=== PATIENT | female | born 1940 | race Caucasian/White ===

== ENCOUNTER 2017-09-20 13:47 | Emergency (ER) | payer MEDICARE, OTHER, SELFPAY ==
[2017-09-20 13:49] VITALS: BP 175/135; PULSE 7; RESP 19; TEMP 37.2; O2SAT 96; BMI 18.3
[2017-09-20 13:52] VITALS: BP 212/120; PULSE 95; RESP 22
--- NOTE | 2017-09-20 14:18 | CT_ITS ---
STUDY: CT BRAIN WITHOUT CONTRAST REASON FOR EXAM: Female, 76 years old. Headaches. History of multiple falls. RADIATION DOSAGE (If Supplied By Facility): CTDIvol = ( 60.81 ) mGy, DLP = ( 1021.47 ) mGycm TECHNIQUE: Transaxial CT imaging of the brain was performed without administration of intravenous contrast material. Individualized dose optimization techniques were used for this CT. COMPARISON: Comparison is made with prior study dated July 11, 2017. FINDINGS: Normal soft tissue structures. Normal calvarium. There is mild cerebral atrophy with widening of the extra-axial spaces and ventricular dilatation. There are areas of decreased attenuation within the white matter tracts of the supratentorial brain, consistent with microvascular disease changes. Normal basal ganglia and thalami. Normal brainstem. Normal cerebellum. There is no intracranial hemorrhage. There are no findings of an acute ischemic infarction. Atherosclerotic calcification of the cavernous portions of the internal carotid arteries. Opacification of the left sphenoid sinus. This is chronic. CT/Brain/Head without Contrast IMPRESSION: Chronic involutional changes of the brain. Opacification of the left sphenoid sinus. Electronically Signed: Trav Ko MD at 15:09 EST Tel [phone], Service support ,
--- NOTE | 2017-09-20 14:19 | CT_ITS ---
STUDY: CT CERVICAL SPINE WITHOUT CONTRAST REASON FOR EXAM: Female, 76 years old. Headaches. Multiple falls. RADIATION DOSAGE (If Supplied By Facility): CTDIvol = ( 17.091 ) mGy, DLP = ( 303.19 ) mGycm TECHNIQUE: High resolution transaxial imaging was performed without contrast material. Sagittal and coronal images were reconstructed. Individualized dose optimization techniques were used for this CT. COMPARISON: Comparison is made with prior study dated July 11, 2017. FINDINGS: Normal craniovertebral junction. There are degenerative changes of the anterior atlantoaxial articulation. Normal odontoid process. Calcification of the posterior longitudinal ligament. Normal cervical lordosis. Normal vertebral bodies and posterior osseous elements. C2-3: Normal endplates. Normal disc height and morphology. Normal central canal and intervertebral neuroforamina. C3-4: Normal endplates. Normal disc height and morphology. Normal central canal and intervertebral neuroforamina. C4-5: Moderate degree of disc space narrowing. Posterior and anterior spondylosis. Uncovertebral arthrosis. Facet joint hypertrophy. Stable mild degree of bilateral neural foraminal stenosis. This is worse on the left side. C5-6: Marked degree of disc space narrowing. Facet joint osteoarthritis and hypertrophy. Uncovertebral arthrosis. Bilateral neural foraminal stenosis. C6-7: Mild degree of disc space narrowing. Facet joint osteoarthritis and hypertrophy. Mild degree of bilateral neural foraminal stenosis. Normal visualized soft tissue structures. CT/Spine Cervical without Contras IMPRESSION: Multilevel degenerative changes, as described above. Electronically Signed: Trav Ko MD at 15:15 EST Tel [phone], Service support ,
[2017-09-20] MEDS: 0.9% Normal Saline 1,000 ML 150 ML IV (14:51)
[2017-09-20] MEDS: Ondansetron 4 MG/2 ML Vial IV (14:51)
[2017-09-20 14:58] VITALS: BP 182/89; PULSE 94; RESP 14; O2SAT 95
[2017-09-20 15:08] LABS: Absolute Lymphocyte Count 1.07 X10^3/ul (0.83-4.51); Absolute Neutrophil Count 8.8 X10^3/uL (2.0-7.7); Basophil# 0.03 X10^3/uL; Basophil% 0.3 % (0-1); Eosinophil# 0.07 X10^3/uL; Eosinophils% 0.6 % (0-5); Hematocrit 41.6 % (37-47); Hemoglobin 13.3 g/dl (12.0-15.0); Lymphocyte # 1.07 X10^3/ul (4.0); Lymphocyte % 9.7 % (19-41); Mean Corpuscular Volume 90.8 fL (81-99); Mean Platelet Vol. 10.3 fl (6.2-12.0); Monocyte# 0.92 X10^3/uL; Monocyte% 8.3 % (0-10); Neutrophil # 8.84 X10^3/uL (2.7-7.7); Neutrophil % 80.3 % (47-70); POSITIVE COUNT NO; POSITIVE DIFFERENTIAL NO; POSITIVE MORPHOLOGY NO; Platelet Count 141 K/mm3 (150-450); RBC Distribution Width CV 15.1 % (11.6-14.6); RBC Distribution Width SD 50.2 fl (35.1-43.9); Red Blood Count 4.58 M/mm3 (4.2-5.4)
[2017-09-20 15:22] LABS: Anion Gap 9 (5-15); BUN 18 mg/dL (7-18); BUN/Creat Ratio 28.5 RATIO (10-20); Calcium,Total 9.2 mg/dL (8.5-10.1); Chloride 107 mmol/L (98-107); Creatinine, Serum 0.63 mg/dL (0.55-1.02); EST Glomerular Filtration Rate 98 mL/min (>60); Est Glom Filt Rate - Afr Amer 118 mL/min (>60); Estimated Creatinine Clearance 34.81 ml/min; Glucose 90 mg/dL (70-110); Potassium 3.4 mmol/L (3.5-5.1); Sodium Level 142 mmol/L (136-145)
[2017-09-20 15:53] VITALS: BP 173/103; PULSE 101; RESP 24; O2SAT 96
[2017-09-20 16:10] VITALS: BP 163/109; PULSE 103; RESP 22; O2SAT 96
[2017-09-20 17:10] VITALS: BP 171/104; PULSE 104; RESP 25; O2SAT 93
--- NOTE | 2017-09-20 17:14 | ED.DCSUM_ITS ---
- ER Visit Summary Date of Service: 09/20/17 Chief Complaint: Headache History of Present Illness: The patient is a [address] Linn. She reports that she has a headache that began yesterday. It is gradually gotten worse. It is a throbbing pain is 10 out of 10 severity. Is worsened by light and relieved by nothing. She has had nausea without vomiting. She denies any fever. She does report that she has a little bit of sore throat. Patient fell 2 days ago and hit the bed. She fell yesterday and hit her head in the bathroom. She did not have a loss of consciousness. She is not on blood thinners. She does complain of neck pain is 3 out of 10 severity. She denies any shoulder, wrist, or hip pain. Physical Examination: Vitals: Stable. Afebrile. General: Well-nourished and well-developed. Head: Normocephalic atraumatic. Neck: Supple, no lymphadenopathy. No JVD. Mild diffuse tenderness to palpation. Cardiovascular: Regular rate and rhythm. No murmurs. Respiratory: No respiratory distress. Clear to auscultation bilaterally. Abdominal: Soft, nontender, nondistended, normal bowel sounds. No guarding, rebound, or peritoneal signs. Back: Nontender. Extremities: Nontender, no edema. Skin: Multiple contusions scattered over extremities bilaterally that are in different stages of healing, no rash. Neurologic: Alert and oriented ?3. Cranial nerves II through XII are intact. Normal strength and sensation. Psych: Normal affect. Test Results: CT head shows chronic involutional changes. CT C-spine shows degenerative changes. CBC is remarkable for platelets 141, segmented neutrophils of 80, lymphocytes of 10. Potassium is marked for potassium 3.4. Emergency Department Course and Treatment: She was treated with morphine and Zofran IV. She continues to complain of a severe headache. At 430 I discussed the patient the need for a lumbar puncture. She is alert and oriented ?3 and refuses this. I had case management see the patient. They were able to get her to agree to the LP. When I went back again and talk with her about doing the procedure she again refused. Treatment Plan: The patient wants to go home and has pulled out her IV. Again she is alert and oriented ?3. I discussed her with Dr. Sanders who states that he will see her Saturday morning at 9 AM. I discussed her behavior with her daughter who reports that this is not unusual behavior for her. She and her sister have obtained power of ip technology transactions attorney, but have not been able to make arrangements for her to stay at an assisted living due to financial issues. They report that they got a neighbor to stay with her and she kicked her out. She also reports the patient had back surgery in 2017 and at that time she had to be restrained while she was in the hospital. At this time I suspect the patient is at her baseline mental status vora. I cannot justify restraining her and admitting her to the hospital. Her daughter reports that she will follow up with her this weekend. I did discuss with daughter that it is just a matter of time until the patient falls and injured herself to the point where she is no longer capable of staying at home and she reports that she realizes this. The patient will be signed out AGAINST MEDICAL ADVICE. Disposition: Left AMA. Impression: 1. Cephalgia. 2. Repeated falls. 3. Generalized weakness. This note was generated with [employer] dictation software. It may contain incorrect words, spelling, and punctuation that were not noted in review of the chart prior to signing ED Disposition - Plan for ED Patient: Chief Complaint: Headache Instructions: ED Cephalgia Unspecified Referrals: Anton Linn Chi, MD [Primary Care Provider] - 09/23/17 9:00 am
[2017-09-20 17:16] LABS: Bacteria 0 SEEN /hpf (None Seen); Mucous, Urine 0 SEEN /hpf (<or=2+); Squamous Epithelial Cells - UA 0 SEEN /hpf (5-10); White Blood Cells 0 SEEN /hpf (0-5)
--- NOTE | 2017-09-20 17:18 | NURSING ---
FACILITY ENGINEER FOR PATIENT
[2017-09-20 17:20] LABS: Color, Urine Yellow (Yellow); Glucose, Dipstick Normal (Normal); Ketone-Dipstick 50 mg/dl (Negative); Leukocyte Esterase-Dipstick Negative /ul (Negative); Nitrite-Dipstick Negative (Negative); Occult Blood-Urine 10 /ul (Negative); Protein-Dipstick 15 mg/dl (Negative); Specific Gravity, Urine 1.025 (1.002-1.030); Urine Bilirubin Dipstick Negative (Negative); Urine Clarity Clear (Clear); Urine Urobilinogen Normal (Normal)
[2017-09-20 17:33] LABS: Red Blood Cells-Urine 0-5 SEEN /hpf (0-5)
--- NOTE | 2017-09-20 17:36 | CASEMGMT ---
Addendum entered by Rochelle Dudley 09/23/17 15:54: F/u call placed to Clarita Amador of [facility]; message left advising pt did sign out AMA on 09/20/17 but returned to the ED on 09/22/17 and was admitted. Contact information for ANGELICA Rosado, DRESSMAKER HELPER left in this message as this is the worker following pt's case now that she has been admitted. Discussed with ANGELICA Rosado, LIS, as well. Original Note: Addendum entered by Rochelle Dudley 09/20/17 17:54: Spoke with Dr. Lamb, who advised pt is again refusing the LP. Discussed contacting pt's PCP and her dgtr for additional information/direction. Message left for Clarita Amador, APS worker, re: concerns. Dr. Lamb notified of same. Original Note: Referral received from Dr. Lamb, who requested this worker please speak with pt re: compliance with ED evaluation and treatment. Pt presented with c/o headache and Dr. Lamb recommended an LP, which pt had refused. Met with pt, whose friend Dwayne was at the bedside. Pt has lived alone since the of her nine years ago. She has a dgtr who lives in [place] but they do not have regular contact. Dwayne stated that he visits pt every day but leaves at 9pm and she is alone all night. Per Dwayne pt has had four falls within the last week. Pt has an emergency response button but does not wear it consistently. She has a history of home health therapy following back surgery at the [facility] in November, but has had not in-home services since sometime before 2016. Pt has a neighbor who assists with homemaking and some meal preparation. She told this worker that she wished to go home with no further testing, stating, I just want to lie down on the couch and hope this headache does away. Discussed with pt that identifying the cause of her headache would assist significantly in staff's ability to alleviate her discomfort. Pt said she would be agreeable to having the LP completed in the ED, but would not agree to stay in the hospital regardless of the results. Asked pt who normally assists her in making her medical decisions and she responded that Dr. Linn does, but when asked if she would stay here should ED staff consult Dr. Linn and he agrees she should remain in the hospital she said she would still go home. Pt stated there is nothing anyone can say that will make her change her mind about going home tonight. Discussed with Dr. Lamb and explained pt had voiced willingness to have the LP completed. At present dispo is TBD.
--- NOTE | 2017-09-20 17:58 | NURSING ---
NO LW OR POA
--- NOTE | 2017-09-20 18:23 | ED.RN ---
ATTEMPTED TO CALL PT AT HOME BUSY SIGNAL, NOT ABLE TO LEAVE A MESSAGE THAT SHE LEFT HER PURSE HERE
== END 2017-09-20 18:20 | disposition home or self-care (01) ==
PROVIDERS: Emergency Provider Emergency Medicine; Family Provider Family Medicine Geriatric Medicine; PCP Family Medicine Geriatric Medicine
DX: R51 Headache (principal); R29.6 Repeated falls; R53.1 Weakness; R11.0 Nausea; I10 Essential (primary) hypertension; Z72.0 Tobacco use; Z79.899 Other long term (current) drug therapy
CPT/HCPCS: 70450; 72125; 80048; 81001; 85025; 96361; 96374; 96375; 99285; J7040; P9612; A4216; J2405

== ENCOUNTER 2017-09-22 11:34 | Inpatient (IN) | payer MEDICARE, SELFPAY, OTHER ==
[2017-09-22] VITALS (9 sets, daily range): BP systolic 101–169; BP diastolic 70–103; PULSE 80–111; RESP 16–28; TEMP 36.6–37.1; O2SAT 93–100; BMI 19.5; BMI 17.2
--- NOTE | 2017-09-22 12:19 | CT_ITS ---
STUDY: CT BRAIN WITHOUT CONTRAST REASON FOR EXAM: Female, 76 years old. Head injury RADIATION DOSAGE (If Supplied By Facility): CTDIvol = ( 44.99 ) mGy, DLP = ( 745.49 ) mGycm TECHNIQUE: Transaxial CT imaging of the brain was performed without administration of intravenous contrast material. Individualized dose optimization techniques were used for this CT. COMPARISON: September 20, 2017 FINDINGS: The soft tissues are unremarkable. The osseous structures are unremarkable. There is mild cerebral atrophy with widening of the extra-axial spaces and ventricular dilatation. There are scattered small areas of decreased attenuation within the white matter tracts of the supratentorial brain, likely microvascular changes. The basal ganglia and thalami are unremarkable. No abnormalities are seen in the brainstem. The cerebellum is unremarkable. There is no intracranial hemorrhage. There are no findings of acute ischemia. There is near complete opacification of the left sphenoid sinus. CT/Brain/Head without Contrast IMPRESSION: No acute intracranial abnormalities or changes. There are stable chronic white matter findings. There is persistent left sphenoid sinusitis. Electronically Signed: Haven Newby MD at 13:17 EST Tel Direct: [phone], Service support ,
--- NOTE | 2017-09-22 12:20 | EKG12_ITS ---
Test Reason : FALL Blood Pressure : / mmHG Vent. Rate : 092 BPM Atrial Rate : 092 BPM P-R Int : 146 ms QRS Dur : 084 ms QT Int : 324 ms P-R-T Axes : 065 -40 014 degrees QTc Int : 400 ms Normal sinus rhythm Left axis deviation Inferior infarct , age undetermined Abnormal ECG Confirmed by JOCELYNN VASQUEZ, IBETH ([id number]), magazine editor DANIEL BARRIENTOS ([id number]) on 09/24/2017 10:46:41 AM Referred By: KWAKU Confirmed By:IBETH CABEZAS MD
--- NOTE | 2017-09-22 12:21 | RAD_ITS ---
STUDY: X-RAY CHEST REASON FOR EXAM: Female, 76 years old. Injury and pain TECHNIQUE: Frontal and lateral views of the chest were obtained. COMPARISON: May 12, 2017 FINDINGS: The lungs are adequately aerated. There are no focal airspace opacities. There is no demonstrated pleural abnormality. The cardiac silhouette is normal in size. The mediastinum and hilar regions are unremarkable. Normal visualized pulmonary arteries. There is atherosclerotic calcification of the thoracic aorta. There are diffuse degenerative changes of the visualized spine. Compression fractures are again seen in the mid thoracic spine and upper lumbar spine. There are degenerative changes in both shoulders. There is no demonstrated abnormality of the visualized upper abdomen. RAD/Chest PA and Lateral IMPRESSION: No acute abnormalities are seen. Electronically Signed: Haven Newby MD at 13:20 EST Tel Direct: [phone], Service support ,
[2017-09-22 12:39] LABS: Absolute Lymphocyte Count 0.86 X10^3/ul (0.83-4.51); Absolute Neutrophil Count 8.3 X10^3/uL (2.0-7.7); Basophil# 0.05 X10^3/uL; Basophil% 0.5 % (0-1); Eosinophil# 0.04 X10^3/uL; Eosinophils% 0.4 % (0-5); Hematocrit 38.6 % (37-47); Lymphocyte # 0.86 X10^3/ul (4.0); Lymphocyte % 8.2 % (19-41); Mean Corp Hgb Conc 33.7 g/gl (32-36); Mean Corpuscular Volume 88.9 fL (81-99); Mean Platelet Vol. 10.2 fl (6.2-12.0); Monocyte# 1.15 X10^3/uL; Neutrophil # 8.31 X10^3/uL (2.7-7.7); Neutrophil % 79.1 % (47-70); POSITIVE COUNT NO; POSITIVE DIFFERENTIAL NO; POSITIVE MORPHOLOGY NO; Platelet Count 150 K/mm3 (150-450); RBC Distribution Width SD 47.9 fl (35.1-43.9); Red Blood Count 4.34 M/mm3 (4.2-5.4); White Blood Count 10.5 K/mm3 (4.4-11.0)
[2017-09-22 12:59] LABS: ALB/GLOB Ratio 1.1 RATIO (0.9-2.4); AST(SGOT) 72 U/L (15-37); Alanine Aminotransfer ALT/SGPT 138 U/L (12-78); Albumin, Serum 3.4 g/dL (3.4-5.0); Alkaline Phosphatase 137 U/L (45-117); Anion Gap 8 (5-15); BUN 10 mg/dL (7-18); BUN/Creat Ratio 16.5 RATIO (10-20); Calcium,Total 9.2 mg/dL (8.5-10.1); Chloride 104 mmol/L (98-107); EST Glomerular Filtration Rate 102 mL/min (>60); Est Glom Filt Rate - Afr Amer 124 mL/min (>60); Estimated Creatinine Clearance 34.81 ml/min; Globulin 3.2 g/dL (2.2-4.2); Glucose 93 mg/dL (70-110); Lipase 74 U/L (73-393); Potassium 3.1 mmol/L (3.5-5.1); Protein, Total 6.6 g/dL (6.4-8.2); Sodium Level 140 mmol/L (136-145)
[2017-09-22 13:14] LABS: Bacteria 0 SEEN /hpf (None Seen); Mucous, Urine 0 SEEN /hpf (<or=2+)
[2017-09-22 13:17] LABS: Color, Urine Yellow (Yellow); Glucose, Dipstick Normal (Normal); Ketone-Dipstick 15 mg/dl (Negative); Leukocyte Esterase-Dipstick 25 /ul (Negative); Nitrite-Dipstick Negative (Negative); Occult Blood-Urine 10 /ul (Negative); Protein-Dipstick 30 mg/dl (Negative); Specific Gravity, Urine 1.015 (1.002-1.030); Urine Bilirubin Dipstick Negative (Negative); Urine Clarity Clear (Clear); Urine Urobilinogen Normal (Normal)
[2017-09-22 13:21] LABS: Alcohol, Blood (Medical)-Serum < 3.0 mg/dL
[2017-09-22 13:23] LABS: Red Blood Cells-Urine 0-5 SEEN /hpf (0-5); Renal Epithelial Cells 0-5 SEEN /hpf (0-5); Squamous Epithelial Cells - UA 0-5 SEEN /hpf (5-10); White Blood Cells 0-5 SEEN /hpf (0-5)
[2017-09-22 13:37] LABS: Amphetamine Urine VISTA NEGATIVE (<1000 ng/mL); Barbiturate Urine VISTA NEGATIVE (< 200 ng/mL); Benzodiazepine Urine VISTA POSITIVE (< 200 ng/mL); Cocaine Urine VISTA NEGATIVE (< 300 ng/mL); Ecstacy Urine VISTA NEGATIVE (< 500 ng/mL); Methadone Urine VISTA NEGATIVE (< 300 ng/mL); PCP Urine VISTA NEGATIVE (< 25 ng/mL); THC Urine VISTA NEGATIVE (< 50 ng/mL); Vista UDS pH Range 6
--- NOTE | 2017-09-22 14:43 | PCM.HP.STD ---
Problem List (1) Failure to thrive Status: Acute (2) Hypertension Status: Chronic (3) Depression Status: Chronic History of Present Illness Date of Admission: 09/22/17 Chief Complaint: falls The patient is a 76 year old Fwho has been falling for years. The falls have been much more frequent over the past few days. The family was concerned and brought the patient into the ED to be placed. Pt does not elaborate on why she is falling and jokes the floor comes towards her face when I inquire. Family reports that the patient has hit her head several times with falls over the years. [] Past Medical History Past Medical History (Chronic Problems): Chronic Problems Hypertension (Chronic) Depression (Chronic) Allergies No Known Allergies Allergy (Verified 09/22/17 11:40) Home Medications: Ambulatory Orders Medication Instructions Recorded Levothyroxine [Synthroid] 88 mcg PO DAILY 02/11/14 Hydrochlorothiazide [Hctz] 25 mg PO DAILY 12/03/14 Potassium Chloride [K-Dur] 20 meq PO TID 08/10/15 Paroxetine HCl [Paxil] 40 mg PO DAILY 01/09/17 Garlic 07/11/17 Cephalexin [Cephalexin] 1 tab PO TID 09/22/17 Diazepam [Valium] 1 tab PO TID 09/22/17 Linaclotide [Linzess] 1 tab PO DAILY 09/22/17 Mirtazapine [Mirtazapine] 1 tab PO QHS 09/22/17 Surgical History: cholecystectomy, - - back surgery at [facility] in November 2016. Psychiatric History: Depression DIRECTOR OF MATERIALS MANAGEMENT History: No pertinent DIRECTOR OF MATERIALS MANAGEMENT history Lives: Alone Tobacco Use: Non-smoker Alcohol: None Drugs: None - *Family History Maternal History Items: - - no stroke. Review of Systems Constitutional: Denies: Chills, Fever, Weight Change Eyes: Denies: Blurred vision, Double vision HEENT: Denies: Head Aches, Sinus Congestion, Sinus Drainage Cardiovascular: Denies: Chest Pain, Palpitations Respiratory: Denies: Cough, Shortness of breath at rest, Sputum production Gastrointestinal: Denies: Abdominal Pain, Nausea, Vomiting Genitourinary: Denies: Dysuria Musculoskeletal: Denies: Joint Pain, Joint Tenderness Skin: Reports: - - brusing skin tear Neurological: Reports: Balance problems. Denies: Blurred vision, Double vision Psychiatric: Reports: Depression. Denies: Anxiety Hematologic/ Lymphatic: Denies: Easy Bruising, Easy Bleeding, Hx of blood clot VTE Information - Inpt Only VTE Present on Admission: No VTE Mechan Device Prophylaxis: SCD's VTE Pharm Prophylaxis ordered?: No Reason prophylaxis not ordered:: Medical Contraindication Patient Problems: Active and Suspected Problems Failure to thrive (Acute) - Physical Exam General: Alert, - - oriented x2. HEENT: Atraumatic, PERRLA, EOMI, Normocephalic Oral: Moist Mucosa, No Gingival or Mucosal Lesions/ Ulcerations Neck: No Nodes, Thyroid Normal Size and Texture Lungs: Clear to auscultation, Normal air movement, No rhonchi, No wheeze Cardiovascular: Regular rate, Regular Rhythm, Normal S1, Normal S2, No murmurs Abdomen: Bowel Sounds Present, Soft, Non Tender, Non-Distended, No Hepato-splenomegaly Extremities: No clubbing, No edema Skin: No rashes, - - bruinng on upper and lower extremities. Left upper wrapped in gauze, did not remove. Musculoskeletal: No Tenderness to Palpation of Joints or Extremities, Cachexia, Muscle Wasting Neurological: Cranial nerves II-XII grossly intact, Motor Exam 5/5 strength throughout Psych/Mental Status: Normal Affect, Appropriate Vital Signs Temp Pulse Resp BP Pulse Ox 37.1 C 96 28 H 169/91 H 93 09/22/17 11:35 09/22/17 13:59 09/22/17 13:59 09/22/17 13:59 09/22/17 11:35 Oxygen Delivery Method Room Air Weight: 45.359 kg Body Mass Index (BMI) 19.5 Laboratory Tests Past 24 Hrs 09/22/17 09/22/17 09/22/17 12:30 12:30 12:30 WBC 10.5 RBC 4.34 Hgb 13.0 Hct 38.6 MCV 88.9 MCH 30.0 MCHC 33.7 RDW 15.0 H RDW Differential 47.9 H Plt Count 150 MPV 10.2 Immature Gran % (Auto) 0.800 Neut % (Auto) 79.1 H Lymph % (Auto) 8.2 L Riley % (Auto) 11.0 H Eos % (Auto) 0.4 Baso % (Auto) 0.5 Absolute Neuts (auto) 8.3 H Absolute Lymphs (auto) 0.86 Total Counted Not Reportable Sodium 140 Potassium 3.1 L Chloride 104 Carbon Dioxide 28.0 Anion Gap 8 BUN 10 Creatinine 0.60 Estim Creat Clear Calc 34.81 Est GFR (MDRD) Af Amer 124 Est GFR (MDRD) Non-Af 102 BUN/Creatinine Ratio 16.5 Glucose 93 Calcium 9.2 Total Bilirubin 0.60 AST 72 H ALT 138 H Alkaline Phosphatase 137 H Troponin I < 0.02 Total Protein 6.6 Albumin 3.4 Globulin 3.2 Albumin/Globulin Ratio 1.1 Lipase 74 Urine Color Urine Clarity Urine pH Ur Specific [place] Urine Protein Urine Glucose (UA) Urine Ketones Urine Occult Blood Urine Nitrite Urine Bilirubin Urine Urobilinogen Ur Leukocyte Esterase Urine RBC Urine WBC Ur Squamous Epith Cells Ur Renal Epithelial Cell Urine Bacteria Urine Mucus Urine Opiates Screen Urine Methadone Screen Ur Barbiturates Screen Ur Phencyclidine Scrn Ur Amphetamines Screen U Methamphetamin-MDMA U Benzodiazepines Scrn Urine Cocaine Screen U Cannabinoids Screen Ur Drug Screen Comment Ethyl Alcohol < 3.0 09/22/17 09/22/17 13:05 13:05 WBC RBC Hgb Hct MCV MCH MCHC RDW RDW Differential Plt Count MPV Immature Gran % (Auto) Neut % (Auto) Lymph % (Auto) Riley % (Auto) Eos % (Auto) Baso % (Auto) Absolute Neuts (auto) Absolute Lymphs (auto) Total Counted Sodium Potassium Chloride Carbon Dioxide Anion Gap BUN Creatinine Estim Creat Clear Calc Est GFR (MDRD) Af Amer Est GFR (MDRD) Non-Af BUN/Creatinine Ratio Glucose Calcium Total Bilirubin AST ALT Alkaline Phosphatase Troponin I Total Protein Albumin Globulin Albumin/Globulin Ratio Lipase Urine Color Yellow Urine Clarity Clear Urine pH 6.0 Ur Specific [place] 1.015 Urine Protein 30 H Urine Glucose (UA) Normal Urine Ketones 15 H Urine Occult Blood 10 H Urine Nitrite Negative Urine Bilirubin Negative Urine Urobilinogen Normal Ur Leukocyte Esterase 25 H Urine RBC 0-5 SEEN Urine WBC 0-5 SEEN Ur Squamous Epith Cells 0-5 SEEN Ur Renal Epithelial Cell 0-5 SEEN Urine Bacteria 0 SEEN Urine Mucus 0 SEEN Urine Opiates Screen NEGATIVE Urine Methadone Screen NEGATIVE Ur Barbiturates Screen NEGATIVE Ur Phencyclidine Scrn NEGATIVE Ur Amphetamines Screen NEGATIVE U Methamphetamin-MDMA NEGATIVE U Benzodiazepines Scrn POSITIVE H Urine Cocaine Screen NEGATIVE U Cannabinoids Screen NEGATIVE Ur Drug Screen Comment Ethyl Alcohol Clinical Impression(s) from Imaging Studies Brain CT 09/22/17 12:19 IMPRESSION: No acute intracranial abnormalities or changes. There are stable chronic white matter findings. There is persistent left sphenoid sinusitis. Electronically Signed: Haven Newby MD at 13:17 EST Tel Direct: [phone], Service support , Chest X-Ray 09/22/17 12:21 IMPRESSION: No acute abnormalities are seen. Electronically Signed: Haven Newby MD at 13:20 EST Tel Direct: [phone], Service support , Assessment/Plan Active and Suspected Problems Failure to thrive (Acute) 1. Failure to thrive pt has been falling for years, now very frequent. unable to adequately care for herself pt agreeable to being admitted and seen by PT/OT and SNF placement I advised family, who brought her in, that the patient will brought in under obs status, which may an issue for reimbursement. Case mgmt to assist check B12, folate, 25OH-d 2. Depression/anxiety continue SSRI Wean benzo to off. Risk >>> benefits On diazepam 5mg TID. Will start wean at BID PRN for 1 week, then daily PRN for 1 week, then every other day x3 PRN, then off 3. Cachexia: nutrition 4. DVT proph given the patient's extensive bruising, will use SSRI Code Visit OBSV E&M: [id number] Initial observation care L3
--- NOTE | 2017-09-22 14:54 | HP.PCM_ITS ---
Problem List (1) Failure to thrive Status: Acute (2) Hypertension Status: Chronic (3) Depression Status: Chronic History of Present Illness Date of Admission: 09/22/17 Chief Complaint: falls The patient is a 76 year old Fwho has been falling for years. The falls have been much more frequent over the past few days. The family was concerned and brought the patient into the ED to be placed. Pt does not elaborate on why she is falling and jokes the floor comes towards her face when I inquire. Family reports that the patient has hit her head several times with falls over the years. [] Past Medical History Past Medical History (Chronic Problems): Chronic Problems Hypertension (Chronic) Depression (Chronic) Allergies No Known Allergies Allergy (Verified 09/22/17 11:40) Home Medications: Ambulatory Orders Medication Instructions Recorded Levothyroxine [Synthroid] 88 mcg PO DAILY 02/11/14 Hydrochlorothiazide [Hctz] 25 mg PO DAILY 12/03/14 Potassium Chloride [K-Dur] 20 meq PO TID 08/10/15 Paroxetine HCl [Paxil] 40 mg PO DAILY 01/09/17 Garlic 07/11/17 Cephalexin [Cephalexin] 1 tab PO TID 09/22/17 Diazepam [Valium] 1 tab PO TID 09/22/17 Linaclotide [Linzess] 1 tab PO DAILY 09/22/17 Mirtazapine [Mirtazapine] 1 tab PO QHS 09/22/17 Surgical History: cholecystectomy, - - back surgery at [facility] in November 2016. Psychiatric History: Depression NURSERYPERSON History: No pertinent NURSERYPERSON history Lives: Alone Tobacco Use: Non-smoker Alcohol: None Drugs: None - *Family History Maternal History Items: - - no stroke. Review of Systems Constitutional: Denies: Chills, Fever, Weight Change Eyes: Denies: Blurred vision, Double vision HEENT: Denies: Head Aches, Sinus Congestion, Sinus Drainage Cardiovascular: Denies: Chest Pain, Palpitations Respiratory: Denies: Cough, Shortness of breath at rest, Sputum production Gastrointestinal: Denies: Abdominal Pain, Nausea, Vomiting Genitourinary: Denies: Dysuria Musculoskeletal: Denies: Joint Pain, Joint Tenderness Skin: Reports: - - brusing skin tear Neurological: Reports: Balance problems. Denies: Blurred vision, Double vision Psychiatric: Reports: Depression. Denies: Anxiety Hematologic/ Lymphatic: Denies: Easy Bruising, Easy Bleeding, Hx of blood clot VTE Information - Inpt Only VTE Present on Admission: No VTE Mechan Device Prophylaxis: SCD's VTE Pharm Prophylaxis ordered?: No Reason prophylaxis not ordered:: Medical Contraindication Patient Problems: Active and Suspected Problems Failure to thrive (Acute) - Physical Exam General: Alert, - - oriented x2. HEENT: Atraumatic, PERRLA, EOMI, Normocephalic Oral: Moist Mucosa, No Gingival or Mucosal Lesions/ Ulcerations Neck: No Nodes, Thyroid Normal Size and Texture Lungs: Clear to auscultation, Normal air movement, No rhonchi, No wheeze Cardiovascular: Regular rate, Regular Rhythm, Normal S1, Normal S2, No murmurs Abdomen: Bowel Sounds Present, Soft, Non Tender, Non-Distended, No Hepato- splenomegaly Extremities: No clubbing, No edema Skin: No rashes, - - bruinng on upper and lower extremities. Left upper wrapped in gauze, did not remove. Musculoskeletal: No Tenderness to Palpation of Joints or Extremities, Cachexia, Muscle Wasting Neurological: Cranial nerves II-XII grossly intact, Motor Exam 5/5 strength throughout Psych/Mental Status: Normal Affect, Appropriate Vital Signs Temp Pulse Resp BP Pulse Ox 37.1 C 96 28 H 169/91 H 93 09/22/17 11:35 09/22/17 13:59 09/22/17 13:59 09/22/17 13:59 09/22/17 11:35 Oxygen Delivery Method Room Air Weight: 45.359 kg Body Mass Index (BMI) 19.5 Laboratory Tests Past 24 Hrs 09/22/17 09/22/17 09/22/17 12:30 12:30 12:30 WBC 10.5 RBC 4.34 Hgb 13.0 Hct 38.6 MCV 88.9 MCH 30.0 MCHC 33.7 RDW 15.0 H RDW Differential 47.9 H Plt Count 150 MPV 10.2 Immature Gran % (Auto) 0.800 Neut % (Auto) 79.1 H Lymph % (Auto) 8.2 L [place] % (Auto) 11.0 H Eos % (Auto) 0.4 Baso % (Auto) 0.5 Absolute Neuts (auto) 8.3 H Absolute Lymphs (auto) 0.86 Total Counted Not Reportable Sodium 140 Potassium 3.1 L Chloride 104 Carbon Dioxide 28.0 Anion Gap 8 BUN 10 Creatinine 0.60 Estim Creat Clear Calc 34.81 Est GFR (MDRD) Af Amer 124 Est GFR (MDRD) Non-Af 102 BUN/Creatinine Ratio 16.5 Glucose 93 Calcium 9.2 Total Bilirubin 0.60 AST 72 H ALT 138 H Alkaline Phosphatase 137 H Troponin I < 0.02 Total Protein 6.6 Albumin 3.4 Globulin 3.2 Albumin/Globulin Ratio 1.1 Lipase 74 Urine Color Urine Clarity Urine pH Ur Specific [place] Urine Protein Urine Glucose (UA) Urine Ketones Urine Occult Blood Urine Nitrite Urine Bilirubin Urine Urobilinogen Ur Leukocyte Esterase Urine RBC Urine WBC Ur Squamous Epith Cells Ur Renal Epithelial Cell Urine Bacteria Urine Mucus Urine Opiates Screen Urine Methadone Screen Ur Barbiturates Screen Ur Phencyclidine Scrn Ur Amphetamines Screen U Methamphetamin-MDMA U Benzodiazepines Scrn Urine Cocaine Screen U Cannabinoids Screen Ur Drug Screen Comment Ethyl Alcohol < 3.0 09/22/17 09/22/17 13:05 13:05 WBC RBC Hgb Hct MCV MCH MCHC RDW RDW Differential Plt Count MPV Immature Gran % (Auto) Neut % (Auto) Lymph % (Auto) [place] % (Auto) Eos % (Auto) Baso % (Auto) Absolute Neuts (auto) Absolute Lymphs (auto) Total Counted Sodium Potassium Chloride Carbon Dioxide Anion Gap BUN Creatinine Estim Creat Clear Calc Est GFR (MDRD) Af Amer Est GFR (MDRD) Non-Af BUN/Creatinine Ratio Glucose Calcium Total Bilirubin AST ALT Alkaline Phosphatase Troponin I Total Protein Albumin Globulin Albumin/Globulin Ratio Lipase Urine Color Yellow Urine Clarity Clear Urine pH 6.0 Ur Specific [place] 1.015 Urine Protein 30 H Urine Glucose (UA) Normal Urine Ketones 15 H Urine Occult Blood 10 H Urine Nitrite Negative Urine Bilirubin Negative Urine Urobilinogen Normal Ur Leukocyte Esterase 25 H Urine RBC 0-5 SEEN Urine WBC 0-5 SEEN Ur Squamous Epith Cells 0-5 SEEN Ur Renal Epithelial Cell 0-5 SEEN Urine Bacteria 0 SEEN Urine Mucus 0 SEEN Urine Opiates Screen NEGATIVE Urine Methadone Screen NEGATIVE Ur Barbiturates Screen NEGATIVE Ur Phencyclidine Scrn NEGATIVE Ur Amphetamines Screen NEGATIVE U Methamphetamin-MDMA NEGATIVE U Benzodiazepines Scrn POSITIVE H Urine Cocaine Screen NEGATIVE U Cannabinoids Screen NEGATIVE Ur Drug Screen Comment Ethyl Alcohol Clinical Impression(s) from Imaging Studies Brain CT 09/22/17 12:19 IMPRESSION: No acute intracranial abnormalities or changes. There are stable chronic white matter findings. There is persistent left sphenoid sinusitis. Electronically Signed: Haven eNwby MD at 13:17 EST Tel Direct: [phone], Service support , Chest X-Ray 09/22/17 12:21 IMPRESSION: No acute abnormalities are seen. Electronically Signed: Haven Newby MD at 13:20 EST Tel Direct: [phone], Service support , Assessment/Plan Active and Suspected Problems Failure to thrive (Acute) 1. Failure to thrive pt has been falling for years, now very frequent. unable to adequately care for herself pt agreeable to being admitted and seen by PT/OT and SNF placement I advised family, who brought her in, that the patient will brought in under obs status, which may an issue for reimbursement. Case mgmt to assist check B12, folate, 25OH-d 2. Depression/anxiety continue SSRI Wean benzo to off. Risk >>> benefits On diazepam 5mg TID. Will start wean at BID PRN for 1 week, then daily PRN for 1 week, then every other day x3 PRN, then off 3. Cachexia: nutrition 4. DVT proph given the patient's extensive bruising, will use SSRI Code Visit OBSV E&M: 15672 Initial observation care L3
[2017-09-22 16:23] LABS: Thyroid Stim Hormone (TSH) 0.89 uIU/mL (0.358-3.74)
--- NOTE | 2017-09-22 16:25 | ED.VISSUMM ---
- ER Visit Summary Date of Service: 09/22/17 Chief Complaint: Falls History of Present Illness: The patient is a 76 F presents with her family after sustaining numerous falls over the past several days. She was seen in the emergency department 2 days ago and signed out AMA. She was taken home and her ride pretty much dropped her off. She then resumed falling. Patient states that she caused the large skin tear on her arm by sitting on the rug. She states that she does not fall. She tells me that sometimes she scoots up the stairs backwards on her bottom. Family notes are no stairs at home. Patient has extensive bruising of her legs and the family is concerned that she is eventually going to harm herself. They have noticed that her handwriting has gotten illegible. They states that a neighbor is helping her with her bills now. They are concerned that she is developing advanced dementia. Physical Examination: Afebrile vital signs are stable Gen: Well-nourished well-developed Head: Normocephalic atraumatic Eyes: Perrl EOMI ENT: TMs clear no rhinorrhea moist mucous membranes Neck: Supple no lymphadenopathy no JVD nontender CVS: Regular rate rhythm no murmurs normal S1-S2 Respiratory: No distress clear to auscultation bilaterally chest nontender Abdomen: Soft nontender nondistended normal bowel sounds no masses Back: Nontender Extremity: There is a large skin tear of the left anterior arm. There are extensive bruising of the lower extremities in the arms. Skin: Normal color no rash Neuro: alert CN II-XII intact normal strength sensation patient is disorientated. She tells me this Saturday in 2007. She remembers 1 out of 3 in the 3 items screener. An example of her clock is on the chart. Psych: Inappropriate affect Test Results: Basic labs are obtained. Repeat head CT was obtained as the family states she hit her head on Saturday. This was negative. Emergency Department Course and Treatment: Patient clearly is not safe to go home. I believe she most likely has dementia. I am not sure she will ever go back to living on her own. We will admit for rehab placement. Impression: 1. Altered mental status 2. Frequent falls 3. Failure to thrive 4. Skin tear left arm This note was generated with [employer].itation software. It may contain incorrect words, spelling, and punctuation that were not noted in review of the chart prior to signing ED Disposition - Plan for ED Patient: Disposition: Acute Care Hospital [facility] Chief Complaint: Fall
[2017-09-22] MEDS: diazePAM 5 MG Tablet PO (18:46)
[2017-09-22] MEDS: Mirtazapine 15 MG Tablet 7.5 MG PO (20:41)
[2017-09-22] MEDS: Cephalexin 500 MG Capsule PO (20:41)
[2017-09-22] MEDS: Polyethylene Glycol 3350 17 GM PACKET PO (20:43)
--- NOTE | 2017-09-22 23:30 | NURSING ---
Pt has been confused most of the night, she has been squirming all over the bed, pulling at her scd tubing, her dressings, and saline lock. Nurse will remind patient to not touch her dressings, etc., pt will say, okay and two minutes later, patient will be back to pulling on her gown dressings, tubings, etc. Pt did say her legs hurt, so nurse removed scds, and will check into some pain meds. Pt repositioned in bed. Nurse noted that when patient had recd the valium, her words were slurred and she could not put proper sentences together.
[2017-09-22] MEDS: 0.9% NaCl Peripheral Flush Adult/Peds IV (23:40)
[2017-09-23] MEDS: Meloxicam 7.5 MG Tablet PO (00:24)
[2017-09-23] MEDS: Haloperidol Lactate 5 MG/ML Vial 2 MG IM (00:25)
--- NOTE | 2017-09-23 01:05 | NURSING ---
Pt received 2mg of haldol and 7.5 mg of mobic. Pt currently sleeping and snoring now.
[2017-09-23 05:00] VITALS: BP 137/103; PULSE 95; RESP 18; TEMP 37.1; O2SAT 96
[2017-09-23 07:41] VITALS: BP 144/85; PULSE 87; RESP 18; TEMP 36.7; O2SAT 95
--- NOTE | 2017-09-23 08:43 | CASEMGMT ---
Social Work Note Call from Manjula Doyle, stating that she had a vm from the pt's daughter, Diana, requesting a return phone call. Placed call to pt's daughter - Diana Matos - who states she is the HCPOA, but is finding that this does not really help me at all. States that her mother is fighting the idea of going somewhere, but has fallen 8x in the since Saturday of last week. She would like to meet with the social media senior associate this date, to discuss options with the pt. Reports that she lives about an hour away and is intending on arriving at the hospital around 10:00. Instruct Diana to notify the nursing station that she is here, and SW will meet her in the pt's room. Face to face with the pt to initiate assessment. Pt is alert and oriented to self, placed, and year. Unable to tell SW month and refuses to guess. Pt is very lethargic as evidenced by falling in and out of sleep in short time SW is inquiring about home situation. She did report to live in a one story home with no entry steps. Fell asleep and was unable to arouse after this. Will assess at a later time. Renetta Núñez, MAIL CLERK CASTINGS TRIMMER
[2017-09-23 08:50] LABS: Vitamin B12 > 2000 pg/mL (211-911); Vitamin D,25 Hydroxy 16.6 ng/mL
[2017-09-23] MEDS: Cephalexin 500 MG Capsule PO ×2 (08:58→21:37)
[2017-09-23] MEDS: hydroCHLOROthiazide 25 MG Tablet PO (08:58)
[2017-09-23] MEDS: Polyethylene Glycol 3350 17 GM PACKET PO ×2 (08:58→21:37)
--- NOTE | 2017-09-23 08:58 | PCM.PN.HOSP ---
Patient Problems: Active and Suspected Problems Failure to thrive (Acute) Subjective: Patient is a 76-year-old lady with past medical history cigar for hypertension, hypothyroidism admitted with recurrent falls admitted to regular nursing floor with consultation placed to case management/health social work professor to assist with discharge planning in addition to consultation to PT and OT to eval and treat Objective: GENERAL: Sleepy but easily arousable HEENT: Clear conjunctiva, NECK; supple, normal thyroid, CHEST: Clear to auscultation bilaterally, HEART: Regular S1 S2, no audible murmurs ABDOMEN: soft, non-tender, normoactive bowel sounds, RECTAL: deferred EXTREMITIES: No no clubbing, no cyanosis. GYM SUPERVISOR: No lateralizing signs. SKIN: No rash Vitals/I&O's: Vital Signs Temp Pulse Resp BP Pulse Ox 98.1 F 87 18 144/85 H 95 09/23/17 07:41 09/23/17 07:41 09/23/17 07:41 09/23/17 07:41 09/23/17 07:41 Oxygen Delivery Method Room Air Weight: 40 kg Body Mass Index (BMI) 17.2 Intake and Output for Last 24 Hours 09/21/17 09/22/17 09/23/17 23:59 23:59 23:59 Intake Total 240 / 240 160 / 160 Output Total 100 / 100 100 / 100 Balance 140 / 140 60 / 60 Laboratory Results 09/23/17 05:30: RBC Folate Hemolysate Pending, RBC Folate Pending, Hematocrit Pending Current Medications Cephalexin (Keflex) 500 mg PO BID [facility] Last Admin: 09/22/17 20:41 Dose: 500 mg Diazepam (Valium) 5 mg PO BID PRN PRN Reason: ANXIETY Last Admin: 09/22/17 18:46 Dose: 5 mg Hydrochlorothiazide (Hctz) 25 mg PO DAILY [facility] Levothyroxine Sodium (Synthroid) 88 mcg PO DAILY@0600 [facility] Last Admin: 09/23/17 07:40 Dose: Not Given Magnesium Hydroxide (Milk Of Magnesia) 30 ml PO DAILY PRN PRN PRN Reason: Constipation Mirtazapine (Remeron) 7.5 mg PO QHS [facility] Last Admin: 09/22/17 20:41 Dose: 7.5 mg Paroxetine HCl (Paxil) 40 mg PO DAILY [facility] Polyethylene Glycol (Miralax) 17 gm PO BID [facility] Last Admin: 09/22/17 20:43 Dose: 17 gm Potassium Chloride (K-Dur) 20 meq PO TID [facility] Last Admin: 09/23/17 07:40 Dose: Not Given Sodium Chloride () 5 - 30 ml IV UD PRN PRN Reason: SALINE FLUSH Last Admin: 09/22/17 23:40 Dose: 10 ml Assessment/Plan Active and Suspected Problems Failure to thrive (Acute) Patient is a 76-year-old lady with past medical history cigar for hypertension, hypothyroidism admitted with recurrent falls admitted to regular nursing floor with consultation placed to case management/health social work professor to assist with discharge planning in addition to consultation to PT and OT to eval and treat 1. Adult failure to thrive with recurrent falls: Admitted to regular nursing floor requested for PT OT eval and treat; case management/health social work professor consultation to assist with disposition 2. Chronic use of diazepam plan is to wean patient off 3. Hypothyroidism-patient is on levothyroxine home dose continued 4. Hypertension-blood pressure controlled, home medications continued with dose adjustment as needed 5. Depression with anxiety patient is on Paxil in addition to diazepam as stated above plan is to wean patient of diazepam 6. DVT prophylaxis SC Lovenox Code Visit OBSV E&M: 49165 Subsequent observation care L3
--- NOTE | 2017-09-23 09:02 | PN_ITS ---
Patient Problems: Active and Suspected Problems Failure to thrive (Acute) Subjective: Patient is a 76-year-old lady with past medical history cigar for hypertension, hypothyroidism admitted with recurrent falls admitted to regular nursing floor with consultation placed to case management/manager social media to assist with discharge planning in addition to consultation to PT and OT to eval and treat Objective: GENERAL: Sleepy but easily arousable HEENT: Clear conjunctiva, NECK; supple, normal thyroid, CHEST: Clear to auscultation bilaterally, HEART: Regular S1 S2, no audible murmurs ABDOMEN: soft, non-tender, normoactive bowel sounds, RECTAL: deferred EXTREMITIES: No no clubbing, no cyanosis. BOX STAMPER: No lateralizing signs. SKIN: No rash Vitals/I&O's: Vital Signs Temp Pulse Resp BP Pulse Ox 98.1 F 87 18 144/85 H 95 09/23/17 07:41 09/23/17 07:41 09/23/17 07:41 09/23/17 07:41 09/23/17 07:41 Oxygen Delivery Method Room Air Weight: 40 kg Body Mass Index (BMI) 17.2 Intake and Output for Last 24 Hours 09/21/17 09/22/17 09/23/17 23:59 23:59 23:59 Intake Total 240 / 240 160 / 160 Output Total 100 / 100 100 / 100 Balance 140 / 140 60 / 60 Laboratory Results 09/23/17 05:30: RBC Folate Hemolysate Pending, RBC Folate Pending, Hematocrit Pending Current Medications Cephalexin (Keflex) 500 mg PO BID [facility] Last Admin: 09/22/17 20:41 Dose: 500 mg Diazepam (Valium) 5 mg PO BID PRN PRN Reason: ANXIETY Last Admin: 09/22/17 18:46 Dose: 5 mg Hydrochlorothiazide (Hctz) 25 mg PO DAILY [facility] Levothyroxine Sodium (Synthroid) 88 mcg PO DAILY@0600 [facility] Last Admin: 09/23/17 07:40 Dose: Not Given Magnesium Hydroxide (Milk Of Magnesia) 30 ml PO DAILY PRN PRN PRN Reason: Constipation Mirtazapine (Remeron) 7.5 mg PO QHS [facility] Last Admin: 09/22/17 20:41 Dose: 7.5 mg Paroxetine HCl (Paxil) 40 mg PO DAILY [facility] Polyethylene Glycol (Miralax) 17 gm PO BID [facility] Last Admin: 09/22/17 20:43 Dose: 17 gm Potassium Chloride (K-Dur) 20 meq PO TID [facility] Last Admin: 09/23/17 07:40 Dose: Not Given Sodium Chloride () 5 - 30 ml IV UD PRN PRN Reason: SALINE FLUSH Last Admin: 09/22/17 23:40 Dose: 10 ml Assessment/Plan Active and Suspected Problems Failure to thrive (Acute) Patient is a 76-year-old lady with past medical history cigar for hypertension, hypothyroidism admitted with recurrent falls admitted to regular nursing floor with consultation placed to case management/manager social media to assist with discharge planning in addition to consultation to PT and OT to eval and treat 1. Adult failure to thrive with recurrent falls: Admitted to regular nursing floor requested for PT OT eval and treat; case management/manager social media consultation to assist with disposition 2. Chronic use of diazepam plan is to wean patient off 3. Hypothyroidism-patient is on levothyroxine home dose continued 4. Hypertension-blood pressure controlled, home medications continued with dose adjustment as needed 5. Depression with anxiety patient is on Paxil in addition to diazepam as stated above plan is to wean patient of diazepam 6. DVT prophylaxis SC Lovenox Code Visit OBSV E&M: 57747 Subsequent observation care L3
--- NOTE | 2017-09-23 09:32 | NURSING ---
message left on Dr. Linn's nurse line requesting med list
--- NOTE | 2017-09-23 10:50 | CASEMGMT ---
Social Work Assessment Referral Date: 09/23/2017 Date of Assessment: 09/23/2017 Reason for Consult: Multiple Falls, FTT Informant: Self-Referral Personal Status: Pt alert and oriented to self, place and year. Unable to provide month and day. Pt continues to be lethargic and falls in and out of sleep throughout assessment. Pt's daughter, Diana, present at this time and assists with completion of initial assessment. Reports that the pt lives alone in a one-story home with one step for entry. States that DME consist of a rollator and medical alert, neither of which the pt utilizes. claims that she fell 3x on Saturday, and once on . On the neighbor ladmelony had found her and called her to update her. Inquire about the pt's ability to complete ADL's and Diana states she honestly cannot answer that question. Pt has multiple bruises and skin tears. No odor or unkempt appearance accompanies her presence however. Diana states that she did have her come stay with her and her Saturday night and the pt woke in the night disoriented and unable to tell Diana who she was. Pt does not have a documented diagnosis of dementia at this time. Diana inquires about HCPOA and inform that until a physician deems the pt incompetent to make their own decisions she is still in charge of her health care decisions. Understanding expressed and Diana would like to contact the pt's PCP to have him evaluate her. States that he has also recommended she seek care at an Assisted Living facility. Diana states that it took both her and her to get her dressed, and get her up off the toilet, and she just cannot manage the care requires. Emotional support provided to Diana. Diana is the only child that lives within an hour of the pt. Her sister lives in [place] and her brother lives in [place]. Inform Diana that PT/OT is ordered and once their evaluations are in SW will return to speak with the pt and her about what is an appropriate disposition at discharge. Review Medicare guidelines and that at this time placement would be a private pay expense. Diana expresses understanding and also knows that once her mother's funds are depleted she would go onto public assistance to cover long-term placement. Also inform that if appropriate for assisted living this would be a cheaper/day expense. Review however that with the report she provided of her and having to assist she may need to go to SNF first for additional strengthening before she is able to transition to [facility]. Understanding expressed. Inquires how long pt will be here and inform that in her observation status we need to transfer her to the appropriate LOC as soon as possible and SW would anticipate tomorrow, or Saturday at the latest. Inform Daina that at this time SW cannot move along with plan for SNF or [facility] without pt as she has not yet been deemed incompetent. Diana expresses understanding. Diana states she will not want to go. Support provided and discuss with Diana that aging can be difficult especially when one feels that they are losing their autonomy. Explore that as her daughter her primary goal is likely to be safety, but the pt's is likely to maintain her independence. Substance Use Hx and Current Pattern of Use: Alcohol: No Methamphetamine: No Tobacco: Yes Cocaine: No Marijuana: No Prescriptions Drugs: Seizure Medication Heroin: No Other: Unknown Diana reports that the pt had a hx of tobacco use. Also states that she was having back pain and the physician prescribed a seizure medication. States that the pt ODd on this medication and took 19 pills in a two day time frame. Fears that the pt is not managing her medications well, especially if it is due to pain, because she just wants it relieved. Mental Health Hx and Current Status: Diagnoses: Depression Stressors: Diana unsure SI or HI: Unable to assess with pt at this time Medications: Paxil Prescribed by: Dr. Kaveh Cruz Unable to assess mental health with pt, but daughter reports a hx of depression. Does not know if the pt ever received counseling services. Will f/u with pt once less lethargic and able to participate. Resources: No known community resources utilized. Intervention: Assessment completed to identify needs. Concerns from family that pt is no longer able to manager flight her care at home. PT/OT ordered. Discussed with family options and will review once PT/OT have evaluated and recommendation placed. Understanding expressed from daughter, and SW to continue to follow and assist with discharge planning. Plan: SNF vs. [facility]
[2017-09-23] MEDS: Enoxaparin 40 MG/0.4 ML Syringe SC (11:07)
[2017-09-23 14:57] VITALS: BP 114/75; PULSE 90; RESP 18; TEMP 37; O2SAT 95
--- NOTE | 2017-09-23 15:45 | CASEMGMT ---
Social Work Note Face to face with pt's daughter, Diana. States she and pt spoke and are in agreement for short term placement at [facility]. Review PT/OT notes and explain why SNF would be most appropriate initially as pt is a max assist with some ADL's and fear that [facility] would not be able to manage initially. Diana and pt in agreement. [facility] and this may be an easy transition. Pt and daughter seem interested. Inform that SW will fax initial referral and will update once notified by [facility]. Also informed that they will likely want a payment up front for the first two week or 30 days. Understanding expressed and SW to confirm cost. Will continue to follow and assist with discharge planning. Initial referral faxed to [facility]. Placed call to Freida and provided with update on pt. Will await a return phone call confirming. Plan: SNF pending acceptance. ANGELICA Coreas SENIOR STOCK PLAN ADMINISTRATOR
[2017-09-23] MEDS: Acetaminophen 325 MG Tablet 650 MG PO (17:06)
--- NOTE | 2017-09-23 17:08 | CASEMGMT ---
[facility] reviewed the pt's clinicals and they feel she is appropriate for their unit. Freida, reimbursement coordinator, will contact the pt's daughter tomorrow to provide pricing options and SW to continue to follow and assist with discharge planning. May take one to two more days to setup transfer to SNF private pay. Plan: [facility] for rehabilitation prior to transfer to RETIREMENT. Renetta Núñez MSW FUNERAL HOME ATTENDANT
[2017-09-23] MEDS: Mirtazapine 15 MG Tablet 7.5 MG PO (21:36)
[2017-09-23 21:41] VITALS: BP 146/98; PULSE 93; RESP 16; TEMP 37.2; O2SAT 96
[2017-09-24 03:19] VITALS: BP 150/98; PULSE 90; RESP 16; TEMP 37; O2SAT 96
[2017-09-24] MEDS: Levothyroxine 88 MCG Tablet PO (05:48)
[2017-09-24] MEDS: Enoxaparin 40 MG/0.4 ML Syringe SC (05:49)
[2017-09-24 06:03] LABS: Hematocrit 37.2 % (37-47); Hemoglobin 12.4 g/dl (12.0-15.0); Mean Corp Hgb Conc 33.3 g/gl (32-36); Mean Corpuscular Volume 89.9 fL (81-99); Mean Platelet Vol. 10.6 fl (6.2-12.0); Platelet Count 189 K/mm3 (150-450); RBC Distribution Width SD 48.4 fl (35.1-43.9); Red Blood Count 4.14 M/mm3 (4.2-5.4); White Blood Count 5.8 K/mm3 (4.4-11.0)
[2017-09-24 06:11] LABS: Scan Indicated on CBC? Y/N NO
[2017-09-24 06:16] LABS: Anion Gap 7 (5-15); BUN 14 mg/dL (7-18); BUN/Creat Ratio 28.7 RATIO (10-20); Calcium,Total 8.9 mg/dL (8.5-10.1); Chloride 108 mmol/L (98-107); Creatinine, Serum 0.49 mg/dL (0.55-1.02); EST Glomerular Filtration Rate 132 mL/min (>60); Est Glom Filt Rate - Afr Amer 159 mL/min (>60); Estimated Creatinine Clearance 30.69 ml/min; Glucose 89 mg/dL (70-110); Magnesium 1.8 mg/dL (1.6-2.6); Potassium 3.6 mmol/L (3.5-5.1); Sodium Level 141 mmol/L (136-145)
[2017-09-24 09:30] VITALS: BP 129/92; PULSE 90; RESP 18; TEMP 36.8; O2SAT 96
[2017-09-24] MEDS: Cephalexin 500 MG Capsule PO ×2 (09:51→22:28)
[2017-09-24] MEDS: hydroCHLOROthiazide 25 MG Tablet PO (09:51)
[2017-09-24] MEDS: Polyethylene Glycol 3350 17 GM PACKET PO ×2 (09:51→22:28)
--- NOTE | 2017-09-24 09:54 | PCM.TXEXTCAR ---
- Wound(s) LT upper arm Wound Type: Skin Tear Lt knee Wound Type: Abrasion left distal knee Wound Type: Skin Tear below left knee Wound Type: Skin Tear left knee lateral Wound Type: Skin Tear rt knee Wound Type: Skin Tear left elbow Wound Type: Skin Tear - Therapies Physical Therapy: Eval and Treat Occupational Therapy: Eval and Treat Speech Therapy: Eval and Treat - Allergies/Procedures Done in Hospital Allergies/Adverse Reactions: Allergies No Known Allergies Allergy (Verified 09/22/17 11:40) - Type of Care/Length of Stay Estimated LOS: Convalescent Care Less Than 30 days Type of Care Needed: Skilled Rehab Potential: Good Prognosis: Good - Additional Orders/Day of Discharge Day of Discharge: 09/24/17 - Dietary and Speech Recommendations Dietitian Recommendations/Changes: Will add Ensure enlive on medpass. Please reweigh. - Follow Up Care Primary Care Physician: Anton Linn Chi, MD [Primary Care Provider] - Please follow up with your Primary Care Physician in: IN 1-2 WEEKS
--- NOTE | 2017-09-24 09:56 | PCM.DC.SUM ---
Discharge Date and Diagnosis - Problem List Patient Problems: Active and Suspected Problems Failure to thrive (Acute) Date of Admission: 09/22/17 Date of Discharge: 09/25/17 - Primary Discharge Diagnosis Active and Suspected Problems Failure to thrive (Acute) - Secondary Discharge Diagnosis Chronic Problems Hypertension (Chronic) Depression (Chronic) Hospital Course and Treatment Imaging Results: Clinical Impression(s) from Imaging Studies Brain CT 09/22/17 12:19 IMPRESSION: No acute intracranial abnormalities or changes. There are stable chronic white matter findings. There is persistent left sphenoid sinusitis. Electronically Signed: Haven Newby MD at 13:17 EST Tel Direct: [phone], Service support , Chest X-Ray 09/22/17 12:21 IMPRESSION: No acute abnormalities are seen. Electronically Signed: Haven Newby MD at 13:20 EST Tel Direct: [phone], Service support , Summary of Care Provided: Patient is a 76-year-old lady with past medical history cigar for hypertension, hypothyroidism admitted with recurrent falls admitted to regular nursing floor with consultation placed to case management/social media analyst to assist with discharge planning in addition to consultation to PT and OT to eval and treat 1. Adult failure to thrive with recurrent falls: Admitted to regular nursing floor requested for PT OT eval and treat; case management/social media analyst consultation to assist with disposition 2. Chronic use of diazepam plan is to wean patient off 3. Hypothyroidism-patient is on levothyroxine home dose continued 4. Hypertension-blood pressure controlled, home medications continued with dose adjustment as needed 5. Depression with anxiety patient is on Paxil in addition to diazepam as stated above plan is to wean patient of diazepam 6. Severe protein calorie malnutrition as evidenced by BMI of 17.2, cachexia and evidence of moderate suboptimal energy intake, severe weight loss ~ consult placed to dietitian 7. DVT prophylaxis SC Lovenox Discharge Diet: No Restrictions Discharge Activity: No Restrictions Home Medications: Medications to take at Discharge Levothyroxine [Synthroid] 88 mcg PO DAILY 02/11/14 Hydrochlorothiazide [Hctz] 25 mg PO DAILY 12/03/14 Potassium Chloride [K-Dur] 20 meq PO TID 08/10/15 Paroxetine HCl [Paxil] 40 mg PO DAILY 01/09/17 Linaclotide [Linzess] 1 tab PO DAILY 09/22/17 Mirtazapine 1 tab PO QHS 09/22/17 Diazepam [Valium] 1 tab PO UD #28 tab 09/24/17 Magnesium Hydroxide [Milk Of Magnesia] 30 ml PO DAILY PRN PRN udc 09/24/17 Polyethylene Glycol 3350 [Miralax] 17 gm PO BID packet 09/24/17 Ibuprofen 200 mg PO BID 09/25/17 TraMADol [Ultram] 50 mg PO Q6H PRN PRN 09/25/17 Primary Care Physician: Anton Linn Chi, MD [Primary Care Provider] - Please follow up with your Primary Care Physician in: IN 1-2 WEEKS Disposition: Care Home facility Minutes spent on discharge:: 35 Patient Condition:: Stable Meaningful Use Info Meaningful Use Diagnoses (Choose all that apply): None applicable Code Visit OBSV E&M: 19743 Observation care discharge
--- NOTE | 2017-09-24 10:00 | DS.PCM_ITS ---
Discharge Date and Diagnosis - Problem List Patient Problems: Active and Suspected Problems Failure to thrive (Acute) Date of Admission: 09/22/17 Date of Discharge: 09/25/17 - Primary Discharge Diagnosis Active and Suspected Problems Failure to thrive (Acute) - Secondary Discharge Diagnosis Chronic Problems Hypertension (Chronic) Depression (Chronic) Hospital Course and Treatment Imaging Results: Clinical Impression(s) from Imaging Studies Brain CT 09/22/17 12:19 IMPRESSION: No acute intracranial abnormalities or changes. There are stable chronic white matter findings. There is persistent left sphenoid sinusitis. Electronically Signed: Haven Newby MD at 13:17 EST Tel Direct: [phone], Service support , Chest X-Ray 09/22/17 12:21 IMPRESSION: No acute abnormalities are seen. Electronically Signed: Haven Newby MD at 13:20 EST Tel Direct: [phone], Service support , Summary of Care Provided: Patient is a 76-year-old lady with past medical history cigar for hypertension, hypothyroidism admitted with recurrent falls admitted to regular nursing floor with consultation placed to case management/social work manager to assist with discharge planning in addition to consultation to PT and OT to eval and treat 1. Adult failure to thrive with recurrent falls: Admitted to regular nursing floor requested for PT OT eval and treat; case management/social work manager consultation to assist with disposition 2. Chronic use of diazepam plan is to wean patient off 3. Hypothyroidism-patient is on levothyroxine home dose continued 4. Hypertension-blood pressure controlled, home medications continued with dose adjustment as needed 5. Depression with anxiety patient is on Paxil in addition to diazepam as stated above plan is to wean patient of diazepam 6. Severe protein calorie malnutrition as evidenced by BMI of 17.2, cachexia and evidence of moderate suboptimal energy intake, severe weight loss ~ consult placed to dietitian 7. DVT prophylaxis SC Lovenox Discharge Diet: No Restrictions Discharge Activity: No Restrictions Home Medications: Medications to take at Discharge Levothyroxine [Synthroid] 88 mcg PO DAILY 02/11/14 Hydrochlorothiazide [Hctz] 25 mg PO DAILY 12/03/14 Potassium Chloride [K-Dur] 20 meq PO TID 08/10/15 Paroxetine HCl [Paxil] 40 mg PO DAILY 01/09/17 Linaclotide [Linzess] 1 tab PO DAILY 09/22/17 Mirtazapine 1 tab PO QHS 09/22/17 Diazepam [Valium] 1 tab PO UD #28 tab 09/24/17 Magnesium Hydroxide [Milk Of Magnesia] 30 ml PO DAILY PRN PRN udc 09/24/17 Polyethylene Glycol 3350 [Miralax] 17 gm PO BID packet 09/24/17 Ibuprofen 200 mg PO BID 09/25/17 TraMADol [Ultram] 50 mg PO Q6H PRN PRN 09/25/17 Primary Care Physician: Anton Linn Chi, MD [Primary Care Provider] - Please follow up with your Primary Care Physician in: IN 1-2 WEEKS Disposition: [facility] facility Minutes spent on discharge:: 35 Patient Condition:: Stable Meaningful Use Info Meaningful Use Diagnoses (Choose all that apply): None applicable Code Visit OBSV E&M: 75377 Observation care discharge
--- NOTE | 2017-09-24 10:00 | PCM.PN.HOSP ---
Patient Problems: Active and Suspected Problems Failure to thrive (Acute) Subjective: She has seen much more awake and communicative than the day prior. Had a relatively uneventful night. Pain is under control. Plan is for [facility] to [facility] facility pending insurance precertification. Objective: GENERAL: Cooperative HEENT: Clear conjunctiva, NECK; supple, normal thyroid, CHEST: Clear to auscultation bilaterally, HEART: Regular S1 S2, no audible murmurs ABDOMEN: soft, non-tender, normoactive bowel sounds, RECTAL: deferred EXTREMITIES: No no clubbing, no cyanosis. MIGRATORY FARM HAND: No lateralizing signs. SKIN: No rash Vitals/I&O's: Vital Signs Temp Pulse Resp BP Pulse Ox 98.2 F 90 18 129/92 H 96 09/24/17 09:30 09/24/17 09:30 09/24/17 09:30 09/24/17 09:30 09/24/17 09:30 Oxygen Delivery Method Room Air Intake and Output for Last 24 Hours 09/22/17 09/23/17 09/24/17 23:59 23:59 23:59 Intake Total 440 / 440 Output Total 200 / 200 Balance 240 / 240 Laboratory Results 09/24/17 05:40: WBC 5.8, RBC 4.14 L, Hgb 12.4, Hct 37.2, MCV 89.9, MCH 30.0, MCHC 33.3, RDW 15.0 H, RDW Differential 48.4 H, Plt Count 189, MPV 10.6 09/24/17 05:40: Sodium 141, Potassium 3.6, Chloride 108 H, Carbon Dioxide 26.0, Anion Gap 7, BUN 14, Creatinine 0.49 L, Estim Creat Clear Calc 30.69, Est GFR (MDRD) Af Amer 159, Est GFR (MDRD) Non-Af 132, BUN/Creatinine Ratio 28.7 H, Glucose 89, Calcium 8.9, Magnesium 1.8 Current Medications Acetaminophen (Tylenol) 650 mg PO Q4H PRN PRN PRN Reason: HEADACHE/FEVER (T>100F) Last Admin: 09/23/17 17:06 Dose: 650 mg Cephalexin (Keflex) 500 mg PO BID MATEUS Last Admin: 09/24/17 09:51 Dose: 500 mg Diazepam (Valium) 5 mg PO BID PRN PRN Reason: ANXIETY Last Admin: 09/22/17 18:46 Dose: 5 mg Enoxaparin Sodium (Lovenox) 40 mg SC DAILY@0600 [facility] Last Admin: 09/24/17 05:49 Dose: 40 mg Hydrochlorothiazide (Hctz) 25 mg PO DAILY [facility] Last Admin: 09/24/17 09:51 Dose: 25 mg Levothyroxine Sodium (Synthroid) 88 mcg PO DAILY@0600 [facility] Last Admin: 09/24/17 05:48 Dose: 88 mcg Magnesium Hydroxide (Milk Of Magnesia) 30 ml PO DAILY PRN PRN PRN Reason: Constipation Mirtazapine (Remeron) 7.5 mg PO QHS [facility] Last Admin: 09/23/17 21:36 Dose: 7.5 mg Paroxetine HCl (Paxil) 40 mg PO DAILY [facility] Last Admin: 09/24/17 09:51 Dose: 40 mg Polyethylene Glycol (Miralax) 17 gm PO BID [facility] Last Admin: 09/24/17 09:51 Dose: 17 gm Potassium Chloride (K-Dur) 20 meq PO TID [facility] Last Admin: 09/24/17 05:48 Dose: 20 meq Sodium Chloride () 5 - 30 ml IV UD PRN PRN Reason: SALINE FLUSH Last Admin: 09/22/17 23:40 Dose: 10 ml Assessment/Plan Active and Suspected Problems Failure to thrive (Acute) Patient is a 76-year-old lady with past medical history cigar for hypertension, hypothyroidism admitted with recurrent falls admitted to regular nursing floor with consultation placed to case management/social services analyst to assist with discharge planning in addition to consultation to PT and OT to eval and treat 1. Adult failure to thrive with recurrent falls: Admitted to regular nursing floor requested for PT OT eval and treat; case management/social services analyst consultation to assist with disposition 2. Chronic use of diazepam plan is to wean patient off 3. Hypothyroidism-patient is on levothyroxine home dose continued 4. Hypertension-blood pressure controlled, home medications continued with dose adjustment as needed 5. Depression with anxiety patient is on Paxil in addition to diazepam as stated above plan is to wean patient of diazepam 6. DVT prophylaxis SC Lovenox Code Visit OBSV E&M: 91364 Subsequent observation care L2
--- NOTE | 2017-09-24 10:04 | PN_ITS ---
Patient Problems: Active and Suspected Problems Failure to thrive (Acute) Subjective: She has seen much more awake and communicative than the day prior. Had a relatively uneventful night. Pain is under control. Plan is for patient to be transferred to snf facility pending insurance precertification. Objective: GENERAL: Cooperative HEENT: Clear conjunctiva, NECK; supple, normal thyroid, CHEST: Clear to auscultation bilaterally, HEART: Regular S1 S2, no audible murmurs ABDOMEN: soft, non-tender, normoactive bowel sounds, RECTAL: deferred EXTREMITIES: No no clubbing, no cyanosis. 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 SKIN: No rash Vitals/I&O's: Vital Signs Temp Pulse Resp BP Pulse Ox 98.2 F 90 18 129/92 H 96 09/24/17 09:30 09/24/17 09:30 09/24/17 09:30 09/24/17 09:30 09/24/17 09:30 Oxygen Delivery Method Room Air Intake and Output for Last 24 Hours 09/22/17 09/23/17 09/24/17 23:59 23:59 23:59 Intake Total 440 / 440 Output Total 200 / 200 Balance 240 / 240 Laboratory Results 09/24/17 05:40: WBC 5.8, RBC 4.14 L, Hgb 12.4, Hct 37.2, MCV 89.9, MCH 30.0, MCHC 33.3, RDW 15.0 H, RDW Differential 48.4 H, Plt Count 189, MPV 10.6 09/24/17 05:40: Sodium 141, Potassium 3.6, Chloride 108 H, Carbon Dioxide 26.0, Anion Gap 7, BUN 14, Creatinine 0.49 L, Estim Creat Clear Calc 30.69, Est GFR ( MDRD) Af Amer 159, Est GFR (MDRD) Non-Af 132, BUN/Creatinine Ratio 28.7 H, Glucose 89, Calcium 8.9, Magnesium 1.8 Current Medications Acetaminophen (Tylenol) 650 mg PO Q4H PRN PRN PRN Reason: HEADACHE/FEVER (T>100F) Last Admin: 09/23/17 17:06 Dose: 650 mg Cephalexin (Keflex) 500 mg PO BID MATEUS Last Admin: 09/24/17 09:51 Dose: 500 mg Diazepam (Valium) 5 mg PO BID PRN PRN Reason: ANXIETY Last Admin: 09/22/17 18:46 Dose: 5 mg Enoxaparin Sodium (Lovenox) 40 mg SC DAILY@0600 [facility] Last Admin: 09/24/17 05:49 Dose: 40 mg Hydrochlorothiazide (Hctz) 25 mg PO DAILY [facility] Last Admin: 09/24/17 09:51 Dose: 25 mg Levothyroxine Sodium (Synthroid) 88 mcg PO DAILY@0600 [facility] Last Admin: 09/24/17 05:48 Dose: 88 mcg Magnesium Hydroxide (Milk Of Magnesia) 30 ml PO DAILY PRN PRN PRN Reason: Constipation Mirtazapine (Remeron) 7.5 mg PO QHS [facility] Last Admin: 09/23/17 21:36 Dose: 7.5 mg Paroxetine HCl (Paxil) 40 mg PO DAILY [facility] Last Admin: 09/24/17 09:51 Dose: 40 mg Polyethylene Glycol (Miralax) 17 gm PO BID [facility] Last Admin: 09/24/17 09:51 Dose: 17 gm Potassium Chloride (K-Dur) 20 meq PO TID [facility] Last Admin: 09/24/17 05:48 Dose: 20 meq Sodium Chloride () 5 - 30 ml IV UD PRN PRN Reason: SALINE FLUSH Last Admin: 09/22/17 23:40 Dose: 10 ml Assessment/Plan Active and Suspected Problems Failure to thrive (Acute) Patient is a 76-year-old lady with past medical history cigar for hypertension, hypothyroidism admitted with recurrent falls admitted to regular nursing floor with consultation placed to case management/social work associate to assist with discharge planning in addition to consultation to PT and OT to eval and treat 1. Adult failure to thrive with recurrent falls: Admitted to regular nursing floor requested for PT OT eval and treat; case management/social work associate consultation to assist with disposition 2. Chronic use of diazepam plan is to wean patient off 3. Hypothyroidism-patient is on levothyroxine home dose continued 4. Hypertension-blood pressure controlled, home medications continued with dose adjustment as needed 5. Depression with anxiety patient is on Paxil in addition to diazepam as stated above plan is to wean patient of diazepam 6. DVT prophylaxis SC Lovenox Code Visit OBSV E&M: 48800 Subsequent observation care L2
--- NOTE | 2017-09-24 13:58 | CASEMGMT ---
Social Work Note Call from pt's daughter Diana [facility] and what their pricing options were. States she can get the money to them tomorrow, but no earlier as she is an hour away and unable to leave the home until after the bank is closed this date. States she will privately transport the pt to [facility] tomorrow. Confirmed with Freida at [facility] that they will not accept the pt until they have payment in hand because it is private pay. Anticipate discharge to [facility], 09/25. Plan: [facility] for rehabilitation. ANGELICA CoreasW
[2017-09-24 16:10] LABS: Folate, Hemolysate Test 520.4 ng/mL (Not Estab.)
[2017-09-24 16:55] VITALS: BP 136/94; PULSE 84; RESP 16; TEMP 37.2; O2SAT 98
[2017-09-24] MEDS: Acetaminophen 325 MG Tablet 650 MG PO ×2 (17:02→22:34)
[2017-09-24] MEDS: 0.9% NaCl Peripheral Flush Adult/Peds IV (17:04)
[2017-09-24] MEDS: diazePAM 5 MG Tablet PO (19:02)
[2017-09-24 22:15] VITALS: BP 138/87; PULSE 80; RESP 18; TEMP 37.3; O2SAT 96
[2017-09-24] MEDS: Mirtazapine 15 MG Tablet 7.5 MG PO (22:28)
[2017-09-25 02:34] VITALS: BP 145/91; PULSE 71; RESP 16; TEMP 36.6; O2SAT 99
[2017-09-25 06:30] LABS: Hematocrit 36.1 % (37-47); Hemoglobin 11.9 g/dl (12.0-15.0); Mean Corpuscular Hgb 29.9 pg (27.0-32.0); Mean Corpuscular Volume 90.7 fL (81-99); Mean Platelet Vol. 10.5 fl (6.2-12.0); Platelet Count 209 K/mm3 (150-450); RBC Distribution Width SD 49.3 fl (35.1-43.9); Red Blood Count 3.98 M/mm3 (4.2-5.4); White Blood Count 5.1 K/mm3 (4.4-11.0)
[2017-09-25 06:32] LABS: Scan Indicated on CBC? Y/N NO
[2017-09-25 06:46] LABS: Anion Gap 5 (5-15); BUN 14 mg/dL (7-18); BUN/Creat Ratio 27.2 RATIO (10-20); Calcium,Total 9.1 mg/dL (8.5-10.1); Chloride 109 mmol/L (98-107); Creatinine, Serum 0.51 mg/dL (0.55-1.02); EST Glomerular Filtration Rate 124 mL/min (>60); Est Glom Filt Rate - Afr Amer 150 mL/min (>60); Estimated Creatinine Clearance 30.69 ml/min; Glucose 92 mg/dL (70-110); Sodium Level 143 mmol/L (136-145)
[2017-09-25] MEDS: Levothyroxine 88 MCG Tablet PO (06:48)
[2017-09-25] MEDS: Enoxaparin 40 MG/0.4 ML Syringe SC (06:49)
[2017-09-25 07:42] LABS: Folates, RBC Test 1406 ng/mL (>498)
[2017-09-25 08:30] VITALS: BP 152/96; PULSE 73; RESP 16; TEMP 36.7; O2SAT 96
[2017-09-25] MEDS: hydroCHLOROthiazide 25 MG Tablet PO (09:34)
[2017-09-25] MEDS: Cephalexin 500 MG Capsule PO (09:34)
[2017-09-25] MEDS: Polyethylene Glycol 3350 17 GM PACKET PO (09:34)
[2017-09-25] MEDS: Acetaminophen 325 MG Tablet 650 MG PO (09:36)
--- NOTE | 2017-09-25 11:24 | CASEMGMT ---
Social Work Note PAS/RR completed and submitted in the HENS. Copies on chart and in SNF packet. Transfer summary, discharge summary, medlist and scripts faxed to SNF. Copies on chart and originals in SNF packet. Daughter here to transport. Placed call to Freida at [facility] to update that daughter, Daina, would be transporting this date. No additional needs at this time. SW to continue to follow and assist with discharge planning. Plan: [facility] for rehab. PAS/RR submitted in the HENS. Daughter to privately transport. Renetta Núñez MSW MULTIPLE SPINDLE ROUTER OPERATOR
[2017-09-25 11:30] VITALS: BP 147/90; PULSE 87; RESP 16; TEMP 36.8; O2SAT 96
== END 2017-09-25 11:40 | disposition skilled nursing facility (03) | DRG 640 ==
LOC: ED 15:00 → MS3 15:09
PROVIDERS: Emergency Provider Emergency Medicine; Family Provider Family Medicine Geriatric Medicine; PCP Family Medicine Geriatric Medicine; Visit Provider Internal Medicine
DX: R62.7 Adult failure to thrive (principal); E43 Unspecified severe protein-calorie malnutrition; R64 Cachexia; Z68.1 Body mass index [BMI] 19.9 or less, adult; E03.9 Hypothyroidism, unspecified; I10 Essential (primary) hypertension; R29.6 Repeated falls; F41.8 Other specified anxiety disorders; S41.112A Laceration without foreign body of left upper arm, initial encounter
CPT/HCPCS: 36415; 70450; 71046; 72125; 80048; 80053; 80307; 80320; 81001; 82306; 82607; 82747; 83690; 83735; 84443; 84484; 85014; 85025; 85027; 93005; 96361; 96374; 96375; 97162; 97165; 97802; 99283; 99285; 99406; P9612; A4216; G0480; J2405

== ENCOUNTER → 2017-11-19 17:25 | Outpatient (CLI) | payer MEDICARE, OTHER, SELFPAY | PROVIDERS: Family Provider Family Medicine Geriatric Medicine; PCP Family Medicine Geriatric Medicine; Visit Provider Family Medicine Geriatric Medicine | DX: R09.89 Other specified symptoms and signs involving the circulatory and respiratory systems (principal) | CPT/HCPCS: 87633 ==

== ENCOUNTER 2018-01-26 17:21 | Emergency (ER) | payer MEDICARE, OTHER, SELFPAY ==
[2018-01-26 17:22] VITALS: BP 162/83; PULSE 79; RESP 16; TEMP 36.3; O2SAT 96; BMI 20.5
--- NOTE | 2018-01-26 17:54 | CT_ITS ---
STUDY: CT BRAIN WITHOUT CONTRAST REASON FOR EXAM: Female, 77 years old. Trauma RADIATION DOSAGE (If Supplied By Facility): CTDIvol = ( 44.99 ) mGy, DLP = ( 745.49 ) mGycm TECHNIQUE: Transaxial CT imaging of the brain was performed without administration of intravenous contrast material. Individualized dose optimization techniques were used for this CT. COMPARISON: 09/22/2017 FINDINGS: There is no acute bleed or infarct. There are stable chronic ischemic and atrophic changes. The ventricles are normal in configuration. There is no hydrocephalus. Again noted is mucosal hypertrophy in the left sphenoid sinus. The visualized paranasal sinuses are otherwise clear. The mastoid air cells are well aerated. There is no skull fracture. There is mild scalp soft tissue swelling in the right posterior parietal region. CT/Brain/Head without Contrast IMPRESSION: Stable chronic ischemic and atrophic changes. No acute intracranial abnormality. Mild scalp soft tissue swelling in the right posterior parietal region. Electronically Signed: Preston Zacarias, at 18:45 EDT Tel , Service support ,
--- NOTE | 2018-01-26 17:55 | ED.VISSUMM ---
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 Today was leaving the movie theater and fell backwards hitting her head on the cement. She denies any LOC. She denies any nausea. She denies any severe headache. She is not on any blood thinners. Complaining of right posterior scalp pain. She denies other injuries. This occurred less than 1 hour ago. She denies any numbness or weakness to her upper or lower extremities. Physical Examination: Well appearing older female. Vital signs are stable afebrile. Pulse is 96% on room air no signs of hypoxia. She is in no distress. H EENT exam pupils round reactive light. Extra motions are intact. No facial trauma. Posterior scalp she is a hematoma. There is no bleeding. No laceration. C-spine is nontender. Trachea midline. Normal range of motion to her neck. Lungs clear to auscultation bilaterally. Heart regular rate and rhythm no murmur. Chest wall nontender. Abdomen soft and nontender. Girdle intact. She is moving all 4 extremities. There are no deformities. Normal range of motion. Back is nontender. Spine is nontender. Neurologically she is awake and alert without focal motor or sensory deficits. She is acting normally and answering questions. Test Results: CT of the brain without contrast shows no acute fracture or intracranial bleed. There is a small right posterior scalp hematoma. Emergency Department Course and Treatment: Repeat exam patient is doing well. Will be treated at home with a closed head injury. Treatment Plan: Warned of the potential for a delayed intracranial bleed. Treated as a closed head injury. Disposition: Discharge Impression: Acute fall Closed head injury with posterior scalp hematoma This note was generated with [employer] dictation software. It may contain incorrect words, spelling, and punctuation that were not noted in review of the chart prior to signing ED Disposition - Plan for ED Patient: Chief Complaint: Fall Referrals: Anton Linn Chi, MD [Primary Care Provider] -
--- NOTE | 2018-01-26 18:40 | ED.DEP ---
ED Disposition - Plan for ED Patient: Disposition: Home or Assisted Living Chief Complaint: Fall Instructions: ED Head Injury Closed Referrals: Anton Linn Chi, MD [Primary Care Provider] - 1 Week if not improving Additional Instructions: Return if severe headache, intractable vomiting or not acting herself. Ice to scalp. Tylenol for pain.
[2018-01-26 19:08] VITALS: BP 152/98; RESP 16
== END 2018-01-26 19:08 | disposition home or self-care (01) ==
PROVIDERS: Emergency Provider Emergency Medicine; Family Provider Family Medicine Geriatric Medicine; PCP Family Medicine Geriatric Medicine
DX: S00.03XA Contusion of scalp, initial encounter (principal); W18.39XA Other fall on same level, initial encounter; Y93.01 Activity, walking, marching and hiking; Y92.26 Movie house or cinema as the place of occurrence of the external cause; Y99.8 Other external cause status; E03.9 Hypothyroidism, unspecified; Z79.899 Other long term (current) drug therapy; Z72.0 Tobacco use
CPT/HCPCS: 70450; 99282

== ENCOUNTER → 2018-02-04 15:55 | Outpatient (CLI) | payer MEDICARE, OTHER, SELFPAY ==
--- NOTE | 2018-02-04 15:58 | RAD_ITS ---
STUDY: X-RAY - ABDOMEN/PELVIS REASON FOR EXAM: Female, 77 years old. Abdominal pain TECHNIQUE: Single AP view of the abdomen / pelvis. COMPARISON: 09/06/2016 FINDINGS: Normal visualized lung bases. There is an unremarkable bowel gas pattern. There is no demonstrated free abdominal air. The visualized liver, spleen and kidneys are grossly normal in size and morphology. There are calcified phleboliths in the pelvis. Degenerative changes are seen within the spine. Spinal fusion hardware is seen at L4-L5. RAD/Abdomen Single View IMPRESSION: No acute process in the abdomen. Electronically Signed: Chandan Avelar DO at 15:39 EDT Tel , Service support ,
== END ==
PROVIDERS: Family Provider Family Medicine Geriatric Medicine; PCP Family Medicine Geriatric Medicine; Visit Provider Family Medicine Geriatric Medicine
DX: R10.9 Unspecified abdominal pain (principal)
CPT/HCPCS: 74018

== ENCOUNTER → 2018-02-17 14:19 | Outpatient (CLI) | payer MEDICARE, OTHER, SELFPAY ==
[2018-02-17 14:42] LABS: Absolute Lymphocyte Count 1.07 X10^3/ul (0.83-4.51); Absolute Neutrophil Count 4.9 X10^3/uL (2.0-7.7); Basophil# 0.03 X10^3/uL; Basophil% 0.4 % (0-1); Eosinophil# 0.17 X10^3/uL; Eosinophils% 2.5 % (0-5); Hematocrit 41.4 % (37-47); Hemoglobin 13.6 g/dl (12.0-15.0); Lymphocyte # 1.07 X10^3/ul (4.0); Lymphocyte % 15.9 % (19-41); Mean Corp Hgb Conc 32.9 g/gl (32-36); Mean Corpuscular Volume 91.4 fL (81-99); Mean Platelet Vol. 10.7 fl (6.2-12.0); Monocyte# 0.61 X10^3/uL; Neutrophil # 4.85 X10^3/uL (2.7-7.7); Neutrophil % 71.9 % (47-70); POSITIVE COUNT NO; POSITIVE DIFFERENTIAL NO; POSITIVE MORPHOLOGY NO; Platelet Count 181 K/mm3 (150-450); RBC Distribution Width CV 14.2 % (11.6-14.6); RBC Distribution Width SD 47.3 fl (35.1-43.9); Red Blood Count 4.53 M/mm3 (4.2-5.4); White Blood Count 6.8 K/mm3 (4.4-11.0)
[2018-02-17 15:19] LABS: ALB/GLOB Ratio 1.3 RATIO (0.9-2.4); AST(SGOT) 21 U/L (15-37); Alanine Aminotransfer ALT/SGPT 21 U/L (13-56); Albumin, Serum 3.7 g/dL (3.2-5.0); Alkaline Phosphatase 95 U/L (45-117); Anion Gap 8 (5-15); BUN 18 mg/dL (7-18); BUN/Creat Ratio 20.9 RATIO (10-20); Calcium,Total 9.4 mg/dL (8.5-10.1); Chloride 109 mmol/L (98-107); Creatinine, Serum 0.86 mg/dL (0.55-1.02); EST Glomerular Filtration Rate 68 mL/min (>60); Est Glom Filt Rate - Afr Amer 82 mL/min (>60); Globulin 2.8 g/dL (2.2-4.2); Glucose 95 mg/dL (74-106); Potassium 3.6 mmol/L (3.5-5.1); Protein, Total 6.5 g/dL (6.4-8.2); Sodium Level 145 mmol/L (136-145); Thyroid Stim Hormone (TSH) 4.33 uIU/mL (0.358-3.74)
[2018-02-17 15:26] LABS: Vitamin D,25 Hydroxy 29.1 ng/mL (29.95-100.01)
== END ==
PROVIDERS: Family Provider Family Medicine Geriatric Medicine; PCP Family Medicine Geriatric Medicine; Visit Provider Family Medicine Geriatric Medicine
DX: E55.9 Vitamin D deficiency, unspecified (principal); I10 Essential (primary) hypertension
CPT/HCPCS: 36415; 80053; 82306; 84443; 85025

== ENCOUNTER → 2018-04-30 14:33 | Outpatient (CLI) | payer MEDICARE, OTHER, SELFPAY ==
[2018-04-30 17:52] LABS: BUN 27 mg/dL (7-18); Creatinine, Serum 0.82 mg/dL (0.55-1.02); Glucose 96 mg/dL (74-106)
[2018-04-30 17:53] LABS: Anion Gap 11 (5-15); BUN/Creat Ratio 33.1 RATIO (10-20); CRP < 2.90 mg/L (0.0-3.0); Calcium,Total 9.1 mg/dL (8.5-10.1); Chloride 110 mmol/L (98-107); EST Glomerular Filtration Rate 72 mL/min (>60); Est Glom Filt Rate - Afr Amer 88 mL/min (>60); Potassium 3.9 mmol/L (3.5-5.1); Sodium Level 143 mmol/L (136-145); Uric Acid 4.3 mg/dL (2.6-6.0)
[2018-04-30 18:56] LABS: White Blood Count 6.3 K/mm3 (4.4-11.0)
[2018-04-30 18:57] LABS: Absolute Lymphocyte Count 0.97 X10^3/ul (0.83-4.51); Absolute Neutrophil Count 4.6 X10^3/uL (2.0-7.7); Basophil# 0.03 X10^3/uL; Basophil% 0.5 % (0-1); Eosinophil# 0.15 X10^3/uL; Eosinophils% 2.4 % (0-5); Hematocrit 37.2 % (37-47); Hemoglobin 11.9 g/dl (12.0-15.0); Lymphocyte # 0.97 X10^3/ul (4.0); Lymphocyte % 15.3 % (19-41); Mean Corpuscular Hgb 30.1 pg (27.0-32.0); Mean Corpuscular Volume 94.2 fL (81-99); Mean Platelet Vol. 11.2 fl (6.2-12.0); Monocyte% 9.5 % (0-10); Neutrophil # 4.58 X10^3/uL (2.7-7.7); Neutrophil % 72.1 % (47-70); POSITIVE COUNT NO; POSITIVE DIFFERENTIAL NO; POSITIVE MORPHOLOGY NO; Platelet Count 166 K/mm3 (150-450); RBC Distribution Width CV 13.2 % (11.6-14.6); RBC Distribution Width SD 45.4 fl (35.1-43.9); Red Blood Count 3.95 M/mm3 (4.2-5.4)
[2018-04-30 21:10] LABS: Erythrocyte Sedimentation Rate 5 mm/hr (0-30)
== END ==
PROVIDERS: Family Provider Family Medicine Geriatric Medicine; PCP Family Medicine Geriatric Medicine; Visit Provider Family Medicine Geriatric Medicine
DX: M10.9 Gout, unspecified (principal)
CPT/HCPCS: 36415; 80048; 84550; 85025; 85652; 86140

== ENCOUNTER → 2018-05-07 16:13 | Outpatient (CLI) | payer MEDICARE, OTHER, SELFPAY ==
--- NOTE | 2018-05-07 16:16 | CT_ITS ---
Exam: Noncontrast CT of the right wrist. HISTORY: Fall. COMPARISON: None. No radiographs. FINDINGS: There is a markedly impacted fragmented and displaced fracture of the distal radius. It is very difficult to determine the position of the fracture fragments which can often be better evaluated with plain films. However clearly there is marked shortening and a major portion of the radial metaphyseal fracture is displaced laterally. Fracture is intra-articular. There is some anterior angulation of the articular surface of the radius. There is also nondisplaced but mildly impacted and angulated fracture through the distal ulnar metaphysis. Marked diffuse demineralization. Marked degenerative changes throughout the carpal bones. Diffuse soft tissue swelling. CT/Extremity Upper without Contra IMPRESSION: Markedly fragmented, markedly impacted and displaced intra-articular fracture of the distal radial metaphysis and fracture through the distal ulnar metaphysis. Note that indicate such as this, radiographs are very likely more useful than the CT scan. Electronically Signed: Ayaz El MD at 17:26 EDT , Service support ,
== END ==
PROVIDERS: Family Provider Family Medicine Geriatric Medicine; PCP Family Medicine Geriatric Medicine; Visit Provider Family Medicine Geriatric Medicine
DX: S52.571A Other intraarticular fracture of lower end of right radius, initial encounter for closed fracture (principal); S52.691A Other fracture of lower end of right ulna, initial encounter for closed fracture; W19.XXXA Unspecified fall, initial encounter; Y93.9 Activity, unspecified; Y92.9 Unspecified place or not applicable
CPT/HCPCS: 73200

== ENCOUNTER → 2018-05-09 09:06 | Outpatient (CLI) | payer MEDICARE, OTHER, SELFPAY ==
--- NOTE | 2018-05-09 09:09 | RAD_ITS ---
STUDY: X-RAY - RIGHT WRIST REASON FOR EXAM: Fracture. TECHNIQUE: 3 view(s) of the wrist were obtained. COMPARISON: CT images 05/07/2018. FINDINGS: There is osteopenia. There is a comminuted impacted fracture of the distal radius. There is a nondisplaced fracture of the distal ulnar metaphysis. Normal radiocarpal articulation. Normal distal radioulnar articulation. Normal carpal bones. There is joint space narrowing of the triscaphe articulation. Normal carpometacarpal articulation of the thumb. Normal second through fifth carpometacarpal articulations. Normal visualized metacarpal bones. There is chondrocalcinosis in the triangular fibrocartilage, lunotriquetral ligament and at the radial joint capsule. There is soft tissue swelling. RAD/Wrist min 3 Views IMPRESSION: Comminuted impacted fracture of the distal radius. Nondisplaced distal ulnar fracture. Triscaphe arthrosis. Osteopenia. Chondrocalcinosis. Electronically Signed: Sanya Reynaga MD at 12:55 EDT Tel , Service support ,
== END ==
PROVIDERS: Family Provider Family Medicine Geriatric Medicine; PCP Family Medicine Geriatric Medicine; Visit Provider Orthopaedic Surgery
DX: S52.501A Unspecified fracture of the lower end of right radius, initial encounter for closed fracture (principal); S52.691A Other fracture of lower end of right ulna, initial encounter for closed fracture; X58.XXXA Exposure to other specified factors, initial encounter
CPT/HCPCS: 73110

== ENCOUNTER → 2018-05-26 10:24 | Outpatient (CLI) | payer MEDICARE, OTHER, SELFPAY ==
--- NOTE | 2018-05-26 10:30 | RAD_ITS ---
STUDY: X-RAY - RIGHT WRIST REASON FOR EXAM: Fracture follow-up. TECHNIQUE: 3 view(s) of the wrist were obtained. The films are mismarked left wrist. COMPARISON: Radiographs 05/09/2018. FINDINGS: There is osteopenia. There is an impacted fracture of the distal radius without interval change. There is a nondisplaced fracture of the distal ulnar metaphysis without interval change. Normal radiocarpal articulation. Normal distal radioulnar articulation. Normal carpal bones. There is joint space narrowing of the triscaphe articulation. Normal carpometacarpal articulation of the thumb. Normal second through fifth carpometacarpal articulations. Normal visualized metacarpal bones. There is chondrocalcinosis in the triangular fibrocartilage, lunotriquetral ligament and radial joint capsule. RAD/Wrist min 3 Views IMPRESSION: No interval change of distal radial and distal ulnar fractures. Triscaphe arthrosis. Osteopenia. Chondrocalcinosis. Electronically Signed: Sanya Reynaga MD at 11:36 EDT Tel , Service support ,
== END ==
PROVIDERS: Family Provider Family Medicine Geriatric Medicine; PCP Family Medicine Geriatric Medicine; Referring Provider Orthopaedic Surgery; Visit Provider Orthopaedic Surgery
DX: S52.501A Unspecified fracture of the lower end of right radius, initial encounter for closed fracture (principal); S52.691A Other fracture of lower end of right ulna, initial encounter for closed fracture; X58.XXXA Exposure to other specified factors, initial encounter; M19.031 Primary osteoarthritis, right wrist; M85.831 Other specified disorders of bone density and structure, right forearm; M11.231 Other chondrocalcinosis, right wrist
CPT/HCPCS: 73110

== ENCOUNTER → 2018-06-30 13:21 | Outpatient (CLI) | payer MEDICARE, OTHER, SELFPAY ==
--- NOTE | 2018-06-30 13:25 | RAD_ITS ---
STUDY: X-RAY - RIGHT WRIST REASON FOR EXAM: Female, 77 years old. Fracture TECHNIQUE: 3 view(s) of the wrist were obtained. COMPARISON: May 26, 2018 FINDINGS: Again noted is an impacted type fracture of the distal radius with evidence of mild interval healing with benign periosteal reaction and callus formation. Healing distal radius fracture is noted. Increased disuse osteopenia. Decreased soft tissue swelling. Remainder is unchanged RAD/Wrist min 3 Views IMPRESSION: Healing distal radius and ulnar fractures Electronically Signed: Elmer Daniels DO at 10:55 EST Tel , Service support ,
== END ==
PROVIDERS: Family Provider Family Medicine Geriatric Medicine; PCP Family Medicine Geriatric Medicine; Referring Provider Physician Assistant; Visit Provider Physician Assistant
DX: S52.91XA Unspecified fracture of right forearm, initial encounter for closed fracture (principal)
CPT/HCPCS: 73110

== ENCOUNTER → 2018-08-21 14:51 | Outpatient (CLI) | payer MEDICARE, OTHER, SELFPAY ==
[2018-08-21 17:08] LABS: Absolute Lymphocyte Count 1.45 X10^3/ul (0.83-4.51); Absolute Neutrophil Count 4.3 X10^3/uL (2.0-7.7); Basophil# 0.05 X10^3/uL; Basophil% 0.8 % (0-1); Hematocrit 43.7 % (37-47); Hemoglobin 14.5 g/dl (12.0-15.0); Lymphocyte # 1.45 X10^3/ul (4.0); Lymphocyte % 21.8 % (19-41); Mean Corp Hgb Conc 33.2 g/gl (32-36); Mean Corpuscular Hgb 29.2 pg (27.0-32.0); Mean Corpuscular Volume 88.1 fL (81-99); Monocyte# 0.63 X10^3/uL; Monocyte% 9.5 % (0-10); Neutrophil # 4.28 X10^3/uL (2.7-7.7); Neutrophil % 64.4 % (47-70); Platelet Count 192 K/mm3 (150-450); RBC Distribution Width CV 15.6 % (11.6-14.6); RBC Distribution Width SD 50.1 fl (35.1-43.9); Red Blood Count 4.96 M/mm3 (4.2-5.4); White Blood Count 6.6 K/mm3 (4.4-11.0)
[2018-08-21 17:20] LABS: Vitamin D,25 Hydroxy 33.6 ng/mL (29.95-100.01)
[2018-08-21 17:21] LABS: POSITIVE COUNT NO; POSITIVE DIFFERENTIAL NO; POSITIVE MORPHOLOGY NO
[2018-08-21 17:29] LABS: ALB/GLOB Ratio 1.3 RATIO (0.9-2.4); AST(SGOT) 18 U/L (15-37); Alanine Aminotransfer ALT/SGPT 21 U/L (13-56); Albumin, Serum 4.1 g/dL (3.2-5.0); Alkaline Phosphatase 93 U/L (45-117); Anion Gap 10 (5-15); BUN 20 mg/dL (7-18); BUN/Creat Ratio 22.2 RATIO (10-20); Calcium,Total 9.7 mg/dL (8.5-10.1); Chloride 107 mmol/L (98-107); EST Glomerular Filtration Rate 64 mL/min (>60); Est Glom Filt Rate - Afr Amer 78 mL/min (>60); Globulin 3.1 g/dL (2.2-4.2); Glucose 99 mg/dL (74-106); Potassium 3.2 mmol/L (3.5-5.1); Protein, Total 7.2 g/dL (6.4-8.2); Sodium Level 141 mmol/L (136-145); Thyroid Stim Hormone (TSH) 1.77 uIU/mL (0.358-3.74)
== END ==
PROVIDERS: Family Provider Family Medicine Geriatric Medicine; PCP Family Medicine Geriatric Medicine; Visit Provider Family Medicine Geriatric Medicine
DX: I10 Essential (primary) hypertension (principal); E55.9 Vitamin D deficiency, unspecified
CPT/HCPCS: 36415; 80053; 82306; 84443; 85025

== ENCOUNTER → 2018-09-23 16:24 | Outpatient (CLI) | payer MEDICARE, OTHER, SELFPAY ==
--- NOTE | 2018-09-23 16:10 | LES_PTH ---
PATIENT: SELINA TINSLEY LOC: [facility] U#:[id number] AGE/SX: 84/F ROOM: RE09/23/[address]: Dr. Anton Linn MD : 1940 BED: DIS: SPEC #: [id number] RECD: 09/23/18 16:50 STATUS: HAZEL ROBB #: [id number] ALEX: 09/23/18 16:[address]: Anton Linn Chi DEPT: SURGICAL PATHOLOGY RECD BY: Pradeep Hurd Tissues: Skin of face, NOS Procedures: Surgery Specimen Level IV HEADER OPERATION: Not noted PRE-OP DIAGNOSIS: L98.9 TISSUE SUBMITTED: Face, right cheek MICROSCOPIC DIAGNOSIS Face, right cheek, shave biopsy: Actinic keratosis. CE:vega 09/25/18 MICROSCOPIC DESCRIPTION Slides are reviewed. GROSS DESCRIPTION Received is one container labeled with the patient's name and not further designated. The specimen consists of a shave biopsy of light friedman skin measuring 0.7 x 0.6 x <0.1 cm. The specimen is inked and totally submitted in one cassette for postfixation sectioning. / AM:vega 09/24/18 TC:1 CPT: 07190
== END ==
PROVIDERS: Family Provider Family Medicine Geriatric Medicine; PCP Family Medicine Geriatric Medicine; Visit Provider Family Medicine Geriatric Medicine
DX: L98.9 Disorder of the skin and subcutaneous tissue, unspecified (principal)
CPT/HCPCS: 88305

== ENCOUNTER → 2018-10-01 15:41 | Outpatient (CLI) | payer MEDICARE, OTHER, SELFPAY | PROVIDERS: Family Provider Family Medicine Geriatric Medicine; PCP Family Medicine Geriatric Medicine; Referring Provider Family Medicine Geriatric Medicine; Visit Provider Family Medicine Geriatric Medicine | DX: R53.83 Other fatigue (principal) | CPT/HCPCS: 87633 ==

== ENCOUNTER → 2018-11-27 16:58 | Outpatient (CLI) | payer MEDICARE, OTHER, SELFPAY | PROVIDERS: Family Provider Family Medicine Geriatric Medicine; PCP Family Medicine Geriatric Medicine; Referring Provider Family Medicine Geriatric Medicine; Visit Provider Family Medicine Geriatric Medicine | DX: R68.83 Chills (without fever) (principal) | CPT/HCPCS: 87633 ==

== ENCOUNTER → 2019-02-03 08:06 | Outpatient (CLI) | payer MEDICARE, OTHER, SELFPAY ==
--- NOTE | 2019-02-03 08:11 | RAD_ITS ---
STUDY: X-RAY - ESOPHAGUS (BARIUM SWALLOW) WITH FLUOROSCOPY REASON FOR EXAM: Female, 78 years old. Dysphagia. Solid worse than liquids. TECHNIQUE: 18 view(s) of the esophagus were obtained following swallowing of barium. FLUOROSCOPY TIME (if supplied): (0:23) minutes/seconds COMPARISON: None. FINDINGS: There is no demonstrated esophageal foreign body. The dilated esophagus with very decreased peristaltic activity. Moderate-sized hiatal hernia. The patient was unable to swallow a 12 mm tablet of barium. There is atherosclerotic tortuosity of the aortic arch and descending thoracic aorta. Normal visualized pulmonary parenchyma. There are diffuse degenerative changes of the visualized thoracic spine. RAD/Esophagus Only IMPRESSION: Dilated and tortuous esophagus with decreased peristaltic activity. Moderate sized hiatal hernia. Electronically Signed: Trav Ko, at 14:43 EDT , Service support ,
== END ==
PROVIDERS: Family Provider Family Medicine Geriatric Medicine; PCP Family Medicine Geriatric Medicine; Referring Provider Family Medicine Geriatric Medicine; Visit Provider Family Medicine Geriatric Medicine
DX: R47.02 Dysphasia (principal)
CPT/HCPCS: 74220

== ENCOUNTER → 2019-02-19 13:39 | Outpatient (CLI) | payer MEDICARE, OTHER, SELFPAY ==
[2019-02-19 17:23] LABS: Absolute Lymphocyte Count 1.29 X10^3/ul (0.83-4.51); Absolute Neutrophil Count 7.2 X10^3/uL (2.0-7.7); Basophil# 0.04 X10^3/uL; Basophil% 0.4 % (0-1); Eosinophil# 0.51 X10^3/uL; Eosinophils% 5.1 % (0-5); Hematocrit 44.9 % (37-47); Hemoglobin 14.9 g/dl (12.0-15.0); Lymphocyte # 1.29 X10^3/ul (4.0); Lymphocyte % 12.8 % (19-41); Mean Corp Hgb Conc 33.2 g/gl (32-36); Mean Corpuscular Hgb 31.3 pg (27.0-32.0); Mean Corpuscular Volume 94.3 fL (81-99); Neutrophil # 7.23 X10^3/uL (2.7-7.7); Platelet Count 170 K/mm3 (150-450); RBC Distribution Width CV 13.2 % (11.6-14.6); RBC Distribution Width SD 45.3 fl (35.1-43.9); Red Blood Count 4.76 M/mm3 (4.2-5.4)
[2019-02-19 17:25] LABS: POSITIVE COUNT NO; POSITIVE DIFFERENTIAL NO; POSITIVE MORPHOLOGY NO
[2019-02-19 17:48] LABS: ALB/GLOB Ratio 1.1 RATIO (0.9-2.4); AST(SGOT) 22 U/L (15-37); Alanine Aminotransfer ALT/SGPT 25 U/L (13-56); Albumin, Serum 3.9 g/dL (3.2-5.0); Alkaline Phosphatase 121 U/L (45-117); Anion Gap 9 (5-15); BUN 15 mg/dL (7-18); BUN/Creat Ratio 16.3 RATIO (10-20); Calcium,Total 10.4 mg/dL (8.5-10.1); Chloride 104 mmol/L (98-107); Creatinine, Serum 0.92 mg/dL (0.55-1.02); EST Glomerular Filtration Rate 63 mL/min (>60); Est Glom Filt Rate - Afr Amer 76 mL/min (>60); Globulin 3.5 g/dL (2.2-4.2); Glucose 102 mg/dL (74-106); Potassium 3.7 mmol/L (3.5-5.1); Protein, Total 7.4 g/dL (6.4-8.2); Sodium Level 141 mmol/L (136-145); Thyroid Stim Hormone (TSH) 1.72 uIU/mL (0.358-3.74); Uric Acid 3.7 mg/dL (2.6-6.0)
[2019-02-19 17:56] LABS: Vitamin D,25 Hydroxy 29.7 ng/mL (29.95-100.01)
== END ==
PROVIDERS: Family Provider Family Medicine Geriatric Medicine; PCP Family Medicine Geriatric Medicine; Visit Provider Family Medicine Geriatric Medicine
DX: E55.9 Vitamin D deficiency, unspecified (principal); I10 Essential (primary) hypertension; M10.9 Gout, unspecified
CPT/HCPCS: 36415; 80053; 82306; 84443; 84550; 85025

== ENCOUNTER → 2019-05-20 14:59 | Outpatient (CLI) | payer MEDICARE, OTHER, SELFPAY ==
[2019-05-20 15:41] LABS: Absolute Lymphocyte Count 1.25 X10^3/uL (0.83-4.51); Absolute Neutrophil Count 6.3 X10^3/uL (2.0-7.7); Basophil# 0.05 X10^3/uL; Basophil% 0.6 % (0-1); Eosinophil# 0.04 X10^3/uL; Eosinophils% 0.5 % (0-5); Hematocrit 43.6 % (37-47); Hemoglobin 14.3 g/dL (12.0-15.0); Lymphocyte # 1.25 X10^3/ul (4.0); Lymphocyte % 14.8 % (19-41); Mean Corp Hgb Conc 32.8 g/dL (32-36); Mean Corpuscular Hgb 30.8 pg (27.0-32.0); Mean Corpuscular Volume 93.8 fL (81-99); Mean Platelet Vol. 10.5 fl (6.2-12.0); Monocyte# 0.79 X10^3/uL; Monocyte% 9.3 % (0-10); NRBC Flagged by Analyzer 0 % (0-5); Neutrophil # 6.27 X10^3/uL (2.7-7.7); Neutrophil % 74.1 % (47-70); Platelet Count 180 K/mm3 (150-450); RBC Distribution Width CV 13.6 % (11.6-14.6); RBC Distribution Width SD 46.5 fl (35.1-43.9); Red Blood Count 4.65 M/mm3 (4.2-5.4); White Blood Count 8.5 K/mm3 (4.4-11.0)
[2019-05-20 15:59] LABS: Vitamin D,25 Hydroxy 34.1 ng/mL (29.95-100.01)
[2019-05-20 16:07] LABS: ALB/GLOB Ratio 1.2 RATIO (0.9-2.4); AST(SGOT) 20 U/L (15-37); Alanine Aminotransfer ALT/SGPT 32 U/L (13-56); Albumin, Serum 3.9 g/dL (3.2-5.0); Alkaline Phosphatase 117 U/L (45-117); Anion Gap 8 (5-15); BUN 24 mg/dL (7-18); BUN/Creat Ratio 22.6 RATIO (10-20); Calcium,Total 9.6 mg/dL (8.5-10.1); Chloride 110 mmol/L (98-107); Creatinine, Serum 1.06 mg/dL (0.55-1.02); EST Glomerular Filtration Rate 53 mL/min (>60); Est Glom Filt Rate - Afr Amer 65 mL/min (>60); Globulin 3.2 g/dL (2.2-4.2); Glucose 100 mg/dL (74-106); Potassium 3.9 mmol/L (3.5-5.1); Protein, Total 7.1 g/dL (6.4-8.2); Sodium Level 141 mmol/L (136-145); Thyroid Stim Hormone (TSH) 1.15 uIU/mL (0.358-3.74)
== END ==
PROVIDERS: Family Provider Family Medicine Geriatric Medicine; PCP Family Medicine Geriatric Medicine; Visit Provider Family Medicine Geriatric Medicine
DX: E55.9 Vitamin D deficiency, unspecified (principal); I10 Essential (primary) hypertension
CPT/HCPCS: 36415; 80053; 82306; 84443; 85025

== ENCOUNTER → 2019-06-02 15:30 | Outpatient (CLI) | payer MEDICARE, OTHER, SELFPAY ==
[2019-06-02 17:40] LABS: Anion Gap 7 (5-15); BUN 19 mg/dL (7-18); BUN/Creat Ratio 20.9 RATIO (10-20); Chloride 108 mmol/L (98-107); Creatinine, Serum 0.91 mg/dL (0.55-1.02); EST Glomerular Filtration Rate 64 mL/min (>60); Est Glom Filt Rate - Afr Amer 77 mL/min (>60); Glucose 109 mg/dL (74-106); Potassium 3.7 mmol/L (3.5-5.1); Sodium Level 143 mmol/L (136-145)
== END ==
PROVIDERS: Family Provider Family Medicine Geriatric Medicine; PCP Family Medicine Geriatric Medicine; Visit Provider Family Medicine Geriatric Medicine
DX: E87.6 Hypokalemia (principal)
CPT/HCPCS: 36415; 80048

== ENCOUNTER → 2019-06-15 12:26 | Outpatient (CLI) | payer MEDICARE, OTHER, SELFPAY | PROVIDERS: Family Provider Family Medicine Geriatric Medicine; PCP Family Medicine Geriatric Medicine; Referring Provider Family Medicine Geriatric Medicine; Visit Provider Family Medicine Geriatric Medicine | DX: R68.83 Chills (without fever) (principal) | CPT/HCPCS: 87633 ==

== ENCOUNTER 2019-09-13 14:15 | Inpatient (IN) | payer MEDICARE, OTHER, SELFPAY ==
[2019-09-13 14:17] VITALS: BP 139/92; PULSE 67; RESP 16; TEMP 36.9; O2SAT 97; BMI 22.6
--- NOTE | 2019-09-13 14:50 | ED.VISSUMM ---
- ER Visit Summary Date of Service: 09/13/19 Chief Complaint: Fall History of Present Illness: The patient is a 78 F presenting after fall with inability to ambulate. Patient fell on Saturday. 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 She did not hit her head or lose consciousness. She had pain in her left hip. She states this has been progressively worsening. She is having difficulty ambulating. She had x-rays performed at her assisted living facility today which reportedly showed an impacted pubic rami fracture. They sent her into the ED because she is unable to stay in assisted living if she is unable to ambulate. She denies other complaints. Physical Examination: Vitals are stable. Patient is afebrile. Alert no acute distress. HEENT exam is unremarkable. Neck is supple. Lungs are clear and equal bilaterally. Heart is regular rate and rhythm. Abdomen is soft nontender nondistended. Extremities left hip tenderness with painful range of motion Skin is warm and dry. No focal neurologic deficit. Remainder of exam is unremarkable. Emergency Department Course and Treatment: CBC normal except platelet 118. Chemistries unremarkable. Left hip x-ray shows No acute fracture or malalignment. Osteopenia. Old injury/fracture of the left parasymphyseal pubis. CT head was ordered per hospitalist request. Patient's assisted-living facility is unable to take her back due to her inability to ambulate. Discussed with the hospitalist for admission. Disposition: Admission Impression: Left hip pain, inability to ambulate This note was generated with [employer] dictation software. It may contain incorrect words, spelling, and punctuation that were not noted in review of the chart prior to signing ED Disposition - Plan for ED Patient: Referrals: Anton Linn Chi, MD [Primary Care Provider] -
--- NOTE | 2019-09-13 15:05 | RAD_ITS ---
STUDY: X-RAY - PELVIS AND LEFT HIP REASON FOR EXAM: Female, 78 years old. fall, left hip pain, Hx pelvic fx in past TECHNIQUE: 3 views of the pelvis and hip. COMPARISON: None. FINDINGS: There is a non-specific bowel gas pattern. There are multiple calcified phleboliths. Fusion hardware of the lower lumbar spine noted. Normal bilateral iliac wings, sacroiliac joints and visualized sacrum. There is diffuse osteopenia. Deformity of the left parasymphyseal pubis similar since prior CT of 04/05/2017 compatible with healed fracture. Normal pubic symphysis. Normal bilateral ischial tuberosities. Normal visualized femoral head. Normal acetabulum. Normal hip joint. RAD/HIP, UNI W/ Pelvis 2-3 Views IMPRESSION: 1. No acute fracture or malalignment. 2. Osteopenia. 3. Old injury/fracture of the left parasymphyseal pubis. Electronically Signed: Clarence Kulkarni MD (Brooks) at 15:23 EST , Service support ,
[2019-09-13 15:10] LABS: Absolute Neutrophil Count 4.1 X10^3/uL (2.0-7.7); Basophil# 0.03 X10^3/uL; Basophil% 0.5 % (0-1); Eosinophils% 3.3 % (0-5); Hemoglobin 13.1 g/dL (12.0-15.0); Mean Corp Hgb Conc 32.8 g/dL (32-36); Mean Corpuscular Hgb 30.9 pg (27.0-32.0); Mean Corpuscular Volume 94.3 fL (81-99); Mean Platelet Vol. 10.5 fl (6.2-12.0); Monocyte# 0.74 X10^3/uL; Monocyte% 12.3 % (0-10); NRBC Flagged by Analyzer 0 % (0-5); Neutrophil # 4.13 X10^3/uL (2.7-7.7); Neutrophil % 68.6 % (47-70); Platelet Count 118 K/mm3 (150-450); RBC Distribution Width CV 12.7 % (11.6-14.6); RBC Distribution Width SD 43.8 fl (35.1-43.9); Red Blood Count 4.24 M/mm3 (4.2-5.4)
[2019-09-13 15:21] LABS: Anion Gap 5 (5-15); BUN 9 mg/dL (7-18); BUN/Creat Ratio 15.1 RATIO (10-20); Calcium,Total 9.1 mg/dL (8.5-10.1); Chloride 109 mmol/L (98-107); EST Glomerular Filtration Rate 104 mL/min (>60); Est Glom Filt Rate - Afr Amer 125 mL/min (>60); Estimated Creatinine Clearance 35.22 ml/min; Glucose 85 mg/dL (74-106); Potassium 4.2 mmol/L (3.5-5.1); Sodium Level 142 mmol/L (136-145)
--- NOTE | 2019-09-13 16:01 | CT_ITS ---
CT left hip INDICATION: Fall today, left hip pain TECHNIQUE: Axial CT imaging was performed through the left hip without IV contrast. Sagittal and coronal reformatted images submitted for interpretation. COMPARISON: Abdomen/pelvis CT 04/05/2017 FINDINGS: There are surrounding soft tissues are unremarkable. No focal fluid collection or hematoma. The left femoral head is in anatomic alignment with the acetabulum. Mild marginal spurring of the left femoral head with circumferential joint space narrowing. Old fracture of the left parasymphyseal pubis is stable since 2017. There is cortical buckling of the inferior left obturator region (image 43 of series 2) which is new since the prior study. The superior ramus is intact. There are injection granulomata in the left buttock subcutaneous fat. CT/Extremity Lower without Contra IMPRESSION: 1. Nondisplaced left inferior obturator ring fracture, new since 2017. 2. Old left parasymphyseal pubis fracture. Electronically Signed: Clarence Kulkarni MD (Brooks) at 18:19 EST , Service support ,
--- NOTE | 2019-09-13 16:24 | ED.RN ---
PT ANGRY AND YELLING AT PHYSICIAN AND NURSE. PT TOLD SHE CAN NOT RETURN TO HER APARTMENT [facility]. [facility]. THIS RN,GABRIEL AND PHYSICIAN TALKING WITH PT. PT REMAINS ANGRY AND YELLING AT STAFF. EXPLANATION TO PT FROM G[facility]EL AT [facility]. PT REMAINS ANGRY
--- NOTE | 2019-09-13 16:48 | NURSING ---
MED SURG HIP FX KORAM
--- NOTE | 2019-09-13 16:52 | HP.PCM_ITS ---
History of Present Illness Date of Admission: 09/13/19 Chief Complaint: mechanical fall The patient is a 78 year old F with a past medical history as listed in resident in an assisted living facility. She was admitted through the ED on 09/13/2019 with a complaint of mechanical fall and inability to ambulate. 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 She did not have any syncope or hit her head. She did have pain in her left hip but was initially able to ambulate. However pain got worse that she cannot ambulate today so she had x-rays done at this the living facility which showed an impacted pubic rami fracture. She was sent to the ED on account of any inability to ambulate. She denied any fever or chills, lightheadedness or dizziness, palpitations, nausea vomiting abdominal pain or diarrhea. Review of symptoms otherwise negative. In the ED, vitals were significant for blood pressure 139/92 with temperature of 98.5 and pulse rate of 67 as well as respiratory rate of 16. Pulse ox was 97% on room air. Chemistry essentially unremarkable and CBC was also unremarkable. Pelvic x-ray done showed no acute fracture or malalignment of osteopenia and showed old injury of fracture of the left parasymphyseal pubis. Left lower extremity CT was ordered and still pending. She has been admitted to be managed for debility due to mechanical fall and probable left inferior pubic rami fracture. [] Past Medical History Past Medical History (Chronic Problems): Chronic Problems Depression (Chronic) Hypertension (Chronic) Allergies No Known Allergies Allergy (Verified 05/26/18 10:39) Home Medications: Ambulatory Orders Medication Instructions Recorded Levothyroxine [Synthroid] 88 mcg PO DAILY 02/11/14 Potassium Chloride [K-Dur] 40 meq PO TID 08/10/15 Paroxetine [Paxil] 40 mg PO DAILY 01/09/17 Ibuprofen 200 mg PO BID 09/25/17 Diazepam [Valium] 1 tab PO UD 09/13/19 Gabapentin [Neurontin] 100 mg PO BIDCM 09/13/19 Metoprolol(XL)Succ [Toprol Xl 25 mg PO DAILY 09/13/19 (Beta Noreen)] Multivitamins,Therapeutic 1 tab PO DAILY 09/13/19 [Multivitamin] Omeprazole [Prilosec] 20 mg PO DAILY 09/13/19 Pantoprazole Sodium [Protonix] 40 mg PO DAILY 09/13/19 Polyethylene Glycol 3350 [Miralax] 17 gm PO BID 09/13/19 Surgical History: cholecystectomy, - Psychiatric History: Depression [employer] History: No pertinent [employer] history Lives: - - assisted living facility Smoking Status: Unknown if ever smoked Alcohol: None Drugs: None - *Family History Maternal History Items: - - no stroke. Review of Systems Constitutional: Denies: Chills, Fever, Malaise, Weakness, Weight Change Eyes: Denies: Blurred vision HEENT: Denies: Head Aches, Sinus Congestion, Sinus Drainage Cardiovascular: Denies: Chest Pain, Palpitations Respiratory: Denies: Cough, Shortness of breath at rest, Sputum production Gastrointestinal: Denies: Abdominal Pain, Nausea, Vomiting Genitourinary: Denies: Dysuria Musculoskeletal: Denies: Joint Pain, Joint Tenderness Skin: Denies: Rash, Wounds Neurological: Denies: Numbness, Tingling, Focal weakness Psychiatric: Denies: Anxiety, Depression, Homicidal Ideations, Suicidal Ideations Hematologic/ Lymphatic: Denies: Easy Bruising, Easy Bleeding VTE Information - Inpt Only VTE Present on Admission: No VTE Pharm Prophylaxis ordered?: Yes - Physical Exam Vitals/I&O's: Vital Signs Temp Pulse Resp BP Pulse Ox 98.5 F 67 16 139/92 H 97 09/13/19 14:17 09/13/19 14:17 09/13/19 14:17 09/13/19 14:17 09/13/19 14:17 Oxygen Delivery Method Room Air Weight: 104 lb 6.4 oz Body Mass Index (BMI) 22.6 General: Alert, Oriented x3, Cooperative, No apparent distress HEENT: Atraumatic, PERRLA, EOMI, Normocephalic Oral: Moist Mucosa Neck: Supple, No JVD, Negative Carotid Bruits Lungs: Clear to auscultation, Normal air movement Cardiovascular: Regular rate, Regular Rhythm, Normal S1, Normal S2, No murmurs Abdomen: Bowel Sounds Present, Soft, Non Tender, Non-Distended, No Hepato-splen omegaly Extremities: No clubbing, No cyanosis, No edema, Capillary Refill Less than 3 Seconds Skin: No rashes, No breakdown Musculoskeletal: No Tenderness to Palpation of Joints or Extremities, No Muscle Wasting, - - no pain with abduction or adduction of hip; unable to weight bear on LEs Lymphatic: No Cervical, Supraclavicular, or Inguinal Adenopathy Neurological: Cranial nerves II-XII grossly intact Psych/Mental Status: Normal Affect, Appropriate, Alert and oriented to time, place, person, mood and affect Laboratory Results 09/13/19 15:00: WBC 6.0, RBC 4.24, Hgb 13.1, Hct 40.0, MCV 94.3, MCH 30.9, MCHC 32.8, RDW Std Deviation 43.8, RDW Coeff of Olivia 12.7, Plt Count 118 L, MPV 10.5, Immature Gran % (Auto) 0.300, Neut % (Auto) 68.6, Lymph % (Auto) 15.0 L, [place] % (Auto) 12.3 H, Eos % (Auto) 3.3, Baso % (Auto) 0.5, Absolute Neuts (auto) 4.1, Absolute Lymphs (auto) 0.90, Nucleated RBC % 0 09/13/19 15:00: Sodium 142, Potassium 4.2, Chloride 109 H, Carbon Dioxide 28.0, Anion Gap 5, BUN 9, Creatinine 0.60, Estim Creat Clear Calc 35.22, Est GFR (MDRD) Af Amer 125, Est GFR (MDRD) Non-Af 104, BUN/Creatinine Ratio 15.1, Glucose 85, Calcium 9.1 Diagnostic Data Hip/Pelvis X-Ray 09/13/19 15:05 IMPRESSION: 1. No acute fracture or malalignment. 2. Osteopenia. 3. Old injury/fracture of the left parasymphyseal pubis. Electronically Signed: Clarence Kulkarni MD (Brooks) at 15:23 EST , Service support , Assessment/Plan All Active Problems Failure to thrive (Acute) 78-year-old admitted with complaint of inability to ambulate after she had a me chanical fall 5 days ago. 1. Debility due to mechanical fall * admit to [facility] Surg * PT/OT consult * xray of the hip showed old pubic rami fracture * patient is adamant she doesnt want surgery if it is needed, and does not want orthopedic surgery consulted. * CT of the Left hip; nondisplaced left inferior obturator ring fracture, and old left parasymphyseal pubis fracture. * IV morphine , PO tylenol and PO oxycodone prn * fall precautions * to consider consulting orthopedic surgery tomorrow if patient reconsiders; patient will benefit from intensive physical therapy. * 2.Probable pubic rami fracture due to mechanical fall * as under 1. * 3. Hypertension: On hydrochlorthiazide. 4. Hypothyroidism: on synthroid DVT prophylaxis: Lovenox Code Visit Inpatient E&M: 88809 Init Hosp L2
[2019-09-13 17:40] VITALS: BMI 19.3
[2019-09-13 17:46] VITALS: BP 177/94; PULSE 60; RESP 18; TEMP 36.8; O2SAT 97
[2019-09-13] MEDS: diazePAM 5 MG Tablet PO (23:12)
[2019-09-13] MEDS: Acetaminophen 325 MG Tablet 650 MG PO (23:14)
[2019-09-14] VITALS (7 sets, daily range): BP systolic 100–140; BP diastolic 65–88; PULSE 58–94; RESP 16–18; TEMP 36.3–36.9; O2SAT 94–99
[2019-09-14] MEDS: Morphine 2 MG/ML Syringe IV (05:12)
[2019-09-14] MEDS: Levothyroxine 88 MCG Tablet PO (05:13)
[2019-09-14] MEDS: 0.9% Saline Lock 10 ML Syringe IV ×3 (05:13→23:06)
[2019-09-14 06:20] LABS: Absolute Lymphocyte Count 1.11 X10^3/uL (0.83-4.51); Absolute Neutrophil Count 3.3 X10^3/uL (2.0-7.7); Basophil# 0.04 X10^3/uL; Basophil% 0.8 % (0-1); Eosinophil# 0.23 X10^3/uL; Eosinophils% 4.3 % (0-5); Hematocrit 37.9 % (37-47); Hemoglobin 12.4 g/dL (12.0-15.0); Lymphocyte # 1.11 X10^3/ul (4.0); Lymphocyte % 20.9 % (19-41); Mean Corp Hgb Conc 32.7 g/dL (32-36); Mean Corpuscular Hgb 30.5 pg (27.0-32.0); Mean Corpuscular Volume 93.3 fL (81-99); Mean Platelet Vol. 10.8 fl (6.2-12.0); Monocyte# 0.62 X10^3/uL; Monocyte% 11.7 % (0-10); NRBC Flagged by Analyzer 0 % (0-5); Neutrophil # 3.27 X10^3/uL (2.7-7.7); Neutrophil % 61.5 % (47-70); Platelet Count 126 K/mm3 (150-450); RBC Distribution Width CV 12.8 % (11.6-14.6); RBC Distribution Width SD 43.9 fl (35.1-43.9); Red Blood Count 4.06 M/mm3 (4.2-5.4); White Blood Count 5.3 K/mm3 (4.4-11.0)
[2019-09-14 06:42] LABS: Anion Gap 3 (5-15); BUN 9 mg/dL (7-18); BUN/Creat Ratio 14.7 RATIO (10-20); Calcium,Total 8.9 mg/dL (8.5-10.1); Chloride 109 mmol/L (98-107); Creatinine, Serum 0.61 mg/dL (0.55-1.02); EST Glomerular Filtration Rate 101 mL/min (>60); Est Glom Filt Rate - Afr Amer 122 mL/min (>60); Estimated Creatinine Clearance 30.05 ml/min; Glucose 85 mg/dL (74-106); Potassium 3.9 mmol/L (3.5-5.1); Sodium Level 139 mmol/L (136-145)
[2019-09-14] MEDS: Ondansetron 4 MG/2 ML Vial IV (07:27)
--- NOTE | 2019-09-14 09:58 | PCM.PN.HOSP ---
Reason for Visit: Follow-up on Left hip fracture Subjective: Patient seen and examined. Denies pain whilst lying down. No other new complains. She states she does not want surgery. I discussed that her mobility will be affected if she does not get evaluated by orthopedic surgery. She agreed to discuss further with orthopedics. Vitals/I&O's: Vital Signs Temp Pulse Resp BP Pulse Ox 98.5 F 58 L 18 140/79 H 97 09/14/19 05:05 09/14/19 05:05 09/14/19 05:05 09/14/19 05:05 09/14/19 05:05 Oxygen Delivery Method Room Air Weight: 40.4 kg Body Mass Index (BMI) 19.3 Intake and Output for Last 24 Hours 09/12/19 09/13/19 09/14/19 23:59 23:59 23:59 Intake Total 200 / 200 Output Total 250 / 250 Balance -50 / -50 General: Alert, Oriented x3, Cooperative HEENT: Atraumatic, PERRLA, EOMI, Normocephalic Oral: Moist Mucosa Neck: Supple Lungs: Clear to auscultation, Normal air movement Cardiovascular: Regular rate, Regular Rhythm, Normal S1, Normal S2, No murmurs Abdomen: Bowel Sounds Present, Soft, Non Tender, Non-Distended, No Hepato-splenomegaly Extremities: No edema Skin: No rashes Musculoskeletal: Tenderness - over the left hip joint especially with movement. Lymphatic: No Cervical, Supraclavicular, or Inguinal Adenopathy Neurological: Cranial nerves II-XII grossly intact, Neuro grossly intact Psych/Mental Status: Normal Affect, Appropriate Laboratory Results 09/13/19 15:00: WBC 6.0, RBC 4.24, Hgb 13.1, Hct 40.0, MCV 94.3, MCH 30.9, MCHC 32.8, RDW Std Deviation 43.8, RDW Coeff of Olivia 12.7, Plt Count 118 L, MPV 10.5, Immature Gran % (Auto) 0.300, Neut % (Auto) 68.6, Lymph % (Auto) 15.0 L, [place] % (Auto) 12.3 H, Eos % (Auto) 3.3, Baso % (Auto) 0.5, Absolute Neuts (auto) 4.1, Absolute Lymphs (auto) 0.90, Nucleated RBC % 0 09/13/19 15:00: Sodium 142, Potassium 4.2, Chloride 109 H, Carbon Dioxide 28.0, Anion Gap 5, BUN 9, Creatinine 0.60, Estim Creat Clear Calc 35.22, Est GFR (MDRD) Af Amer 125, Est GFR (MDRD) Non-Af 104, BUN/Creatinine Ratio 15.1, Glucose 85, Calcium 9.1 09/14/19 05:32: WBC 5.3, RBC 4.06 L, Hgb 12.4, Hct 37.9, MCV 93.3, MCH 30.5, MCHC 32.7, RDW Std Deviation 43.9, RDW Coeff of Olivia 12.8, Plt Count 126 L, MPV 10.8, Immature Gran % (Auto) 0.800, Neut % (Auto) 61.5, Lymph % (Auto) 20.9, [place] % (Auto) 11.7 H, Eos % (Auto) 4.3, Baso % (Auto) 0.8, Absolute Neuts (auto) 3.3, Absolute Lymphs (auto) 1.11, Nucleated RBC % 0 09/14/19 05:32: Sodium 139, Potassium 3.9, Chloride 109 H, Carbon Dioxide 27.0, Anion Gap 3 L, BUN 9, Creatinine 0.61, Estim Creat Clear Calc 30.05, Est GFR (MDRD) Af Amer 122, Est GFR (MDRD) Non-Af 101, BUN/Creatinine Ratio 14.7, Glucose 85, Calcium 8.9 Current Medications Acetaminophen (Tylenol) 650 mg PO Q6H PRN PRN PRN Reason: Pain Score 1-3/Temp > 100.7 F Last Admin: 09/13/19 23:14 Dose: 650 mg Documented by: Diazepam (Valium) 5 mg PO QHS COUNTS INCLUDE 234 BEDS AT THE [facility] Last Admin: 09/13/19 23:12 Dose: 5 mg Documented by: Enoxaparin Sodium (Lovenox) 40 mg SC DAILY COUNTS INCLUDE 234 BEDS AT THE [facility] Glucagon () 1 mg IM .X1 PRN PRN Reason: Hypoglycemia Dextrose (Dextrose 10%-Water) 250 mls @ 999 mls/hr IV .Q16M PRN; Protocol PRN Reason: HYPOGLYCEMIA Levothyroxine Sodium (Synthroid) 88 mcg PO DAILY@0600 COUNTS INCLUDE 234 BEDS AT THE [facility] Last Admin: 09/14/19 05:13 Dose: 88 mcg Documented by: Metoprolol Succinate (Toprol Xl (Beta Noreen)) 25 mg PO DAILY COUNTS INCLUDE 234 BEDS AT THE [facility] Morphine Sulfate () 2 mg IV Q3H PRN PRN PRN Reason: Pain Score 6-10/10 Last Admin: 09/14/19 05:12 Dose: 2 mg Documented by: Multivitamins (Multivitamin) 1 tablet PO DAILY@1200 COUNTS INCLUDE 234 BEDS AT THE [facility] Ondansetron HCl (Zofran) 4 mg IV Q8H PRN PRN PRN Reason: NAUSEA/VOMITING Last Admin: 09/14/19 07:27 Dose: 4 mg Documented by: Oxycodone HCl (Oxyir) 5 mg PO Q4H PRN PRN PRN Reason: Pain Score 4-5/10 Pantoprazole Sodium (Protonix) 40 mg PO DAILY COUNTS INCLUDE 234 BEDS AT THE [facility] Paroxetine HCl (Paxil) 40 mg PO DAILY COUNTS INCLUDE 234 BEDS AT THE [facility] Polyethylene Glycol (Miralax) 17 gm PO BID COUNTS INCLUDE 234 BEDS AT THE [facility] Last Admin: 09/13/19 23:12 Dose: Not Given Documented by: Potassium Chloride (K-Dur) 40 meq PO BIDCM COUNTS INCLUDE 234 BEDS AT THE [facility] Sodium Chloride () 10 - 40 ml IV UD PRN PRN Reason: SALINE FLUSH Last Admin: 09/14/19 07:27 Dose: 10 ml Documented by: Medical Necessity - Tobacco Use Smoking Status: Current every day smoker Assessment/Plan All Active Problems Failure to thrive (Acute) 1. Acute left inferior obturator ring fracture, non-displaced, traumatic secondary to mechanical fall Pain is fairly controlled Will await recommendation from orthopedic surgery PT/OT to evaluate for discharge planning 2. Hypertension, controlled, on metoprolol, will continue to monitor 3. Hypothyroidism, on synthroid 4. DVT PPx- Lovenox SC Code Visit Inpatient E&M: 61440 Subs Hosp L2
[2019-09-14] MEDS: Polyethylene Glycol 3350 17 GM PACKET PO (10:48)
[2019-09-14] MEDS: Metoprolol(XL)Succ 25 MG Tablet PO (10:52)
[2019-09-14] MEDS: Pantoprazole Sodium 40 MG Tablet PO (10:52)
[2019-09-14] MEDS: Paroxetine 20 MG Tablet 40 MG PO (10:53)
[2019-09-14] MEDS: Gabapentin 100 MG Capsule PO ×2 (10:54→16:03)
[2019-09-14] MEDS: Multivitamins,Therapeutic Tablet 1 TABLET PO (11:03)
--- NOTE | 2019-09-14 14:06 | CASEMGMT ---
Social Work Note Pt is listed as being from [facility]. Per physician ortho has been consulted to determine if they will do surgery or not. ABRAHAM met with pt and introduced self and role at [facility]. Pt is alert and orientated x3. Pt confirms that she is from [facility] and would like to return. SW updated pt that she has to be ambulatory to be able to return to [facility] and at this time she is not. SW informed pt that she may have to return skilled to [facility]. Pt states understanding, is agreeable to return to [facility] skilled if needed. SW faxed updated clinicals to [facility]. Plan: Return to [facility] vs Return to [facility] skilled Virgen Johnson INDUSTRIAL MACHINE OPERATOR, SEASONAL CLERK
--- NOTE | 2019-09-14 17:00 | CON.PCM_ITS ---
Reason for Consult Date of Consultation: 09/14/19 Reason for Consultation: Left hip pain History of Present Illness: The patient is a 78 year old F [who normally ambulates in assisted living with a wheeled walker. She fell in her room . She was brought in to [facility] and admitted to the hospital yesterday for intractable pain. At the time of my consult she is sitting comfortably in the hospital bed and denies pain, numbness or tingling. She states that her hip only hurts when she gets up to walk. Her daughter is at the bedside and is present through the entire consult. The patient is [facility] which makes history taking difficult.] Past Medical History Past Medical History (Chronic Problems): Chronic Problems Depression (Chronic) Hypertension (Chronic) Allergies No Known Allergies Allergy (Verified 05/26/18 10:39) Home Medications: Ambulatory Orders Medication Instructions Recorded Levothyroxine [Synthroid] 88 mcg PO DAILY 02/11/14 Potassium Chloride [K-Dur] 40 meq PO BID 08/10/15 Paroxetine [Paxil] 40 mg PO DAILY 01/09/17 Ibuprofen 200 mg PO BID 09/25/17 Diazepam [Valium] 10 mg PO QHS 09/13/19 Gabapentin [Neurontin] 100 mg PO BIDCM 09/13/19 Metoprolol(XL)Succ [Toprol Xl 25 mg PO DAILY 09/13/19 (Beta Noreen)] Multivitamins,Therapeutic 1 tab PO DAILY 09/13/19 [Multivitamin] Pantoprazole Sodium [Protonix] 40 mg PO DAILY 09/13/19 Polyethylene Glycol 3350 [Miralax] 17 gm PO BID 09/13/19 Surgical History: cholecystectomy, - Psychiatric History: Depression STEEL HANGER History: No pertinent STEEL HANGER history Lives: - - assisted living facility Smoking Status: Current every day smoker Alcohol: None Drugs: None - *Family History Maternal History Items: - - no stroke. Review of Systems HEENT: Reports: Hard of Hearing Musculoskeletal: Reports: Joint Pain - left hip with ambulation - Physical Exam Vitals/I&O's: Vital Signs Temp Pulse Resp BP Pulse Ox 97.4 F L 66 16 100/65 99 09/14/19 11:05 09/14/19 11:05 09/14/19 11:05 09/14/19 11:05 09/14/19 11:05 Oxygen Delivery Method Nasal Cannula Weight: 89 lb 1.068 oz Body Mass Index (BMI) 19.3 Intake and Output for Last 24 Hours 09/12/19 09/13/19 09/14/19 23:59 23:59 23:59 Intake Total 200 / 200 Output Total 350 / 350 Balance -150 / -150 General: Alert, Oriented x3, Cooperative HEENT: Atraumatic, PERRLA Extremities: No clubbing, No cyanosis, No edema, Capillary Refill Less than 3 Seconds, - - leg lengths are equal Musculoskeletal: Tenderness - about the left ischium with palpation Neurological: Neuro grossly intact Comment: CT is reviewed and reveals a non-displaced left ischial fracture Laboratory Results 09/14/19 05:32: WBC 5.3, RBC 4.06 L, Hgb 12.4, Hct 37.9, MCV 93.3, MCH 30.5, MCHC 32.7, RDW Std Deviation 43.9, RDW Coeff of Olivia 12.8, Plt Count 126 L, MPV 10.8, Immature Gran % (Auto) 0.800, Neut % (Auto) 61.5, Lymph % (Auto) 20.9, [place] % (Auto) 11.7 H, Eos % (Auto) 4.3, Baso % (Auto) 0.8, Absolute Neuts (auto) 3.3, Absolute Lymphs (auto) 1.11, Nucleated RBC % 0 09/14/19 05:32: Sodium 139, Potassium 3.9, Chloride 109 H, Carbon Dioxide 27.0, Anion Gap 3 L, BUN 9, Creatinine 0.61, Estim Creat Clear Calc 30.05, Est GFR (MDRD) Af Amer 122, Est GFR (MDRD) Non-Af 101, BUN/Creatinine Ratio 14.7, Glucose 85, Calcium 8.9 Current Medications Acetaminophen (Tylenol) 650 mg PO Q6H PRN PRN PRN Reason: Pain Score 1-3/Temp > 100.7 F Last Admin: 09/13/19 23:14 Dose: 650 mg Documented by: Diazepam (Valium) 5 mg PO QHS [facility] Last Admin: 09/13/19 23:12 Dose: 5 mg Documented by: Enoxaparin Sodium (Lovenox) 40 mg SC DAILY [facility] Last Admin: 09/14/19 10:47 Dose: Not Given Documented by: Gabapentin (Neurontin) 100 mg PO BIDCM [facility] Last Admin: 09/14/19 16:03 Dose: 100 mg Documented by: Glucagon () 1 mg IM .X1 PRN PRN Reason: Hypoglycemia Dextrose (Dextrose 10%-Water) 250 mls @ 999 mls/hr IV .Q16M PRN; Protocol PRN Reason: HYPOGLYCEMIA Levothyroxine Sodium (Synthroid) 88 mcg PO DAILY@0600 [facility] Last Admin: 09/14/19 05:13 Dose: 88 mcg Documented by: Metoprolol Succinate (Toprol Xl (Beta Noreen)) 25 mg PO DAILY [facility] Last Admin: 09/14/19 10:52 Dose: 25 mg Documented by: Morphine Sulfate () 2 mg IV Q3H PRN PRN PRN Reason: Pain Score 6-10/10 Last Admin: 09/14/19 05:12 Dose: 2 mg Documented by: Multivitamins (Multivitamin) 1 tablet PO DAILY@1200 [facility] Last Admin: 09/14/19 11:03 Dose: 1 tablet Documented by: Ondansetron HCl (Zofran) 4 mg IV Q8H PRN PRN PRN Reason: NAUSEA/VOMITING Last Admin: 09/14/19 07:27 Dose: 4 mg Documented by: Oxycodone HCl (Oxyir) 5 mg PO Q4H PRN PRN PRN Reason: Pain Score 4-5/10 Pantoprazole Sodium (Protonix) 40 mg PO DAILY [facility] Last Admin: 09/14/19 10:52 Dose: 40 mg Documented by: Paroxetine HCl (Paxil) 40 mg PO DAILY [facility] Last Admin: 09/14/19 10:53 Dose: 40 mg Documented by: Polyethylene Glycol (Miralax) 17 gm PO BID [facility] Last Admin: 09/14/19 10:48 Dose: 17 gm Documented by: [facility] Last Admin: 09/14/19 16:03 Dose: 40 meq Documented by: Sodium Chloride () 10 - 40 ml IV UD PRN PRN Reason: SALINE FLUSH Last Admin: 09/14/19 07:27 Dose: 10 ml Documented by: Assessment/Plan All Active Problems Failure to thrive (Acute) Non-displaced left ischial tuberosity fracture Walker ambulation with WBAT PT Her functional status will determine if she is suitable for return to assisted living or if she will require half-way Follow up with ortho 2 weeks after discharge from [facility]. I explained to the patient and her daughter that this will likely take 6-8 weeks to heal but should not require surgery.
[2019-09-14] MEDS: Acetaminophen 325 MG Tablet 650 MG PO (23:05)
[2019-09-14] MEDS: diazePAM 5 MG Tablet PO (23:05)
[2019-09-15 03:06] VITALS: BP 167/69; PULSE 57; RESP 18; TEMP 36.4; O2SAT 94
[2019-09-15] MEDS: Levothyroxine 88 MCG Tablet PO (06:42)
[2019-09-15] MEDS: Acetaminophen 325 MG Tablet 650 MG PO (06:47)
--- NOTE | 2019-09-15 07:15 | PN_ITS ---
Reason for Visit: Follow-up on hip fracture Subjective: Patient was seen and examined. She denied any new complaints. She was able to walk with therapy. She states that she got tired at the end of the walk. Review of systems is negative Vitals/I&O's: Vital Signs Temp Pulse Resp BP Pulse Ox 97.6 F L 57 L 18 167/69 H 94 09/15/19 03:06 09/15/19 03:06 09/15/19 03:06 09/15/19 03:06 09/15/19 03:06 Oxygen Delivery Method Room Air Weight: 40.4 kg Body Mass Index (BMI) 19.3 Intake and Output for Last 24 Hours 09/13/19 09/14/19 09/15/19 23:59 23:59 23:59 Intake Total 800 / 800 300 / 300 Output Total 850 / 850 200 / 200 Balance -50 / -50 100 / 100 General: Alert, Oriented x3, Cooperative, No apparent distress HEENT: Atraumatic, PERRLA, EOMI, Normocephalic Oral: Moist Mucosa Neck: Supple Lungs: Clear to auscultation, Normal air movement Cardiovascular: Regular rate, Regular Rhythm, Normal S1, Normal S2 Abdomen: Bowel Sounds Present, Soft, Non Tender, Non-Distended, No Hepato- splenomegaly Extremities: No edema, Capillary Refill Less than 3 Seconds Skin: No rashes, No breakdown Musculoskeletal: Tenderness - over the left hip Neurological: Cranial nerves II-XII grossly intact Psych/Mental Status: Normal Affect, Appropriate Current Medications Acetaminophen (Tylenol) 650 mg PO Q6H PRN PRN PRN Reason: Pain Score 1-3/Temp > 100.7 F Last Admin: 09/15/19 06:47 Dose: 650 mg Documented by: Diazepam (Valium) 5 mg PO QHS [facility] Last Admin: 09/14/19 23:05 Dose: 5 mg Documented by: Enoxaparin Sodium (Lovenox) 40 mg SC DAILY [facility] Last Admin: 09/14/19 10:47 Dose: Not Given Documented by: Gabapentin (Neurontin) 100 mg PO BIDCM [facility] Last Admin: 09/14/19 16:03 Dose: 100 mg Documented by: Glucagon () 1 mg IM .X1 PRN PRN Reason: Hypoglycemia Dextrose (Dextrose 10%-Water) 250 mls @ 999 mls/hr IV .Q16M PRN; Protocol PRN Reason: HYPOGLYCEMIA Levothyroxine Sodium (Synthroid) 88 mcg PO DAILY@0600 [facility] Last Admin: 09/15/19 06:42 Dose: 88 mcg Documented by: Metoprolol Succinate (Toprol Xl (Beta Noreen)) 25 mg PO DAILY [facility] Last Admin: 09/14/19 10:52 Dose: 25 mg Documented by: Morphine Sulfate () 2 mg IV Q3H PRN PRN PRN Reason: Pain Score 6-10/10 Last Admin: 09/14/19 05:12 Dose: 2 mg Documented by: Multivitamins (Multivitamin) 1 tablet PO DAILY@1200 [facility] Last Admin: 09/14/19 11:03 Dose: 1 tablet Documented by: Ondansetron HCl (Zofran) 4 mg IV Q8H PRN PRN PRN Reason: NAUSEA/VOMITING Last Admin: 09/14/19 07:27 Dose: 4 mg Documented by: Oxycodone HCl (Oxyir) 5 mg PO Q4H PRN PRN PRN Reason: Pain Score 4-5/10 Pantoprazole Sodium (Protonix) 40 mg PO DAILY [facility] Last Admin: 09/14/19 10:52 Dose: 40 mg Documented by: Paroxetine HCl (Paxil) 40 mg PO DAILY [facility] Last Admin: 09/14/19 10:53 Dose: 40 mg Documented by: Polyethylene Glycol (Miralax) 17 gm PO BID [facility] Last Admin: 09/14/19 23:06 Dose: Not Given Documented by: [facility] Last Admin: 09/14/19 16:03 Dose: 40 meq Documented by: Sodium Chloride () 10 - 40 ml IV UD PRN PRN Reason: SALINE FLUSH Last Admin: 09/14/19 23:06 Dose: 10 ml Documented by: Medical Necessity - Tobacco Use Smoking Status: Current every day smoker Assessment/Plan All Active Problems Failure to thrive (Acute) 1. Acute left inferior obturator ring fracture, non-displaced, traumatic secondary to mechanical fall Pain is controlled, conservative management is planned. 2. Hypertension, controlled, on metoprolol, will continue to monitor 3. Hypothyroidism, on synthroid 4. DVT PPx- Lovenox SC
[2019-09-15 07:55] VITALS: BP 131/81; PULSE 61; RESP 18; TEMP 36.7; O2SAT 96
[2019-09-15] MEDS: Gabapentin 100 MG Capsule PO (08:04)
[2019-09-15] MEDS: Paroxetine 20 MG Tablet 40 MG PO (10:45)
[2019-09-15] MEDS: Multivitamins,Therapeutic Tablet 1 TABLET PO (10:45)
[2019-09-15 10:46] VITALS: PULSE 62
[2019-09-15] MEDS: Enoxaparin 40 MG/0.4 ML Syringe SC (10:46)
[2019-09-15] MEDS: Metoprolol(XL)Succ 25 MG Tablet PO (10:46)
[2019-09-15] MEDS: Pantoprazole Sodium 40 MG Tablet PO (10:49)
--- NOTE | 2019-09-15 11:02 | DCINST_ITS ---
- Discharge Diagnoses Reason(s) for Visit for Discharge Instructions: Left hip pain You will use the following diet at home:: Regular Your food should be the consistency of: Regular Your liquids should be the consistency of: Regular/Thin Discharge Activity: Return to Normal Activity Additional Instructions: Continue to take all your medications. Ok to use tylenol as needed for pain. Keep being active. Follow-up with outpatient therapy. I strongly recommend you taper off diazepam as it can make you drowsy and cause you to fall. Follow-up with your primary care doctor within 2 weeks Allergies/Adverse Reactions: Allergies No Known Allergies Allergy (Verified 05/26/18 10:39) Medications to take at Discharge Levothyroxine [Synthroid] 88 mcg PO DAILY 02/11/14 Potassium Chloride [K-Dur] 40 meq PO BID 08/10/15 Paroxetine [Paxil] 40 mg PO DAILY 01/09/17 Diazepam [Valium] 10 mg PO QHS 09/13/19 Gabapentin [Neurontin] 100 mg PO BIDCM 09/13/19 Metoprolol(XL)Succ [Toprol Xl (Beta Noreen)] 25 mg PO DAILY 09/13/19 Multivitamins,Therapeutic [Multivitamin] 1 tab PO DAILY 09/13/19 Pantoprazole Sodium [Protonix] 40 mg PO DAILY 09/13/19 Polyethylene Glycol 3350 [Miralax] 17 gm PO BID 09/13/19 Acetaminophen [Tylenol Tablet] 650 mg PO Q6H PRN PRN tab 09/15/19 Primary Care Physician: Anton Linn Chi, MD [Primary Care Provider] - Please follow up with your Primary Care Physician in: within 2 weeks Test Results: Test results from this visit will be discussed in further detail at your follow- up appointment, if applicable. Please Follow Up With: David Brock DO When: in 2 weeks Proposed Discharge Date: 09/15/19
--- NOTE | 2019-09-15 11:05 | PCM.DC.SUM ---
Discharge Date and Diagnosis Date of Admission: 09/13/19 Date of Discharge: 09/15/19 - Primary Discharge Diagnosis Acute left inferior obturator ring fracture, non-displaced, traumatic secondary to mechanical fall - Secondary Discharge Diagnosis Chronic Problems Depression (Chronic) Hypertension (Chronic) Hospital Course and Treatment Imaging Results: Clinical Impression(s) from Imaging Studies Hip/Pelvis X-Ray 09/13/19 15:05 IMPRESSION: 1. No acute fracture or malalignment. 2. Osteopenia. 3. Old injury/fracture of the left parasymphyseal pubis. Electronically Signed: Clarence Kulkarni MD (Brooks) at 15:23 EST , Service support , Lower Extremity CT 09/13/19 16:01 IMPRESSION: 1. Nondisplaced left inferior obturator ring fracture, new since 2017. 2. Old left parasymphyseal pubis fracture. Electronically Signed: Clarence Kulkarni MD (Brooks) at 18:19 EST , Service support , Orthopedic surgery Operations: None Procedures: None Summary of Care Provided: The patient is a 78 year old F with a past medical history of hypertension, depression who comes in after a fall and is unable to ambulate. Patient reportedly fell 5 days prior to admission when she was leaning over to picker/puller her cane. She lost her balance and fell. She denied any syncope. She however initially was able to ambulate but that got worse. An x-ray done in the assisted living facility showed an impacted pubic rami fracture. Patient was brought to the emergency department. X-ray of the hip showed a old pubic rami fracture. CT scan of the left hip shows a nondisplaced left inferior obturator ring fracture. Orthopedic surgery was consulted. Conservative management was recommended. Patient was seen by PT and OT and was able to ambulate satisfactorily. She was discharged back to the assisted living facility. She would follow-up with orthopedic in the outpatient. Subjective: See progress note of the day Objective: See Progress note of the day - Physical Exam Vitals/I&O's: Vital Signs Temp Pulse Resp BP Pulse Ox 98.1 F 62 18 131/81 H 96 09/15/19 07:55 09/15/19 10:46 09/15/19 07:55 09/15/19 07:55 09/15/19 07:55 Oxygen Delivery Method Room Air Weight: 40.4 kg Body Mass Index (BMI) 19.3 Intake and Output for Last 24 Hours 09/13/19 09/14/19 09/15/19 23:59 23:59 23:59 Intake Total 800 / 800 300 / 300 Output Total 850 / 850 200 / 200 Balance -50 / -50 100 / 100 Current Medications Acetaminophen (Tylenol) 650 mg PO Q6H PRN PRN PRN Reason: Pain Score 1-3/Temp > 100.7 F Last Admin: 09/15/19 06:47 Dose: 650 mg Documented by: Diazepam (Valium) 5 mg PO QHS [facility] Last Admin: 09/14/19 23:05 Dose: 5 mg Documented by: Enoxaparin Sodium (Lovenox) 40 mg SC DAILY [facility] Last Admin: 09/15/19 10:46 Dose: 40 mg Documented by: Gabapentin (Neurontin) 100 mg PO BIDCM [facility] Last Admin: 09/15/19 08:04 Dose: 100 mg Documented by: Glucagon () 1 mg IM .X1 PRN PRN Reason: Hypoglycemia Dextrose (Dextrose 10%-Water) 250 mls @ 999 mls/hr IV .Q16M PRN; Protocol PRN Reason: HYPOGLYCEMIA Levothyroxine Sodium (Synthroid) 88 mcg PO DAILY@0600 [facility] Last Admin: 09/15/19 06:42 Dose: 88 mcg Documented by: Metoprolol Succinate (Toprol Xl (Beta Noreen)) 25 mg PO DAILY [facility] Last Admin: 09/15/19 10:46 Dose: 25 mg Documented by: Morphine Sulfate () 2 mg IV Q3H PRN PRN PRN Reason: Pain Score 6-10/10 Last Admin: 09/14/19 05:12 Dose: 2 mg Documented by: Multivitamins (Multivitamin) 1 tablet PO DAILY@1200 [facility] Last Admin: 09/15/19 10:45 Dose: 1 tablet Documented by: Ondansetron HCl (Zofran) 4 mg IV Q8H PRN PRN PRN Reason: NAUSEA/VOMITING Last Admin: 01/20/20 07:27 Dose: 4 mg Documented by: Oxycodone HCl (Oxyir) 5 mg PO Q4H PRN PRN PRN Reason: Pain Score 4-5/10 Pantoprazole Sodium (Protonix) 40 mg PO DAILY [facility] Last Admin: 09/15/19 10:49 Dose: 40 mg Documented by: Paroxetine HCl (Paxil) 40 mg PO DAILY [facility] Last Admin: 09/15/19 10:45 Dose: 40 mg Documented by: Polyethylene Glycol (Miralax) 17 gm PO BID [facility] Last Admin: 09/15/19 10:57 Dose: Not Given Documented by: Pot[facility] Last Admin: 09/15/19 08:03 Dose: 40 meq Documented by: Sodium Chloride () 10 - 40 ml IV UD PRN PRN Reason: SALINE FLUSH Last Admin: 09/14/19 23:06 Dose: 10 ml Documented by: Discharge Diet: Low fat/ Low Cholesterol, 2000 mg Sodium Diet Discharge Activity: Return to Normal Activity Home Medications: Medications to take at Discharge Levothyroxine [Synthroid] 88 mcg PO DAILY 02/11/14 Potassium Chloride [K-Dur] 40 meq PO BID 08/10/15 Paroxetine [Paxil] 40 mg PO DAILY 01/09/17 Diazepam [Valium] 10 mg PO QHS 09/13/19 Gabapentin [Neurontin] 100 mg PO BID 09/13/19 Metoprolol(XL)Succ [Toprol Xl (Beta Noreen)] 25 mg PO DAILY 09/13/19 Multivitamins,Therapeutic [Multivitamin] 1 tab PO DAILY 09/13/19 Pantoprazole Sodium [Protonix] 40 mg PO DAILY 09/13/19 Polyethylene Glycol 3350 [Miralax] 17 gm PO BID 09/13/19 Acetaminophen [Tylenol Tablet] 650 mg PO Q6H PRN PRN tab 09/15/19 Primary Care Physician: Anton Linn Chi, MD [Primary Care Provider] - Please follow up with your Primary Care Physician in: within 2 weeks Please Follow Up With: David Brock DO When: in 2 weeks Disposition: Asstd Living/Non-Skill NH Minutes spent on discharge:: 40 Patient Condition:: Stable Medical Necessity - Tobacco Use Smoking Status: Current every day smoker Meaningful Use Info Meaningful Use Diagnoses (Choose all that apply): None applicable Code Visit Inpatient E&M: 46509 Disch Hosp
--- NOTE | 2019-09-15 11:24 | CASEMGMT ---
Social Work Note ABRAHAM reviewed PT/OT notes, pt walked 80ft stand by assist with wheeled walker. ABRAHAM placed a call to Freida at [facility] and updated her that pt is medically ready for discharge today and will likely be returning to [facility]. Freida states she will speak with Antionette BECKHAM on [facility] to determine if they want pt to return to [facility] or if they want pt to return to [facility] skilled private pay. ABRAHAM received call from Antionette BECKHAM at [facility] stating pt is moving well but pt is also impulsive and will not wait for staff to assist her. Antionette states she will call pt's daughter to determine if they want pt to return to [facility] or pay privately for SNF. ABRAHAM waiting for call back. Plan: Discharge today to either [facility] or [facility] skilled. Virgen Johnson PACKAGING ASSEMBLER, COLOR GRINDER
--- NOTE | 2019-09-15 13:30 | CASEMGMT ---
Social Work Note SW received message from Antionette at [facility] stating she spoke with pt's daughter Diana and [facility] is able to accept pt back if pt utilizes call light button and doesn't get up without staff. Antionette states she will inform pt of this once pt arrives to [facility]. ABRAHAM faxed discharge instructions, summary, script for therapy to [facility]. Original in SNF folder and copy on pt's chart. ABRAHAM spoke with RN who states pt is able to transport via wheelchair van. ABRAHAM placed a call to [facility] and arranged transportation via wheelchair van for 3:00pm. Transportation form completed and placed on SNF folder and copy on pt's chart. SW updated pt on transportation time and that she will get a bill for transportation as insurance doesn't cover wheelchair van. Pt states understanding. Pt gave this worker permission to call her daughter Diana and update her on transportation time. ABRAHAM placed a call to pt's daughter Diana and updated her on discharge and transportation time. ABRAHAM placed a call to Antionette at [facility] and updated her on pt's discharge and transportation time. RN updated on transportation time. Plan: Return to [facility] today with [facility] transporting via wheelchair van at 3:00pm Virgen Johnson MSW, COMPOSITE MECHANIC
--- NOTE | 2019-09-15 14:29 | NURSING ---
Report given to nurse @ [facility]
== END 2019-09-15 15:08 | disposition home or self-care (01) | DRG 536 ==
LOC: ED 15:02 → MS3 17:04
PROVIDERS: Admitting Provider Student in an Organized Health Care Education/Training Program; Emergency Provider Emergency Medicine; PCP Family Medicine Geriatric Medicine; Visit Provider Internal Medicine
DX: S32.592A Other specified fracture of left pubis, initial encounter for closed fracture (principal); W18.39XA Other fall on same level, initial encounter; Y93.89 Activity, other specified; Y92.128 Other place in nursing home as the place of occurrence of the external cause; I10 Essential (primary) hypertension; E03.9 Hypothyroidism, unspecified; F32.9 Major depressive disorder, single episode, unspecified; F17.200 Nicotine dependence, unspecified, uncomplicated; R62.7 Adult failure to thrive; Z66 Do not resuscitate; Z79.890 Hormone replacement therapy; Z79.899 Other long term (current) drug therapy
CPT/HCPCS: 36415; 73502; 73700; 80048; 85025; 97116; 97161; 97166; 97530; 99285; A4216; J2405

== ENCOUNTER → 2019-09-30 10:13 | Outpatient (CLI) | payer MEDICARE, OTHER, SELFPAY ==
[2019-09-13 17:40] VITALS: BMI 19.3
[2019-09-30 12:33] LABS: Absolute Lymphocyte Count 0.97 X10^3/uL (0.83-4.51); Absolute Neutrophil Count 3.5 X10^3/uL (2.0-7.7); Basophil# 0.03 X10^3/uL; Basophil% 0.6 % (0-1); Eosinophil# 0.13 X10^3/uL; Eosinophils% 2.5 % (0-5); Hematocrit 38.7 % (37-47); Hemoglobin 12.3 g/dL (12.0-15.0); Lymphocyte # 0.97 X10^3/ul (4.0); Lymphocyte % 18.3 % (19-41); Mean Corp Hgb Conc 31.8 g/dL (32-36); Mean Corpuscular Volume 94.4 fL (81-99); Monocyte% 11.3 % (0-10); NRBC Flagged by Analyzer 0 % (0-5); Neutrophil # 3.52 X10^3/uL (2.7-7.7); Neutrophil % 66.5 % (47-70); Platelet Count 205 K/mm3 (150-450); RBC Distribution Width CV 12.9 % (11.6-14.6); RBC Distribution Width SD 44.3 fl (35.1-43.9); White Blood Count 5.3 K/mm3 (4.4-11.0)
[2019-09-30 13:15] LABS: AST(SGOT) 12 U/L (15-37); Alanine Aminotransfer ALT/SGPT 23 U/L (12-78); Albumin, Serum 3.3 g/dL (3.4-5.0); Alkaline Phosphatase 181 U/L (50-136); Anion Gap 3 (5-15); BUN 11 mg/dL (7-18); BUN/Creat Ratio 17.5 RATIO (10-20); Calcium,Total 9.5 mg/dL (8.5-10.1); Chloride 109 mmol/L (98-107); Creatinine, Serum 0.63 mg/dL (0.55-1.20); EST Glomerular Filtration Rate 98 mL/min (>60); Est Glom Filt Rate - Afr Amer 118 mL/min (>60); Globulin 3.3 g/dL (2.3-3.5); Glucose 78 mg/dL (70-110); Potassium 4.5 mmol/L (3.5-5.1); Protein, Total 6.6 g/dL (6.4-8.2); Sodium Level 140 mmol/L (136-145); Thyroid Stim Hormone (TSH) 0.68 uIU/mL (0.358-3.74)
[2019-09-30 13:29] LABS: Vitamin D,25 Hydroxy 41.3 ng/mL (29.95-100.01)
== END ==
PROVIDERS: PCP Family Medicine Geriatric Medicine; Visit Provider Family Medicine Geriatric Medicine
DX: E55.9 Vitamin D deficiency, unspecified (principal); I10 Essential (primary) hypertension
CPT/HCPCS: 36415; 80053; 82306; 84443; 85025

== ENCOUNTER 2020-09-30 17:11 | Emergency (ER) | payer MEDICARE, OTHER, SELFPAY ==
[2019-09-13 17:40] VITALS: BMI 19.3
[2020-09-30 17:13] VITALS: BP 196/136; PULSE 58; RESP 24; TEMP 36.5; O2SAT 96; BMI 21.4
--- NOTE | 2020-09-30 17:48 | CT_ITS ---
STUDY: CT BRAIN WITHOUT CONTRAST REASON FOR EXAM: Female, 79 years old. Fall. RADIATION DOSAGE (If Supplied By Facility): CTDIvol = ( 44.99 ) mGy, DLP = ( 779.24 ) mGycm TECHNIQUE: Transaxial CT imaging of the brain was performed without administration of intravenous contrast material. Individualized dose optimization techniques were used for this CT. COMPARISON: 01/26/2018. FINDINGS: Normal soft tissue structures. Normal calvarium. There is mild cerebral atrophy with widening of the extra-axial spaces and ventricular dilatation. There are areas of decreased attenuation within the white matter tracts of the supratentorial brain, consistent with microvascular disease changes. Normal basal ganglia and thalami. Normal brainstem. Normal cerebellum. There is no intracranial hemorrhage. There are no findings of an acute ischemic infarction. Normal visualized paranasal sinuses. CT/Brain/Head without Contrast IMPRESSION: Chronic involutional changes without evidence of acute intracranial or calvarial abnormality. There is no significant interval change. Electronically Signed: Esteban Tee DO at 18:56 EST Tel [phone], Service support ,
--- NOTE | 2020-09-30 17:50 | CT_ITS ---
STUDY: CT ABDOMEN AND PELVIS WITHOUT CONTRAST REASON FOR EXAM: Female, 79 years old. Fall. RADIATION DOSAGE (If Supplied By Facility): CTDIvol = ( 6.04 ) mGy, DLP = ( 264.24 ) mGycm TECHNIQUE: Transaxial images were obtained from the dome of the diaphragm to the symphysis pubis without oral contrast, and without intravenous contrast. Sagittal and coronal images were reconstructed. Individualized dose optimization techniques were used for this CT. COMPARISON: 04/05/2017. FINDINGS: Small left pleural effusion with left basilar atelectasis. There is elevation the right hemidiaphragm. The visualized portions of the heart are within normal limits. Normal liver. There is non-visualization of the gallbladder, which may be secondary to either contraction or a prior cholecystectomy. Dilatation of the extrahepatic bile ducts suggesting prior cholecystectomy. Normal spleen. Normal pancreas. Normal bilateral adrenal glands. Small cortical cyst in the lower pole the right kidney. There is no renal calculi or hydronephrosis. Normal visualized right ureter. Normal left kidney. There is no renal calculi or hydronephrosis. Normal visualized left ureter. Small hiatal hernia. The distal stomach is unremarkable. Normal small intestine. Increased feces in the right colon. There is no mass or obstruction. There is non-visualization of the appendix. There is diffuse atherosclerotic calcification of the abdominal aorta, without a demonstrated aneurysm. Normal inferior vena cava. Normal retroperitoneum. Normal urinary bladder. Uterus is heterogenous and lobulated consistent with fibroid uterus. No adnexal mass. No pelvic lymphadenopathy. No free air or free fluid is seen within the peritoneal cavity. Normal abdominal wall. There are injection granulomata in the bilateral buttocks. There are diffuse degenerative changes of the visualized lumbar spine. There is surgical fusion of L4-5 with laminectomy. There are compression deformities of T9-L1 with evidence of vertebral augmentation at T12. There is old healed fracture of the left superior and inferior pubic rami. CT/Abdomen/Pelvis without Cont IMPRESSION: 1. Small left pleural effusion and atelectasis not previously present. 2. Compression deformities of T9, T11, T12 and L1 when compared to prior study. Otherwise stable findings. Electronically Signed: Esteban Tee DO at 19:01 EST Tel [phone], Service support ,
--- NOTE | 2020-09-30 17:50 | CT_ITS ---
STUDY: CT CERVICAL SPINE WITHOUT CONTRAST REASON FOR EXAM: Female, 79 years old. Fall. RADIATION DOSAGE (If Supplied By Facility): CTDIvol = ( 11.96 ) mGy, DLP = ( 269.55 ) mGycm TECHNIQUE: High resolution transaxial imaging was performed without contrast material. Sagittal and coronal images were reconstructed. Individualized dose optimization techniques were used for this CT. COMPARISON: 07/11/2017. FINDINGS: Normal craniovertebral junction. There are degenerative changes of the anterior atlantoaxial articulation. Normal odontoid process. Normal cervical lordosis. Normal vertebral bodies and posterior osseous elements. C2-3: Normal endplates. Normal disc height and morphology. Mild facet joint degenerative change. Normal central canal and intervertebral neuroforamina. C3-4: Minimal endplate spondylosis the superior endplate of C4.. Normal disc height and morphology. Mild facet joint degenerative change. Normal central canal and intervertebral neuroforamina. C4-5: Endplate spondylosis. Loss of disc height. Facet joint degenerative change. Normal central canal. Mild narrowing of the left intervertebral neuroforamen. C5-6: Endplate spondylosis. Loss of disc height. Facet joint degenerative change.. Normal central canal and intervertebral neuroforamina. C6-7: Normal endplates. Normal disc height and morphology. Facet and uncovertebral joint degenerative change. Normal central canal and mild narrowing of the left intervertebral neuroforamen. C7-T1: Normal endplates. Normal disc height and morphology. Normal central canal and intervertebral neuroforamina. Normal visualized soft tissue structures. CT/Spine Cervical without Contras IMPRESSION: Stable degenerative changes of the cervical spine. There is no acute fracture or subluxation. Electronically Signed: Esteban Tee DO at 19:04 EST Tel [phone], Service support ,
--- NOTE | 2020-09-30 17:52 | ED.DCSUM_ITS ---
History of Present Illness Chief Complaint: Fall Informant: Patient Onset: Days Context: Gradual Onset Current Severity: Mild Maximum Severity: Moderate Narrative: Patient presents [facility] a [facility] she apparently fell going to the restroom during the night 2 days ago. She did not tell anyone at the time. Apparently she mentioned to her doctor that she is been having dry heaves since she fell. She does report hitting her head and has a small lump on the back of her head. She also complains of pain to the left shoulder and left flank area. - Past Medical History (1) Anxiety and depression Status: Chronic (2) Depression Status: Chronic (3) Hypertension Status: Chronic Past Medical History - Allergies and Home Meds Allergies/Adverse Reactions: Allergies No Known Allergies Allergy (Verified 05/26/18 10:39) Primary Care Physician: Anton Linn Chi, MD [Primary Care Provider] - Prior records reviewed: Yes Surgical History: cholecystectomy, - Smoking Status: Current every day smoker - Family History Maternal Family History: Reports: - - no stroke. Review of Systems General: Denies: Chills, Fever Eyes: Denies: Visual changes - bilaterally ENT: Denies: Bilateral ear pain Cardiovascular: Denies: Chest pain Respiratory: Denies: Dyspnea Gastrointestinal: Reports: Abdominal pain - Left flank, Nausea - Dry heaves Genitourinary: Denies: Dysuria Musculoskeletal: Reports: Extremity Pain Skin: Denies: Wounds Neurological: Reports: Headache Hematologic: Denies: Easy bruising, Easy bleeding Allergy: Denies: Uticaria Physical Exam Vital Signs/Narrative: Vital Signs Temp Pulse Resp BP Pulse Ox 09/30/20 17:13 97.7 F L 58 L 24 H 196/136 H 96 Inital Vital Signs reviewed: Yes General: Well nourished, Well developed Head: Normocephalic, - - Small hematoma to the left posterior parietal scalp. ENT: Moist mucous membranes Neck: Supple Cardiovascular: Regular rate, Regular rhythm Respiratory: No distress, CTA bilaterally Abdomen: Soft, Normal bowel sounds, Tender - Mild epigastric tenderness. Negative for: Guarding, Rebound tenderness Extremities: - - Ecchymosis to the lateral left humeral head. No bony tenderness with full range of motion. Ecchymosis noted to the greater trochanter area of the left hip. Full range of motion of the hip without difficulty. Neurological: Alert, Oriented x3, - - No neurologic deficits. Psychological: Normal affect Diagnostic/Tx/Re-eval Impressions Brain CT 09/30/20 17:48 IMPRESSION: Chronic involutional changes without evidence of acute intracranial or calvarial abnormality. There is no significant interval change. Electronically Signed: Esteban Tee DO at 18:56 EST Tel [phone], Service support , Abdomen/Pelvis CT 09/30/20 17:50 IMPRESSION: 1. Small left pleural effusion and atelectasis not previously present. 2. Compression deformities of T9, T11, T12 and L1 when compared to prior study. Otherwise stable findings. Electronically Signed: Esteban Tee DO at 19:01 EST Tel [phone], Service support , Cervical Spine CT 09/30/20 17:50 IMPRESSION: Stable degenerative changes of the cervical spine. There is no acute fracture or subluxation. Electronically Signed: Esteban Tee DO at 19:04 EST Tel [phone], Service support , 09/30/20 17:48 CT Head [Brain/Head without Contrast] [CT] Stat 09/30/20 17:50 Abdomen/Pelvis without Cont [CT] Stat CT Cervical [Spine Cervical without Contras] [CT] Stat Laboratory Results 09/30/20 09/30/20 09/30/20 18:00 18:00 19:00 WBC 6.9 RBC 4.69 Hgb 14.4 Hct 43.2 MCV 92.1 MCH 30.7 MCHC 33.3 RDW Std Deviation 45.4 H RDW Coeff of Olivia 13.4 Plt Count 174 MPV 10.7 Immature Gran % (Auto) 0.600 Neut % (Auto) 72.1 H Lymph % (Auto) 14.7 L [place] % (Auto) 11.0 H Eos % (Auto) 1.0 Baso % (Auto) 0.6 Absolute Neuts (auto) 5.0 Absolute Lymphs (auto) 1.02 Sodium 139 Potassium 4.4 Chloride 106 Carbon Dioxide 29.0 Anion Gap 4 L BUN 12 Creatinine 0.65 Estim Creat Clear Calc 32.94 Est GFR (MDRD) Af Amer 113 Est GFR (MDRD) Non-Af 93 BUN/Creatinine Ratio 18.4 Glucose 97 Calcium 9.5 Total Bilirubin 0.50 Direct Bilirubin 0.14 AST 19 ALT 17 Alkaline Phosphatase 96 Total Protein 6.9 Albumin 3.6 Globulin 3.3 Urine Color Yellow Urine Clarity Clear Urine pH 7.0 Ur Specific [place] 1.010 Urine Protein Negative Urine Glucose (UA) Normal Urine Ketones Negative Urine Occult Blood 10 H Urine Nitrite Negative Urine Bilirubin Negative Urine Urobilinogen Normal Ur Leukocyte Esterase 100 H Urine RBC 0 SEEN Urine WBC 10-25 SEEN Ur Squamous Epith Cells 0 SEEN Amorphous Sediment 1+ Urine Bacteria 2+ Urine Mucus 0 SEEN - Medical Decision Making Patient was given a dose of Zofran for her dry heaves on arrival. On repeat evaluation she is resting more comfortably. Blood work is reviewed with her. She does have evidence of a UTI and will be treated with a course of Keflex. CT head and C-spine are unremarkable. CT of the flank reveals old compression fractures. No acute cause of her pain noted. Test results discussed with the patient she is in agreement with treating the UTI and monitoring her pain from her fall. ED Disposition - Plan for ED Patient: Disposition: Home or Assisted Living Diagnosis: Fall, UTI (urinary tract infection), Contusion Instructions: ED Bladder Infection, Female (Adult), ED Fall with Uncertain Cause Prescriptions: Cephalexin [Keflex] 500 mg PO Q6 #20 capsule Referrals: Anton Linn Chi, MD [Primary Care Provider] - 3-5 Days if not improving
[2020-09-30 18:18] LABS: Hematocrit 43.2 % (37-47); Hemoglobin 14.4 g/dL (12.0-15.0); Red Blood Count 4.69 M/mm3 (4.2-5.4); White Blood Count 6.9 K/mm3 (4.4-11.0)
[2020-09-30 18:19] LABS: Basophil% 0.6 % (0-1); Lymphocyte % 14.7 % (19-41); Mean Corp Hgb Conc 33.3 g/dL (32-36); Mean Corpuscular Hgb 30.7 pg (27.0-32.0); Mean Corpuscular Volume 92.1 fL (81-99); Mean Platelet Vol. 10.7 fl (6.2-12.0); Neutrophil # 5.01 X10^3/uL (2.7-7.7); Neutrophil % 72.1 % (47-70); POSITIVE COUNT NO; POSITIVE DIFFERENTIAL NO; POSITIVE MORPHOLOGY NO; Platelet Count 174 K/mm3 (150-450); RBC Distribution Width CV 13.4 % (11.6-14.6); RBC Distribution Width SD 45.4 fl (35.1-43.9)
[2020-09-30] MEDS: Ondansetron 4 MG/2 ML Vial IV (18:19)
[2020-09-30 18:20] LABS: Absolute Lymphocyte Count 1.02 X10^3/uL (0.83-4.51); Basophil# 0.04 X10^3/uL; Eosinophil# 0.07 X10^3/uL; Lymphocyte # 1.02 X10^3/ul (4.0); Monocyte# 0.76 X10^3/uL
[2020-09-30 18:30] LABS: AST(SGOT) 19 U/L (15-37); Alanine Aminotransfer ALT/SGPT 17 U/L (13-56); Albumin, Serum 3.6 g/dL (3.2-5.0); Alkaline Phosphatase 96 U/L (45-117); Anion Gap 4 (5-15); BUN 12 mg/dL (7-18); BUN/Creat Ratio 18.4 RATIO (10-20); Bilirubin, Direct 0.14 mg/dL (0.00-0.30); Calcium,Total 9.5 mg/dL (8.5-10.1); Chloride 106 mmol/L (98-107); Creatinine, Serum 0.65 mg/dL (0.55-1.02); EST Glomerular Filtration Rate 93 mL/min (>60); Est Glom Filt Rate - Afr Amer 113 mL/min (>60); Estimated Creatinine Clearance 32.94 ml/min; Globulin 3.3 g/dL (2.2-4.2); Glucose 97 mg/dL (74-106); Potassium 4.4 mmol/L (3.5-5.1); Protein, Total 6.9 g/dL (6.4-8.2); Sodium Level 139 mmol/L (136-145)
[2020-09-30 19:08] LABS: Mucous, Urine 0 SEEN /hpf (<or=2+); Red Blood Cells-Urine 0 SEEN /hpf (0-5); Squamous Epithelial Cells - UA 0 SEEN /hpf (5-10)
[2020-09-30 19:14] LABS: Color, Urine Yellow (Yellow); Glucose, Dipstick Normal (Normal); Ketone-Dipstick Negative (Negative); Leukocyte Esterase-Dipstick 100 /ul (Negative); Nitrite-Dipstick Negative (Negative); Occult Blood-Urine 10 /ul (Negative); Protein-Dipstick Negative (Negative); Urine Bilirubin Dipstick Negative (Negative); Urine Clarity Clear (Clear); Urine Urobilinogen Normal (Normal)
[2020-09-30 19:25] LABS: Amorphous Sediment 1+; Bacteria 2+ /hpf (None Seen); White Blood Cells 10-25 SEEN /hpf (0-5)
[2020-09-30 19:30] VITALS: BP 161/110
--- NOTE | 2020-09-30 19:34 | ED.RN ---
spoke with daughter for pt update
[2020-09-30] MEDS: Cephalexin 250 MG Capsule 500 MG PO (19:50)
[2020-09-30 19:51] VITALS: BP 173/91
--- NOTE | 2020-09-30 20:10 | ED.RN ---
attempted to call report to nurse at [facility]. unable to reach, will call again.
--- NOTE | 2020-09-30 20:32 | ED.RN ---
[facility]
== END 2020-09-30 20:33 | disposition home or self-care (01) ==
PROVIDERS: Emergency Provider Emergency Medicine; PCP Family Medicine Geriatric Medicine
DX: S40.012A Contusion of left shoulder, initial encounter (principal); S70.02XA Contusion of left hip, initial encounter; W01.0XXA Fall on same level from slipping, tripping and stumbling without subsequent striking against object, initial encounter; Y93.89 Activity, other specified; Y92.129 Unspecified place in nursing home as the place of occurrence of the external cause; Y99.9 Unspecified external cause status; N39.0 Urinary tract infection, site not specified; I10 Essential (primary) hypertension; F17.200 Nicotine dependence, unspecified, uncomplicated
CPT/HCPCS: 70450; 72125; 74176; 80048; 80076; 81001; 85025; 96374; 99285; J7030; A4216; J2405

== ENCOUNTER → 2020-10-14 09:09 | Outpatient (CLI) | payer MEDICARE, SELFPAY ==
[2020-09-30 17:13] VITALS: BMI 21.4
[2020-10-14 13:08] LABS: Absolute Lymphocyte Count 0.95 X10^3/uL (0.83-4.51); Basophil# 0.04 X10^3/uL; Basophil% 0.9 % (0-1); Eosinophil# 0.07 X10^3/uL; Eosinophils% 1.5 % (0-5); Hematocrit 44.7 % (37-47); Hemoglobin 14.3 g/dL (12.0-15.0); Lymphocyte # 0.95 X10^3/ul (4.0); Lymphocyte % 20.8 % (19-41); Mean Corpuscular Hgb 30.2 pg (27.0-32.0); Mean Corpuscular Volume 94.3 fL (81-99); Monocyte# 0.53 X10^3/uL; Monocyte% 11.6 % (0-10); NRBC Flagged by Analyzer 0 % (0-5); Neutrophil # 2.95 X10^3/uL (2.7-7.7); Neutrophil % 64.5 % (47-70); Platelet Count 166 K/mm3 (150-450); RBC Distribution Width CV 13.7 % (11.6-14.6); RBC Distribution Width SD 47.2 fl (35.1-43.9); Red Blood Count 4.74 M/mm3 (4.2-5.4); White Blood Count 4.6 K/mm3 (4.4-11.0)
[2020-10-14 13:32] LABS: Vitamin D,25 Hydroxy 48.4 ng/mL
[2020-10-14 13:42] LABS: ALB/GLOB Ratio 1.1 RATIO (0.9-2.4); AST(SGOT) 25 U/L (15-37); Alanine Aminotransfer ALT/SGPT 73 U/L (13-56); Albumin, Serum 3.6 g/dL (3.2-5.0); Alkaline Phosphatase 168 U/L (45-117); Anion Gap 2 (5-15); BUN 13 mg/dL (7-18); BUN/Creat Ratio 19.1 RATIO (10-20); Calcium,Total 9.8 mg/dL (8.5-10.1); Chloride 108 mmol/L (98-107); Creatinine, Serum 0.68 mg/dL (0.55-1.02); EST Glomerular Filtration Rate 89 mL/min (>60); Est Glom Filt Rate - Afr Amer 108 mL/min (>60); Globulin 3.4 g/dL (2.2-4.2); Glucose 72 mg/dL (74-106); Potassium 4.8 mmol/L (3.5-5.1); Sodium Level 139 mmol/L (136-145); Thyroid Stim Hormone (TSH) 3.75 uIU/mL (0.358-3.74)
== END ==
PROVIDERS: PCP Family Medicine Geriatric Medicine; Visit Provider Family Medicine Geriatric Medicine
DX: I10 Essential (primary) hypertension (principal); E55.9 Vitamin D deficiency, unspecified
CPT/HCPCS: 36415; 80053; 82306; 84443; 85025

== ENCOUNTER → 2020-10-14 10:38 | Outpatient (CLI) | payer MEDICARE, OTHER, SELFPAY ==
[2020-09-30 17:13] VITALS: BMI 21.4
--- NOTE | 2020-10-14 11:30 | MRI_ITS ---
STUDY: MRI LUMBAR SPINE WITHOUT CONTRAST REASON FOR EXAM: Female, 79 years old. LBP, leg weakness, prior lumbar surgeries TECHNIQUE: Standardized fat and water weighted pulse sequences were obtained in the sagittal and axial planes. COMPARISON: 05/16/2017 FINDINGS: T12-L1: Normal endplates. Normal disc height, hydration and morphology. Normal bilateral facet joints. Normal central canal and bilateral lateral recesses. Normal bilateral intervertebral neural foramina. Normal lumbar lordosis. Mild levoscoliosis centered at L3. Normal conus medullaris that terminates at the L1/L2. Chronic compression fractures of T10, T11, T12, L1, and L2 some of which have been treated with vertebroplasty. This produces increased kyphosis of the thoracolumbar junction with mild spinal stenosis. 5 mm retropulsion of the T12 vertebral body produces moderate spinal stenosis with abutment the central spinal cord. L1-2: Mild bilateral facet hypertrophy and moderate ligament flavum hypertrophy. Interval development of 2 mm retrolisthesis of L1 on L2 with a moderate bilobed disc protrusion which produces moderate spinal stenosis and moderate bilateral neural foraminal stenosis. L2-3: Mild bilateral facet hypertrophy and moderate ligament flavum hypertrophy. Interval development of 2 mm retrolisthesis of L2 on L3 with a moderate bilobed disc protrusion which produces moderate spinal stenosis and severe bilateral neural foraminal stenosis. L3-4: Status post posterior decompression. No change in the moderate broad disc protrusion which produces moderate spinal stenosis with moderate bilateral recess stenosis with abutment of the L4 nerve roots bilaterally, severe right neural foraminal stenosis and moderate left neural foraminal stenosis. L4-5: Status post posterior decompression and transpedicular fixation with 2 mm of anterolisthesis of L4 on L5 which is unchanged with mild spinal stenosis and mild bilateral neural foraminal stenosis. L5-S1: Mild bilateral facet hypertrophy. No change in the 2 mm of anterolisthesis of L5 on S1 with a mild broad disc protrusion which produces mild spinal stenosis and moderate bilateral neural foraminal stenosis. Normal visualized sacral ala. Normal visualized paraspinous soft tissue structures. MRI/Spine Lumbar (Routine) IMPRESSION: Worsening compression fractures and degenerative disc disease as described above. Electronically Signed: Terrell Gimenez MD at 13:23 EST Tel , Service support ,
== END ==
PROVIDERS: PCP Family Medicine Geriatric Medicine; Visit Provider Family Medicine Geriatric Medicine
DX: M51.36 Other intervertebral disc degeneration, lumbar region (principal); I10 Essential (primary) hypertension; E55.9 Vitamin D deficiency, unspecified
CPT/HCPCS: 36415; 72148; 80053; 82306; 84443; 85025

== ENCOUNTER → 2021-04-20 12:57 | Outpatient (CLI) | payer MEDICARE, OTHER, SELFPAY ==
[2021-04-20 16:45] LABS: Vitamin D,25 Hydroxy 44.5 ng/mL
[2021-04-20 16:59] LABS: ALB/GLOB Ratio 1.3 RATIO (0.9-2.4); AST(SGOT) 17 U/L (15-37); Alanine Aminotransfer ALT/SGPT 23 U/L (13-56); Albumin, Serum 3.9 g/dL (3.2-5.0); Alkaline Phosphatase 111 U/L (45-117); Anion Gap 6 (5-15); BUN 18 mg/dL (7-18); BUN/Creat Ratio 23.8 RATIO (10-20); Calcium,Total 9.2 mg/dL (8.5-10.1); Chloride 105 mmol/L (98-107); Creatinine, Serum 0.76 mg/dL (0.55-1.02); EST Glomerular Filtration Rate 78 mL/min (>60); Est Glom Filt Rate - Afr Amer 95 mL/min (>60); Globulin 3.1 g/dL (2.2-4.2); Glucose 119 mg/dL (74-106); Potassium 4.3 mmol/L (3.5-5.1); Sodium Level 138 mmol/L (136-145); Thyroid Stim Hormone (TSH) 1.24 uIU/mL (0.358-3.74); Uric Acid 3.3 mg/dL (2.6-6.0)
[2021-04-20 17:05] LABS: Absolute Lymphocyte Count 1.08 X10^3/uL (0.83-4.51); Absolute Neutrophil Count 2.4 X10^3/uL (2.0-7.7); Basophil# 0.03 X10^3/uL; Basophil% 0.7 % (0-1); Eosinophil# 0.06 X10^3/uL; Eosinophils% 1.5 % (0-5); Hematocrit 43.2 % (37-47); Hemoglobin 13.9 g/dL (12.0-15.0); Lymphocyte # 1.08 X10^3/ul (0.83-4.51); Lymphocyte % 26.9 % (19-41); Mean Corp Hgb Conc 32.2 g/dL (32-36); Mean Corpuscular Volume 96.2 fL (81-99); Mean Platelet Vol. 10.3 fl (6.2-12.0); Monocyte# 0.42 X10^3/uL; Monocyte% 10.4 % (0-10); NRBC Flagged by Analyzer 0 % (0-5); Neutrophil # 2.41 X10^3/uL (2.7-7.7); Platelet Count 212 K/mm3 (150-450); RBC Distribution Width CV 13.4 % (11.6-14.6); RBC Distribution Width SD 47.7 fl (35.1-43.9); Red Blood Count 4.49 M/mm3 (4.2-5.4)
== END ==
PROVIDERS: PCP Family Medicine Geriatric Medicine; Visit Provider Family Medicine Geriatric Medicine
DX: E55.9 Vitamin D deficiency, unspecified (principal); I10 Essential (primary) hypertension; M10.9 Gout, unspecified
CPT/HCPCS: 36415; 80053; 82306; 84443; 84550; 85025

== ENCOUNTER → 2023-02-14 | Outpatient (CLI) | payer MEDICARE, MEDICAID, SELFPAY ==
--- NOTE | 2023-02-14 12:57 | RAD_ITS ---
STUDY: X-RAY - PELVIS AND RIGHT HIP REASON FOR EXAM: Female, 82 years old. Pain after fall TECHNIQUE: 3 views of the pelvis and hip. COMPARISON: None. FINDINGS: There is a non-specific bowel gas pattern. Normal visualized soft tissue structures. There is diffuse demineralization of the osseous structures. There is narrowing with cortical sclerosis and osteophyte formation of the sacroiliac joint consistent with degenerative osteoarthritic changes. Normal bilateral superior and inferior pubic rami. Evidence of old left pubic symphysis fractures. Normal bilateral ischial tuberosities. Normal visualized femoral head. Normal acetabulum. There is moderate articular joint space narrowing of the hip. RAD/HIP, UNI W/ Pelvis 2-3 Views IMPRESSION: Diffuse osteopenia and age consistent hip and SI joint arthrosis. Old healed left symphysis pubis fractures No demonstrated acute fracture. However, hip and pelvic fractures in patients of this age can be subtle, if there is strong clinical suspicion of an acute fracture, recommend further evaluation with CT Electronically Signed: Shahab Harden MD at 20:54 EDT ,
--- NOTE | 2023-02-14 12:57 | RAD_ITS ---
STUDY: X-RAY - LUMBAR SPINE REASON FOR EXAM: Female, 82 years old. FALL TECHNIQUE: 2 view(s) of the lumbar spine were obtained. COMPARISON: None FINDINGS: Bones are diffusely demineralized. There has been previous pedicle screw fusion surgery at L4 and L5. Normal lumbar lordosis. There is a levoscoliosis of the lumbar spine. There is a normal alignment of the vertebrae in the lateral view. There is diffuse demineralization with multi-level endplate spondylosis. There is multi-level degenerative disc disease with multi-level disc space narrowing. No acute fracture, there is a chronic compression fracture affecting the superior endplate of L1 and there are chronic compression fractures at T10-11 and 12. T12 has undergone previous vertebroplasty There is atherosclerotic calcification of the abdominal aorta without a demonstrated aneurysm. RAD/Lumbar Spine 2 or 3 Views IMPRESSION: Multilevel degenerative and postsurgical changes, no acute findings Multiple chronic compression fractures Electronically Signed: Shahab Harden MD at 20:52 EDT ,
== END | disposition home or self-care (01) ==
PROVIDERS: PCP Family Medicine Geriatric Medicine; Referring Provider Anesthesiology Pain Medicine; Visit Provider Anesthesiology Pain Medicine
DX: M25.551 Pain in right hip (principal); W19.XXXA Unspecified fall, initial encounter
CPT/HCPCS: 72100; 73502

== ENCOUNTER 2023-04-10 11:44 | Inpatient (IN) | payer MEDICARE, MEDICAID, SELFPAY ==
[2023-04-10] VITALS (13 sets, daily range): BP systolic 95–163; BP diastolic 53–102; PULSE 72–107; RESP 15–30; TEMP 36.9–38.6; O2SAT 85–100; BMI 18.3; BMI 14.1
--- NOTE | 2023-04-10 11:56 | EKG12_ITS ---
Test Reason : Blood Pressure : / mmHG Vent. Rate : 076 BPM Atrial Rate : 076 BPM P-R Int : 150 ms QRS Dur : 084 ms QT Int : 358 ms P-R-T Axes : 043 001 026 degrees QTc Int : 402 ms Normal sinus rhythm Possible Lateral infarct , age undetermined Inferior infarct (cited on or before 19-SEP-2015) Abnormal ECG Confirmed by COTY CORDON ([id number]), development editor CLAUDIA DELGADO ([id number]) on 04/11/2023 11:23:39 AM Referred By: Confirmed By:COTY CORDON
--- NOTE | 2023-04-10 12:18 | EDS_ITS ---
HPI History of Present Illness Chief Complaint: Diarrhea Narrative Narrative: 82-year-old female presenting via EMS with apparent diarrhea for the last 6 hours. Apparently she tested positive for COVID yesterday. There is no report with this. Patient arrives with a fever. Apparently she had some low blood pressures at her nursing facility however her blood pressure is 163/93 here. Patient is a very poor informant. She states that nothing hurts. She does complain of some mild nausea. PFSH PFSH Home Medications potassium chloride 20 mEq tablet,extended release(part/cryst) (Klor-Con M) 40 meq PO BID potassium supplement 08/10/15 [History Last Taken 05/05/17] gabapentin 100 mg capsule 200 mg PO TID RESTLESS LEG 09/13/19 [History Last Taken Unknown] multivitamin with folic acid 400 mcg tablet 1 tab PO DAILY SUPPLEMENT 09/13/19 [History Last Taken Unknown] polyethylene glycol 3350 17 gram oral powder packet 17 gm PO BID CONSTIPATION 09/13/19 [History Last Taken Unknown] acetaminophen 650 mg tablet,extended release 1,300 mg PO Q8H PRN fever or pain 04/10/23 [History Last Taken Unknown] cetirizine 10 mg tablet 10 mg PO QHS 04/10/23 [History Last Taken Unknown] diazepam 10 mg tablet 10 mg PO DAILY ANXIETY 04/10/23 [History Last Taken Unknown] fluticasone propionate 50 mcg/actuation nasal spray,suspension 1 spray intranasal QHS ALLERGIES 04/10/23 [History Last Taken Unknown] levothyroxine 100 mcg tablet 100 mcg PO DAILY 04/10/23 [History Last Taken Unknown] loratadine 10 mg tablet 10 mg PO DAILY ALLERGIES 04/10/23 [History Last Taken Unknown] losartan 50 mg tablet 50 mg PO BID BP 04/10/23 [History Last Taken Unknown] magnesium oxide 400 mg PO DAILY 04/10/23 [History Last Taken Unknown] melatonin 3 mg tablet 6 mg PO QHS 04/10/23 [History Last Taken Unknown] omeprazole 20 mg capsule,delayed release 20 mg PO DAILY GERD 04/10/23 [History Last Taken Unknown] paroxetine HCl 40 mg tablet 40 mg PO DAILY 04/10/23 [History Last Taken Unknown] Allergy/AdvReac Type Severity Reaction Status Date / Time No Known Allergies Allergy Verified 04/10/23 11:45 Social History Smoking Status: Current every day smoker tobacco type: cigarettes ROS ROS ED Constitutional Constitutional ED: Reports fever(s) Eyes Eyes: Denies blurry vision or change in vision ENT ENT ED: Denies rhinorrhea or sore throat Cardiovascular Cardiovascular: Denies chest pain or palpitations Respiratory/Chest Respiratory/Chest: Reports cough Gastrointestinal Gastrointestinal: Reports diarrhea and nausea Genitourinary Genitourinary ED: Denies dysuria or hematuria Musculoskeletal Musculoskeletal: Denies arthralgias or back pain Integumentary Denies abscess Neurologic Neurologic: Denies headache(s) or paresthesias Psychiatric Psychiatric: Denies anxiety or depression EXAM Physical Exam Const Vital Signs: 04/10/23 11:46 04/10/23 11:56 04/10/23 11:49 Temperature 101.4 F H 101.4 F H Temperature Source Oral Oral Pulse Rate 81 81 Respiratory Rate 18 23 H Blood Pressure 163/93 H 163/93 H Blood Pressure Mean 116 116 Pulse Ox 94 94 Oxygen Delivery Method Room Air Room Air Room Air Oxygen Flow Rate (L/min) 04/10/23 12:49 04/10/23 13:49 04/10/23 13:45 Temperature 99.4 F H 99.6 F H Temperature Source Oral Oral Pulse Rate 77 103 H 107 H Respiratory Rate 30 H 22 H 15 Blood Pressure 126/102 H 138/98 H 126/69 H Blood Pressure Mean 110 111 88 Pulse Ox 92 85 98 Oxygen Delivery Method Room Air Room Air Nasal Cannula Oxygen Flow Rate (L/min) 2 Positive well nourished General Appearance ED: NAD; Negative for pallor HEENT Reports moist mucous membranes Eyes General Eye ED: Negative for pale conjunctiva or scleral icterus Resp normal respiratory effort and clear to auscultation bilaterally Auscultation: Negative for rales, rhonchi or wheezes Cardio regular rate and regular rhythm GI normal to inspection, nondistended, normoactive bowel sounds Neuro oriented x3 and CN's II-XII intact bilaterally Sensorium / Orientation: alert Motor Exam: strength 5/5 throughout Psych mental status grossly normal Skin no rashes or lesions noted General Skin Exam: Negative for jaundice or pallor MDM MDM MDM Narrative Medical decision making narrative: 82-year-old female who tested positive for COVID-19 yesterday at her [facility] presenting with apparent hypotension and hypoxia. No report was called by nursing and the patient is a very poor informant but she arrived with a fever and was originally on 2 L. We did call the [facility] and they reported that the patient has been generally weak and unable to ambulate however they also obtained an ambulating pulse ox that was 83% on room air. They also state that she has been having diarrhea for the last 6 hours. We will retest for COVID-19 because likely the patient will need to be admitted. I do not see a positive test result. Patient is a poor informant. Differential besides COVID-19 includes pneumonia, UTI, dehydration, electrolyte abnormalities, anemia. Given the patient was reportedly hypotensive, hypoxic on room air, febrile and sepsis work-up was obtained and her CBC did not show a leukocytosis. Her hemoglobin hematocrit are normal. She is lymphopenic. Renal function and electrolytes unremarkable. AST and ALT are slightly elevated which is consistent also with COVID-19. EKG was obtained and on my interpretation shows a normal sinus rhythm with a ventricular rate of 76 bpm without sign of ischemic change or ectopy. Chest x-ray my interpretation shows no acute process. Urinalysis was negative for infection. Were unable to ambulate the patient but she did desaturate to 85% on room air at this point I think she will need to be admitted to the hospital. Patient discussed with the hospitalist for admission. Impression: 1. COVID-19 2. Debility 3. Hypoxic respiratory failure Lab Data Attestation: I reviewed the patient's lab results. Labs: Laboratory Results - last 24 hr 04/10/23 04/10/23 12:05 13:00 WBC 7.9 RBC 4.67 Hgb 14.2 Hct 45.0 MCV 96.4 MCH 30.4 MCHC 31.6 L RDW Std Deviation 49.1 H RDW Coeff of [place] 13.9 Plt Count 88 L MPV 10.9 Immature Gran % (Auto) 1.900 H Neut % (Auto) 75.5 H Lymph % (Auto) 3.0 L [place] % (Auto) 19.1 H Eos % (Auto) 0.0 Baso % (Auto) 0.5 Absolute Neuts (auto) 6.0 Absolute Lymphs (auto) 0.24 L Nucleated RBC % 0 Differential Comment COMMENT PT 13.3 INR 1.0 APTT 34.8 Sodium 135 L Potassium 3.6 Chloride 102 Carbon Dioxide 29.0 Anion Gap 4 L BUN 11 Creatinine 0.62 Estim Creat Clear Calc 31.48 Est GFR (MDRD) Af Amer 119 Est GFR (MDRD) Non-Af 98 BUN/Creatinine Ratio 17.7 Glucose 106 Lactic Acid 2.0 Calcium 9.1 Total Bilirubin 0.70 AST 45 H ALT 79 H Alkaline Phosphatase 100 Troponin I High Sens 7 Total Protein 7.3 Albumin 3.9 Globulin 3.4 Albumin/Globulin Ratio 1.1 Urine Color Yellow Urine Clarity Clear Urine pH 6.5 Ur Specific [place] 1.010 Urine Protein 30 H Urine Glucose (UA) Normal Urine Ketones Negative Urine Occult Blood 150 H Urine Nitrite Negative Urine Bilirubin Negative Urine Urobilinogen Normal Ur Leukocyte Esterase Negative Urine RBC 10-25 SEEN Urine WBC 0 SEEN Ur Squamous Epith Cells 0-5 SEEN Urine Bacteria 0 SEEN Urine Mucus 0 SEEN Radiography Diagnostic Testing: Clinical Impression(s) from Imaging Studies Chest X-Ray 04/10/23 12:48 IMPRESSION: No acute abnormality is seen. Electronically Signed: Trav Ko MD at 13:29 EDT , Discharge Plan Triage Chief Complaint: Diarrhea ED Provider: Ian Payne Dx/Rx/DC Orders Prescriptions: No Action potassium chloride [Klor-Con M20] 20 MEQ tablet 40 meq PO BID gabapentin 100 MG capsule 200 mg PO TID multivitamin with folic acid 1 TABLET tablet 1 tab PO DAILY Patient Comments: Oct PT TAKES 2 TABS WOMENS ULTRA RICK DAILY FAMILY SUPPLIES polyethylene glycol 3350 17 GM packet 17 gm PO BID acetaminophen 650 mg tablet extended release 1,300 mg PO Q8H PRN (Reason: fever or pain) cetirizine 10 mg tablet 10 mg PO QHS Patient Comments: Oct PT TAKES CETIRIZINE AT BEDTIME AND LORATADINE IN THE AM. diazepam 10 mg tablet 10 mg PO DAILY fluticasone propionate 50 mcg/actuation spray,suspension 1 spray INTRANASAL QHS Patient Comments: Oct PT KEEPS AT BEDSIDE AND SELF ADMINISTERS levothyroxine 100 mcg tablet 100 mcg PO DAILY Patient Comments: TAKE AT LEAST 30 MINUTES PRIOR TO EATING loratadine 10 mg tablet 10 mg PO DAILY Patient Comments: Oct PT TAKES CETIRIZINE AT BEDTIME AND LORATADINE IN THE AM. losartan 50 mg tablet 50 mg PO BID magnesium oxide 400 mg magnesium tablet 400 mg PO DAILY Patient Comments: UPON RISING WITH FOOD melatonin 3 mg tablet 6 mg PO QHS omeprazole 20 mg capsule,delayed release(DR/EC) 20 mg PO DAILY Patient Comments: TAKES 30 MINUTES PRIOR TO MORNING MEAL paroxetine HCl 40 mg tablet 40 mg PO DAILY Patient Comments: TAKE IN THE MORNING UPON RISING Primary Care Provider: Anton Linn Chi Referrals: Anton Linn Chi, MD [Primary Care Provider] -
[2023-04-10] MEDS: 0.9% Normal Saline 1,000 ML 999 ML IV (12:31)
[2023-04-10] MEDS: Acetaminophen 500 MG Tablet 1000 MG PO (12:32)
[2023-04-10] MEDS: Ondansetron 4 MG/2 ML Vial IV (12:32)
[2023-04-10 12:38] LABS: Absolute Lymphocyte Count 0.24 X10^3/uL (0.83-4.51); Basophil# 0.04 X10^3/uL; Basophil% 0.5 % (0-1); Hemoglobin 14.2 g/dL (12.0-15.0); Lymphocyte # 0.24 X10^3/ul (0.83-4.51); Mean Corp Hgb Conc 31.6 g/dL (32-36); Mean Corpuscular Hgb 30.4 pg (27.0-32.0); Mean Corpuscular Volume 96.4 fL (81-99); Mean Platelet Vol. 10.9 fl (6.2-12.0); Monocyte# 1.51 X10^3/uL; Monocyte% 19.1 % (0-10); NRBC Flagged by Analyzer 0 % (0-5); Neutrophil # 5.95 X10^3/uL (2.7-7.7); Neutrophil % 75.5 % (47-70); POSITIVE COUNT YES; POSITIVE DIFFERENTIAL YES; POSITIVE MORPHOLOGY YES; Platelet Count 88 K/mm3 (150-450); RBC Distribution Width CV 13.9 % (11.6-14.6); RBC Distribution Width SD 49.1 fl (35.1-43.9); Red Blood Count 4.67 M/mm3 (4.2-5.4); White Blood Count 7.9 K/mm3 (4.4-11.0)
[2023-04-10 12:45] LABS: Prothrombin Time (Protime)PT. 13.3 SECONDS (11.7-14.9)
[2023-04-10 12:46] LABS: Partial Thromboplast Time 34.8 Seconds (24.1-36.2)
--- NOTE | 2023-04-10 12:48 | RAD_ITS ---
STUDY: X-RAY CHEST REASON FOR EXAM: Female, 82 years old. covid TECHNIQUE: Single AP portable view of the chest. COMPARISON: Comparison is made with prior study September 14, 2014. FINDINGS: EKG electrodes are seen. Stable mild increased markings at the lung bases suggestive of scarring. There is no demonstrated pleural abnormality. Normal size heart. Normal mediastinum and [place]. Normal visualized pulmonary arteries. There is atherosclerotic calcification of the aortic arch with tortuosity. There is demineralization of the osseous structures. Prior vertebroplasty of a lower dorsal vertebrae. There is degenerative osteoarthritis of the bilateral shoulders. Hiatal hernia. RAD/Chest 1 View (Portable) IMPRESSION: No acute abnormality is seen. Electronically Signed: Trav Ko MD at 13:29 EDT ,
[2023-04-10 12:49] LABS: Differential Indicated SCAN CRITERIA MET
[2023-04-10 12:56] LABS: ALB/GLOB Ratio 1.1 RATIO (0.9-2.4); AST(SGOT) 45 U/L (15-37); Alanine Aminotransfer ALT/SGPT 79 U/L (13-56); Albumin, Serum 3.9 g/dL (3.2-5.0); Alkaline Phosphatase 100 U/L (45-117); Anion Gap 4 (5-15); BUN 11 mg/dL (7-18); BUN/Creat Ratio 17.7 RATIO (10-20); Calcium,Total 9.1 mg/dL (8.5-10.1); Chloride 102 mmol/L (98-107); Creatinine, Serum 0.62 mg/dL (0.55-1.02); EST Glomerular Filtration Rate 98 mL/min (>60); Est Glom Filt Rate - Afr Amer 119 mL/min (>60); Estimated Creatinine Clearance 31.48 ml/min; Globulin 3.4 g/dL (2.2-4.2); Glucose 106 mg/dL (74-106); Potassium 3.6 mmol/L (3.5-5.1); Protein, Total 7.3 g/dL (6.4-8.2); Sodium Level 135 mmol/L (136-145); Troponin-I HS 7 pg/mL (3.0-54.0)
[2023-04-10 13:12] LABS: Bacteria 0 SEEN /hpf (None Seen); Mucous, Urine 0 SEEN /hpf (<or=2+); White Blood Cells 0 SEEN /hpf (0-5)
[2023-04-10 13:22] LABS: Color, Urine Yellow (Yellow); Glucose, Dipstick Normal (Normal); Ketone-Dipstick Negative (Negative); Leukocyte Esterase-Dipstick Negative /ul (Negative); Nitrite-Dipstick Negative (Negative); Occult Blood-Urine 150 /ul (Negative); Protein-Dipstick 30 mg/dl (Negative); Urine Bilirubin Dipstick Negative (Negative); Urine Clarity Clear (Clear); Urine Urobilinogen Normal (Normal); Urine pH 6.5 (5.0 - 8.0)
[2023-04-10 13:46] LABS: Red Blood Cells-Urine 10-25 SEEN /hpf (0-5); Squamous Epithelial Cells - UA 0-5 SEEN /hpf (5-10)
--- NOTE | 2023-04-10 14:09 | ED.RN ---
PT'S O2 SATS DECREASE TO 85% WHILE EXERTING SELF ATTEMPTING TO GET OUT OF BED. UNABLE TO AMBULATE AT THIS TIME
--- NOTE | 2023-04-10 14:53 | PCM.HP.STD ---
HPI - General General Date of Service: 04/10/23 Chief Complaint: hypoxia HPI Narrative SELINA TINSLEY, is a 82 F who presents presents with hypoxia. Patient was tested positive for COVID-19 yesterday., Preceding that, patient had been having diarrhea for about 6 days. In the emergency room, the patient is a terrible historian so unable provide any history, patient was noted to be 85% on room air at rest. The intermediate, where the patient resides, was unable to get oxygen for her, therefore, the hospital service was contacted for admission. [facility] Home Medications levothyroxine 75 mcg tablet 88 mcg PO DAILY thyroid 02/11/14 [History Last Taken 05/05/17] potassium chloride 20 mEq tablet,extended release(part/cryst) (Klor-Con M) 40 meq PO BID potassium supplement 08/10/15 [History Last Taken 05/05/17] paroxetine HCl 20 mg tablet 40 mg PO DAILY anxiety/depression 01/09/17 [History Last Taken 05/05/17] diazepam 5 mg tablet 10 mg PO QHS ANXIETY AND SLEEP 09/13/19 [History Last Taken Unknown] gabapentin 100 mg capsule 100 mg PO BIDCM RESTLESS LEG 09/13/19 [History Last Taken Unknown] metoprolol succinate 25 mg tablet,extended release 24 hr 25 mg PO DAILY HEART 09/13/19 [History Last Taken Unknown] multivitamin with folic acid 400 mcg tablet 1 tab PO DAILY SUPPLEMENT 09/13/19 [History Last Taken Unknown] pantoprazole 40 mg tablet,delayed release 40 mg PO DAILY PROTONIX 09/13/19 [History Last Taken Unknown] polyethylene glycol 3350 17 gram oral powder packet 17 gm PO BID CONSTIPATION 09/13/19 [History Last Taken Unknown] acetaminophen 325 mg tablet 650 mg (2 x 325 mg) PO Q6H PRN PRN Pain Score 1-3/Temp > 100.7 F 09/15/19 [Rx Last Taken Unknown] cephalexin 500 mg capsule 500 mg PO Q6 #20 caps 09/30/20 [Rx Last Taken Unknown] Allergy/AdvReac Type Severity Reaction Status Date / Time No Known Allergies Allergy Verified 04/10/23 11:45 Family History unable to obtain unable to obtain (Patient confused and a terrible historian.) Surgical History unable to obtain unable to obtain (Patient confused and a terrible historian) Social History Smoking Status: Current every day smoker tobacco type: cigarettes ROS ROS Narrative Unable to obtain as the patient is confused and is a terrible historian. Vital Signs Vital Signs Vital Signs: 04/10/23 11:46 04/10/23 11:56 04/10/23 11:49 Temperature 38.6 C H 38.6 C H Temperature Source Oral Oral Pulse Rate 81 81 Respiratory Rate 18 23 H Blood Pressure 163/93 H 163/93 H Blood Pressure Mean 116 116 Pulse Ox 94 94 Oxygen Delivery Method Room Air Room Air Room Air Oxygen Flow Rate (L/min) 04/10/23 12:49 04/10/23 13:49 04/10/23 13:45 Temperature 37.4 C H 37.6 C H Temperature Source Oral Oral Pulse Rate 77 103 H 107 H Respiratory Rate 30 H 22 H 15 Blood Pressure 126/102 H 138/98 H 126/69 H Blood Pressure Mean 110 111 88 Pulse Ox 92 85 98 Oxygen Delivery Method Room Air Room Air Nasal Cannula Oxygen Flow Rate (L/min) 2 Weight Weight: 45.2 kg Body Mass Index (BMI) 18.3 Physical Exam Const Constitutional Narrative: Awake. Nontoxic. Afebrile. Confused and a terrible historian. HEENT hearing grossly normal bilaterally Resp Resp Narrative: Poor respiratory effort but otherwise clear. Cardio regular rate, regular rhythm, S1 normal heart sound and S2 normal heart sound GI normal to inspection, nondistended, normoactive bowel sounds and soft to palpation Extremity normal to inspection and no clubbing, cyanosis or edema Neuro Sensorium / Orientation: awake Results Lab / Micro Data Attestation: I reviewed the patient's lab results. 04/10/23 12:05 04/10/23 12:05 Labs: Laboratory Results - last 24 hr 04/10/23 12:05: WBC 7.9, RBC 4.67, Hgb 14.2, Hct 45.0, MCV 96.4, MCH 30.4, MCHC 31.6 L, RDW Std Deviation 49.1 H, RDW Coeff of Olivia 13.9, Plt Count 88 L, MPV 10.9, Immature Gran % (Auto) 1.900 H, Neut % (Auto) 75.5 H, Lymph % (Auto) 3.0 L, [place] % (Auto) 19.1 H, Eos % (Auto) 0.0, Baso % (Auto) 0.5, Absolute Neuts (auto) 6.0, Absolute Lymphs (auto) 0.24 L, Nucleated RBC % 0, Differential Comment COMMENT, PT 13.3, INR 1.0, APTT 34.8, Sodium 135 L, Potassium 3.6, Chloride 102, Carbon Dioxide 29.0, Anion Gap 4 L, BUN 11, Creatinine 0.62, Estim Creat Clear Calc 31.48, Est GFR (MDRD) Af Amer 119, Est GFR (MDRD) Non-Af 98, BUN/Creatinine Ratio 17.7, Glucose 106, Lactic Acid 2.0, Calcium 9.1, Total Bilirubin 0.70, AST 45 H, ALT 79 H, Alkaline Phosphatase 100, Troponin I High Sens 7, Total Protein 7.3, Albumin 3.9, Globulin 3.4, Albumin/Globulin Ratio 1.1 04/10/23 13:00: Urine Color Yellow, Urine Clarity Clear, Urine pH 6.5, Ur Specific [place] 1.010, Urine Protein 30 H, Urine Glucose (UA) Normal, Urine Ketones Negative, Urine Occult Blood 150 H, Urine Nitrite Negative, Urine Bilirubin Negative, Urine Urobilinogen Normal, Ur Leukocyte Esterase Negative, Urine RBC 10-25 SEEN, Urine WBC 0 SEEN, Ur Squamous Epith Cells 0-5 SEEN, Urine Bacteria 0 SEEN, Urine Mucus 0 SEEN Micro: Microbiology 04/10/23 13:00 Nasal Secretion SARS-CoV-2 Antigen (Rapid) - Final SARS-CoV-2 (COVID 19) Radiology Impression Chest X-Ray 04/10/23 12:48 IMPRESSION: No acute abnormality is seen. Electronically Signed: Trav Ko MD at 13:29 EDT , Assessment & Plan Assessment/Plan (1) COVID-19: PLAN: Unclear time of onset, may have been a day ago or 6 days ago. Patient was positive for COVID-19 at the facility but also positive here today. With the patient's hypoxia, will initiate treatment with remdesivir and dexamethasone. (2) Hypoxia: PLAN: Suspect due to COVID-19. Chest x-ray personally reviewed and showed no acute process Wean oxygen as tolerated. PLAN: Plan Chronic conditions Anxiety and depression: Continue with SSRI. Patient does take diazepam and gabapentin, caution with her baseline confusion. Hypothyroidism continue with levothyroxine Hypertension: Continue with metoprolol succinate with hold parameters for a systolic blood pressure less than 110 or heart rate less than 60 VTE prophylaxis: Low molecular weight heparin Charges/Coding Visit Charges Inpatient E&M: 99006 Init Hosp L3
--- NOTE | 2023-04-10 15:28 | NURSING ---
301 TIFFANIE COVID 19, HYPOXIA
[2023-04-10 16:31] LABS: Reflex Lactate? Y
[2023-04-10 19:22] LABS: Alkaline Phosphatase 99 U/L (45-117)
[2023-04-10 19:25] LABS: Lactic Acid 2.5 mmol/L (0.4-1.9)
[2023-04-10] MEDS: dexAMETHasone 4 MG Tablet 6 MG PO (20:18)
[2023-04-10] MEDS: Gabapentin 100 MG Capsule PO (20:18)
[2023-04-10] MEDS: MELATONIN 3 MG TABLET 6 MG PO (23:01)
[2023-04-10] MEDS: Loratadine 10 MG Tablet PO (23:01)
[2023-04-10] MEDS: Losartan Potassium 50 MG Tablet PO (23:01)
[2023-04-10] MEDS: Potassium Chloride Oral Tablet 20 MEQ 40 MEQ PO (23:02)
[2023-04-10] MEDS: Fluticasone 0.05% 1 SPRAY NASAL.SRY NASAL (23:02)
[2023-04-10] MEDS: Polyethylene Glycol 3350 17 GM PACKET PO (23:02)
[2023-04-11] VITALS (12 sets, daily range): BP systolic 129–177; BP diastolic 68–89; PULSE 55–62; RESP 16–20; TEMP 36.6–37.2; O2SAT 91–100
[2023-04-11] MEDS: Levothyroxine 100 MCG Tablet PO (04:50)
[2023-04-11 06:49] LABS: Absolute Lymphocyte Count 0.25 X10^3/uL (0.83-4.51); Absolute Neutrophil Count 1.8 X10^3/uL (2.0-7.7); Hematocrit 39.8 % (37-47); Lymphocyte # 0.25 X10^3/ul (0.83-4.51); Lymphocyte % 9.6 % (19-41); Mean Corp Hgb Conc 32.7 g/dL (32-36); Mean Corpuscular Hgb 30.6 pg (27.0-32.0); Mean Corpuscular Volume 93.6 fL (81-99); Mean Platelet Vol. 10.7 fl (6.2-12.0); Monocyte# 0.49 X10^3/uL; Monocyte% 18.8 % (0-10); NRBC Flagged by Analyzer 0 % (0-5); Neutrophil % 69.3 % (47-70); POSITIVE COUNT YES; POSITIVE DIFFERENTIAL YES; POSITIVE MORPHOLOGY YES; Platelet Count 64 K/mm3 (150-450); RBC Distribution Width CV 13.8 % (11.6-14.6); RBC Distribution Width SD 47.5 fl (35.1-43.9); Red Blood Count 4.25 M/mm3 (4.2-5.4); White Blood Count 2.6 K/mm3 (4.4-11.0)
[2023-04-11 06:58] LABS: Differential Indicated SCAN CRITERIA MET
[2023-04-11 07:06] LABS: Differential Comment SCANNED; Platelet Estimate MOD DEC (ADEQ)
--- NOTE | 2023-04-11 07:41 | PN.HOSP_ITS ---
Reason for Visit Reason for Visit: Diagnoses Hypoxemia (04/10/23) COVID-19 (04/10/23) Objective Data Objective Data Vital Signs: Vital Signs Temp Pulse Resp BP Pulse Ox O2 Del Method O2 Flow Rate 98.9 F 62 20 H 129/68 H 98 Nasal Cannula 1 04/11/23 04:43 04/11/23 04:43 04/11/23 04:43 04/11/23 04:43 04/11/23 04:46 04/11/23 04:46 04/11/23 04:46 Oxygen Flow Rate (L/min) 1 Oxygen Delivery Method Nasal Cannula Weight: 92 lb 9 oz Body Mass Index (BMI) 14.1 Intake & Output: Intake and Output for Last 24 Hours 04/09/23 04/10/23 04/11/23 23:59 23:59 23:59 Intake Total 1850 / 1850 100 / 100 Output Total 300 / 300 Balance 1550 / 1550 100 / 100 Lab / Micro Data 04/11/23 09:27 04/11/23 09:27 Labs: Laboratory Results - last 24 hr 04/10/23 12:05: WBC 7.9, RBC 4.67, Hgb 14.2, Hct 45.0, MCV 96.4, MCH 30.4, MCHC 31.6 L, RDW Std Deviation 49.1 H, RDW Coeff of Olivia 13.9, Plt Count 88 L, MPV 10.9, Immature Gran % (Auto) 1.900 H, Neut % (Auto) 75.5 H, Lymph % (Auto) 3.0 L , [place] % (Auto) 19.1 H, Eos % (Auto) 0.0, Baso % (Auto) 0.5, Absolute Neuts (auto) 6.0, Absolute Lymphs (auto) 0.24 L, Nucleated RBC % 0, Differential Comment COMMENT, PT 13.3, INR 1.0, APTT 34.8, Sodium 135 L, Potassium 3.6, Chloride 102, Carbon Dioxide 29.0, Anion Gap 4 L, BUN 11, Creatinine 0.62, Estim Creat Clear Calc 31.48, Est GFR (MDRD) Af Amer 119, Est GFR (MDRD) Non-Af 98, BUN/Creatinine Ratio 17.7, Glucose 106, Lactic Acid 2.0, Calcium 9.1, Total Bilirubin 0.70, AST 45 H, ALT 79 H, Alkaline Phosphatase 100 04/10/23 12:05: Alkaline Phosphatase 99, Troponin I High Sens 7, Total Protein 7.3, Albumin 3.9, Globulin 3.4, Albumin/Globulin Ratio 1.1 04/10/23 13:00: Urine Color Yellow, Urine Clarity Clear, Urine pH 6.5, Ur Specific [place] 1.010, Urine Protein 30 H, Urine Glucose (UA) Normal, Urine Ketones Negative, Urine Occult Blood 150 H, Urine Nitrite Negative, Urine Bilirubin Negative, Urine Urobilinogen Normal, Ur Leukocyte Esterase Negative, Urine RBC 10-25 SEEN, Urine WBC 0 SEEN, Ur Squamous Epith Cells 0-5 SEEN, Urine Bacteria 0 SEEN, Urine Mucus 0 SEEN 04/10/23 18:09: Lactic Acid 2.5 H* 04/11/23 06:40: WBC 2.6 L, RBC 4.25, Hgb 13.0, Hct 39.8, MCV 93.6, MCH 30.6, MCHC 32.7, RDW Std Deviation 47.5 H, RDW Coeff of Olivia 13.8, Plt Count 64 L, MPV 10.7, Immature Gran % (Auto) 2.300 H, Neut % (Auto) 69.3, Lymph % (Auto) 9.6 L, [place] % (Auto) 18.8 H, Eos % (Auto) 0.0, Baso % (Auto) 0.0, Absolute Neuts (auto) 1.8 L, Absolute Lymphs (auto) 0.25 L, Nucleated RBC % 0, Differential Comment SCANNED, Diff Path Review December, Platelet Estimate MOD DEC Micro: Microbiology 04/10/23 13:00 Nasal Secretion SARS-CoV-2 Antigen (Rapid) - Final SARS-CoV-2 (COVID 19) Radiography Diagnostic Testing: Radiology Impression Chest X-Ray 04/10/23 12:48 IMPRESSION: No acute abnormality is seen. Electronically Signed: Trav Ko MD at 13:29 EDT , Physical Exam Narrative Seen and examined. Patient on minimal oxygen 1 to 2 L. Denies shortness of breath, cough. Patient was admitted with 6 days of diarrhea. Unclear about the onset of the symptoms. Patient is unvaccinated. Physical exam General: Alert, Oriented x3, Cooperative HEENT: Hard of hearing. Atraumatic, PERRLA, EOMI, Normocephalic Oral: No Gingival or Mucosal Lesions/ Ulcerations Neck: Supple, No JVD, Negative Carotid Bruits Lungs: Air entry diminished in bilateral lung bases. No crepitation/rhonchi Cardiovascular: Regular rate, Regular Rhythm, Normal S1, Normal S2, No murmurs Abdomen: Bowel Sounds Present, Soft, Non Tender, Non-Distended : No renal angle tenderness. No suprapubic tenderness. Extremities: No edema, Capillary Refill Less than 3 Seconds Skin: No rashes, No breakdown Musculoskeletal: No Tenderness to Palpation of Joints or Extremities. Degenerative arthritis and slight limited range of motion. Neurological: Cranial nerves II-XII grossly intact, DTR 2+/4. No acute focal neurological deficit. Psych/Mental Status: Flat affect, amnesia. Probably dementia Assessment & Plan Assessment/Plan (1) COVID-19: PLAN: Unclear time of onset, may have been a day ago or 6 days ago. Patient was positive for COVID-19 at the facility but also positive here today. Acute liver injury, most likely drug-induced liver injury from remdesivir. The patient was started on dexamethasone and remdesivir. Liver chemistry shows increasing ALT and AST about 4000 therefore remdesivir discontinued. ID consulted. I talked to ID consulted. I talked to patient's daughter and gave the update. Overall patient feels good. Paroxetine and diazepam also discontinued due to acute liver injury. ID consulted. Inflammatory markers elevated UA RBC 10-25 cells. Leukopenia WBC 2.6 thousand. Lymphopenia, ANC 0.25 thousand and ANC 1.8 thousand. Monitor liver chemistry every day. (2) Hypoxia: PLAN: Suspect due to COVID-19. Chest x-ray personally reviewed and showed no acute process Wean oxygen as tolerated. PLAN: Plan Chronic conditions * Anxiety and depression: Continue with SSRI. Patient does take diazepam and gabapentin, caution with her baseline confusion. * Hypothyroidism continue with levothyroxine * Hypertension: Continue with metoprolol succinate with hold parameters for a systolic blood pressure less than 110 or heart rate less than 60 VTE prophylaxis: Low molecular weight heparin Charges/Coding Visit Charges Inpatient E&M: 84057 Subs Hosp L2
[2023-04-11 08:23] LABS: ALB/GLOB Ratio 1.1 RATIO (0.9-2.4); AST(SGOT) 4316 U/L (15-37); Alanine Aminotransfer ALT/SGPT 3552 U/L (13-56); Albumin, Serum 3.4 g/dL (3.2-5.0); Alkaline Phosphatase 471 U/L (45-117); Anion Gap 5 (5-15); BUN 12 mg/dL (7-18); BUN/Creat Ratio 16.9 RATIO (10-20); Calcium,Total 9.2 mg/dL (8.5-10.1); Chloride 108 mmol/L (98-107); Creatinine, Serum 0.71 mg/dL (0.55-1.02); EST Glomerular Filtration Rate 84 mL/min (>60); Est Glom Filt Rate - Afr Amer 102 mL/min (>60); Estimated Creatinine Clearance 29.24 ml/min; Globulin 3.1 g/dL (2.2-4.2); Glucose 103 mg/dL (74-106); Potassium 4.5 mmol/L (3.5-5.1); Protein, Total 6.5 g/dL (6.4-8.2); Sodium Level 140 mmol/L (136-145)
[2023-04-11] MEDS: Ensure Plus High Protein 120 ML LIQUID PO (09:14)
[2023-04-11] MEDS: Magnesium Chloride 64 MG Delay Rel.Tablet 128 MG PO (09:14)
[2023-04-11] MEDS: dexAMETHasone 4 MG Tablet 6 MG PO (09:15)
[2023-04-11] MEDS: Multivitamins,Therapeutic Tablet 1 TABLET PO (09:15)
[2023-04-11] MEDS: Losartan Potassium 50 MG Tablet PO (09:16)
[2023-04-11] MEDS: Polyethylene Glycol 3350 17 GM PACKET PO (09:16)
[2023-04-11] MEDS: Potassium Chloride Oral Tablet 20 MEQ 40 MEQ PO (09:16)
[2023-04-11] MEDS: Pantoprazole Sodium 40 MG Tablet PO (09:17)
[2023-04-11] MEDS: Gabapentin 100 MG Capsule PO (09:17)
[2023-04-11] MEDS: Metoprolol(XL)Succ 25 MG Tablet PO (09:17)
--- NOTE | 2023-04-11 09:17 | US_ITS ---
EXAM: US Abdomen RUQ (limited) INDICATION: Female, 82 years old. Elevated liver enzymes. TECHNIQUE: Dobson-scale and color Doppler imaging was performed of the abdomen COMPARISON: No relevant priors. FINDINGS: LIVER: The liver measures 14.5 cm in its mid clavicular length. Echogenicity and echotexture are normal. No focal lesion. No intrahepatic biliary duct dilatation. .GALLBLADDER AND BILIARY TREE: Gallbladder is surgically absent. No fluid collection in the gallbladder fossa. Common bile duct measures 11 mm, most likely representing postcholecystectomy change. PANCREAS: Pancreatic head and tail are partially obscured by overlying bowel gas. Visualized portions of the pancreatic body are normal. KIDNEYS: The right kidney measures 9.3 x 3.9 x 3.4 cm. Renal cortex measures 1.2 cm. There are multiple anechoic lesions measuring up to 2.2 cm in greatest diameter. No hydronephrosis. No evidence of nephrolithiasis. US/Abdomen Limited IMPRESSION: 1. Simple appearing right renal cysts. 2. Partial nonvisualization pancreatic head and tail due to overlying bowel gas. Electronically Signed: Lane Nair MD at 0:52 EDT ,
[2023-04-11 09:36] LABS: Absolute Lymphocyte Count 0.26 X10^3/uL (0.83-4.51); Absolute Neutrophil Count 2.1 X10^3/uL (2.0-7.7); Differential Indicated SCAN CRITERIA MET; Hematocrit 43.3 % (37-47); Hemoglobin 14.2 g/dL (12.0-15.0); Lymphocyte # 0.26 X10^3/ul (0.83-4.51); Mean Corp Hgb Conc 32.8 g/dL (32-36); Mean Corpuscular Hgb 30.7 pg (27.0-32.0); Mean Corpuscular Volume 93.5 fL (81-99); Mean Platelet Vol. 10.8 fl (6.2-12.0); Monocyte# 0.53 X10^3/uL; Monocyte% 18.3 % (0-10); NRBC Flagged by Analyzer 0 % (0-5); Neutrophil # 2.08 X10^3/uL (2.7-7.7); Neutrophil % 71.7 % (47-70); POSITIVE COUNT YES; POSITIVE DIFFERENTIAL YES; POSITIVE MORPHOLOGY YES; Platelet Count 63 K/mm3 (150-450); RBC Distribution Width CV 13.8 % (11.6-14.6); RBC Distribution Width SD 47.1 fl (35.1-43.9); Red Blood Count 4.63 M/mm3 (4.2-5.4); White Blood Count 2.9 K/mm3 (4.4-11.0)
--- NOTE | 2023-04-11 09:50 | PCM.CONS.GEN ---
Assessment & Plan Assessment/Plan (1) COVID-19: PLAN: Unvaccinated. Here with hypoxia. Developed transaminitis, likely due to remdesivir. I d/c'd remdesivir order. Cont dex. D-dimer normal here. O2 slightly improved today. Encouraged her to get covid vaccine in 3 months; she will think about it. Will follow, thank you, d/w Dr. Ruiz (2) Hypoxia: (3) Transaminitis: HPI Consult Data Date of Consult: 04/11/23 HPI Narrative Reason for Consultation: covid HPI Narrative: SELINA TINSLEY, is a 82 F, assisted living resident, unvaccinated for covid, reports I almost from covid before, presented 04/10 with several days body aches, fever, chills, confusion, diarrhea, dry cough. Says about 10 others are sick as well. Came to ED with hypoxia and (+) test the day before. Started on dex and remdesivir. Down to 1L this AM, wants to leave the hospital. No new abd pain, n/v. No prior h/o liver problems. Full ROS performed and neg except as noted above. No change in taste/smell. PFSH Medical History Arthritis Hypothyroidism Kidney stones Smoker Home Medications potassium chloride 20 mEq tablet,extended release(part/cryst) (Klor-Con M) 40 meq PO BID potassium supplement 08/10/15 [History Last Taken 05/05/17] gabapentin 100 mg capsule 200 mg PO TID RESTLESS LEG 09/13/19 [History Last Taken Unknown] multivitamin with folic acid 400 mcg tablet 1 tab PO DAILY SUPPLEMENT 09/13/19 [History Last Taken Unknown] polyethylene glycol 3350 17 gram oral powder packet 17 gm PO BID CONSTIPATION 09/13/19 [History Last Taken Unknown] acetaminophen 650 mg tablet,extended release 1,300 mg PO Q8H PRN fever or pain 04/10/23 [History Last Taken Unknown] cetirizine 10 mg tablet 10 mg PO QHS 04/10/23 [History Last Taken Unknown] diazepam 10 mg tablet 10 mg PO DAILY ANXIETY 04/10/23 [History Last Taken Unknown] fluticasone propionate 50 mcg/actuation nasal spray,suspension 1 spray intranasal QHS ALLERGIES 04/10/23 [History Last Taken Unknown] levothyroxine 100 mcg tablet 100 mcg PO DAILY 04/10/23 [History Last Taken Unknown] loratadine 10 mg tablet 10 mg PO DAILY ALLERGIES 04/10/23 [History Last Taken Unknown] losartan 50 mg tablet 50 mg PO BID BP 04/10/23 [History Last Taken Unknown] magnesium oxide 400 mg PO DAILY 04/10/23 [History Last Taken Unknown] melatonin 3 mg tablet 6 mg PO QHS 04/10/23 [History Last Taken Unknown] omeprazole 20 mg capsule,delayed release 20 mg PO DAILY GERD 04/10/23 [History Last Taken Unknown] paroxetine HCl 40 mg tablet 40 mg PO DAILY 04/10/23 [History Last Taken Unknown] Allergy/AdvReac Type Severity Reaction Status Date / Time No Known Allergies Allergy Verified 04/10/23 11:45 Family History unable to obtain Surgical History (Updated 04/10/23 @ 17:31 by Bridget Jefferson) History of cholecystectomy Surgical History unable to obtain Social History Smoking Status: Current every day smoker tobacco type: cigarettes Physical Exam Const alert and no apparent distress General Appearance: cooperative HEENT normocephalic and head/scalp atraumatic Eyes PERRL and EOMs intact bilaterally Neck supple and No nodes Resp Auscultation: diminished lung sounds Cardio regular rate and regular rhythm GI soft to palpation, non-tender and non-distended Extremity General Extremity: Negative for edema Skin no rashes or lesions noted Neuro CN's II-XII intact bilaterally Lab / Micro Data Attestation: I reviewed the patient's lab results. 04/11/23 09:27 04/11/23 06:40 Labs: Laboratory Results - last 24 hr 04/10/23 12:05: WBC 7.9, RBC 4.67, Hgb 14.2, Hct 45.0, MCV 96.4, MCH 30.4, MCHC 31.6 L, RDW Std Deviation 49.1 H, RDW Coeff of Olivia 13.9, Plt Count 88 L, MPV 10.9, Immature Gran % (Auto) 1.900 H, Neut % (Auto) 75.5 H, Lymph % (Auto) 3.0 L, [place] % (Auto) 19.1 H, Eos % (Auto) 0.0, Baso % (Auto) 0.5, Absolute Neuts (auto) 6.0, Absolute Lymphs (auto) 0.24 L, Nucleated RBC % 0, Differential Comment COMMENT, PT 13.3, INR 1.0, APTT 34.8, Sodium 135 L, Potassium 3.6, Chloride 102, Carbon Dioxide 29.0, Anion Gap 4 L, BUN 11, Creatinine 0.62, Estim Creat Clear Calc 31.48, Est GFR (MDRD) Af Amer 119, Est GFR (MDRD) Non-Af 98, BUN/Creatinine Ratio 17.7, Glucose 106, Lactic Acid 2.0, Calcium 9.1, Total Bilirubin 0.70, AST 45 H, ALT 79 H, Alkaline Phosphatase 100 04/10/23 12:05: Alkaline Phosphatase 99, Troponin I High Sens 7, Total Protein 7.3, Albumin 3.9, Globulin 3.4, Albumin/Globulin Ratio 1.1 04/10/23 13:00: Urine Color Yellow, Urine Clarity Clear, Urine pH 6.5, Ur Specific [place] 1.010, Urine Protein 30 H, Urine Glucose (UA) Normal, Urine Ketones Negative, Urine Occult Blood 150 H, Urine Nitrite Negative, Urine Bilirubin Negative, Urine Urobilinogen Normal, Ur Leukocyte Esterase Negative, Urine RBC 10-25 SEEN, Urine WBC 0 SEEN, Ur Squamous Epith Cells 0-5 SEEN, Urine Bacteria 0 SEEN, Urine Mucus 0 SEEN 04/10/23 18:09: Lactic Acid 2.5 H* 04/11/23 06:40: WBC 2.6 L, RBC 4.25, Hgb 13.0, Hct 39.8, MCV 93.6, MCH 30.6, MCHC 32.7, RDW Std Deviation 47.5 H, RDW Coeff of [place] 13.8, Plt Count 64 L, MPV 10.7, Immature Gran % (Auto) 2.300 H, Neut % (Auto) 69.3, Lymph % (Auto) 9.6 L, [place] % (Auto) 18.8 H, Eos % (Auto) 0.0, Baso % (Auto) 0.0, Absolute Neuts (auto) 1.8 L, Absolute Lymphs (auto) 0.25 L, Nucleated RBC % 0, Differential Comment SCANNED, Diff Path Review May foll, Platelet Estimate MOD DEC, Sodium 140, Potassium 4.5, Chloride 108 H, Carbon Dioxide 27.0, Anion Gap 5, BUN 12, Creatinine 0.71, Estim Creat Clear Calc 29.24, Est GFR (MDRD) Af Amer 102, Est GFR (MDRD) Non-Af 84, BUN/Creatinine Ratio 16.9, Glucose 103, Calcium 9.2, Total Bilirubin 1.00, AST 4316 H, ALT 3552 H, Alkaline Phosphatase 471 H, Total Protein 6.5, Albumin 3.4, Globulin 3.1, Albumin/Globulin Ratio 1.1 04/11/23 09:27: WBC 2.9 L, RBC 4.63, Hgb 14.2, Hct 43.3, MCV 93.5, MCH 30.7, MCHC 32.8, RDW Std Deviation 47.1 H, RDW Coeff of [place] 13.8, Plt Count 63 L, MPV 10.8, Immature Gran % (Auto) 1.000 H, Neut % (Auto) 71.7 H, Lymph % (Auto) 9.0 L, [place] % (Auto) 18.3 H, Eos % (Auto) 0.0, Baso % (Auto) 0.0, Absolute Neuts (auto) 2.1, Absolute Lymphs (auto) 0.26 L, Nucleated RBC % 0 Micro: Microbiology 04/10/23 13:00 Nasal Secretion SARS-CoV-2 Antigen (Rapid) - Final SARS-CoV-2 (COVID 19) Radiology Impression Chest X-Ray 04/10/23 12:48 IMPRESSION: No acute abnormality is seen. Electronically Signed: Trav Ko MD at 13:29 EDT ,
[2023-04-11 09:59] LABS: Platelet Estimate MKD DEC (ADEQ); Reactive Lymphocyte 1+
[2023-04-11 10:09] LABS: ALB/GLOB Ratio 1.1 RATIO (0.9-2.4); AST(SGOT) 4215 U/L (15-37); Alanine Aminotransfer ALT/SGPT 3709 U/L (13-56); Albumin, Serum 3.7 g/dL (3.2-5.0); Alkaline Phosphatase 520 U/L (45-117); Anion Gap 5 (5-15); BUN 14 mg/dL (7-18); BUN/Creat Ratio 16.2 RATIO (10-20); Calcium,Total 9.3 mg/dL (8.5-10.1); Chloride 107 mmol/L (98-107); Creatinine, Serum 0.87 mg/dL (0.55-1.02); EST Glomerular Filtration Rate 67 mL/min (>60); Est Glom Filt Rate - Afr Amer 81 mL/min (>60); Estimated Creatinine Clearance 33.61 ml/min; Globulin 3.5 g/dL (2.2-4.2); Glucose 134 mg/dL (74-106); Potassium 4.5 mmol/L (3.5-5.1); Protein, Total 7.2 g/dL (6.4-8.2); Sodium Level 138 mmol/L (136-145)
--- NOTE | 2023-04-11 13:45 | CHAPLAIN ---
Type of Pastoral Visit ___ Initial Visit ___ Follow-up Visit ___ On-call Visit ___ General Patient Visit ___ Spiritual Assessment ___ Family Conference ___ Bereavement ___ Rapid Response ___ Code Blue ___ Other (describe below) Pastoral Care Referral From ___ Patient ___ Family ___ Nurse ___ Physician ___ Search Engine Optimization Manager ___ Live In Housekeeper Nanny ___ Other (describe below) Sacrament/Intervention ___ Active listening ___ Anointing ___ Sabianism ___ Bereavement ___ Communion ___ Sangeeta exploration ___ ___ Life review ___ Prayer ___ Reconciliation ___ Sacrament of Sick ___ Supportive presence ___ Wedding ___ Other (describe below) Pastoral Comments phone call attempted for this patient that is in isolation; phone rings three times and then message comes to say patient is not available at this time
[2023-04-11 14:37] LABS: Pathologist Review Reviewed
[2023-04-11 14:41] LABS: Pathologist Review Reviewed
--- NOTE | 2023-04-11 18:42 | CASEMGMT ---
Social Work MS3 Patient is from [facility] assisted living, to hospital for issues related to COVID. Donned proper PPE and met with patient in room, introducing to self and role at [facility]. Patient pleasant, smiling, and interactive in conversation. Patient reports to live at [facility] living for the last 6 years or so, has a cat Pixie for the last year, and desires to return to this same level of care. Patient reports to have rollator walker to ambulate, and typically takes meals in the common area. Patient reports has had COVID in the past, and just had to quarantine in the [place] apartment for 2 weeks. Patient reports is prepared to do this again, just wants to return to her [place] apartment. Patient reports her daughter Diana is the POAHC and okay to talk with Diana. Supportive listening and emotional support offered to patient this date. Noted in chart, patient does have history of depression and anxiety. Spoke with Diana Matos ([phone]). Diana reports agreement for patient to return to the assisted living and stated patient has been treated very well there. Diana did express concern for patient's mood and anxiety, as patient smokes cigarettes 4-5 times a day, and not having access to nicotine could increase patient's anxiety. Reviewed chart and noted a nicotine patch has been ordered. Updated Diana. Diana also expressed that patient has been on Valium since about the age of 31, and has become dependent on this substance. Through the years, work has been done to titrate Valium down. Patient now only takes this once a day, at nighttime. Diana expressed concern that patient is fully aware of what medications the patient takes, and if patient does not see the Valium at nighttime, this could also increase anxiety and mood instability. Diana wanted staff to know and understand if starts to see changes in the patient. Updated payment specialist Fartun. Diana does confirm to be POAHC and to have advanced directives. Diana emailed this underwriter a copy, and copy of POAHC and Living Will placed on chart. Note, Diana reports has not come to see the patient here due to the COVID and Diana's job babysitting small children. Diana does not want to potentially expose the children in Diana's care. Plan: Return to [facility]. Will need to determine transport back to the [place], as well as check in with the [place] to ensure no concerns with patient returning to same Level of Care. SW following. -LALY Monteiro, POULTRY DRESSER
--- NOTE | 2023-04-11 19:31 | CASEMGMT ---
Validation of Advanced Directives Noted a Durable POA was on file for patient. Spoke with the daughter who provided the Health Care POA and Living Will. Documents placed in patient's paper chart to be scanned in after discharge. -ANGELICA Monteiro, LALY
[2023-04-11] MEDS: Fluticasone 0.05% 1 SPRAY NASAL.SRY NASAL (22:28)
[2023-04-11] MEDS: MELATONIN 3 MG TABLET 6 MG PO (22:28)
[2023-04-12] MEDS: DiphenhydrAMINE 25 MG Capsule PO (01:22)
[2023-04-12 01:26] VITALS: BP 172/87; PULSE 57; RESP 16; TEMP 36.6; O2SAT 98
[2023-04-12 05:43] LABS: Absolute Lymphocyte Count 0.46 X10^3/uL (0.83-4.51); Absolute Neutrophil Count 4.4 X10^3/uL (2.0-7.7); Basophil# 0.02 X10^3/uL; Basophil% 0.3 % (0-1); Eosinophil# 0.14 X10^3/uL; Eosinophils% 2.1 % (0-5); Hematocrit 45.1 % (37-47); Hemoglobin 14.7 g/dL (12.0-15.0); Lymphocyte # 0.46 X10^3/ul (0.83-4.51); Mean Corp Hgb Conc 32.6 g/dL (32-36); Mean Corpuscular Hgb 30.4 pg (27.0-32.0); Mean Corpuscular Volume 93.2 fL (81-99); Mean Platelet Vol. 11.5 fl (6.2-12.0); Monocyte# 1.49 X10^3/uL; Monocyte% 22.7 % (0-10); NRBC Flagged by Analyzer 0 % (0-5); POSITIVE COUNT YES; POSITIVE DIFFERENTIAL YES; POSITIVE MORPHOLOGY YES; Platelet Count 62 K/mm3 (150-450); RBC Distribution Width CV 13.9 % (11.6-14.6); RBC Distribution Width SD 47.8 fl (35.1-43.9); Red Blood Count 4.84 M/mm3 (4.2-5.4); White Blood Count 6.6 K/mm3 (4.4-11.0)
[2023-04-12 05:44] LABS: Differential Indicated SCAN CRITERIA MET
[2023-04-12 06:24] VITALS: BP 155/75; PULSE 49; RESP 16; TEMP 36.6; O2SAT 97
[2023-04-12] MEDS: Levothyroxine 100 MCG Tablet PO (06:30)
[2023-04-12 06:35] LABS: ALB/GLOB Ratio 1.2 RATIO (0.9-2.4); AST(SGOT) 1738 U/L (15-37); Alanine Aminotransfer ALT/SGPT 2592 U/L (13-56); Albumin, Serum 3.7 g/dL (3.2-5.0); Alkaline Phosphatase 471 U/L (45-117); Anion Gap 7 (5-15); BUN 19 mg/dL (7-18); BUN/Creat Ratio 28.7 RATIO (10-20); Calcium,Total 9.6 mg/dL (8.5-10.1); Chloride 107 mmol/L (98-107); Creatinine, Serum 0.66 mg/dL (0.55-1.02); EST Glomerular Filtration Rate 91 mL/min (>60); Est Glom Filt Rate - Afr Amer 110 mL/min (>60); Estimated Creatinine Clearance 29.24 ml/min; Globulin 3.1 g/dL (2.2-4.2); Glucose 110 mg/dL (74-106); Potassium 4.3 mmol/L (3.5-5.1); Protein, Total 6.8 g/dL (6.4-8.2); Sodium Level 140 mmol/L (136-145)
[2023-04-12 06:41] LABS: Differential Comment SCANNED; Platelet Estimate MOD DEC (ADEQ); Reactive Lymphocyte 1+
[2023-04-12 09:10] LABS: International Normalized Ratio 1.2; Prothrombin Time (Protime)PT. 15.1 SECONDS (11.7-14.9)
--- NOTE | 2023-04-12 09:58 | DCINST_ITS ---
Discharge Instructions Diet Discharge Diet: No restrictions Activity Discharge Activity: Return to Normal Activity Weight Bearing Status: Weight bearing as tolerated Dressing / Incision Call your doctor if you observe: Fever of 101 or Higher, Coldness, Increased Pain, Numbness or Tingling, Change in Color, Inability to urinate, Inability to have a bowel movement, Using more than 1 pad per hour, Shortness of breath, Dizziness, Fainting spells, Swelling in the ankles, Chest pain, Prolonged hiccupping, Increased palpitations (irregular heartbeat) and Calf discomfort Follow Up Care When: IN 2 WEEKS Test Results: Test results from this visit will be discussed in further detail at your follow- up appointment, if applicable. Discharge Plan Admission Admit Date/Time: 04/10/23 14:44 Attending Provider: Saji Ruiz Primary Care Provider: Anton Linn Chi Consulting Providers: Remy Shell; Bandar Stephens Discharge Orders/Prescriptions Prescriptions: New metoprolol succinate 25 mg Tablet Extended Release 24 Hr 25 mg PO DAILYCM 30 Days Qty: 30 0RF Rx Instructions: Hold for heart less than 50 or systolic blood pressure less than 110 mmHg. dexamethasone 6 mg tablet 6 mg PO DAILY 7 Days Qty: 7 0RF Continued potassium chloride [Klor-Con M20] 20 MEQ tablet 40 meq PO BID gabapentin 100 MG capsule 200 mg PO TID multivitamin with folic acid 1 TABLET tablet 1 tab PO DAILY Patient Comments: Oct PT TAKES 2 TABS WOMENS ULTRA RICK DAILY FAMILY SUPPLIES polyethylene glycol 3350 17 GM packet 17 gm PO BID cetirizine 10 mg tablet 10 mg PO QHS Patient Comments: Oct PT TAKES CETIRIZINE AT BEDTIME AND LORATADINE IN THE AM. fluticasone propionate 50 mcg/actuation spray,suspension 1 spray INTRANASAL QHS Patient Comments: Oct PT KEEPS AT BEDSIDE AND SELF ADMINISTERS levothyroxine 100 mcg tablet 100 mcg PO DAILY Patient Comments: TAKE AT LEAST 30 MINUTES PRIOR TO EATING losartan 50 mg tablet 50 mg PO BID magnesium oxide 400 mg magnesium tablet 400 mg PO DAILY Patient Comments: UPON RISING WITH FOOD melatonin 3 mg tablet 6 mg PO QHS omeprazole 20 mg capsule,delayed release(DR/EC) 20 mg PO DAILY Patient Comments: TAKES 30 MINUTES PRIOR TO MORNING MEAL Changed diazepam 10 mg tablet 5 mg PO DAILY 30 Days Qty: 0 0RF Rx Instructions: Take diazepam 5 mg daily for 7-day until LFTs and follow with PCP before resuming full dose paroxetine HCl 40 mg tablet 20 mg PO DAILY 30 Days Qty: 0 0RF Patient Comments: TAKE IN THE MORNING UPON RISING Rx Instructions: Take paroxetine 20 mg daily for 7-day until LFTs and follow with PCP before resuming full dose Held acetaminophen 650 mg tablet extended release 1,300 mg PO Q8H PRN (Reason: fever or pain) Hold Instructions: Hold for 7-day until LFTs and follow with PCP before resuming loratadine 10 mg tablet 10 mg PO DAILY Hold Instructions: Hold for 7-day until LFTs and follow with PCP before resuming Patient Comments: PER MAR PT TAKES CETIRIZINE AT BEDTIME AND LORATADINE IN THE AM. Referrals / Follow Up: Anton Linn Chi, MD [Primary Care Provider] - Disposition Disposition (needs filled in before D/C Order can be placed): Assisted Living
--- NOTE | 2023-04-12 10:09 | CASEMGMT ---
Social Work SW spoke with [facility] and they confirmed they are able to take patient back. [facility] also indicated they can take her for SNF if determined necessary. SW to follow for any other patient needs and PT/OT recommendations. Plan: SW to follow for d/c needs, pt to return to [facility] if able. Parris Bates OPEN TENTER OPERATOR, CORPORATE DIRECTOR OF PHARMACY
--- NOTE | 2023-04-12 10:31 | DS.PCM_ITS ---
Providers Date of Admission: 04/10/23 Date of Discharge: 04/12/23 Primary Care Physician: Dr. Anton Linn MD Consultations 04/11/23 07:45 Consult: Infectious Disease Routine Consulting Provider: Bandar Stephens Reason for Consult: covid 19, hypoxia, time of onset unclear EMERGENT Consult: No MD Notified: Yes Date Notified: 04/11/23 Time Notified: 07:45 Method of Notification: Text Reason For Visit: COVID 19 Diagnosis Discharge Diagnosis (1) COVID-19: Status: Acute Code(s): U07.1 - COVID-19 Plan: Unclear time of onset, may have been a day ago or 6 days ago. Patient was positive for COVID-19 at the facility but also positive here today. Acute liver injury, most likely drug-induced liver injury from remdesivir. The patient was started on dexamethasone and remdesivir. Liver chemistry shows increasing ALT and AST about 4000 therefore remdesivir discontinued. ID consulted. I talked to ID consulted. I talked to patient's daughter and gave the update. Overall patient feels good. Paroxetine and diazepam also discontinued due to acute liver injury. ID consulted. Inflammatory markers elevated UA RBC 10-25 cells. Leukopenia WBC 2.6 thousand. Lymphopenia, ANC 0.25 thousand and ANC 1.8 thousand. Monitor liver chemistry every day. 04/12: Liver chemistry improving. AST improved from 9347-0335 and ALT about 0727-4210. Alkaline phosphatase also improving. Total bili normal. INR baseline 1.0. Today 1.2 mild increase. Patient advised to take half dose of diazepam 5 mg daily and paroxetine 20 mg until liver function completely returns to normal. Advised liver chemistry in 1 week RUQ ultrasound shows liver 14.5 cm with normal echogenicity and echotexture. No focal lesions. No intrahepatic biliary duct dilatation. CBD measures limited to most likely postcholecystectomy changes. Gallbladder surgically absent Clinical Impression(s) from Imaging Studies Chest X-Ray 04/10/23 12:48 IMPRESSION: No acute abnormality is seen. Abdomen Ultrasound 04/11/23 09:17 IMPRESSION: 1. Simple appearing right renal cysts. 2. Partial nonvisualization pancreatic head and tail due to overlying bowel gas. (2) Hypoxia: Status: Acute Code(s): R09.02 - Hypoxemia Plan: Suspect due to COVID-19. Chest x-ray personally reviewed and showed no acute process Wean oxygen as tolerated. 04/12 hypoxia has resolved. Plan Chronic conditions * Anxiety and depression: Continue with SSRI. Mentioned as above * Hypothyroidism continue with levothyroxine * Hypertension: Continue with metoprolol succinate with hold parameters for a systolic blood pressure less than 110 or heart rate less than 60 VTE prophylaxis: Low molecular weight heparin Medications at Discharge Home Medications potassium chloride 20 mEq tablet,extended release(part/cryst) (Klor-Con M) 40 meq PO BID potassium supplement 08/10/15 gabapentin 100 mg capsule 200 mg PO TID RESTLESS LEG 09/13/19 multivitamin with folic acid 400 mcg tablet 1 tab PO DAILY SUPPLEMENT 09/13/19 polyethylene glycol 3350 17 gram oral powder packet 17 gm PO BID CONSTIPATION 09/13/19 acetaminophen 650 mg tablet,extended release 1,300 mg PO Q8H PRN fever or pain 04/10/23 cetirizine 10 mg tablet 10 mg PO QHS 04/10/23 fluticasone propionate 50 mcg/actuation nasal spray,suspension 1 spray intranasal QHS ALLERGIES 04/10/23 levothyroxine 100 mcg tablet 100 mcg PO DAILY 04/10/23 loratadine 10 mg tablet 10 mg PO DAILY ALLERGIES 04/10/23 losartan 50 mg tablet 50 mg PO BID BP 04/10/23 magnesium oxide 400 mg PO DAILY 04/10/23 melatonin 3 mg tablet 6 mg PO QHS 04/10/23 omeprazole 20 mg capsule,delayed release 20 mg PO DAILY GERD 04/10/23 dexamethasone 6 mg tablet 6 mg PO DAILY 7 days #7 tabs 04/12/23 diazepam 10 mg tablet 5 mg (1/2 x 10 mg) PO DAILY ANXIETY 30 days #0 tabs 04/12/23 metoprolol succinate 25 mg tablet,extended release 24 hr 25 mg PO DAILYCM 30 days #30 tabs 04/12/23 paroxetine HCl 40 mg tablet 20 mg (1/2 x 40 mg) PO DAILY 30 days #0 tabs 04/12/23 Physical Exam Narrative Seen and examined. Denies shortness of breath, cough. Patient was admitted with 6 days of diarrhea. Unclear about the onset of the symptoms. Patient is unvaccinated. LFT getting better. Hypoxia has resolved. Physical exam General: Alert, Oriented x3, Cooperative HEENT: Hard of hearing. Atraumatic, PERRLA, EOMI, Normocephalic Oral: No Gingival or Mucosal Lesions/ Ulcerations Neck: Supple, No JVD, Negative Carotid Bruits Lungs: Air entry diminished in bilateral lung bases. No crepitation/rhonchi. Hypoxia resolved. Cardiovascular: Regular rate, Regular Rhythm, Normal S1, Normal S2, No murmurs Abdomen: Bowel Sounds Present, Soft, Non Tender, Non-Distended. Liver not enlarged. : No renal angle tenderness. No suprapubic tenderness. Extremities: No edema, Capillary Refill Less than 3 Seconds Skin: No rashes, No breakdown Musculoskeletal: No Tenderness to Palpation of Joints or Extremities. Degenerative arthritis and slight limited range of motion. Neurological: Cranial nerves II-XII grossly intact, DTR 2+/4. No acute focal neurological deficit. Psych/Mental Status: Flat affect, amnesia. Probably dementia Weight / BMI Weight Weight: 92 lb 9 oz Body Mass Index (BMI) 14.1 ABG / Lab / Microbiology Data 04/12/23 05:20 04/12/23 05:20 Laboratory: Laboratory Results - last 24 hr 04/11/23 06:40: Diff Path Review Reviewed 04/11/23 09:27: Diff Path Review Reviewed 04/12/23 05:20: WBC 6.6, RBC 4.84, Hgb 14.7, Hct 45.1, MCV 93.2, MCH 30.4, MCHC 32.6, RDW Std Deviation 47.8 H, RDW Coeff of Olivia 13.9, Plt Count 62 L, MPV 11.5, Immature Gran % (Auto) 0.900, Neut % (Auto) 67.0, Lymph % (Auto) 7.0 L, Alfalfa % (Auto) 22.7 H, Eos % (Auto) 2.1, Baso % (Auto) 0.3, Absolute Neuts (auto) 4.4, Absolute Lymphs (auto) 0.46 L, Nucleated RBC % 0, Differential Comment SCANNED, Reactive Lymphocytes 1+, Platelet Estimate MOD DEC, Sodium 140, Potassium 4.3, Chloride 107, Carbon Dioxide 26.0, Anion Gap 7, BUN 19 H, Creatinine 0.66, Estim Creat Clear Calc 29.24, Est GFR (MDRD) Af Amer 110, Est GFR (MDRD) Non-Af 91, BUN/Creatinine Ratio 28.7 H, Glucose 110 H, Calcium 9.6, Total Bilirubin 0.70, AST 1738 H, ALT 2592 H, Alkaline Phosphatase 471 H, Total Protein 6.8, Albumin 3.7, Globulin 3.1, Albumin/Globulin Ratio 1.2 04/12/23 08:30: PT 15.1 H, INR 1.2 Microbiology: Microbiology 04/10/23 12:26 Blood Culture (Wb) - Anticubital Left Blood Culture - Preliminary No growth in 48 hours. 04/10/23 12:05 Blood Culture (Wb) - Left Forearm Blood Culture - Preliminary No growth in 48 hours. 04/10/23 13:00 Urine Catheter - Catheter Urine Culture - Final Culture exhibits no growth. 04/10/23 13:00 Nasal Secretion SARS-CoV-2 Antigen (Rapid) - Final SARS-CoV-2 (COVID 19) Radiography Diagnostic Testing: Radiology Impression Abdomen Ultrasound 04/11/23 09:17 IMPRESSION: 1. Simple appearing right renal cysts. 2. Partial nonvisualization pancreatic head and tail due to overlying bowel gas. Electronically Signed: Lane Nair MD at 0:52 EDT , D/C Instructions Discharge Diet: No restrictions Weight Bearing Status: Weight bearing as tolerated Call your doctor if you observe: Fever of 101 or Higher, Coldness, Increased Pain, Numbness or Tingling, Change in Color, Inability to urinate, Inability to have a bowel movement, Using more than 1 pad per hour, Shortness of breath, Dizziness, Fainting spells, Swelling in the ankles, Chest pain, Prolonged hiccup ping, Increased palpitations (irregular heartbeat) and Calf discomfort When: IN 2 WEEKS Meaningful Use Info Meaningful Use Diagnoses (Choose all that apply): None applicable Discharge Plan Admission Admit Date/Time: 04/10/23 14:44 Primary Reason for Your Visit: COVID-19 infection with hypoxia. Acute liver injury Attending Provider: Saji Ruiz Primary Care Provider: Anton Linn Chi Consulting Providers: Remy Shell; Bandar Stephens Instructions Additional Instructions / Restrictions: Liver chemistry/LFT in 1 week. Follow with PCP Discharge Orders/Prescriptions Prescriptions: New metoprolol succinate 25 mg Tablet Extended Release 24 Hr 25 mg PO DAILYCM 30 Days Qty: 30 0RF Rx Instructions: Hold for heart less than 50 or systolic blood pressure less than 110 mmHg. dexamethasone 6 mg tablet 6 mg PO DAILY 7 Days Qty: 7 0RF Continued potassium chloride [Klor-Con M20] 20 MEQ tablet 40 meq PO BID gabapentin 100 MG capsule 200 mg PO TID multivitamin with folic acid 1 TABLET tablet 1 tab PO DAILY Patient Comments: PER OCT PT TAKES 2 TABS WOMENS ULTRA RICK DAILY FAMILY SUPPLIES polyethylene glycol 3350 17 GM packet 17 gm PO BID cetirizine 10 mg tablet 10 mg PO QHS Patient Comments: PER OCT PT TAKES CETIRIZINE AT BEDTIME AND LORATADINE IN THE AM. fluticasone propionate 50 mcg/actuation spray,suspension 1 spray INTRANASAL QHS Patient Comments: Oct PT KEEPS AT BEDSIDE AND SELF ADMINISTERS levothyroxine 100 mcg tablet 100 mcg PO DAILY Patient Comments: TAKE AT LEAST 30 MINUTES PRIOR TO EATING losartan 50 mg tablet 50 mg PO BID magnesium oxide 400 mg magnesium tablet 400 mg PO DAILY Patient Comments: UPON RISING WITH FOOD melatonin 3 mg tablet 6 mg PO QHS omeprazole 20 mg capsule,delayed release(DR/EC) 20 mg PO DAILY Patient Comments: TAKES 30 MINUTES PRIOR TO MORNING MEAL Changed diazepam 10 mg tablet 5 mg PO DAILY 30 Days Qty: 0 0RF Rx Instructions: Take diazepam 5 mg daily for 7-day until LFTs and follow with PCP before resuming full dose paroxetine HCl 40 mg tablet 20 mg PO DAILY 30 Days Qty: 0 0RF Patient Comments: TAKE IN THE MORNING UPON RISING Rx Instructions: Take paroxetine 20 mg daily for 7-day until LFTs and follow with PCP before resuming full dose Held acetaminophen 650 mg tablet extended release 1,300 mg PO Q8H PRN (Reason: fever or pain) Hold Instructions: Hold for 7-day until LFTs and follow with PCP before resuming loratadine 10 mg tablet 10 mg PO DAILY Hold Instructions: Hold for 7-day until LFTs and follow with PCP before resuming Patient Comments: PER OCT PT TAKES CETIRIZINE AT BEDTIME AND LORATADINE IN THE AM. Referrals / Follow Up: Krish Islas DO [Med Staff - Active Staff] - Within 2 Weeks (For acute liver injury due to Remdesevir, LFT improving) Anton Linn Chi, MD [Primary Care Provider] - Disposition Disposition (needs filled in before D/C Order can be placed): Assisted Living Charges/Coding Visit Charges Inpatient E&M: 35831 Disch Hosp >30min
[2023-04-12 10:35] VITALS: O2SAT 94
[2023-04-12] MEDS: Enoxaparin 40 MG/0.4 ML Syringe SC (11:04)
[2023-04-12] MEDS: Magnesium Chloride 64 MG Delay Rel.Tablet 128 MG PO (11:05)
[2023-04-12] MEDS: Multivitamins,Therapeutic Tablet 1 TABLET PO (11:05)
[2023-04-12] MEDS: Potassium Chloride Oral Tablet 20 MEQ 40 MEQ PO (11:06)
[2023-04-12] MEDS: Paroxetine 20 MG Tablet PO (11:06)
[2023-04-12] MEDS: diazePAM 5 MG Tablet PO (11:06)
[2023-04-12] MEDS: Pantoprazole Sodium 40 MG Tablet PO (11:06)
[2023-04-12] MEDS: dexAMETHasone 4 MG Tablet 6 MG PO (11:07)
[2023-04-12] MEDS: Polyethylene Glycol 3350 17 GM PACKET PO (11:09)
[2023-04-12 11:10] VITALS: PULSE 53
[2023-04-12 11:15] VITALS: BP 106/59; PULSE 53; RESP 17; TEMP 36.8; O2SAT 94
[2023-04-12 11:16] VITALS: O2SAT 94; O2SAT 95
--- NOTE | 2023-04-12 11:35 | CASEMGMT ---
Pt did not qualify for home oxygen.
--- NOTE | 2023-04-12 12:25 | CASEMGMT ---
Social Work SW confirmed return with [facility] and sent d/c instructions via [employer]. 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 Pt is wheelchair transport, squad to be sent but billed as wheelchair per physicians. SW notified patient and patient's daughter of pending transport. Parris Bates SHIPPER AND RECEIVING, DESTINATION COORDINATOR
--- NOTE | 2023-04-12 13:39 | NURSING ---
Talked with Staff at [facility] and gave report. Also aware that pt has left and is on her way.
== END 2023-04-12 13:40 | disposition home or self-care (01) | DRG 179 ==
LOC: ED 12:16 → MS3 15:24
PROVIDERS: Emergency Provider Student in an Organized Health Care Education/Training Program; PCP Family Medicine Geriatric Medicine; Visit Provider Internal Medicine
DX: U07.1 COVID-19 (principal); E03.9 Hypothyroidism, unspecified; I10 Essential (primary) hypertension; F32.A Depression, unspecified; F17.210 Nicotine dependence, cigarettes, uncomplicated; F41.9 Anxiety disorder, unspecified; R09.02 Hypoxemia; R74.01 Elevation of levels of liver transaminase levels; T37.5X5A Adverse effect of antiviral drugs, initial encounter; Z79.899 Other long term (current) drug therapy
CPT/HCPCS: 36415; 71045; 76705; 80053; 81001; 83605; 84075; 84484; 85025; 85610; 85730; 87040; 87086; 87811; 93005; 97161; 97166; 97802; 99252; 99285; 99406; J7030; J7050; A4216; G0463; J0248; J2405

== ENCOUNTER 2023-07-04 14:34 | Emergency (ER) | payer MEDICARE, MEDICAID, SELFPAY ==
[2023-07-04 14:35] VITALS: PULSE 60; RESP 16; TEMP 36; O2SAT 96; BMI 14.6
--- NOTE | 2023-07-04 15:36 | EDS_ITS ---
HPI History of Present Illness Chief Complaint: Upper Extremity Injury Informant: patient Narrative Narrative: Presents with left shoulder pain. She reports falling around 6 or so weeks ago she thinks. She has a fracture and has been in a sling. I have reviewed her past records and she had a x-ray last month which was listed as a follow-up x- ray for left shoulder. She evidently fell again today and hit it. She states it hurts but is really not that bad. She did not hit her head. No new areas of pain. She is wearing a sling already. She is not on any significant anticoagulation. I do not see aspirin even on her med list. No lower extremity or hip pain. No back pain. No head pain. She was evidently sent in because an outpatient x-ray at her facility stated there was a fracture. I do not know if this is a new fracture they merely noted the fracture that is already known to be there. I did look in our system and we do have comparison images from a couple weeks ago. [facility] Medical History Arthritis Closed fracture of left proximal humerus COVID-19 Hypothyroidism Kidney stones Smoker Transaminitis Home Medications potassium chloride 20 mEq tablet,extended release(part/cryst) (Klor-Con M) 40 meq PO BID potassium supplement 08/10/15 [History Last Taken 05/05/17] gabapentin 100 mg capsule 200 mg PO TID RESTLESS LEG 09/13/19 [History Last Taken Unknown] multivitamin with folic acid 400 mcg tablet 1 tab PO DAILY SUPPLEMENT 09/13/19 [History Last Taken Unknown] polyethylene glycol 3350 17 gram oral powder packet 17 g PO BID CONSTIPATION 09/13/19 [History Last Taken Unknown] acetaminophen 650 mg tablet,extended release 1,300 mg PO Q8H PRN fever or pain 04/10/23 [History Last Taken Unknown] cetirizine 10 mg tablet 10 mg PO QHS 04/10/23 [History Last Taken Unknown] fluticasone propionate 50 mcg/actuation nasal spray,suspension 1 spray intranasa l QHS ALLERGIES 04/10/23 [History Last Taken Unknown] levothyroxine 100 mcg tablet 100 mcg PO DAILY 04/10/23 [History Last Taken Unknown] loratadine 10 mg tablet 10 mg PO DAILY ALLERGIES 04/10/23 [History Last Taken Unknown] losartan 50 mg tablet 50 mg PO BID BP 04/10/23 [History Last Taken Unknown] magnesium oxide 400 mg PO DAILY 04/10/23 [History Last Taken Unknown] melatonin 3 mg tablet 6 mg PO QHS 04/10/23 [History Last Taken Unknown] omeprazole 20 mg capsule,delayed release 20 mg PO DAILY GERD 04/10/23 [History Last Taken Unknown] dexamethasone 6 mg tablet 6 mg PO DAILY 7 days #7 tabs 04/12/23 [Rx Last Taken Unknown] diazepam 10 mg tablet 5 mg (1/2 x 10 mg) PO DAILY ANXIETY 30 days #0 tabs 04/12/23 [Rx Last Taken Unknown] metoprolol succinate 25 mg tablet,extended release 24 hr 25 mg PO DAILYCM 30 days #30 tabs 04/12/23 [Rx Last Taken Unknown] paroxetine HCl 40 mg tablet 20 mg (1/2 x 40 mg) PO DAILY 30 days #0 tabs 04/12/23 [Rx Last Taken Unknown] tramadol 50 mg tablet 50 mg PO DAILY 06/20/23 [History Last Taken Unknown] Allergy/AdvReac Type Severity Reaction Status Date / Time No Known Allergies Allergy Verified 06/20/23 13:42 Surgical History History of cholecystectomy Social History Smoking Status: Current every day smoker tobacco type: cigarettes ROS ROS ED Constitutional Constitutional ED: Denies chills or fever(s) Cardiovascular Cardiovascular: Denies chest pain Respiratory/Chest Respiratory/Chest: Denies cough or dyspnea Gastrointestinal Gastrointestinal: Denies abdominal pain, diarrhea or vomiting Musculoskeletal Musculoskeletal: Reports other Details: See history of present illness. ; Denies back pain or neck pain Integumentary Denies Abrasions or rash Neurologic Neurologic: Denies headache(s) Hematologic/Lymphatic Hematologic/Lymphatic: Denies easy bleeding or easy bruising Allergic/Immunologic Allergic/Immunologic ED: Denies urticaria EXAM Physical Exam Narrative Exam Narrative: General: Patient is awake alert pleasant sitting in bed. She is a reasonable informant but I think some of her dates may be off. Nontoxic in appearance. HEENT: I do not see any areas of bruising abrasions tenderness or swelling. No facial tenderness. No epistaxis. Neck: Supple free range of motion and not tender in any area. Lungs are clear bilaterally and saturations are normal at 96% on room air showing no hypoxia. Heart is regular. Peripheral pulses are intact. Abdomen is soft nontender. Extremities show no pain with motion of her hips compression of the pelvis or palpation of the lower extremities. Right upper extremity is normal. She states she is right-hand dominant. Left is in a sling. There is no tenderness to the fingers hand wrist forearm or elbow. She has tenderness at the anterior portion of the shoulder proximally only. But I see no bruising abrasions or swelling in this area. She does have distally intact neurovascular status. Const Vital Signs: 07/04/23 14:35 Temperature 96.8 F L Temperature Source Temporal Pulse Rate 60 Respiratory Rate 16 Pulse Ox 96 Oxygen Delivery Method Room Air MDM MDM MDM Narrative Medical decision making narrative: My independent interpretation of three-view x-ray of the left shoulder shows comminuted fracture. However, when I compare this to June 20 that looks similar. Final reading is quite similar to this. I do not think we need to do any acute new therapy. She has a sling. She has follow-up. I see no indication of disruption of her fracture or significant change. Discharge Plan Triage Chief Complaint: Upper Extremity Injury ED Provider: Sheldon Phillips Dx/Rx/DC Orders Clinical Impression: Closed fracture of left proximal humerus Instructions: ED Fracture, Shoulder Prescriptions: No Action tramadol 50 mg tablet 50 mg PO DAILY potassium chloride [Klor-Con M20] 20 MEQ tablet 40 meq PO BID gabapentin 100 MG capsule 200 mg PO TID multivitamin with folic acid 1 TABLET tablet 1 tab PO DAILY Patient Comments: PER OCT PT TAKES 2 TABS WOMENS ULTRA RICK DAILY FAMILY SUPPLIES polyethylene glycol 3350 17 GM packet 17 g PO BID acetaminophen 650 mg tablet extended release 1,300 mg PO Q8H PRN (Reason: fever or pain) Hold Instructions: Hold for 7-day until LFTs and follow with PCP before resuming cetirizine 10 mg tablet 10 mg PO QHS Patient Comments: PER OCT PT TAKES CETIRIZINE AT BEDTIME AND LORATADINE IN THE AM. fluticasone propionate 50 mcg/actuation spray,suspension 1 spray INTRANASAL QHS Patient Comments: Oct PT KEEPS AT BEDSIDE AND SELF ADMINISTERS levothyroxine 100 mcg tablet 100 mcg PO DAILY Patient Comments: TAKE AT LEAST 30 MINUTES PRIOR TO EATING loratadine 10 mg tablet 10 mg PO DAILY Hold Instructions: Hold for 7-day until LFTs and follow with PCP before resuming Patient Comments: PER OCT PT TAKES CETIRIZINE AT BEDTIME AND LORATADINE IN THE AM. losartan 50 mg tablet 50 mg PO BID magnesium oxide 400 mg magnesium tablet 400 mg PO DAILY Patient Comments: UPON RISING WITH FOOD melatonin 3 mg tablet 6 mg PO QHS omeprazole 20 mg capsule,delayed release(DR/EC) 20 mg PO DAILY Patient Comments: TAKES 30 MINUTES PRIOR TO MORNING MEAL metoprolol succinate 25 mg Tablet Extended Release 24 Hr 25 mg PO DAILYCM 30 Days Qty: 30 0RF Rx Instructions: Hold for heart less than 50 or systolic blood pressure less than 110 mmHg. dexamethasone 6 mg tablet 6 mg PO DAILY 7 Days Qty: 7 0RF diazepam 10 mg tablet 5 mg PO DAILY 30 Days Qty: 0 0RF Rx Instructions: Take diazepam 5 mg daily for 7-day until LFTs and follow with PCP before resuming full dose paroxetine HCl 40 mg tablet 20 mg PO DAILY 30 Days Qty: 0 0RF Patient Comments: TAKE IN THE MORNING UPON RISING Rx Instructions: Take paroxetine 20 mg daily for 7-day until LFTs and follow with PCP before resuming full dose Primary Care Provider: Anton Linn Chi Referrals: Brian Zazueta MD [Med Staff - Active Staff] - Keep Sara appointment Anton Linn Chi, MD [Primary Care Provider] -
--- NOTE | 2023-07-04 15:48 | RAD_ITS ---
INDICATION: pain, trauma EXAMINATION/TECHNIQUE: X-RAY - LEFT XR Shoulder 3 VIEWS COMPARISON: June 20, 2023 FINDINGS: SOFT TISSUES: Mild soft tissue swelling. No radiopaque foreign body. BONES/JOINTS: There is a comminuted fracture the surgical neck of the humerus .. No sclerotic or destructive changes observed. RAD/Shoulder min 2 Views IMPRESSION: Humeral neck fracture, similar to previous study. Electronically Signed: Marcelino Hirsch DO at 16:10 EST ,
[2023-07-04] MEDS: Morphine 4 MG/ML Syringe IM (16:03)
[2023-07-04] MEDS: Ondansetron ODT 4 MG Tablet PO (16:03)
[2023-07-04 17:17] VITALS: BP 152/61; PULSE 68; RESP 16; O2SAT 98
--- NOTE | 2023-07-04 17:22 | ED.RN ---
report called to kristi cabello.
== END 2023-07-04 17:53 | disposition home or self-care (01) ==
PROVIDERS: Emergency Provider Emergency Medicine; PCP Family Medicine Geriatric Medicine; Visit Provider Emergency Medicine
DX: S42.202A Unspecified fracture of upper end of left humerus, initial encounter for closed fracture (principal); F17.210 Nicotine dependence, cigarettes, uncomplicated; W19.XXXA Unspecified fall, initial encounter; Z86.16 Personal history of COVID-19
CPT/HCPCS: 73030; 96372; 99284

== ENCOUNTER 2023-07-05 11:24 | Emergency (ER) | payer MEDICARE, MEDICAID, SELFPAY ==
[2023-07-05 11:28] VITALS: BP 116/70; PULSE 58; RESP 16; TEMP 36.1; O2SAT 93; BMI 23.3
--- NOTE | 2023-07-05 11:34 | EX.ED.UPPERE ---
HPI History of Present Illness Chief Complaint: Upper Extremity Injury Detail of Chief Complaint: Left upper extremity pain, wrist Informant: EMS and SNF Occured/Mechanism Comment: Patient has altered orientation. She was seen yesterday for fall and complained of right shoulder pain. She now has left wrist pain. Reportedly, an x-ray was obtained which reveals a fracture. Reportedly, it is nondisplaced. Onset/Context/Timing Onset: - (Unknown since patient is disoriented.) Timing: Continuous Quality of Pain: Dull and Aching Location: Left wrist Current Severity: Unable to quantitate Maximum Severity: Can be significant Worsened by: Palpation and movement of left wrist Relieved by: Rest Associated Symptoms Associated Symptoms: Negative for Parasthesia or Weakness Narrative Narrative: Patient is an 82-year-old woman who was sent to the emergency room because of reported nondisplaced left wrist fracture. Images were not sent. Patient denies numbness or tingling in her fingers. There is no history of fall however patient is not oriented. She denies head pain. She denies neck pain. She denies chest pain or shortness of breath. Prior similar symptoms: Yes Recent Illness/Hospitalization: [facility] Medical History Arthritis Closed fracture of left proximal humerus COVID-19 Hypothyroidism Kidney stones Smoker Transaminitis Home Medications potassium chloride 20 mEq tablet,extended release(part/cryst) (Klor-Con M) 40 meq PO BID potassium supplement 08/10/15 [History Last Taken 05/05/17] gabapentin 100 mg capsule 200 mg PO TID RESTLESS LEG 09/13/19 [History Last Taken Unknown] multivitamin with folic acid 400 mcg tablet 1 tab PO DAILY SUPPLEMENT 09/13/19 [History Last Taken Unknown] polyethylene glycol 3350 17 gram oral powder packet 17 g PO BID CONSTIPATION 09/13/19 [History Last Taken Unknown] acetaminophen 650 mg tablet,extended release 1,300 mg PO Q8H PRN fever or pain 04/10/23 [History Last Taken Unknown] cetirizine 10 mg tablet 10 mg PO QHS 04/10/23 [History Last Taken Unknown] fluticasone propionate 50 mcg/actuation nasal spray,suspension 1 spray intranasal QHS ALLERGIES 04/10/23 [History Last Taken Unknown] levothyroxine 100 mcg tablet 100 mcg PO DAILY 04/10/23 [History Last Taken Unknown] loratadine 10 mg tablet 10 mg PO DAILY ALLERGIES 04/10/23 [History Last Taken Unknown] losartan 50 mg tablet 50 mg PO BID BP 04/10/23 [History Last Taken Unknown] magnesium oxide 400 mg PO DAILY 04/10/23 [History Last Taken Unknown] melatonin 3 mg tablet 6 mg PO QHS 04/10/23 [History Last Taken Unknown] omeprazole 20 mg capsule,delayed release 20 mg PO DAILY GERD 04/10/23 [History Last Taken Unknown] dexamethasone 6 mg tablet 6 mg PO DAILY 7 days #7 tabs 04/12/23 [Rx Last Taken Unknown] diazepam 10 mg tablet 5 mg (1/2 x 10 mg) PO DAILY ANXIETY 30 days #0 tabs 04/12/23 [Rx Last Taken Unknown] metoprolol succinate 25 mg tablet,extended release 24 hr 25 mg PO DAILYCM 30 days #30 tabs 04/12/23 [Rx Last Taken Unknown] paroxetine HCl 40 mg tablet 20 mg (1/2 x 40 mg) PO DAILY 30 days #0 tabs 04/12/23 [Rx Last Taken Unknown] tramadol 50 mg tablet 50 mg PO DAILY 06/20/23 [History Last Taken Unknown] hydrocodone-acetaminophen 5-325mg 5mg-325mg 1 tab PO Q6H PRN PRN Pain 3 days #10 TABLETS 07/05/23 [Rx Last Taken Unknown] Allergy/AdvReac Type Severity Reaction Status Date / Time No Known Allergies Allergy Verified 07/05/23 11:26 Surgical History History of cholecystectomy Social History (Updated 07/05/23 @ 11:[address] Surinder Greenberg MD) housing: assisted living facility Smoking Status: Current every day smoker tobacco type: cigarettes ROS ROS ED Constitutional Constitutional ED: Denies chills, fever(s), subjective or sweats Eyes Eyes: Denies blurry vision or change in vision Respiratory/Chest Respiratory/Chest: Denies cough or dyspnea Gastrointestinal Gastrointestinal: Denies nausea or vomiting Musculoskeletal Musculoskeletal: Reports other Details: Left wrist pain ; Denies back pain, myalgias or neck pain EXAM Physical Exam Const Vital Signs: 07/05/23 11:28 Temperature 97.0 F L Temperature Source Temporal Pulse Rate 58 L Respiratory Rate 16 Blood Pressure 116/70 Blood Pressure Mean 85 Pulse Ox 93 Oxygen Delivery Method Room Air Positive well nourished and well developed General Appearance ED: well developed and NAD HEENT HEENT Narrative: Ears normal. No hemotympanum. No raccoon or segovia sign. No CSF otorrhea or rhinorrhea. normocephalic and atraumatic Eyes PERRL and EOMs intact bilaterally Eyes Narrative: Conjunctive is pink. Sclera is anicteric. Resp normal respiratory effort and clear to auscultation bilaterally Cardio regular rate, regular rhythm, S1 normal heart sound, S2 normal heart sound and no murmurs Extremity Extremity Narrative: The left wrist appears slightly swollen compared to the right. Median, radial and ulnar function intact. Radial pulses palpable. There is no pain ovation over the lateral or medial epicondyle, olecranon process or radial head. Neuro No oriented x3, CN's II-XII intact bilaterally and moves all extremities Sensorium / Orientation: alert, oriented to person and oriented to place; Negative for oriented to time Psych mental status grossly normal Skin Lesions: no lesions Rashes: no rashes Trauma: no lacerations or abrasions MDM MDM MDM Narrative Medical decision making narrative: Documentation of yesterday and images were obtained. Patient has a proximal femur fracture which is unchanged. She was sent in now because of left wrist pain. X-ray was obtained at nursing facility which revealed a nondisplaced wrist fracture. There is no for specifics. Since the extent of the fracture location of the fracture is unknown images were repeated. Patient was medicated with hydrocodone and acetaminophen. History & Record Review Additional record(s) reviewed:: Prior ED visit Radiography Chest X-Ray - ED: Read by ED Physician (Three-view x-ray of the wrist reveal some arthritic changes. There is no volar fat pad. There is no subluxation, dislocation or fracture noted of the distal radius or ulna. The joint spaces of the carpal bones are symmetric.) Diagnostic Testing: The radiology report was read. He is in agreement there is no acute fracture. There is evidence of a prior fracture. Discharge Plan Triage Chief Complaint: Upper Extremity Injury ED Provider: Surinder Greenberg Dx/Rx/DC Orders Clinical Impression: Injury due to fall, Acute pain of left wrist, Acute pain of left shoulder, Altered mental status Prescriptions: New hydrocodone-acetaminophen [hydrocodone-acetaminophen] 5-325 mg tablet 1 tab PO Q6H PRN PRN (Reason: Pain) 3 Days Qty: 10 0RF No Action tramadol 50 mg tablet 50 mg PO DAILY potassium chloride [Klor-Con M20] 20 MEQ tablet 40 meq PO BID gabapentin 100 MG capsule 200 mg PO TID multivitamin with folic acid 1 TABLET tablet 1 tab PO DAILY Patient Comments: PER OCT PT TAKES 2 TABS WOMENS ULTRA RICK DAILY FAMILY SUPPLIES polyethylene glycol 3350 17 GM packet 17 g PO BID acetaminophen 650 mg tablet extended release 1,300 mg PO Q8H PRN (Reason: fever or pain) Hold Instructions: Hold for 7-day until LFTs and follow with PCP before resuming cetirizine 10 mg tablet 10 mg PO QHS Patient Comments: PER OCT PT TAKES CETIRIZINE AT BEDTIME AND LORATADINE IN THE AM. fluticasone propionate 50 mcg/actuation spray,suspension 1 spray INTRANASAL QHS Patient Comments: PER OCT PT KEEPS AT BEDSIDE AND SELF ADMINISTERS levothyroxine 100 mcg tablet 100 mcg PO DAILY Patient Comments: TAKE AT LEAST 30 MINUTES PRIOR TO EATING loratadine 10 mg tablet 10 mg PO DAILY Hold Instructions: Hold for 7-day until LFTs and follow with PCP before resuming Patient Comments: PER OCT PT TAKES CETIRIZINE AT BEDTIME AND LORATADINE IN THE AM. losartan 50 mg tablet 50 mg PO BID magnesium oxide 400 mg magnesium tablet 400 mg PO DAILY Patient Comments: UPON RISING WITH FOOD melatonin 3 mg tablet 6 mg PO QHS omeprazole 20 mg capsule,delayed release(DR/EC) 20 mg PO DAILY Patient Comments: TAKES 30 MINUTES PRIOR TO MORNING MEAL metoprolol succinate 25 mg Tablet Extended Release 24 Hr 25 mg PO DAILYCM 30 Days Qty: 30 0RF Rx Instructions: Hold for heart less than 50 or systolic blood pressure less than 110 mmHg. dexamethasone 6 mg tablet 6 mg PO DAILY 7 Days Qty: 7 0RF diazepam 10 mg tablet 5 mg PO DAILY 30 Days Qty: 0 0RF Rx Instructions: Take diazepam 5 mg daily for 7-day until LFTs and follow with PCP before resuming full dose paroxetine HCl 40 mg tablet 20 mg PO DAILY 30 Days Qty: 0 0RF Patient Comments: TAKE IN THE MORNING UPON RISING Rx Instructions: Take paroxetine 20 mg daily for 7-day until LFTs and follow with PCP before resuming full dose Primary Care Provider: Carleen Todd CNP Referrals: Carleen Todd CNP [Other] Activity Restrictions/Additional Instructions: 1. Wear sling for comfort. Need to remove your arm from the sling to do pendulous exercises 6-10 times a day while awake 2. Apply ice to left shoulder and left wrist for the next 2 to 3 days. Disposition Disposition: Home, Self Care
--- NOTE | 2023-07-05 11:40 | RAD_ITS ---
HISTORY: Injury/Pain. TECHNIQUE: XR Wrist Min 3 Views. COMPARISON: 05/26/2018. FINDINGS: BONES : No acute fracture identified. Old fracture of the distal radius. Generalized osteopenia. JOINTS: No dislocation. Degenerative change. Chondrocalcinosis of the triangular fibrocartilage complex. SOFT TISSUES: Diffuse soft tissue swelling. RAD/Wrist min 3 Views IMPRESSION: No acute fracture or dislocation identified in the left wrist. Soft tissue swelling. Old fracture of the distal radius. Electronically Signed: Amberly Fuentes MD at 12:10 EST ,
[2023-07-05 13:13] VITALS: BP 130/68; PULSE 86; RESP 16; O2SAT 93
--- NOTE | 2023-07-05 13:16 | NURSING ---
[facility] CALLED ETA 90 MINUTES ([id number])
== END 2023-07-05 13:57 | disposition skilled nursing facility (03) ==
PROVIDERS: Emergency Provider Emergency Medicine; Visit Provider Emergency Medicine
DX: M25.512 Pain in left shoulder (principal); M25.532 Pain in left wrist; W19.XXXA Unspecified fall, initial encounter; F17.210 Nicotine dependence, cigarettes, uncomplicated; Z86.16 Personal history of COVID-19
CPT/HCPCS: 73110; 99284

== ENCOUNTER 2025-07-25 12:58 | Emergency (ER) | payer MEDICARE, MEDICAID, SELFPAY ==
[2025-07-25 13:02] VITALS: BP 183/85; PULSE 63; RESP 18; TEMP 36.2; O2SAT 94; BMI 25.0
--- NOTE | 2025-07-25 13:36 | RAD_ITS ---
PROCEDURE: PELVIS 1 OR 2 VIEWS 07/25/2025 REASON FOR EXAM: INJURY/PAIN TECHNIQUE: Procedure Code: RADPEL Modality: DX Procedure: PELVIS 1 OR 2 VIEWS COMPARISON: 02/14/2023 FINDINGS: Mild degenerative changes are noted involving the right hip joint. There is calcification of the soft tissues superolateral to the right hip. This likely reflects the acetabular cartilage. There is mild deformity of the pubic bone adjacent to the symphysis pubis which is similar to the previous study and likely chronic. Fusion hardware is partially visualized involving the lumbosacral spine. RAD/Pelvis 1 or 2 Views IMPRESSION: No definite acute bony abnormality. Degenerative changes as above. Reading Location: [facility]
--- NOTE | 2025-07-25 13:42 | EDS_ITS ---
HPI History of Present Illness Chief Complaint: Fall Informant: patient and EMS Narrative Narrative: Patient is an 84-year-old female with history of Ménière's disease, deaf in her left ear, anxiety, depression and hypertension (not on any blood thinners). She is presenting after mechanical fall with subsequent right hip pain. Patient she got up to go to the bathroom when she lost her balance and landed on her right side. She denies hitting her head. Denies any loss of conscious. Denies new injuries. States that she is in assisted living but usually does not use any assistive devices to go to the bathroom. Denies any associated nausea or back pain. Initially was having severe pain but her pain improved when she was placed in a vacuum matress. [facility] Medical History Menieres disease Paraplegia Emphysema lung SOB (shortness of breath) on exertion Otitis Somnolence Osteoarthritis Psychophysiological insomnia Muscle weakness Vitamin D deficiency Constipation Polyneuropathy Hypertensive chronic kidney disease Dysphagia Closed fracture of left proximal humerus Transaminitis Hypothyroidism Arthritis Kidney stones Smoker COVID-19 Home Medications Medication Instructions Recorded Last Taken Type potassium chloride 20 mEq 40 meq PO BID potassium supp lement 08/10/15 05/05/17 History tablet,extended release(part/cryst) (Klor-Con M) multivitamin with folic acid 400 1 tab PO DAILY SUPPLE MENT 09/13/19 Unknown History mcg tablet polyethylene glycol 3350 17 gram 17 g PO BID CONSTIPAT ION 09/13/19 Unknown History oral powder packet acetaminophen 650 mg 1,300 mg PO Q8H PRN fever or pain 04/10/23 Unknown History tablet,extended release Held on 04/12/23. Instructions: Hold for 7-day until LFTs and follow with PCP before resuming cetirizine 10 mg tablet 10 mg PO QHS 04/10/23 Unknow n History fluticasone propionate 50 1 spray intranasal QHS ALLER GIES 04/10/23 Unknown History mcg/actuation nasal spray,suspension levothyroxine 100 mcg tablet 100 mcg PO DAILY 04/10/23 Unknown History losartan 50 mg tablet 50 mg PO BID BP 04/10/23 Unk nown History magnesium oxide 400 mg PO DAILY 04/10/23 Unk nown History melatonin 3 mg tablet 6 mg PO QHS 04/10/23 Unknown History diazepam 10 mg tablet 5 mg (1/2 x 10 mg) PO DAILY 04/12/23 Unknown Rx ANXIETY 30 days #0 tabs metoprolol succinate 25 mg 25 mg PO DAILYCM 30 days #3 0 tabs 04/12/23 Unknown Rx tablet,extended release 24 hr paroxetine HCl 40 mg tablet 20 mg (1/2 x 40 mg) PO ELENA LY 30 04/12/23 Unknown Rx days #0 tabs boric acid 600 mg vaginal mg vaginal 04/02/25 Unknown History suppository calcium carbonate (Calcium 500) 500 mg PO QDAY 5 Unknown History guaifenesin 400 mg tablet (Mucus 400 mg PO Q4H 5 Unknown History Relief) ibuprofen 200 mg capsule 200 mg PO Q6H PRN 04/02/25 U nknown History ondansetron HCl 4 mg tablet mg PO 04/02/25 Unknown His tory pantoprazole 40 mg tablet,delayed 40 mg PO QDAY Unknown History release vibegron 75 mg tablet (Gemtesa) 75 mg PO QDAY 04/02/25 Unknown History cephalexin 500 mg capsule 500 mg PO Q12 #10 CAPSULES 1 09/24/24 Unknown Rx Allergy/AdvReac Type Severity Reaction Status Date / Time No Known Allergies Allergy Verified 07/25/25 13:04 Family History Other Colon cancer Ovarian cancer Surgical History Previous back surgery H/O wrist surgery H/O knee surgery H/O shoulder surgery History of cholecystectomy Social History housing: assisted living facility Smoking Status: Current every day smoker tobacco type: cigarettes alcohol intake: never substance use type: does not use what type of physical activity do you participate in: none do you feel safe at home: Yes ROS ROS ED Constitutional Constitutional ED: Denies chills or fever(s) Eyes Eyes: Denies blurry vision Gastrointestinal Gastrointestinal: Denies nausea or vomiting Musculoskeletal Musculoskeletal: Reports other Details: right hip pain Neurologic Neurologic: Denies paresthesias or weakness Hematologic/Lymphatic Hematologic/Lymphatic: Denies easy bleeding or easy bruising EXAM Physical Exam Const Vital Signs: 07/25/25 13:02 07/25/25 13:09 07/25/25 15:01 Temperature 97.2 F L Temperature Source Oral Pulse Rate 63 64 Respiratory Rate 18 18 Respiratory Effort Normal Blood Pressure 183/85 H 187/98 H Blood Pressure Mean 117 127 Pulse Ox 94 98 Oxygen Delivery Method Room Air Room Air Room Air Positive well nourished and well developed General Appearance ED: well developed and NAD HEENT atraumatic; Negative for trauma Nose: Negative for septum abnormal Eyes PERRL and EOMs intact bilaterally Neck full ROM General: Negative for tenderness Chest Wall inspection of chest normal and palpation of chest normal Resp normal respiratory effort and clear to auscultation bilaterally Cardio regular rhythm Cardio Narrative: 2+ DP pulses, 2+ radial pulses Rate: regular rate GI normal to inspection, nondistended, normoactive bowel sounds and non-tender Back/Spine normal to inspection Extremity normal to inspection Extremity Narrative: No deformity of extremities. Patient points to her right hip as her area of pain. No reproducible pain with direct palpation. Patient is currently immobilized in a vacuum splint and as it is not helping with her comfort will hold off on range of motion at this time. Neuro oriented x3, moves all extremities, no focal motor deficits and no sensory deficits noted [place] Coma Scale: document GCS findings Spontaneous Obeys Commands Oriented 15 Sensorium / Orientation: alert Psych mental status grossly normal Skin no rashes or lesions noted and no wounds MDM MDM MDM Narrative Medical decision making narrative: Patient evaluated for mechanical fall with subsequent right-sided hip pain if she fell not fall. She is alert and oriented x 4. She is acting appropriately emergency room. She states she did not hit her head and states that it was a mechanical fall. I do not think she requires head imaging at this time based on HPI. Patient is having significant pain prior to placed in vacuum splint so she is kept in this and then it is removed right before imaging. Patient is medicated with fentanyl. Screening lab work also obtained. X-ray of the right hip, femur and pelvis does not show any acute process on my interpretation. X-ray noted a possible loose body in the right hip joint versus sclerotic lesion involving the femoral head on the right. No other acute processes noted. Patient no longer has any hip pain, has no pain with range of motion of the hip is able to ambulate. I have a lower suspicion for an occult fracture given this and do not think she requires further imaging such as a CT of the hip. Lab work shows a mild anemia with a hemoglobin 11.7 we do not have any recent labs to compare to. She has normal BUN is lower suspicion for occult upper GI bleeding. She does not report any bleeding or change in her stools. Patient be discharged back to her assisted living facility. Instructed to take ibuprofen or as needed for pain. Given return precautions. Discharged home in stable condition. If she has continued pain counseled follow-up with family doctor. Patient states he has been having dysuria recently. Urinalysis is added on. There are positive nitrites with 1+ bacteria. She is symptomatic with nitrites will send for culture but start on antibiotic (Keflex). Given first dose in the emergency room. Lab Data Attestation: I reviewed the patient's lab results. Labs: Laboratory Results - last 24 hr 07/25/25 07/25/25 13:45 15:19 WBC 3.3 L RBC 3.93 L Hgb 11.7 L Hct 36.4 L MCV 92.6 MCH 29.8 MCHC 32.1 RDW Std Deviation 46.9 H RDW Coeff of Olivia 13.9 Plt Count 116 L MPV 10.9 Immature Gran % (Auto) 0.600 Neut % (Auto) 51.9 Lymph % (Auto) 26.8 [place] % (Auto) 19.8 H Eos % (Auto) 0.3 Baso % (Auto) 0.6 Absolute Neuts (auto) 1.7 L Absolute Lymphs (auto) 0.88 Nucleated RBC % 0 PT 13.7 INR 1.0 Sodium 143 Potassium 4.4 Chloride 106 Carbon Dioxide 25.2 Anion Gap 11 BUN 19 Creatinine 0.76 Estim Creat Clear Calc 38.27 L Est GFR (MDRD) Non-Af 78 BUN/Creatinine Ratio 24.5 H Glucose 90 Calcium 9.6 Urine Color Straw Urine Clarity Clear Urine pH 6.0 Ur Specific [place] 1.015 Urine Protein 15 H Urine Glucose (UA) Normal Urine Ketones Negative Urine Occult Blood 50 H Urine Nitrite Positive H Urine Bilirubin Negative Urine Urobilinogen Normal Ur Leukocyte Esterase Negative Urine RBC 0-5 SEEN Urine WBC 0 SEEN Ur Squamous Epith Cells 0-5 SEEN Urine Bacteria 1+ Urine Mucus 0 SEEN Radiography Diagnostic Testing: Clinical Impression(s) from Imaging Studies Pelvis X-Ray 11/30/25 13:36 IMPRESSION: No definite acute bony abnormality. Degenerative changes as above. Reading Location: [facility] Femur X-Ray 07/25/25 13:50 IMPRESSION: No definite acute fracture. Loose body in the right hip joint versus sclerotic lesion involving the femoral head on the right. This may have been present on the previous study but is more pronounced currently. It could also reflect spurring. Consider cross-sectional imaging. Sclerosis involving the distal femur along the articular surface. This could be degenerative. Dedicated knee radiographs may provide additional information. Reading Location: [facility] Discharge Plan Triage Chief Complaint: Fall ED Provider: Chela Acuna Dx/Rx/DC Orders Clinical Impression: Accident due to mechanical fall without injury, Contusion of right hip, Anemia, UTI (urinary tract infection) Instructions: ED Anemia, Type Not Specified (Adult), ED Mechanical Fall, ED Hip Contusion, ED Cystitis Female Adult Prescriptions: New cephalexin 500 mg capsule 500 mg PO Q12 Qty: 10 0RF No Action boric acid 600 mg suppository vaginal calcium carbonate [Calcium 500] 500 mg calcium (1,250 mg) tablet,chewable 500 mg PO QDAY Gemtesa 75 mg tablet 75 mg PO QDAY ibuprofen 200 mg capsule 200 mg PO Q6H PRN guaifenesin [Mucus Relief] 400 mg tablet 400 mg PO Q4H ondansetron HCl 4 mg tablet PO pantoprazole 40 mg tablet,delayed release (DR/EC) 40 mg PO QDAY potassium chloride [Klor-Con M20] 20 MEQ tablet 40 meq PO BID multivitamin with folic acid 1 TABLET tablet 1 tab PO DAILY Patient Comments: PER OCT PT TAKES 2 TABS WOMENS ULTRA RICK DAILY FAMILY SUPPLIES polyethylene glycol 3350 17 GM packet 17 g PO BID acetaminophen 650 mg tablet extended release 1,300 mg PO Q8H PRN (Reason: fever or pain) cetirizine 10 mg tablet 10 mg PO QHS Patient Comments: PER OCT PT TAKES CETIRIZINE AT BEDTIME AND LORATADINE IN THE AM. fluticasone propionate 50 mcg/actuation spray,suspension 1 spray INTRANASAL QHS Patient Comments: PER OCT PT KEEPS AT BEDSIDE AND SELF ADMINISTERS levothyroxine 100 mcg tablet 100 mcg PO DAILY Patient Comments: TAKE AT LEAST 30 MINUTES PRIOR TO EATING losartan 50 mg tablet 50 mg PO BID magnesium oxide 400 mg magnesium tablet 400 mg PO DAILY Patient Comments: UPON RISING WITH FOOD melatonin 3 mg tablet 6 mg PO QHS metoprolol succinate 25 mg Tablet Extended Release 24 Hr 25 mg PO DAILYCM 30 Days Qty: 30 0RF Rx Instructions: Hold for heart less than 50 or systolic blood pressure less than 110 mmHg. diazepam 10 mg tablet 5 mg PO DAILY 30 Days Qty: 0 0RF Rx Instructions: Take diazepam 5 mg daily for 7-day until LFTs and follow with PCP before resuming full dose paroxetine HCl 40 mg tablet 20 mg PO DAILY 30 Days Qty: 0 0RF Patient Comments: TAKE IN THE MORNING UPON RISING Rx Instructions: Take paroxetine 20 mg daily for 7-day until LFTs and follow with PCP before resuming full dose Primary Care Provider: Care Physician,No Primary Referrals: Care Physician,No Primary [Primary Care Provider, Medical] Activity Restrictions/Additional Instructions: Please follow-up with your family doctor. Your x-rays today did not show any acute broken bones. Your lab work did show mild anemia. Please follow with your family doctor for this. Alternate ibuprofen and Tylenol as needed for pain control. Ice to the area. If you have worsening pain or trouble ambulating/walking please do not hesitate to return to the emergency room. Print Language: Azeri Disposition Disposition: Home, Self Care
[2025-07-25] MEDS: fentaNYL 100 MCG/2 ML Ampul 50 MCG IV (13:45)
--- NOTE | 2025-07-25 13:50 | RAD_ITS ---
PROCEDURE: FEMUR MIN 2 VIEWS 07/25/2025 REASON FOR EXAM: INJURY/PAIN TECHNIQUE: Procedure Code: RADFEM Modality: DX Procedure: FEMUR MIN 2 VIEWS Laterality: Right COMPARISON: 02/14/2023 FINDINGS: There is a sclerotic focus overlying the right femoral head. I can not say if this is a loose body or sclerotic lesion in the femoral head. There is mild degenerative change involving the right hip joint. There is no definite acute fracture or dislocation involving the femur. Degenerative knee joint change is noted. There is some sclerosis along the articular surface of the distal femur which is of uncertain significance. RAD/Femur Min 2 Views IMPRESSION: No definite acute fracture. Loose body in the right hip joint versus sclerotic lesion involving the femoral head on the right. This may have been present on the previous study but is more pronounced currently. It could also reflect spu rring. Consider cross-sectional imaging. Sclerosis involving the distal femur along the articular surface. This could b e degenerative. Dedicated knee radiographs may provide additional information. [facility]
[2025-07-25 14:05] LABS: Hematocrit 36.4 % (37-47); Hemoglobin 11.7 g/dL (12.0-15.0); Immature Granulocytes Count 0.020 X10^3/uL (0.0-0.0); Mean Corp Hgb Conc 32.1 g/dL (32-36); Mean Corpuscular Volume 92.6 fL (81-99); Mean Platelet Vol. 10.9 fl (6.2-12.0); NRBC Flagged by Analyzer 0 % (0-5); Platelet Count 116 K/mm3 (150-450); RBC Distribution Width CV 13.9 % (11.6-14.6); RBC Distribution Width SD 46.9 fl (35.1-43.9); Red Blood Count 3.93 M/mm3 (4.2-5.4); White Blood Count 3.3 K/mm3 (4.4-11.0)
--- OUTSIDE RECORDS SUMMARY | 2025-07-25 14:14 | XMS RPT_ITS | CCD ---
Author Organization [facility] Care Team Providers Care Booth Usher Name Role Phone Dr. Anton Blanchard Chi Primary Care Provider Dr. Ian Payne Emergency Provider Dr. Remy Shell Attending Provider Dr. Remy Shell Admit Provider Dr. Remy Shell Other Provider Dr. Saji Ruiz Attending Provider [phone] Dr. Saji Ruiz Other Provider [phone] Dr. Bandar Stephens Other Provider Dr. Anton Blanchard Chi Primary Care Provider Dr. Ian Payne Emergency Provider Dr. Remy Shell Attending Provider Dr. Remy Shell Admit Provider Dr. Remy Shell Other Provider Dr. Saji Ruiz Attending Provider [phone] Saji Ruiz Other Provider [phone] Dr. Bandar Stephens Other Provider Dr. Anton Blanchard Chi Referring Provider MD Brian Zazueta Attending Provider [phone] Nestor Alvarez Attending Provider DR VANESSA BLANCHARD MD Primary Care Unavailable WILLIAM ROBERTSON-REGINALD CARDOZO Attending Arnie BLANCHARD MD, DR MENDEZ Primary Care Unavailable DANIELA DOVE, DR JUNI Voss Attending Unavailable SHER VASQUEZ, ONDINA Rivers Attending Unavail yuniel BLANCHARD MD, DR MENDEZ Primary Care Unavailable CONCEPCIÓN DOVE, PASCUAL Attending Unavailable LO VASQUEZ, DR MENDEZ Primary Care Unavailable LO VASQUEZ, DR MENDEZ Primary Care [facility] Attending Unavailable LO VASQUEZ, DR MENDEZ Primary Care Unavailable CORDELL VASQUEZ, PATRICIA Attending Unavailable LO VASQUEZ, DR MENDEZ Primary Care Unavailable DANIELA DOVE, DR JUNI Voss Attending Unavailable Harika VASQUEZ, Dr. Rivas Attending Provider Evelyn Shabazz Attending Unavailable Medications Current Medications Medication Drug Class(es) Dates Sig (Normalized) Sig (Original) Boric Acid 600 mg suppository (1 source) Start: 04-02-2025 Boric Acid 600 mg suppository Active mg VAGINAL April 02, 2025 12:00am calcium carbonate 1250 mg chewable tablet (1 source) Start: 04-02-2025 take 1 tablet by mouth once daily Calcium Carbonate (Calcium 500) 500 mg calcium (1,250 mg) tablet,chewable Active 500 mg PO daily April 02, 2025 12:00am cetirizine hydrochloride 10 mg oral tablet (3 sources) Histamine-1 Receptor Antagonist Start: 04-10-2023 take 1 tablet by mouth at bedtime Cetirizine 10 mg tablet Active 10 mg PO AT BEDTIME April 10, 2023 12:00am diazePAM 10 mg oral tablet (12 sources) Benzodiazepine Start: 04-12-2023 take 5 mg by mouth once daily Diazepam 10 mg tablet Active 5 mg PO DAILY 0 30 0 April 12, 2023 10:30am ANXIETY Take diazepam 5 mg daily for 7-day until LFTs and follow with PCP before resuming full dose Start: 04-12-2023 take 5 mg by mouth once daily Diazepam Active 5 MG PO DAILY 0 30 April 12, 2023 9:30am Take diazepam 5 mg daily for 7-day until LFTs and follow with PCP before resuming full dose Start: 04-10-2023 End: 04-12-2023 take 1 tablet by mouth once daily Diazepam 10 mg tablet Discontinued 10 mg PO DAILY April 10, 2023 12:00am April 12, 2023 10:30am ANXIETY Start: 09-24-2017 End: 09-13-2019 Diazepam 5 MG tablet Discont inued 1 {tbl} PO DIRECTED 28 0 September 24, 2017 10:52am September 13, 2019 6:28pm Depression Major depressive disorder, single episode, unspecified 1 tab PO BID x 7 days (14 DOSES) 1 tab PO DAILY x 7 days (7 DOSES) 1 tab PO EVERY OTHER X 4 DOSES 1 TAB PO EVERY DAYS X 2 DOSES THEN STOP Start: 09-22-2017 End: 09-24-2017 Diazepam 5 MG tablet Discont inued 1 {tbl} PO THREE TIMES A DAY September 22, 2017 1:00am September 24, 2017 10:53am fluticasone propionate 0.05 mg/actuat metered dose nasal spray (3 sources) Corticosteroid Start: 04-10-2023 Fluticasone Pr opionate 50 mcg/actuation spray,suspension Active 1 NMA INTRANASAL AT BEDTIME April 10, 2023 12:00am ALLERGIES Start: 04-10-2023 Fluticasone Pr opionate Active 1 SPRAY INTRANASAL AT BEDTIME April 09, 2023 11:00pm guaiFENesin 400 mg oral tablet (1 source) Start: 04-02-2025 take 1 tablet by mouth every four hours Guaifenesin (Mucus Relief) 400 mg tablet Active 400 mg PO Q4H April 02, 2025 12:00am ibuprofen 200 mg oral capsule (4 sources) Nonsteroidal Anti-inflammatory Drug Start: 04-02-2025 take 1 capsule by mouth every six hours as needed Ibuprofen 200 mg capsule Active 200 mg PO EVERY 6 HOURS as needed April 02, 2025 12:00am Start: 09-25-2017 End: 09-15-2019 take 1 tablet by mouth twice daily Ibuprofen 200 MG tablet Discontinued 200 mg PO TWICE A DAY September 25, 2017 1:00am September 15, 2019 12:01pm pain levothyroxine sodium 0.1 mg oral tablet (3 sources) l-Thyroxine Start: 04-10-2023 take 1 tablet by mouth once daily Levothyroxine 100 mcg tablet Active 100 ug PO DAILY April 10, 2023 12:00am losartan potassium 50 mg oral tablet (3 sources) Angiotensin 2 Receptor Noreen Start: 04-10-2023 take 1 tablet by mouth twice daily Losartan 50 mg tablet Active 50 mg PO TWICE A DAY April 10, 2023 12:00am BP magnesium oxide 400 mg oral tablet (3 sources) Start: 04-10-2023 take 1 tablet by mouth once daily Magnesium Oxide 400 mg magnesium tablet Active 400 mg PO DAILY April 10, 2023 12:00am melatonin 3 mg oral tablet (3 sources) Start: 04-10-2023 take 2 tablets by mouth at bedtime Melatonin 3 mg tablet Active 6 mg PO AT BEDTIME April 10, 2023 12:00am Start: 04-10-2023 take 6 mg by mouth at bedtime Melatonin Active 6 MG PO AT BEDTIME April 09, 2023 11:00pm 24 hr metoprolol succinate 25 mg extended release oral tablet (3 sources) beta-Adrenergic Noreen Start: 04-12-2023 Metopr olol Succinate 25 mg Tablet Extended Release 24 Hr Active 25 mg PO DAILY WITH MEALS 30 30 0 April 12, 2023 12:00am Hold for heart less than 50 or systolic blood pressure less than 110 mmHg. Start: 04-12-2023 Metoprolol Suc cinate Active 25 MG PO DAILY WITH MEALS 30 30 April 11, 2023 11:00pm Hold for heart less than 50 or systolic blood pressure less than 110 mmHg. Multivitamin With Folic Acid (2 sources) Start: 09-13-2019 take 1 tablet by mouth once daily Multivitamin With Folic Acid Active 1 TABLET PO DAILY September 13, 2019 12:00am Start: 09-13-2019 take 1 tablet by oscar once daily Multivitamin With Folic Acid Active 1 TABLET PO DAILY September 13, 2019 1:00am Multivitamin With Folic Acid 1 TABLET tablet (1 source) Start: 09-13-2019 take 1 tablet by mouth once daily Multivitamin With Folic Acid 1 TABLET tablet Active 1 {tbl} PO DAILY September 13, 2019 1:00am SUPPLEMENT ondansetron 4 mg oral tablet (1 source) Serotonin-3 Receptor Antagonist Start: 04-02-2025 Ondansetron Hcl 4 mg tablet Active mg PO April 02, 2025 12:00am pantoprazole 40 mg delayed release oral tablet (4 sources) Proton Pump Inhibitor Start: 04-02-2025 take 1 tablet by mouth once daily Pantoprazole 40 mg tablet,delayed release (DR/EC) Active 40 mg PO daily April 02, 2025 12:00am Start: 09-13-2019 End: 04-10-2023 take 1 tablet by mouth once daily Pantoprazole 40 MG tablet Discontinued 40 mg PO DAILY September 13, 2019 1:00am April 10, 2023 3:01pm PROTONIX PARoxetine hydrochloride 40 mg oral tablet (9 sources) Serotonin Reuptake Inhibitor Start: 04-12-2023 Paroxetine Hcl 40 mg tablet Active 20 mg PO DAILY 0 30 0 April 12, 2023 10:30am Take paroxetine 20 mg daily for 7-day until LFTs and follow with PCP before resuming full dose Start: 04-12-2023 take 20 mg by mouth once daily Paroxetine Hcl Active 20 MG PO DAILY 0 30 April 12, 2023 9:30am Take paroxetine 20 mg daily for 7-day until LFTs and follow with PCP before resuming full dose Start: 04-10-2023 End: 04-12-2023 take 1 tablet by mouth once daily Paroxetine Hcl 40 mg tablet Discontinued 40 mg PO DAILY April 10, 2023 12:00am April 12, 2023 10:30am Start: 01-09-2017 End: 04-10-2023 take 2 tablets by mouth once daily Paroxetine Hcl 20 MG tablet Discontinued 40 mg PO DAILY January 09, 2017 12:00am April 10, 2023 3:01pm anxiety/depression Start: 01-09-2017 End: 04-10-2023 take 40 mg by mouth once daily Paroxetine Hcl Disconti nued 40 MG PO DAILY January 08, 2017 11:00pm April 10, 2023 2:01pm polyethylene glycol 3350 72090 mg powder for oral solution (6 sources) Osmotic Laxative Start: 09-24-2017 End: 09-13-2019 take 17 g by mouth twice daily Polyethylene Glycol 3350 17 GM packet Active 17 g PO TWICE A DAY September 13, 2019 6:28pm CONSTIPATION potassium chloride 20 meq extended release oral tablet (3 sources) Start: 08-10-2015 Potassium Chlo ride (Klor-Con M20) 20 MEQ tablet Active 40 meq PO TWICE A DAY August 10, 2015 1:00am potassium supplement Vibegron (1 source) Start: 04-02-2025 take 1 tablet by mouth once daily Vibegron (Gemtesa) 75 mg tablet Active 75 mg PO daily April 02, 2025 12:00am Completed/Discontinued Medications Medication Drug Class(es) Dates Sig (Normalized) Sig (Original) 8 hr acetaminophen 650 mg extended release oral tablet (3 sources) Start: 04-10-2023 take 2 tablets by mouth every eight hours as needed for pain Acetaminophen 650 mg tablet extended release Active 1300 mg PO Q8H as needed for fever or pain April 10, 2023 12:00am On Hold: Hold for 7-day until LFTs and follow with PCP before resuming Start: 04-10-2023 take 1300 mg by mout h every eight hours Acetaminophen Active 1300 MG PO Q8H April 09, 2023 11:00pm acetaminophen 325 mg / HYDROcodone bitartrate 5 mg oral tablet (1 source) Opioid Agonist Start: 07-05-2023 End: 04-02-2025 Hydrocodone-Acetaminophen 5-325 mg tablet Discontinued 1 {tbl} PO EVERY 6 HOURS NEEDED as needed for Pain 10 3 0 July 05, 2023 April 02, 2025 1:21pm Acute pain of left shoulder Acute pain of left wrist Altered mental status Pain in left shoulder Pain in left wrist Altered mental status, unspecified cephalexin 500 mg oral capsule (3 sources) Cephalosporin Antibacterial Start: 09-22-2017 End: 09-24-2017 Cephalexin 500 MG capsule Discontinued 1 {tbl} PO THREE TIMES A DAY September 22, 2017 1:00am September 24, 2017 10:47am dexamethasone 6 mg oral tablet (3 sources) Corticosteroid Start: 04-12-2023 End: 04-02-2025 take 1 tablet by mouth once daily Dexamethasone 6 mg tablet Discontinued 6 mg PO DAILY 7 7 0 April 12, 2023 12:00am April 02, 2025 1:21pm gabapentin 100 mg oral capsule (3 sources) Anti-epileptic Agent Start: 09-13-2019 End: 04-02-2025 take 2 capsules by mouth three times daily Gabapentin 100 MG capsule Discontinued 200 mg PO THREE TIMES A DAY September 13, 2019 1:00am April 02, 2025 1:21pm RESTLESS LEG Start: 09-13-2019 take 200 mg by mouth three times daily Gabapentin Active 200 MG PO THREE TIMES A DAY September 13, 2019 12:00am Garlic preparation (3 sources) Non-Standardized Food Allergenic Extract Start: 07-11-2017 End: 09-24-2017 Garlic Discontinued July 11, 2017 12:00am September 24, 2017 9:48am Start: 07-11-2017 End: 09-24-2017 Garlic Discontinued July 11, 2017 1:00am September 24, 2017 10:48am loratadine 10 mg oral tablet (3 sources) Start: 04-10-2023 End: 04-02-2025 take 1 tablet by mouth once daily Loratadine 10 mg tablet Discontinued 10 mg PO DAILY April 10, 2023 12:00am April 02, 2025 1:21pm ALLERGIES On Hold: Hold for 7-day until LFTs and follow with PCP before resuming omeprazole 20 mg delayed release oral capsule (3 sources) Proton Pump Inhibitor Start: 04-10-2023 End: 04-02-2025 take 1 capsule by mouth once daily Omeprazole 20 mg capsule,delayed release(DR/EC) Discontinued 20 mg PO DAILY April 10, 2023 12:00am April 02, 2025 1:21pm GERD traMADol hydrochloride 50 mg oral tablet (2 sources) Opioid Agonist Start: 06-20-2023 End: 04-02-2025 take 1 tablet by mouth once daily Tramadol 50 mg tablet Discontinued 50 mg PO DAILY June 20, 2023 12:00am April 02, 2025 1:22pm Problems Problem Classification Problem Date Documented Da te Episodic/Chronic Anxiety disorders (3 sources) Mixed anxiety and depressive disorder; Translations: [Anxiety disorder, unspecified] 09-30-2020 Chronic E Codes: Fall (4 sources) Fall; Translations: [Unspecified fall, initial encounter] 10-01-2020 Episodic Esophageal disorders (1 source) Gastroesophageal reflux disease; Translations: [Gastro-esophageal reflux disease without esophagitis] 03-24-2025 Chronic Essential hypertension (3 sources) Hypertensive disorder; Translations: [Essential (primary) hypertension] 09-13-2019 Chronic Fluid and electrolyte disorders (2 sources) Hypokalemia; Translations: [Hypokalemia] 06-20-2023 Episodic Fracture of upper limb (3 sources) Closed fracture of upper end of humerus; Translations: [Unspecified fracture of upper end of left humerus, initial encounter for closed fracture] 07-04-2023 Episodic Genitourinary symptoms and ill-defined conditions (6 sources) Incontinence; Translations: [Mixed incontinence] Onset: 5 03-24-2025 Chronic Mood disorders (3 sources) Depressive disorder; Translations: [Depression] 09-13-2019 Chronic Nonspecific chest pain (3 sources) Chest wall pain; Translations: [Other chest pain] 09-13-2019 Episodic Other diseases of bladder and urethra (2 sources) Overactive bladder; Translations: [Overactive bladder] 03-24-2025 Chronic Other diseases of bladder and urethra (1 source) Overactive bladder; Translations: [Overactive bladder] Onset: 5 Chronic Other gastrointestinal disorders (5 sources) Constipation; Translations: [Constipation, unspecified] 09-13-2019 Episodic Other gastrointestinal disorders (1 source) Constipation, unspecified; Translations: [Constipation, unspecified] Onset: 5 Episodic Other injuries and conditions due to external causes (3 sources) Contusion; Translations: [Other injury of unspecified body region, initial encounter] 10-01-2020 Episodic Other injuries and conditions due to external causes (1 source) At risk for falls ; Translations: [History of falling] 03-24-2025 Episodic Other liver diseases (4 sources) Enzyme level - finding; Translations: [Elevated transaminase measurement] 04-11-2023 Episodic Other lower respiratory disease (3 sources) Hypoxia; Translations: [Hypoxemia] 04-10-2023 Episodic Other lower respiratory disease (2 sources) Hypoxemia; Translations: [Hypoxemia] 04-12-2023 Episodic Other non-traumatic joint disorders (1 source) Pain in wrist; Translations: [Pain in left wrist] 07-13-2023 Episodic Other non-traumatic joint disorders (1 source) Pain in left shoulder; Translations: [Acute pain of left shoulder] 07-13-2023 Episodic Other nutritional; endocrine; and metabolic disorders (1 source) Failure to thrive 09-22-2017 Episodic Residual codes; unclassified (1 source) Altered mental status; Translations: [Altered mental status, unspecified] 07-13-2023 Episodic Unclassified (2 sources) Failure to thrive; Translations: [Failure to thrive] 09-13-2019 Urinary tract infections (3 sources) Urinary tract infectious disease; Translations: [Urinary tract infection, site not specified] 10-01-2020 Episodic Viral infection (4 sources) Disease caused by 2019-nCoV; Translations: [COVID-19] 04-10-2023 Episodic Results Test Name Value Interpretation Reference Range Facility MR/[facility] 04-02-2025 MR/[facility] [address] [facility], [address] [place] [address] OFFICE VISIT Date of Service: 04/02/25 MR#: [id number] Acct: [id number] Name: ZENOBIA SORIANO Rep #: [id number] : 1940 Provider: Dr. Evelyn Farooq i, MD Age/Sex: 84/F [place] [facility] [place]: Signed Intake Vital Signs 07/05/23 11:28 04/02/25 13:31 Height 4 ft 8 in 4 ft 8 in Weight: 91 lb 6 oz BMI 20.5 BP 155/96 H Pulse 65 Intake Visit Reasons: 12MO MED F/U Chief Complaint: 12 months Gemtesa follow-up Dealer Account Manager Required: No Accompanied by: Daughter Is patient in pain?: No Allergies No Known Allergies Allergy (Verified 04/02/25 13:16) Medications ???Medication ???Instructions ???Recorded ???Confirmed ???Type potassium chloride 20 mEq 40 meq PO BID potassium supplement 08/10/15 04/02/25 History tablet,extended release(part/cryst) (Klor-Con M) multivitamin with folic acid 400 1 tab PO DAILY SUPPLEMENT 09/13/19 04/02/25 History mcg tablet polyethylene glycol 3350 17 gram 17 g PO BID CONSTIPATION 09/13/19 04/02/25 History oral powder packet acetaminophen 650 mg 1,300 mg PO Q8H PRN fever or pain 04/10/23 04/02/25 History tablet,extended release Held on 04/12/23. Instructions: Hold for 7-day until LFTs and follow with PCP before resuming cetirizine 10 mg tablet 10 mg PO QHS 04/10/23 04/02/25 His tory fluticasone propionate 50 1 spray intranasal QHS ALLERGIES 0 04/10/23 04/02/25 History mcg/actuation nasal spray,suspension levothyroxine 100 mcg tablet 100 mcg PO DAILY 04/10/23 04/02/25 History losartan 50 mg tablet 50 mg PO BID BP 04/10/23 04/02/25 History magnesium oxide 400 mg PO DAILY 04/10/23 04/02/25 History melatonin 3 mg tablet 6 mg PO QHS 04/10/23 04/02/25 Hist ory diazepam 10 mg tablet 5 mg (1/2 x 10 mg) PO DAILY 04/02/25 Rx ANXIETY 30 days #0 tabs metoprolol succinate 25 mg 25 mg PO DAILYCM 30 days #30 tabs 04/12/23 04/02/25 Rx tablet,extended release 24 hr paroxetine HCl 40 mg tablet 20 mg (1/2 x 40 mg) PO DAILY 30 04/02/25 Rx days #0 tabs boric acid 600 mg vaginal mg vaginal 04/02/25 04/02/25 Histo ry suppository calcium carbonate (Calcium 500) 500 mg PO QDAY 04/02/25 04/02/25 H istory guaifenesin 400 mg tablet (Mucus 400 mg PO Q4H 04/02/25 04/02/25 Hi story Relief) ibuprofen 200 mg capsule 200 mg PO Q6H PRN 04/02/25 5 History ondansetron HCl 4 mg tablet mg PO 04/02/25 04/02/25 History pantoprazole 40 mg tablet,delayed 40 mg PO QDAY 04/02/25 04/02/25 H istory release vibegron 75 mg tablet (Gemtesa) 75 mg PO QDAY 04/02/25 04/02/25 Hi story Have you fallen in the past year?: No Nurse's Note: Bladder scan pvr 3CC. PFSH Medical History Menieres disease Paraplegia Emphysema lung SOB (shortness of breath) on exertion Otitis Somnolence Osteoarthritis Psychophysiological insomnia Muscle weakness Vitamin D deficiency Constipation Polyneuropathy Hypertensive chronic kidney disease Dysphagia Closed fracture of left proximal humerus Transaminitis Hypothyroidism Arthritis Kidney stones Smoker COVID-19 Surgical History Previous back surgery H/O wrist surgery H/O knee surgery H/O shoulder surgery History of cholecystectomy Family History Other Colon cancer Ovarian cancer Social History housing: assisted living facility Smoking Status: Current every day smoker tobacco type: cigarettes alcohol intake: never substance use type: does not use what type of physical activity do you participate in: none do you feel safe at home: Yes HPI HPI Urology Chief Complaint: 12 months Gemtesa follow-up Details: ZENOBIA SORIANO, is a 84 F. She is here for medication follow up. She has been taking Gemtesa 75 mg daily. She is not having side effects from the medication. She is now voiding about 6 times during the day, and 2 times at night. No incontinence. She would like to continue with this medication. She has not had any urinary tract infections since the last visit. She has not had any blood in the urine since the last visit. She has no new urologic concerns to discuss today. She has not needed to use the boric acid suppositories. ROS Const Constitutional: No chills, fatigue, fever(s), headache(s), night sweats, weakness, weight change, abnormal sleep pattern or change in appetite Eyes Eyes: No change in vision ENT ENT: No headache(s) or dry mouth Resp Respiratory: No cough, chest congestion, shortness of breath or wheezing Cardio Cardio (more content not included)... Normal [facility] .Urinalysis Microscopic (AO) on 10-17-2023 UA Bacteria 3+ /hpf Abnormal [facility] ([place]) Comment on above: Performed By: #### U Kamran UAMICAO ####[address] [place], [place] [address] UA RBC 0-5 Abnormal None Seen [facility] ([place]) Comment on above: Performed By: #### U Kamran UAMICAO ####[address] [place], [place] [address] UA Squam Epithelial 0-5 Abnormal None Seen [facility] ([place]) Comment on above: Performed By: #### U Kamran UAMICAO ####[address] [place], [place] [address] UA WBC 5-10 Abnormal None Seen [facility] ([place]) Comment on above: Performed By: #### U FIGUEROA AndrewMICANNY ####[id number] [place], [place] [address] CT SPINE CERVICAL W/O CONTRA Nevaeh 10-17-2023 CT SPINE CERVICAL W/O CONTRAST ORIGINAL EXAMINATION: CT OF THE CERVICAL SPINE WITHOUT CONTRAST 10/16/2023 9:59 pm TECHNIQUE: CT of the cervical spine was performed without the administration of intravenous contrast. Multiplanar reformatted images are provided for review. Automated exposure control, iterative reconstruction, and/or weight based adjustment of the mA/kV was utilized to reduce the radiation dose to as low as reasonably achievable. COMPARISON: CT cervical spine May 14, 2023. HISTORY: ORDERING SYSTEM PROVIDED HISTORY: Reason for Exam: pain; trauma patient FINDINGS: BONES/ALIGNMENT: There is no acute fracture or traumatic malalignment. Chronic mild height loss of T3 vertebral body. DEGENERATIVE CHANGES: Multilevel degenerative changes of the spine. At least multilevel mild spinal canal stenosis. Variable bilateral neural foraminal narrowing SOFT TISSUES: There is no prevertebral soft tissue swelling. IMPRESSION: No acute fracture of the cervical spine. Interpreted by: Enrique Geller Preliminary Report By: Enrique Geller Electronically signed By Enrique Geller Dictated Date: 10/16/2023 10:01:03 PM Prelim Date: 10/16/2023 10:04:18 PM Sign Date: 10/16/2023 10:04:18 PM Ordering Provider: ONDINA OLIVAREZ Normal [facility] ([place]) rico 10-17-2023 Color (U) Yellow Normal [facility] ([place]) Comment on above: Performed By: #### U Kamran UAMICAO #### [address] [place], [place] [address] Glucose (U) [Mass/Vol] Negative Normal [facility] Comment on above: Performed By: #### U A UAMICAO #### [address] [place], [place] [address] Ketones Ql (U) Negative Normal Negative [facility] ([place]) Comment on above: Performed By: #### U A UAMICAO #### [place] [address] UA Appear Slightly Cloudy Abnormal Clear [facility] ([place]) Comment on above: Performed By: #### U A, UAMICAO #### [place] [id number] UA Blood Moderate Abnormal Negative [facility] ([place]) Comment on above: Performed By: #### U A, UAMICAO #### [place] [address] UA Leuk Est Trace Abnormal Negative [facility] ([place]) Comment on above: Performed By: #### U A, UAMICAO #### [place] [address] UA Nitrite Negative Normal Negative [facility] ([place]) Comment on above: Performed By: #### U A, UAMICAO #### [place] [address] UA pH 6.5 Normal 5.0 - 8.0 [facility] ([place]) Comment on above: Performed By: #### U A, UAMICAO #### [place] [address] UA Protein Negative Normal Negative [facility] ([place]) Comment on above: Performed By: #### U A, UAMICAO #### [place] [address] UA Spec Grav 1.025 Normal 1.015-1.025 [facility] ([place]) Comment on above: Performed By: #### U A, UAMICAO #### [place] [address] UA Specimen Type Clean Catch Normal [facility] ([place]) Comment on above: Performed By: #### U A, UAMICAO #### [place] [address] UA Urobilinogen 0.2 E.U./dL Normal 0.2-1.0 [facility] ([place]) Comment on above: Performed By: #### U A, UAMICAO #### [address] [place], [place] [address] Urobilinogen (U) [Mass/Vol] Negative Normal Negative [facility] ([place]) Comment on above: Performed By: #### U PAYAL Andrew #### [address] [place], [place] [address] CT HEAD OR BRAIN W/O CONTRAS Ton 10-16-2023 CT HEAD OR BRAIN W/O CONTRAST ORIGINAL EXAMINATION: CT OF THE HEAD WITHOUT CONTRAST 10/16/2023 9:40 pm TECHNIQUE: CT of the head was performed without the administration of intravenous contrast. Automated exposure control, iterative reconstruction, and/or weight based adjustment of the mA/kV was utilized to reduce the radiation dose to as low as reasonably achievable. COMPARISON: CT head 08/08/2023 HISTORY: ORDERING SYSTEM PROVIDED HISTORY: Reason for Exam: pain; trauma patient FINDINGS: BRAIN/VENTRICLES: There is no acute intracranial hemorrhage, mass effect or midline shift. No abnormal extra-axial fluid collection. Small area of encephalomalacia in the right frontal lobe in the skull base laterally. The gregorio-white differentiation is maintained without evidence of an acute infarct. There is no evidence of hydrocephalus. Generalized parenchymal volume loss. Patchy hypodensities in the white matter are nonspecific but most compatible with mild chronic microvascular angiopathy. ORBITS: The visualized portion of the orbits demonstrate no acute abnormality. SINUSES: Aerated secretions in the right sphenoid sinus. Chronic left sphenoid sinusitis. The remaining paranasal sinuses are predominantly clear. Clear mastoid air cells. SOFT TISSUES/SKULL: No acute abnormality of the visualized skull. Soft tissue swelling and laceration of the posterior scalp status post stapling. IMPRESSION: No acute intracranial abnormality. Posterior scalp swelling. I have personally reviewed the images of this examination and agree with the resident's findings and interpretation. Interpreted by: Enrique Geller Preliminary Report By: Teresa Brush Electronically signed By Enrique Geller Dictated Date: 10/16/2023 9:41:40 PM Prelim Date: 10/16/2023 9:46:31 PM Sign Date: 10/16/2023 9:49:54 PM Ordering Provider: ONDINA Mccabe [facility] ([place]) CT HEAD OR BRAIN W/O CONTRAS Ton 08-08-2023 CT HEAD OR BRAIN W/O CONTRAST ORIGINAL EXAMINATION: CT OF THE HEAD WITHOUT CONTRAST 08/08/2023 8:21 pm TECHNIQUE: CT of the head was performed without the administration of intravenous contrast. Automated exposure control, iterative reconstruction, and/or weight based adjustment of the mA/kV was utilized to reduce the radiation dose to as low as reasonably achievable. COMPARISON: 05/14/2023. HISTORY: ORDERING SYSTEM PROVIDED HISTORY: Reason for Exam: head injury FINDINGS: BRAIN/VENTRICLES: There is no acute intracranial hemorrhage, mass effect or midline shift. No abnormal extra-axial fluid collection. The gregorio-white differentiation is maintained without evidence of an acute infarct. There is no evidence of hydrocephalus. Patchy white matter hypodensities are nonspecific but statistically most consistent with moderate chronic microvascular angiopathy. The ventricles are mildly enlarged with commensurate enlargement of the sulci most consistent with mild age-related volume loss. Carotid siphon and vertebral artery calcifications are present. ORBITS: The visualized portion of the orbits demonstrate no acute abnormality. Left intra-ocular lens. SINUSES: Aerated secretions right sphenoid sinus. Similar-appearing near complete opacification of left sphenoid sinus with mild wall thickening, suggest chronic sinus disease. The visualized mastoid air cells demonstrate no acute abnormality. SOFT TISSUES/SKULL: No acute abnormality of the visualized skull. Right parietal scalp hematoma at vertex. Degenerative changes right TMJ. IMPRESSION: No acute intracranial abnormality. Chronic left sphenoid sinusitis. Right parietal scalp hematoma at the vertex. I have personally reviewed the images of this examination and agree with the resident's findings and interpretation. Interpreted by: Maxx Leach Preliminary Report By: Alexis Houston Electronically signed By Maxx Leach Dictated Date: 08/08/2023 8:26:24 PM Prelim Date: 08/08/2023 8:34:41 PM Sign Date: 08/08/2023 8:37:14 PM Ordering Provider: PASCUAL BEEBE [facility] ([place]) XR SHOULDER MINIMUM 2 VIEWS LEFTon 05-20-2023 XR SHOULDER MINIMUM 2 VIEWS LEFT ORIGINAL EXAMINATION: TWO XRAY VIEWS OF THE LEFT SHOULDER 05/20/2023 5:05 pm COMPARISON: May 08, 2023, contralateral right shoulder HISTORY: ORDERING SYSTEM PROVIDED HISTORY: Reason for Exam: pain FINDINGS: There is an acute mildly displaced impacted fracture of the neck of the humerus. Humeral head remains in the glenoid fossa. Old appearing left rib fractures. Other included bones appear intact. Mild AC joint degeneration. IMPRESSION: Mildly displaced impacted acute fracture of the neck of the humerus. Interpreted by: Maxx Leach Preliminary Report By: Maxx Leach Electronically signed By Maxx Leach Dictated Date: 05/20/2023 5:22:43 PM Prelim Date: 05/20/2023 5:24:15 PM Sign Date: 05/20/2023 5:24:15 PM Ordering Provider: ONDINA OLIVAREZ Normal [facility] ([place]) on 05-15-2023 Color (U) Yellow Normal [facility] ([place]) Comment on above: Performed By: #### U A #### [place] [id number] Glucose (U) [Mass/Vol] Negative Normal [facility] Comment on above: Performed By: #### U A #### [place] [id number] Ketones Ql (U) Negative Normal Negative [facility] ([place]) Comment on above: Performed By: #### U A #### [address] [address] UA Appear Clear Normal Clear [facility] ([place]) Comment on above: Performed By: #### U A #### [address] [address] UA Blood Trace Abnormal Negative [facility] ([place]) Comment on above: Performed By: #### U A #### [address] [address] UA Leuk Est Negative Normal Negative [facility] ([place]) Comment on above: Performed By: #### U A #### [address] [address] UA Nitrite Negative Normal Negative [facility] ([place]) Comment on above: Performed By: #### U A #### [address] [address] UA pH 5.5 Normal 5.0 - 8.0 [facility] ([place]) Comment on above: Performed By: #### U A #### [address] [address] UA Protein Negative Normal Negative [facility] ([place] Comment on above: Performed By: #### U A #### [place] [address] [address] UA Spec Grav >=1.030 Abnormal 1.015-1.025 [facility] ([place]) Comment on above: Performed By: #### U A #### [address] [address] UA Specimen Type Void Normal [facility] ([place]) Comment on above: Performed By: #### U A #### [address] [address] UA Urobilinogen 0.2 E.U./dL Normal 0.2-1.0 [facility] ([place]) Comment on above: Performed By: #### U A #### [address] [address] Urobilinogen (U) [Mass/Vol] Negative Normal Negative [facility] ([place]) Comment on above: Performed By: #### U A #### [address] [address] .Auto Diffon 05-14-2023 Basophil, Absolute 0.0 10 3/mcL Normal 0.0-0.2 [facility] ([place]) Comment on above: Performed By: #### C BRITTANY RENTERIA ANEU, MDW, TROPHS, CMP, GFR ####[address] [place], [place] [address] Basophils/100 WBC (Bld) 0.6 % Normal 0.0-2.[address] [facility] ([place]) Comment on above: Performed By: #### C BRITTANY RENTERIA ANEU, MDW, TROPHS, CMP, GFR ####Jerrellamy [address] [place], [place] [address] Eosinophil, Absolute 0.1 10 3/mcL Normal 0.0-0.4 [facility] [place] Comment on above: Performed By: #### C BC, ADIFF, ANEU, MDW, TROPHS, CMP, GFR ####[place] [address] [place], [place] [address] Eosinophils/100 WBC (Bld) 1.8 % Normal 0.0-7.0 [facility] ([place]) Comment on above: Performed By: #### C BC, ADIFF, ANEU, MDW, TROPHS, CMP, GFR ####Jre[address] [place], [place] [address] Lymphocyte, Absolute 1.0 10 3/mcL Normal 0.8-3.9 [facility] ([place] Comment on above: Performed By: #### C BC, ADIFF, ANEU, MDW, TROPHS, CMP, GFR ####Jerrell [address] [place], [place] [address] Lymphocytes/100 WBC (Bld) 19.7 % Normal 10.0-50.0 [facility] ([place] Comment on above: Performed By: #### C BC, ADIFF, ANEU, MDW, TROPHS, CMP, GFR ####[place] [place], [place] [address] Monocyte, Absolute 0.8 10 3/mcL Normal 0.2-1.0 [facility] ([place]) Comment on above: Performed By: #### C BC, ADIFF, ANEU, MDW, TROPHS, CMP, GFR ####Jer[address] [place], [place] [address] Monocytes/100 WBC (Bld) 16.0 % High 1.7-13.0 [facility] ([place]) Comment on above: Performed By: #### C BC, ADIFF, ANEU, MDW, TROPHS, CMP, GFR ####[address] [place], [place] [address] Neutrophils/100 WBC (Bld) 61.9 % Normal 37.0-80.0 [facility] ([place] Comment on above: Performed By: #### C BC, ADIFF, ANEU, MDW, TROPHS, CMP, GFR ####[place] [place], [place] [address] .GFRon 05-14-2023 GFR 86 ml/min/1.73sqm Normal [facility] ([place]) Comment on above: Result Comment: GFR Population mean for , Non- Americans Ages 20-29 = 116 mL/min/1.73 sq.m. Ages 30-39 = 107 mL/min/1.73 sq.m. Ages 40-49 = 99 mL/min/1.73 sq.m. Ages 50-59 = 93 mL/min/1.73 sq.m. Ages 60-69 = 85 mL/min/1.73 sq.m. Ages 70+ = 75 mL/min/1.73 sq.m. Chronic Kidney Disease: Less than 60 mL/min/1.73 square meters End Stage Renal Disease: Less than 15 mL/min/1.73 square meters Performed By: #### C BRITTANY RENTERIA ANEU, MDW, TROPHS, CMP, GFR ####[address] [place], [place] [address] GFR Non- 71 ml/min/1.73sqm Normal [facility] ([place] Comment on above: Result Comment: GFR Population mean for , Non- Americans Ages 20-29 = 116 mL/min/1.73 sq.m. Ages 30-39 = 107 mL/min/1.73 sq.m. Ages 40-49 = 99 mL/min/1.73 sq.m. Ages 50-59 = 93 mL/min/1.73 sq.m. Ages 60-69 = 85 mL/min/1.73 sq.m. Ages 70+ = 75 mL/min/1.73 sq.m. Chronic Kidney Disease: Less than 60 mL/min/1.73 square meters End Stage Renal Disease: Less than 15 mL/min/1.73 square meters Performed By: #### C BRITTANY RENTERIA ANEU, MDW, TROPHS, CMP, GFR ####[place] [place], [place] [address] .MDWon 05-14-2023 Monocyte Distribution Width 17.87 Normal 0.00-20.00 [facility] ([place] Comment on above: Result Comment: For ED adult patients suspected of sepsis, MDW<=20.0 does not rule out sepsis or risk of sepsis Performed By: #### C BRITTANY RENTERIA ANEU, MDW, TROPHS, CMP, GFR ####[address] [place], [place] [address] .NEUABSon 05-14-2023 Neutrophil, Absolute 3.2 10 3/mcL Normal 2.9-6.2 [facility] Comment on above: Performed By: #### C BRITTANY RENTERIA ANEU, MDW, TROPHS, CMP, GFR ####[address] [place], [place] [address] CBCon 05-14-2023 Erythrocyte distribution width (RBC) [Ratio] 15.5 % High 11.5-14.5 [facility] ([place] Comment on above: Performed By: #### C BRITTANY RENTERIA ANEU, MDW, TROPHS, CMP, GFR ####[address] [place] [address] Hematocrit (Bld) [Volume fraction] 37.3 % Normal 37.0-47.0 [facility] ([place] Comment on above: Performed By: #### C BRITTANY RENTERIA ANEU, MDW, TROPHS, CMP, GFR ####[address] [place] [id number] Hgb 12.4 G/dL Normal 12.0-16.0 [facility] ([place] Comment on above: Performed By: #### C BRITTANY RENTERIA ANEU, MDW, TROPHS, CMP, GFR ####[place] [place] [id number] MCH (RBC) [Entitic mass] 30.5 pg Normal 27.0-31.2 [facility] ([place] Comment on above: Performed By: #### C BRITTANY RENTERIA ANEU, MDW, TROPHS, CMP, GFR ####[address] [place] [phone] MCHC 33.3 G/dL Normal 33.0-37.0 [facility] ([place] Comment on above: Performed By: #### C BRITTANY RENTERIA ANEU, MDW, TROPHS, CMP, GFR ####[place] [place], [place] [address] MCV (RBC) [Entitic vol] 91.5 fL Normal 80.0-94.[address] [facility] ([place]) Comment on above: Performed By: #### C BRITTANY RENTERIA ANEU, KENNEDI, TROPHS, CMP, GFR ####[address] [place], [place] [address] Platelet 167 10 3/mcL Normal 130-400 [facility] ([place] Comment on above: Performed By: #### C BRITTANY RENTERIA ANEU, MDW, TROPHS, CMP, GFR ####[address] [place], [place] [address] Platelet mean volume (Bld) [Entitic vol] 7.7 fL Normal 7.4-10.4 [facility] ([place] Comment on above: Performed By: #### C BRITTANY RENTERIA ANEU, MDW, TROPHS, CMP, GFR ####[address] [place], [place] [address] RBC 4.08 10 6/mcL Low 4.20-5.40 [facility] ([place] Comment on above: Performed By: #### C BRITTANY RENTERIA ANEU, MDW, TROPHS, CMP, GFR ####[address] [place], [place] [address] WBC 5.2 10 3/mcL Normal 4.6-10.8 [facility] ([place] Comment on above: Performed By: #### C BRITTANY RENTERIA ANEU, MDW, TROPHS, CMP, GFR ####[address] [place], [place] [address] CMPon 05-14-2023 Albumin Level 3.5 G/dL Normal 3.4-4.8 [facility] ([place] Comment on above: Performed By: #### C BRITTANY RENTERIA ANEU, MDW, TROPHS, CMP, GFR ####[address] [place], [place] [address] Albumin/Globulin [Mass ratio] 1.3 {ratio} Normal 1.1-2.5 [facility] ([place] Comment on above: Performed By: #### C BRITTANY RENTERIA ANEU, MDW, TROPHS, CMP, GFR ####[address] [place], [place] [address] ALP [Catalytic activity/Vol] 119 U/L Normal 40-135 [facility] ([place] Comment on above: Performed By: #### C BRITTANY RENTERIA ANEU, MDW, TROPHS, CMP, GFR ####[address] [place], [place] [address] ALT [Catalytic activity/Vol] 35 U/L Normal 14-59 [facility] ([place] Comment on above: Performed By: #### C BRITTANY RENTERIA ANEU, MDW, TROPHS, CMP, GFR ####[address] [place], [place] [address] AST [Catalytic activity/Vol] 29 U/L Normal 10-40 [facility] ([place] Comment on above: Performed By: #### C BRITTANY RENTERIA ANEU, MDW, TROPHS, CMP, GFR ####[address] [place], [place] [address] Bili Total 0.2 mg/dL Normal 0.2-1.0 [facility] ([place]) Comment on above: Result Comment: Use of this assay is not recommended for patients undergoing treatment with eltrombopag due to the potential for falsely elevated results. Performed By: #### C BRITTANY RENTERIA ANEU, MDW, TROPHS, CMP, GFR ####[address] [place], [place] [address] BUN/Creatinine Ratio 21 ratio Normal 7-27 [facility] ([place]) Comment on above: Performed By: #### C BRITTANY RENTERIA ANEU, MDW, TROPHS, CMP, GFR ####[address] [place], [place] [address] Calcium [Mass/Vol] 8.9 mg/dL Normal 8.4-10.2 [facility] ([place]) Comment on above: Performed By: #### C BRITTANY RENTERIA ANEU, MDW, TROPHS, CMP, GFR ####[address] [place], [place] [address] Chloride [Moles/Vol] 107 mmol/L Normal 98-107 [facility] ([place]) Comment on above: Performed By: #### C BRITTANY RENTERIA ANEU, MDW, TROPHS, CMP, GFR ####[address] [place], [place] [address] CO2 [Moles/Vol] 28 mmol/L Normal 23-31 [facility] ([place] Comment on above: Performed By: #### C BRITTANY RENTERIA ANEU, MDW, TROPHS, CMP, GFR ####[address] [place], [place] [address] Creatinine [Mass/Vol] 0.78 mg/dL Normal 0.55-1.02 [facility] ([place]) Comment on above: Performed By: #### C BRITTANY RENTERIA ANEU, MDW, TROPHS, CMP, GFR ####[address] [place], [place] [address] Electrolyte Balance 11.0 mEq/L Normal 4.0-15.0 [facility] ([place]) Comment on above: Performed By: #### C BRITTANY RENTERIA ANEU, MDW, TROPHS, CMP, GFR ####[address] [place], [place] [address] Globulin 2.7 G/dL Normal [facility] ([place] Comment on above: Performed By: #### C BRITTANY RENTERIA ANEU, MDW, TROPHS, CMP, GFR ####[address] [place], [place] [address] Glucose [Mass/Vol] 103 mg/dL Normal 83-110 [facility] ([place]) Comment on above: Performed By: #### C BRITTANY RENTERIA ANEU, MDW, TROPHS, CMP, GFR ####[address] [place], [place] [address] Potassium [Moles/Vol] 4.1 mmol/L Normal 3.5-5.1 [facility] ([place]) Comment on above: Performed By: #### C BC, MISA SOTO MDW, TROPHS, CMP, GFR ####[place] [place], [place] [address] Sodium [Moles/Vol] 146 mmol/L High 136-145 [facility] ([place]) Comment on above: Performed By: #### C MYRA, MISA SOTO, W, TROPHS, CMP, GFR ####[place] [place], [place] [address] Total Protein 6.2 G/dL Low 6.4-8.2 [facility] ([place] Comment on above: Performed By: #### C MYRA, MISA SOTO, KENNEDI, TROPHS, CMP, GFR ####[place] [place], [place] [address] Urea nitrogen [Mass/Vol] 16 mg/dL Normal 7-18 [facility] ([place] Comment on above: Performed By: #### C MYRA, MISA SOTO MDW, TROPHS, CMP, GFR ####[place] [address] [place], [place] [address] CT HEAD OR BRAIN W/O CONTRAS Ton 05-14-2023 CT HEAD OR BRAIN W/O CONTRAST ORIGINAL EXAMINATION: CT OF THE HEAD WITHOUT CONTRAST05/14/2023 9:[address] HEAD OR BRAIN W/O CONTRAST TECHNIQUE: RADIATION DOSE REDUCTION: This exam was performed according to the departmental dose-optimization program which includes automated exposure control, adjustment of the mA and/or kV according to patient size and/or use of iterative reconstruction technique. COMPARISON: CT 08/09/2021 HISTORY: ORDERING SYSTEM PROVIDED HISTORY: Reason for Exam: Multiple falls, hit head, FINDINGS: There is no recent parenchymal or extra axial intracranial hemorrhage, mass effect or midline shift. No obvious acute territorial infarct. No hydrocephalus. No displaced or depressed calvarial fracture is seen. The density in the superior sagittal sinus is normal. There is a small soft tissue swelling/hematoma in the midline parietal region near the vertex peer There is diffuse atrophy with stable ventricular and sulcal dilatation. Also moderate chronic microvascular angiopathy in the deep cerebral white matter as previously. IMPRESSION: No intracranial acute posttraumatic abnormality. Extracranial hematoma near the vertex. Chronic changes in the brain, stable.. 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 Unless otherwise specified, incidental findings do not require dedicated imaging and follow-up. COMPARISON: 07/30/2021 HISTORY: ORDERING SYSTEM PROVIDED HISTORY: Reason for Exam: History of multiple falls, FINDINGS: No acute fracture or posttraumatic subluxation is seen. Mild compression deformities in the upper thoracic spine at T2 and T3 levels are most likely nonacute. There are moderate degenerative changes mainly facet arthropathy at multiple levels. No prevertebral soft tissue swelling is seen. No obvious paraspinal hematoma. CT is quite limited for detecting intramedullary spinal pathology. The included lung apices show no acute process or pneumothorax.. Incidental opacification of the left sphenoid sinus with dense material suggesting chronic sinusitis. There is some sphenoid wall thickening and sclerosis also indicating chronicity. IMPRESSION: No acute fracture or other significant post-traumatic abnormality is seen in the cervical spine. Degenerative changes. Interpreted by: Stephan Mishra MD Preliminary Report By: Stephan Mishra MD Electronically signed By Stephan Mishra MD Dictated Date: 05/14/2023 9:41:43 PM Prelim Date: 05/14/2023 9:45:17 PM Sign Date: 05/14/2023 9:45:17 PM Ordering Provider: PATRICIA LANDA [facility] ([place]) Shanta 05-14-2023 Troponin I High Sensitivity 7.9 ng/L Normal 0.0-51.4 [facility] ([place]) Comment on above: Performed By: #### C BRITTANY RENTERIA ANEU, W, TROPHS, CMP, GFR ####[address] [place], [place] [address] XR CHEST 1 VIEWon 05-14-2023 XR CHEST 1 VIEW ORIGINAL EXAMINATION: ONE XRAY VIEW OF THE CHEST05/14/2023 9:20 pm COMPARISON: 09/01/2021 HISTORY: ORDERING SYSTEM PROVIDED HISTORY: Reason for Exam: History of multiple falls FINDINGS: Shallow inspiration with hypoventilatory changes in the lungs. No consolidation, pleural effusion or pneumothorax. Limited evaluation for rib fractures, no displaced acute rib fractures are seen. There are some left rib deformities of uncertain age probably nonacute. Chronic right proximal humerus deformity. IMPRESSION: No acute cardiopulmonary process. If there is strong concern for rib fractures, consider dedicated rib radiographs. Interpreted by: Stephan Mishra MD Preliminary Report By: Stephan Mishra MD Electronically signed By Stephan Mishra MD Dictated Date: 05/14/2023 9:38:29 PM Prelim Date: 05/14/2023 9:39:24 PM Sign Date: 05/14/2023 9:39:24 PM Ordering Provider: PATRICIA LANDA [facility] ([place]) XR SHOULDER MINIMUM 2 VIEWS RIGHTon 05-09-2023 XR SHOULDER MINIMUM 2 VIEWS RIGHT ORIGINAL EXAMINATION: TWO XRAY VIEWS OF THE RIGHT SHOULDER 05/08/2023 10:18 pm COMPARISON: Portable chest 09/01/2021. HISTORY: ORDERING SYSTEM PROVIDED HISTORY: Reason for Exam: R arm/ shoulder issue, fall out of shower chair PAIN FINDINGS: Diffuse osseous demineralization decreases sensitivity for acute fractures. No definitive acute fracture or dislocation is identified. Appearance of the humeral head and neck is grossly similar to remote 2021 portable chest exam. There are advanced degenerative changes of the glenohumeral joint space. Mild acromioclavicular joint osteoarthrosis. The acromioclavicular and coracoclavicular distances appear maintained. No radiopaque foreign body is identified. Vertebral augmentation changes. IMPRESSION: Osseous demineralization. No definitive acute fracture. No dislocation. Severe glenohumeral osteoarthrosis. I have personally reviewed the images of this examination and agree with the resident's findings and interpretation. Interpreted by: Enrique Geller Preliminary Report By: Tonya Helms Electronically signed By Enrique Geller Dictated Date: 05/08/2023 10:19:52 PM Prelim Date: 05/08/2023 10:24:13 PM Sign Date: 05/08/2023 10:27:11 PM Ordering Provider: JUNI SUAREZ [facility] ([place]) .GFRon 05-08-2023 GFR 74 ml/min/1.73sqm [facility] ([place]) Comment on above: Result Comment: GFR Population mean for , Non- Americans Ages 20-29 = 116 mL/min/1.73 sq.m. Ages 30-39 = 107 mL/min/1.73 sq.m. Ages 40-49 = 99 mL/min/1.73 sq.m. Ages 50-59 = 93 mL/min/1.73 sq.m. Ages 60-69 = 85 mL/min/1.73 sq.m. Ages 70+ = 75 mL/min/1.73 sq.m. Chronic Kidney Disease: Less than 60 mL/min/1.73 square meters End Stage Renal Disease: Less than 15 mL/min/1.73 square meters Performed By: #### C BRITTANY RENTERIA ANEU, MDW, BMP, GFR #### [place] [address] [address] GFR Non- 61 ml/min/1.73sqm [facility] ([place]) Comment on above: Result Comment: GFR Population mean for , Non- Americans Ages 20-29 = 116 mL/min/1.73 sq.m. Ages 30-39 = 107 mL/min/1.73 sq.m. Ages 40-49 = 99 mL/min/1.73 sq.m. Ages 50-59 = 93 mL/min/1.73 sq.m. Ages 60-69 = 85 mL/min/1.73 sq.m. Ages 70+ = 75 mL/min/1.73 sq.m. Chronic Kidney Disease: Less than 60 mL/min/1.73 square meters End Stage Renal Disease: Less than 15 mL/min/1.73 square meters Performed By: #### C BRITTANY RENTERIA ANEU, MDW, BMP, GFR #### [address] [place], [place] [address] .Urinalysis Microscopic (AO) on 05-08-2023 UA Bacteria 2+ /hpf Abnormal [facility] ([place]) Comment on above: Performed By: #### U AMICAO, UA ####Jerrell [address] [place], [place] [address] UA RBC 0-5 Abnormal None Seen [facility] ([place]) Comment on above: Performed By: #### U AMICAO, UA ####Jerrell [address] [place], [place] [address] UA Squam Epithelial 0-5 Abnormal None Seen [facility] ([place]) Comment on above: Performed By: #### U AMICAO, UA ####Jerrell[address] [place], [place] [address] UA WBC 0-5 Abnormal None Seen [facility] ([place]) Comment on above: Performed By: #### U AMICAO, UA ####[place] [place], [place] [address] BMPon 05-08-2023 BUN/Creatinine Ratio 22 ratio Normal 7-27 [facility] ([place]) Comment on above: Performed By: #### C BRITTANY RENTERIA ANEU, MDW, BMP, GFR #### [place] [address] [place], [place] [address] Calcium [Mass/Vol] 9.2 mg/dL Normal 8.4-10.2 [facility] ([place]) Comment on above: Performed By: #### C BRITTANY RENTERIA ANEU, MDW, BMP, GFR #### [place] [address] [place], [place] [address] Chloride [Moles/Vol] 108 mmol/L High 98-107 [facility] ([place]) Comment on above: Performed By: #### C BRITTANY RENTERIA ANEU, MDW, BMP, GFR #### [place] [address] [place], [place] [address] CO2 [Moles/Vol] 26 mmol/L Normal 23-31 [facility] ([place]) Comment on above: Performed By: #### C MYRA, MISA SOTO, W, BMP, GFR #### [address] [address] Creatinine [Mass/Vol] 0.89 mg/dL Normal 0.55-1.02 [facility] ([place]) Comment on above: Performed By: #### C MYRA, BRITTANY, MISA, MDW, BMP, GFR #### [address] [address] Electrolyte Balance 8.0 mEq/L Normal 4.0-15.0 Formerly [facility] ([place]) Comment on above: Performed By: #### C MYRA, BRITTANY, MISA, W, BMP, GFR #### [address] [address] Glucose [Mass/Vol] 104 mg/dL Normal 83-110 [facility] ([place]) Comment on above: Performed By: #### C MYRA, BRITTANY, MD MISAW, BMP, GFR #### [address] [address] Potassium [Moles/Vol] 4.8 mmol/L Normal 3.5-5.1 [facility] ([place]) Comment on above: Performed By: #### C MYRA, BRITTANY, MISA, MDW, BMP, GFR #### [address] [address] Sodium [Moles/Vol] 142 mmol/L Normal 136-145 [facility] ([place]) Comment on above: Performed By: #### C MYRA, MISA SOTO, MDW, BMP, GFR #### [address] [address] Urea nitrogen [Mass/Vol] 20 mg/dL High 7-18 [facility] ([place]) Comment on above: Performed By: #### C MYRA, BRITTANY, MISA, MDW, BMP, GFR #### [address] [address] UAon 05-08-2023 Color (U) Yellow Normal [facility] ([place]) Comment on above: Performed By: #### U AMICAO, UA ####[address] [place], [place] [address] Glucose (U) [Mass/Vol] Negative Normal [facility] Comment on above: Performed By: #### U AMICAO, UA ####[address] [place], [place] [address] Ketones Ql (U) Negative Normal Negative [facility] ([place]) Comment on above: Performed By: #### U AMICAO, UA ####[address] [place], [place] [address] UA Appear Slightly Cloudy Abnormal Clear [facility] ([place]) Comment on above: Performed By: #### U AMICAO, UA ####[address] [place] [address] UA Blood Trace Abnormal Negative [facility] ([place]) Comment on above: Performed By: #### U AMICAO, UA ####[address] [place] [address] UA Leuk Est Negative Normal Negative [facility] ([place]) Comment on above: Performed By: #### U AMICAO, UA ####[address] [place] [address] UA Nitrite Positive Abnormal Negative [facility] ([place]) Comment on above: Performed By: #### U AMICAO, UA ####[address] [place] [address] UA pH 5.5 Normal 5.0 - 8.0 [facility] ([place]) Comment on above: Performed By: #### U AMICAO, UA ####[address] [place] [address] UA Protein Negative Normal Negative [facility] ([place]) Comment on above: Performed By: #### U AMICAO, UA ####[address] [place], [place] [address] UA Spec Grav >=1.030 Abnormal 1.015-1.025 [facility] ([place]) Comment on above: Performed By: #### U AMICAO, UA ####[address] [place], [place] [address] UA Specimen Type Catheter Normal [facility] ([place]) Comment on above: Performed By: #### U KULDEEP, UA ####[address] [place], [place] [address] UA Urobilinogen 0.2 E.U./dL Normal 0.2-1.0 [facility] ([place]) Comment on above: Performed By: #### U KULDEEP UA ####[address] [place], [place] [address] Urobilinogen (U) [Mass/Vol] Negative Normal Negative [facility] ([place]) Comment on above: Performed By: #### U KULDEEP UA ####[address] [place], [place] [address] .Auto Diffon 05-07-2023 Basophil, Absolute 0.0 10 3/mcL Normal 0.0-0.2 [facility] ([place]) Comment on above: Performed By: #### C BC, ADMIRACLE, ANEU, MDW, BMP, GFR #### [address] [address] Basophils/100 WBC (Bld) 0.6 % Normal 0.0-2.[address] [facility] ([place]) Comment on above: Performed By: #### C BC, ADIFF, ANEU, MDW, BMP, GFR #### [address] [address] Eosinophil, Absolute 0.0 10 3/mcL Normal 0.0-0.4 [facility] Comment on above: Performed By: #### C BC, ADIFF, ANEU, MDW, BMP, GFR #### [address] [address] Eosinophils/100 WBC (Bld) 0.5 % Normal 0.0-7.0 [facility] ([place]) Comment on above: Performed By: #### C BC, ADIFF, ANEU, MDW, BMP, GFR #### [address] [address] Lymphocyte, Absolute 1.0 10 3/mcL Normal 0.8-3.9 [facility] [place] Comment on above: Performed By: #### C BC, ADMIRACLE, ANEU, MDW, BMP, GFR #### [address] [address] Lymphocytes/100 WBC (Bld) 18.3 % Normal 10.0-50.0 [facility] ([place]) Comment on above: Performed By: #### C BC, ADIFF, ANEU, MDW, BMP, GFR #### [address] [address] Monocyte, Absolute 0.6 10 3/mcL Normal 0.2-1.0 [facility] ([place]) Comment on above: Performed By: #### C BC, ADIFF, ANEU, MDW, BMP, GFR #### [address] [address] Monocytes/100 WBC (Bld) 12.2 % Normal 1.7-13.0 [facility] ([place]) Comment on above: Performed By: #### C BC, ADIFF, ANEU, MDW, BMP, GFR #### [address] [address] Neutrophils/100 WBC (Bld) 68.4 % Normal 37.0-80.0 [facility] ([place]) Comment on above: Performed By: #### C BC, ADIFF, ANEU, MDW, BMP, GFR #### [address] [address] .MDWon 05-07-2023 Monocyte Distribution Width 17.30 Normal 0.00-20.00 [facility] ([place]) Comment on above: Result Comment: For ED adult patients suspected of sepsis, MDW<=20.0 does not rule out sepsis or risk of sepsis Performed By: #### C BC, ADIFF, ANEU, MDW, BMP, GFR #### [address] [address] .NEUABSon 05-07-2023 Neutrophil, Absolute 3.6 10 3/mcL Normal 2.9-6.2 [facility] Comment on above: Performed By: #### C BC, BRITTANY, MISA, MDW, BMP, GFR #### [address] [address] CBCon 05-07-2023 Erythrocyte distribution width (RBC) [Ratio] 14.9 % High 11.5-14.5 [facility] ([place]) Comment on above: Performed By: #### C BC, BRITTANY, ANEU, MDW, BMP, GFR #### [place] [address] Hematocrit (Bld) [Volume fraction] 38.1 % Normal 37.0-47.0 [facility] ([place]) Comment on above: Performed By: #### C BC, BRITTANY, ANEU, MDW, BMP, GFR #### [place] [id number] Hgb 12.7 G/dL Normal 12.0-16.0 [facility] ([place]) Comment on above: Performed By: #### C BC, BRITTANY, ANEU, MDW, BMP, GFR #### [place] [address] MCH (RBC) [Entitic mass] 30.4 pg Normal 27.0-31.2 [facility] ([place]) Comment on above: Performed By: #### C BC, BRITTANY, ANEU, MDW, BMP, GFR #### [place] [id number] MCHC 33.4 G/dL Normal 33.0-37.0 [facility] ([place]) Comment on above: Performed By: #### C BC, BRITTANY, ANEU, MDW, BMP, GFR #### [place] [id number] MCV (RBC) [Entitic vol] 91.1 fL Normal 80.0-94.[address] [facility] ([place]) Comment on above: Performed By: #### C BC, BRITTANY, ANEU, MDW, BMP, GFR #### [address] [place] [address] Platelet 114 10 3/mcL Low 130-400 [facility] ([place]) Comment on above: Performed By: #### C BRITTANY RENTERIA ANEU, MDW, BMP, GFR #### [address] [place] [address] [address] [place], [place] [address] Platelet mean volume (Bld) [Entitic vol] 7.8 fL Normal 7.4-10.4 [facility] ([place]) Comment on above: Performed By: #### C BRITTANY RENTERIA ANEU, KENNEDI, BMP, GFR #### [address] [address] RBC 4.18 10 6/mcL Low 4.20-5.40 [facility] ([place]) Comment on above: Performed By: #### C BRITTANY RENTERIA ANEU, MDW, BMP, GFR #### [address] [address] WBC 5.3 10 3/mcL Normal 4.6-10.8 [facility] ([place]) Comment on above: Performed By: #### C BRITTANY RENTERIA ANEU, MDW, BMP, GFR #### [address] [address] Absolute lymphocyte countOrd ered By: Saji Ruiz on 04-12-2023 Lymphocytes Auto (Unsp spec) [#/Vol] 0.46 10*3/uL 0.83-4.51 [facility] Basophil percentageOrdered B y: Saji Ruiz on 04-12-2023 Basophils/100 WBC (Bld) 0.3 % 0-1 [facility] Bilirubin [Mass/Vol] 0.70 mg/dL 0.20-1.00 [facility] Comment on above: For patients on eltr ombopag therapy, use of Dimension [place] TBIL is not recommended. Chloride [Moles/Vol] 107 mmol/L 98-107 [facility] Eosinophils/100 WBC (Bld) 2.1 % 0-5 [facility] Glucose [Mass/Vol] 110 mg/dL 74-106 [facility] Comment on above: Fasting Glucose resu lt from 100 to 125 mg/dL suggests IMPAIRED HOMEOSTASIS per A.D.A. criteria. Neutrophils (Bld) [#/Vol] 4.4 10*3/uL 2.0-7.7 [facility] Neutrophils/100 WBC (Bld) 67.0 % 47-70 [facility] Potassium [Moles/Vol] 4.3 mmol/L 3.5-5.1 [facility] Protein [Mass/Vol] 6.8 g/dL 6.4-8.2 [facility] Sodium [Moles/Vol] 140 mmol/L 136-145 [facility] WBC (Bld) [#/Vol] 6.6 10*3/uL 4.4-11.0 [facility] Blood erythrocytes count (nu mber/volume)Ordered By: Saji Ruiz on 04-12-2023 RBC (Bld) [#/Vol] 4.84 10*6/uL 4.2-5.4 [facility] Blood hemoglobin measurement (mass/volume)Ordered By: Saji Ruiz on 04-12-2023 Hemoglobin (Bld) [Mass/Vol] 14.7 g/dL 12.0-15.0 [facility] Blood lymphocytes/100 leukoc ytesOrdered By: Saji Ruiz on 04-12-2023 Lymphocytes/100 WBC (Bld) 7.0 % 19-41 [facility] Blood manual differential co mment interpretation (narrative result)Ordered By: Saji Ruiz on 04-12-2023 Manual differential comment Josh (Bld) [Interp] SCANNED [facility] Comment on above: LYMPHOPENIA PRESENT Blood monocytes/100 leukocyt esOrdered By: Saji Ruiz on 04-12-2023 Monocytes/100 WBC (Bld) 22.7 % 0-10 [facility] Blood platelet adequacy dete ction by light microscopyOrdered By: Saji Ruiz on 04-12-2023 Platelets LM Ql (Bld) MOD DEC ADEQ [facility] Blood platelet mean volumeOr dered By: Saji Ruiz on 04-12-2023 Platelet mean volume (Bld) [Entitic vol] 11.5 fL 6.2-12.0 [facility] Determination of erythrocyte mean corpuscular volume (MCV)Ordered By: Saji Ruiz on 04-12-2023 MCV (RBC) [Entitic vol] 93.2 fL 81-99 [facility] Hematocrit Auto (Bld) [Volum e fraction]Ordered By: Saji Ruiz on 04-12-2023 Hematocrit (Bld) [Volume fraction] 45.1 % 37-47 [facility] INR in Blood by Coagulation assayOrdered By: Saji Ruiz on 04-12-2023 INR Coag (Bld) [Relative time] 1.2 {INR} [facility] Laboratory - Chemistry and C hemistry - challengeOrdered By: Saji Ruiz on 04-12-2023 ALP [Catalytic activity/Vol] 471 U/L 45-117 [facility] ALT [Catalytic activity/Vol] 2592 U/L 13-56 [facility] CO2 [Moles/Vol] 26.0 mmol/L 21.0-32.0 [facility] Globulin (S) [Mass/Vol] 3.1 g/dL 2.2-4.2 [facility] Urea nitrogen/Creatinine [Mass ratio] 28.7 mg/mg 10-20 [facility] Laboratory - CoagulationOrde red By: Saji Ruiz on 04-12-2023 PT Coag (PPP) [Time] 15.1 s 11.7-14.9 [facility] Laboratory - Hematology and Cell countsOrdered By: Saji Ruiz on 04-12-2023 Erythrocyte distribution width (RBC) [Entitic vol] 47.8 fL 35.1-43.9 [facility] Erythrocyte distribution width (RBC) [Ratio] 13.9 % 11.6-14.6 [facility] Immature granulocytes/100 WBC (Bld) 0.900 % 0.0-0.9 [facility] Comment on above: IG% - Immature Granu locytes (promyelocytes, myelocytes and metamyelocytes) > 1% indicates that a LEFT SHIFT is Present. MCH (RBC) [Entitic mass] 30.4 pg 27.0-32.0 [facility] Nucleated RBC/100 WBC (Bld) [Ratio] 0 % 0-5 [facility] MCHC Auto (RBC) [Mass/Vol]Or dered By: Saji Ruiz on 04-12-2023 MCHC (RBC) [Mass/Vol] 32.6 g/dL 32-36 [facility] No Panel InformationOrdered By: Saji Ruiz on 04-12-2023 Estimated Creatinine Clearance Calc 29.24 ml/min [facility] Estimated GFR (MDRD) Amer 110 mL/min >60 [facility] Comment on above: GFR Calc Estimated GFR (MDRD) Non-Af Amer 91 mL/min >60 [facility] Comment on above: Non- GFR Calc Reactive Lymphocytes 1+ [facility] Platelets bldOrdered By: Kathryn Ruiz on 04-12-2023 Platelets (Bld) [#/Vol] 62 10*3/uL 150-450 [facility] Serum or plasma albumin kurtis urement (mass/volume)Ordered By: Saji Ruiz on 04-12-2023 Albumin [Mass/Vol] 3.7 g/dL 3.2-5.0 [facility] Serum or plasma albumin/glob ulin mass ratioOrdered By: Saji Ruiz on 04-12-2023 Albumin/Globulin [Mass ratio] 1.2 {ratio} 0.9-2.4 [facility] Serum or plasma calcium kurtis urement (mass/volume)Ordered By: Saji Ruiz on 04-12-2023 Calcium [Mass/Vol] 9.6 mg/dL 8.5-10.1 [facility] Serum or plasma creatinine m easurement (mass/volume)Ordered By: Saji Ruiz on 04-12-2023 Creatinine [Mass/Vol] 0.66 mg/dL 0.55-1.02 [facility] Comment on above: The validity of the calculated GFR & GFRAA in patients over 70 years has not been determined. Clinical correlation is essential. Serum or plasma urea nitroge n measurement (mass/volume)Ordered By: Saji Ruiz on 04-12-2023 Urea nitrogen [Mass/Vol] 19 mg/dL 18 [facility] Thin prep Papanicolaou smear with manual screeningOrdered By: Saji Ruiz on 04-12-2023 Thin prep Papanicolaou smear with manual screening 1738 U/L 15-37 [facility] Thin prep Papanicolaou smear with manual screening 7 5-15 [facility] Review by pathologistOrdered By: Saji Ruiz on 04-11-2023 Pathologist review Josh (Unsp spec) [Interp] Reviewed [facility] Comment on above: Previous reported re sult: Naya amaya Edited by: RGOERIC on 04/11/23:1441Marked Thrombocytopenia.LymphopeniaClinical correlation necessary.Grant Hines D.O. 04/11/23 AMENDED REPORT 04/11/23 1441 PATH REV previously reported as: Naya amaya Basophil percentageOrdered B y: Ian aPyne on 04-10-2023 Lactate [Moles/Vol] 2.5 mmol/L 0.4-2.0 [facility] Comment on above: Critical Result(s) C alled at: 19:23:19 04/10/2023 by: Lizeth grove TO [facility]. Results read back by same. Basophil percentage 0 SEEN /hpf 0-5 [facility] Bilirubin Test strip Ql (U)O rdered By: Ian Payne on 04-10-2023 Bilirubin Ql (U) Negative Negative [facility] Culture, urineOrdered By: Do zaida Payne on 04-10-2023 Bacteria identified Cx Nom (U) Culture exhibits no growth. [facility] Ketones Test strip Ql (U)Ord ered By: Ian Payne on 04-10-2023 Ketones Ql (U) Negative Negative [facility] Laboratory - CoagulationOrde red By: Ian Payne on 04-10-2023 aPTT Coag (Bld) [Time] 34.8 s 24.1-36.2 [facility] Laboratory - Microbiology an d Antimicrobial susceptibilityOrdered By: Ian Payne on 04-10-2023 Bacteria identified Cx Nom (Bld) No growth in 5 days. [facility] Mucus LM Ql (Urine sed)Order ed By: Ian Payne on 04-10-2023 Mucus Ql (Urine sed) 0 SEEN /hpf [facility] Nitrite Test strip Ql (U)Ord ered By: Ian Payne on 04-10-2023 Nitrite Ql (U) Negative Negative [facility] No Panel InformationOrdered By: Ian Payne on 04-10-2023 Troponin I High Sensitivity 7 pg/mL 3.0-54.0 [facility] Comment on above: Please Note: New Vivian t Units and Gender Specific Reference Ranges. For more information see Policy Stat Procedure [place] High Sensitivity Troponin (TNIH) and attachments. Protein Test strip Ql (U)Ord ered By: Ian Payne on 04-10-2023 Protein Ql (U) 30 mg/dl Negative [facility] SARS-CoV-2 (COVID-19) Ag IA. rapid Ql (Resp)Ordered By: Ian Payne on 04-10-2023 SARS-CoV-2 Antigen (Rapid) SARS-CoV-2 (COVID 19) [facility] Squamous epithelial cells de tection in urine sediment by light microscopyOrdered By: Ian Payne on 04-10-2023 Epithelial cells.squamous LM Ql (Urine sed) 0-5 SEEN /hpf 5-10 [facility] Urine blood detectionOrdered By: Ian Payne on 04-10-2023 RBC Ql (U) 150 /ul Negative [facility] RBC Ql (U) 10-25 SEEN /hpf 0-5 [facility] Urine clarityOrdered By: Soy Payne on 04-10-2023 Clarity (U) Clear Clear [facility] Urine color determinationOrd ered By: Ian Payne on 04-10-2023 Color (U) Yellow Yellow [facility] Urine glucose detectionOrder ed By: Ian Payne on 04-10-2023 Glucose Ql (U) Normal mg/dl Normal [facility] Urine leukocyte esterase det ection by dipstickOrdered By: Ian Payne on 04-10-2023 Leukocyte esterase Test strip Ql (U) Negative Negative [facility] Urine pHOrdered By: Ian long on 04-10-2023 pH (U) 6.5 [pH] 5.0 - 8.0 [facility] Urine sediment bacteria coun t by microscopy (number/high power field)Ordered By: Ian Payne on 04-10-2023 Bacteria LM.HPF (Urine sed) [#/Area] 0 /[HPF] None Seen [facility] Urine specific gravity measu rementOrdered By: Ian Payne on 04-10-2023 Specific gravity (U) [Rel density] 1.010 1.002-1.030 [facility] Urobilinogen Auto test strip Ql (U)Ordered By: Ian Payne on 04-10-2023 Urobilinogen Ql (U) Normal mg/dl Normal [facility] CNOVon 04-06-2021 CNOV Office Visit (ORUPDO) ZENOBIA SORIANO ([id number]) 1940 F Date Time Provider Department 04/06/21 1:00 PM MAXX JEFF During your visit today, we recorded the following information about you: Pulse Blood pressure Weight Height 84/minute 149/93 43.1 kg 1.549 m Juni Jeff PA-C 04/06/2021 1:23 PM Signed Outpatient Orthopaedic Office Visit PCP: Anton Blanchard MD Subjective Chief Complaint: Patient presents with: Right Humerus - Established Patient, Follow Up PAIN EVALUATION No data found in the last 1 encounters. HPI: Kena is a pleasant 80-year-old yluup-zxtu-fqhjhrzy female who presents today for orthopedic follow-up regarding right humerus injury that has been diagnosed as a proximal humerus fracture. Per the report she suffered a fall onto the right upper extremity and has had pain and inability to move the right upper extremity. She presented to urgent care where radiographs reported impacted proximal humerus fracture. She ambulates with a walker appears to be weightbearing with the right arm. She denies any numbness or tingling, denies any recent fever or chills. She describes a current pain severity of 0/10 worse with certain motions and at nighttime. She reports that she has undergone formal therapy which seemed to worsen her back trouble. She reports that she is comfortable with the motion that she is regained and the pain that she has having. She is happy with the progress that she has made. ROS Current Outpatient Medications Medication Sig Dispense Refill - Ibuprofen 200 mg cap Take 600 mg by mouth every 6 hours as needed. - gabapentin (NEURONTIN) 100 mg capsule Take by mouth. - ARTHRITIS PAIN RELIEF 650 mg CR tablet TAKE TWO TABLETS BY MOUTH EVERY 4 HOURS WHILE AWAKE - DIAZEPAM ORAL diazepam Oral - omeprazole (PRILOSEC) 20 mg capsule Take 20 mg by mouth once daily. - magnesium oxide (MAG-OX) 400 mg (241.3 mg magnesium) tablet Take 1 tablet by mouth once daily. - potassium chloride ER (K-DUR, KLOR-CON) 20 mEq tablet Take 40 mEq by mouth twice daily. - PARoxetine (PAXIL) 40 mg tablet Take 40 mg by mouth once daily. - Multivitamin ORAL Tab Take by mouth. 0 - levothyroxine (SYNTHROID) 75 mcg ORAL Tab Take one(1) tablet daily. 0 - promethazine hcl(PHENERGAN 25 MG TAB) Take one(1) tablet every four(4) to six(6) hours as needed for nausea. (Patient not taking: ) 0 - loratadine (CLARITIN) 10 mg ORAL Tab Take one(1) tablet daily as needed for allergy symptoms. (Patient not taking: ) 0 - atorvastatin (LIPITOR) 20 mg ORAL Tab Take one(1) tablet daily. (Patient not taking: ) 0 - valsartan (DIOVAN) 80 mg ORAL Tab Take one(1) tablet daily. (Patient not taking: ) 0 - eszopiclone (LUNESTA) 2 mg ORAL Tab Take one(1) tablet at bedtime as needed for insomnia. (Patient not taking: No sig reported) 0 No current facility-administere d medications for this visit. ALLERGIES No Known Allergies PAST MEDICAL HISTORY Diagnosis Date - Esophageal reflux - Essential hypertension, benign - Other and unspecified hyperlipidemia - Unspecified hypothyroidism PAST SURGICAL HISTORY Procedure Laterality Date - EYE SURGERY HX - LAP CHOLECYSTECT/CHOLANG IOGRAPHY normal IOC - PAST SURGICAL HISTORY OF removal diverticuli esophagus History reviewed. No pertinent family history. Social History Tobacco Use - Smoking status: Never Smoker - Smokeless tobacco: Never Used Substance Use Topics - Alcohol use: No - Drug use: No Objective BP 149/93 Pulse 84 Ht 5' 1" (1.55m) Wt 95 lb (43.1kg) BMI 17.96 kg/(m2). General: Alert and oriented x 3. Geriatric female In no acute distress. Examination of the right upper extremity: Skin intact, good capillary refill and radial pulse. No signs of infection, edema or swelling. Sensation appears intact. moderate tenderness over the proximal humerus Limited active forward elevation and abduction less than 120 degrees. Decreased strength versus resisted internal and external rotation. Internal and external rotation motion has significantly improved. Elbow and wrist remaintain unaffected. Examination of the left upper extremity: Skin intact, good capillary refill and radial pulse. No signs of infection, edema or swelling. Sensation is intact. No significant tenderness over the AC joint, lateral acromion, and biceps. Good active forward elevation and abduction past 140 degrees. Good strength versus resisted internal and external rotation. No signs of instability. negative José's and impingement signs. Diagnostic Studies: None today. Impression/Recommend ations S42.291D Closed 3-part fracture of proximal end of right humerus with routine healing, subsequent encounter (primary encounter diagnosis) Plan She is happy with how her fracture is healing. She reports that she has funct (more content not included)... Normal [facility] CNOVon 02-16-2021 CNOV Office Visit (ORUPDO) ZENOBIA SORIANO ([id number]) 1940 F Date Time Provider Department 02/16/21 1:00 PM MAXX JEFF During your visit today, we recorded the following information about you: Juni Jeff PA-C 02/16/2021 1:30 PM Signed Outpatient Orthopaedic Office Visit PCP: Anton Blanchard MD Subjective Chief Complaint: Patient presents with: Right Humerus - Established Patient, Follow Up PAIN EVALUATION 02/16/2021 1259 Pain Level: 7 Frequency: Continuous HPI: Kena is a pleasant 80-year-old mgviy-phfq-ytslnxtx female who presents today for orthopedic follow-up regarding right humerus injury that has been diagnosed as a proximal humerus fracture. Per the report about a month ago she suffered a fall onto the right upper extremity and has had pain and inability to move the right upper extremity. She typically resides in a [facility] but is now residing at home with her daughter. She plans to return to the [facility]p today. She presented to urgent care where radiographs reported impacted proximal humerus fracture. He was initially placed into a swath sling but does not wear this today. She ambulates with a walker appears to be weightbearing with the right arm. She denies any numbness or tingling, denies any recent fever or chills. She describes a current pain severity of 7/10 worse with certain motions and at nighttime. ROS Current Outpatient Medications Medication Sig Dispense Refill - gabapentin (NEURONTIN) 100 mg capsule Take by mouth. - ARTHRITIS PAIN RELIEF 650 mg CR tablet TAKE TWO TABLETS BY MOUTH EVERY 4 HOURS WHILE AWAKE - DIAZEPAM ORAL diazepam Oral - omeprazole (PRILOSEC) 20 mg capsule Take 20 mg by mouth once daily. - magnesium oxide (MAG-OX) 400 mg (241.3 mg magnesium) tablet Take 1 tablet by mouth once daily. - potassium chloride ER (K-DUR, KLOR-CON) 20 mEq tablet Take 40 mEq by mouth twice daily. - PARoxetine (PAXIL) 40 mg tablet Take 40 mg by mouth once daily. - Multivitamin ORAL Tab Take by mouth. 0 - levothyroxine (SYNTHROID) 75 mcg ORAL Tab Take one(1) tablet daily. 0 - promethazine hcl(PHENERGAN 25 MG TAB) Take one(1) tablet every four(4) to six(6) hours as needed for nausea. (Patient not taking: ) 0 - loratadine (CLARITIN) 10 mg ORAL Tab Take one(1) tablet daily as needed for allergy symptoms. (Patient not taking: ) 0 - atorvastatin (LIPITOR) 20 mg ORAL Tab Take one(1) tablet daily. (Patient not taking: ) 0 - valsartan (DIOVAN) 80 mg ORAL Tab Take one(1) tablet daily. (Patient not taking: ) 0 - eszopiclone (LUNESTA) 2 mg ORAL Tab Take one(1) tablet at bedtime as needed for insomnia. (Patient not taking: No sig reported) 0 No current facility-administere d medications for this visit. ALLERGIES No Known Allergies PAST MEDICAL HISTORY Diagnosis Date - Esophageal reflux - Essential hypertension, benign - Other and unspecified hyperlipidemia - Unspecified hypothyroidism PAST SURGICAL HISTORY Procedure Laterality Date - EYE SURGERY HX - LAP CHOLECYSTECT/CHOLANG IOGRAPHY normal IOC - PAST SURGICAL HISTORY OF removal diverticuli esophagus History reviewed. No pertinent family history. Social History Tobacco Use - Smoking status: Never Smoker - Smokeless tobacco: Never Used Substance Use Topics - Alcohol use: No - Drug use: No Objective There were no vitals taken for this visit. General: Alert and oriented x 3. Geriatric female In no acute distress. Examination of the right upper extremity: Skin intact, good capillary refill and radial pulse. No signs of infection, edema or swelling. Sensation appears intact. moderate tenderness over the proximal humerus Limited active forward elevation and abduction less than 45 degrees. Decreased strength versus resisted internal and external rotation. Internal and external rotation motion has significantly improved. Elbow and wrist remaintain unaffected. Examination of the left upper extremity: Skin intact, good capillary refill and radial pulse. No signs of infection, edema or swelling. Sensation is intact. No significant tenderness over the AC joint, lateral acromion, and biceps. Good active forward elevation and abduction past 140 degrees. Good strength versus resisted internal and external rotation. No signs of instability. negative José's and impingement signs. Diagnostic Studies: Recent Results (from the past 36 hour(s)) XR SHOULDER [id number] AP/TRUE AP RT Impression AP and lateral right shoulder were ordered, obtained, personally interpreted today and demonstrate no significant interval change in fracture position or alignment. Appears to be some early periosteal changes indicating posttraumatic healing. Impression/Recommend ations S42.291D Closed 3-part fracture of proximal end of right humerus with routine healin (more content not included)... Normal [facility] CNOVon 02-06-2021 CNOV Office Visit (ORUPDO) ZENOBIA SORIANO ([id number]) 1940 F Date Time Provider Department 02/06/21 1:00 PM MAXX JEFF During your visit today, we recorded the following information about you: Pulse Blood pressure Weight Height 78/minute 137/84 43.1 kg 1.549 m Juni Jeff PA-C 02/07/2021 5:44 PM Signed Outpatient Orthopaedic Office Visit PCP: Anton Blanchard MD Subjective Chief Complaint: Patient presents with: Right Arm - New, Pain PAIN EVALUATION 02/06/2021 1308 Pain Level: 10 Duration Amount of Time: 2 Duration Units: Weeks Frequency: Continuous Intervention: Medication tramadol, tylenol arthritis HPI: Kena is a pleasant 80-year-old [id number] female who presents today for initial orthopedic evaluation and urgent care follow-up regarding right humerus injury that has been diagnosed as a proximal humerus fracture. Per the report 2 weeks ago she suffered a fall onto the right upper extremity and has had pain and inability to move the right upper extremity. She typically resides in a usp but is now residing at home with her daughter. She presented to urgent care where radiographs reported impacted proximal humerus fracture. She was placed into a sling. She presents today for initial orthopedic evaluation. She denies any numbness or tingling, denies any recent fever or chills. She describes a current pain severity of 10/10 worse with certain motions and at nighttime. Emergency department dictation was personally reviewed today. ROS Current Outpatient Medications Medication Sig Dispense Refill - gabapentin (NEURONTIN) 100 mg capsule Take by mouth. - ARTHRITIS PAIN RELIEF 650 mg CR tablet TAKE TWO TABLETS BY MOUTH EVERY 4 HOURS WHILE AWAKE - DIAZEPAM ORAL diazepam Oral - omeprazole (PRILOSEC) 20 mg capsule Take 20 mg by mouth once daily. - magnesium oxide (MAG-OX) 400 mg (241.3 mg magnesium) tablet Take 1 tablet by mouth once daily. - potassium chloride ER (K-DUR, KLOR-CON) 20 mEq tablet Take 40 mEq by mouth twice daily. - PARoxetine (PAXIL) 40 mg tablet Take 40 mg by mouth once daily. - Multivitamin ORAL Tab Take by mouth. 0 - levothyroxine (SYNTHROID) 75 mcg ORAL Tab Take one(1) tablet daily. 0 - promethazine hcl(PHENERGAN 25 MG TAB) Take one(1) tablet every four(4) to six(6) hours as needed for nausea. (Patient not taking: ) 0 - loratadine (CLARITIN) 10 mg ORAL Tab Take one(1) tablet daily as needed for allergy symptoms. (Patient not taking: ) 0 - atorvastatin (LIPITOR) 20 mg ORAL Tab Take one(1) tablet daily. (Patient not taking: ) 0 - valsartan (DIOVAN) 80 mg ORAL Tab Take one(1) tablet daily. (Patient not taking: ) 0 - eszopiclone (LUNESTA) 2 mg ORAL Tab Take one(1) tablet at bedtime as needed for insomnia. (Patient not taking: No sig reported) 0 No current facility-administere d medications for this visit. ALLERGIES No Known Allergies PAST MEDICAL HISTORY Diagnosis Date - Esophageal reflux - Essential hypertension, benign - Other and unspecified hyperlipidemia - Unspecified hypothyroidism PAST SURGICAL HISTORY Procedure Laterality Date - EYE SURGERY HX - LAP CHOLECYSTECT/CHOLANG IOGRAPHY normal IOC - PAST SURGICAL HISTORY OF removal diverticuli esophagus History reviewed. No pertinent family history. Social History Tobacco Use - Smoking status: Never Smoker - Smokeless tobacco: Never Used Substance Use Topics - Alcohol use: No - Drug use: No Objective BP 137/84 Pulse 78 Ht 5' 1" (1.55m) Wt 95 lb (43.1kg) BMI 17.96 kg/(m2). General: Alert and oriented x 3. Geriatric female In no acute distress. Examination of the right upper extremity: Skin intact, good capillary refill and radial pulse. No signs of infection, edema or swelling. Sensation appears intact. moderate tenderness over the proximal humerus Limited active forward elevation and abduction less than 45 degrees. Decreased strength versus resisted internal and external rotation. Examination of the left upper extremity: Skin intact, good capillary refill and radial pulse. No signs of infection, edema or swelling. Sensation is intact. No significant tenderness over the AC joint, lateral acromion, and biceps. Good active forward elevation and abduction past 140 degrees. Good strength versus resisted internal and external rotation. No signs of instability. negative José's and impingement signs. Diagnostic Studies: Xray images and report were personally reviewed today. XR SHOULDER [id number] AP/TRUE AP RT Result Date: 02/03/2021 FINDINGS:Three part fracture of the surgical neck and greater tubercle right humerus is observed with mild angulation. There is marked demineralization of the skeleton. The acromioclavicular joint is normal. The included thoracic structures are normal. IMPRESSION: Thre (more content not included)... Normal [facility] CNOVon 02-03-2021 CNOV Office Visit (UCUPNO) ZENOBIA SORIANO ([id number]) 1940 F Date Time Provider Department 02/03/21 10:50 AM RENETTA CUNNINGHAM During your visit today, we recorded the following information about you: Temperature Pulse Respiration Blood pressure 98.4 degrees 67/minute 16/minute 154/94 Weight 43.1 kg Renetta Cunningham, AILYN.ASSOCIATE PROPERTY MANAGER 02/03/2021 3:38 PM Addendum February 03, 2021 Subjective Chief Complaint: Arm Pain (right humerus pain after a fall 2 weeks ago when her shoe got caught and she fell forward ont her right arm.) HPI: Zenobia Soriano is a 80 year old female who presents today for right upper arm/shoulder pain that she sustained from a fall 2 weeks ago. Patient arrives with daughter. Daughter states patient caught her shoe and fell forward onto vinyl kacie and injured her right arm/shoulder. Denies hitting her head or any loss of consciousness. Daughter did have to assist patient in getting up after fall. Patient has bruising, pain, and decreased range of motion to right arm since injury. Right hand dominant. Has been taking her prescribed Tylenol Arthertis as well as over the counter Ibuprofen. Daughter states it seems to "take the edge off". Patient states she has constant pain in right shoulder and upper arm. Denies any numbness or tingling. Arrives with arm sling. Reports she cannot raise her arm up because of right shoulder pain. PAST MEDICAL HISTORY Diagnosis Date - Esophageal reflux - Essential hypertension, benign - Other and unspecified hyperlipidemia - Unspecified hypothyroidism PAST SURGICAL HISTORY Procedure Laterality Date - EYE SURGERY HX - LAP CHOLECYSTECT/CHOLANG IOGRAPHY normal IOC - PAST SURGICAL HISTORY OF removal diverticuli esophagus No family history on file. Social History Tobacco Use - Smoking status: Never Smoker - Smokeless tobacco: Never Used Substance Use Topics - Alcohol use: No - Drug use: No ALLERGIES No Known Allergies There is no immunization history on file for this patient. Current Medications: DIAZEPAM ORAL diazepam Oral omeprazole (PRILOSEC) 20 mg capsule Take 20 mg by mouth once daily. magnesium oxide (MAG-OX) 400 mg (241.3 mg magnesium) tablet Take 1 tablet by mouth once daily. potassium chloride ER (K-DUR, KLOR-CON) 20 mEq tablet Take 40 mEq by mouth twice daily. PARoxetine (PAXIL) 40 mg tablet Take 40 mg by mouth once daily. promethazine hcl(PHENERGAN 25 MG TAB) Take one(1) tablet every four(4) to six(6) hours as needed for nausea. Multivitamin ORAL Tab Take one(1) tablet daily. levothyroxine (SYNTHROID) 75 mcg ORAL Tab Take one(1) tablet daily. hydrocodone bit/acetaminophen( CODIN 5 MG-500 MG TAB) Take 1-2 tablet's) every six(6) hours as needed for pain. loratadine (CLARITIN) 10 mg ORAL Tab Take one(1) tablet daily as needed for allergy symptoms. atorvastatin (LIPITOR) 20 mg ORAL Tab Take one(1) tablet daily. valsartan (DIOVAN) 80 mg ORAL Tab Take one(1) tablet daily. eszopiclone (LUNESTA) 2 mg ORAL Tab Take one(1) tablet at bedtime as needed for insomnia. Review of Systems Constitutional: Negative for chills, fever and malaise/fatigue. Respiratory: Negative for shortness of breath. Cardiovascular: Negative for chest pain. Musculoskeletal: Positive for falls and joint pain (right shoulder, elbow). Skin: Bruising right arm Neurological: Negative for dizziness, tingling, sensory change, speech change, loss of consciousness and headaches. Objective BP 154/94 Pulse 67 Temp 98.4 Resp 16 Wt 95 lb (43.1kg) SpO2 97% Physical Exam Vitals reviewed. Constitutional: General: She is not in acute distress. Appearance: Normal appearance. She is not ill-appearing, toxic-appearing or diaphoretic. HENT: Head: Normocephalic and atraumatic. Cardiovascular: Pulses: Radial pulses are 2+ on the right side. Musculoskeletal: Right shoulder: Tenderness present. No swelling, deformity, laceration or crepitus. Decreased range of motion. Normal pulse. Right upper arm: Tenderness present. No swelling, deformity or lacerations. Right elbow: Swelling (trace) present. No deformity or lacerations. Decreased range of motion. Tenderness present. Right forearm: No swelling, edema or deformity. Right wrist: No swelling, tenderness or snuff box tenderness. Normal range of motion. Skin: General: Skin is warm and dry. Capillary Refill: Capillary refill takes less than 2 seconds. Findings: Ecchymosis and signs of injury present. Neurological: Mental Status: She is alert and oriented to person, place, and time. Sensory: Sensation is intact. Psychiatric: Mood and Affect: Mood normal. Behavior: Behavior normal. Thought Content: Thought content normal. Judgment: Judgment normal. Called [facility]. Centerless Grinder Set Up Operator stated she discussed patient with EDMUND Alfredo. Centerless Grinder Set Up Operator stated t (more content not included)... Normal [facility] FC HUMERUSon 02-03-2021 FC HUMERUS [place] [id number] Name: ZENOBIA SORIANO Phys: PRIETO CUNNINGHAM : [birth year] Age: 80 Sex: F Acct: [id number] Loc: [id number] Exam Date: 02/03/21 Status: REG POV Radiology No.: Unit Number: [id number] Exam # Type/Exam [id number] [facility] / FC HUMERUS RT XR FC HUMERUS RIGHT CLINICAL STATEMENT: Pain following fall several weeks ago. COMPARISON: None FINDINGS: Impacted acute fracture of the surgical neck right humerus observed. There is mild angulation. No subluxation of the glenohumeral articulation is seen. The remaining diaphysis and distal humerus show diffuse demineralization but are otherwise intact. IMPRESSION: 1. Impacted acute fracture surgical neck right humerus. 2. IMPORTANT. PHYSICIAN INPUT NECESSARY SANGEETA. Electronically signed by: Jay Malloy DO 02/03/2021 11:29 AM CDT < > Reported By: JAY MALLOY D.O. Signed In PowerScribe By: JAY MALLOY D.O. << Signature on File>> Reported By: JAY MALLOY D.O. Signed By: JAY MALLOY D.O. Tests performed at: [address] [address] [facility] FC SHOULDER MIN 2 VIEWon FC SHOULDER MIN [address] [address] Name: ZENOBIA SORIANO Phys: OCTAVIOPRIETO Mccloud : 41 Age: 80 Sex: F Acct: [id number] Loc: [id number] Exam Date: 02/03/21 Status: REG POV Radiology No.: Unit Number: [id number] Exam # Type/Exam [id number] [facility] / FC SHOULDER MIN 2 VIEW RT XR FC SHOULDER MIN 2 VIEW RIGHT CLINICAL STATEMENT: Pain following fall several weeks ago. COMPARISON: None FINDINGS:Three part fracture of the surgical neck and greater tubercle right humerus is observed with mild angulation. There is marked demineralization of the skeleton. The acromioclavicular joint is normal. The included thoracic structures are normal. IMPRESSION: Three-part impacted and mildly angulated fracture of the surgical neck and greater tubercle right humerus. Electronically signed by: Jay Malloy DO 02/03/2021 11:31 AM CDT < > Reported By: JAY MALLOY D.O. Signed In PowerScribe By: JAY MALLOY D.O. << Signature on File>> Reported By: JAY MALLOY D.O. Signed By: JAY MALLOY D.O. Tests performed at: [address] [address] [facility] Vital Signs Date Time Vital Sign Value Performing Clinician Yvonne silva 04-02-2025 13:31-0400 Body height 142.[address] Evelyn Shabazz MD Work Phone: [facility] 04-02-2025 13:31-0400 Body mass index (BMI) [Ratio] 20.5 kg/m2 Dr. Evelyn Shabazz MD Work Phone: [facility] 04-02-2025 13:31-0400 Body weight 41.[address] Evelyn Shabazz MD Work Phone: [facility] 04-02-2025 13:31-0400 Diastolic blood pressure 96 mm[Hg] Dr. Evelyn Shabazz MD Work Phone: [facility] 04-02-2025 13:31-0400 Heart rate 65 /min Dr. Evelyn Shabazz MD Work Phone: [facility] 04-02-2025 13:31-0400 Systolic blood pressure 155 mm[Hg] Dr. Evelyn Shabazz MD Work Phone: [facility] 07-04-2023 17:17-0500 Diastolic blood pressure 61 mm[Hg] Dr. Anton Blanchard Work Phone: [facility] 07-04-2023 17:17-0500 Heart rate 68 /min Dr. Anton Blanchard Work Phone: [facility] 07-04-2023 17:17-0500 Respiratory rate 16 /min Dr. Anton Blanchard Work Phone: [facility] 07-04-2023 17:17-0500 SaO2% (BldA) [Mass fraction] 98 % Dr. Anton Blanchard Work Phone: [facility] 07-04-2023 17:17-0500 Systolic blood pressure 152 mm[Hg] Dr. Anton Blanchard Work Phone: [facility] 07-04-2023 14:35-0500 Body height [address] Anton Blanchard Work Phone: [facility] 07-04-2023 14:35-0500 Body mass index (BMI) [Ratio] 14.6 kg/m2 Dr. Anton Blanchard Work Phone: [facility] 07-04-2023 14:35-0500 Body temperature 96.8 [degF] Dr. Anton Blanchard Work Phone: [facility] 07-04-2023 14:35-0500 Body weight 43.[address] Anton Blanchard Work Phone: [facility] 04-12-2023 11:16-0400 SaO2% (BldA) [Mass fraction] 95 % Dr. Anton Blanchard Work Phone: [facility] 04-12-2023 11:15-0400 Body temperature 98.3 [degF] Dr. Anton Blanchard Work Phone: [facility] 04-12-2023 11:15-0400 Diastolic blood pressure 59 mm[Hg] Dr. Anton Blanchard Work Phone: [facility] 04-12-2023 11:15-0400 Heart rate 53 /min Dr. Anton Blanchard Work Phone: [facility] 04-12-2023 11:15-0400 Respiratory rate 17 /min Dr. Anton Blanchard Work Phone: [facility] 04-12-2023 11:15-0400 Systolic blood pressure 106 mm[Hg] Dr. Anton Blanchard Work Phone: [facility] 04-11-2023 17:02-0400 Inhaled oxygen flow rate 1 L/min Dr. Anton Blanchard Work Phone: [facility] 04-11-2023 10:33-0400 Body height 172.[address] Anton Blanchard Work Phone: [facility] 04-11-2023 10:33-0400 Body weight 41.[address] Anton Blanchard Work Phone: [facility] 04-10-2023 17:20-0400 Body mass index (BMI) [Ratio] 14.1 kg/m2 Dr. Anton Blanchard Work Phone: [facility] Encounters Encounter Date Encounter Type Care Provider Facility Start: 04-02-2025 End: 04-02-2025 ambulatory Evelyn Shabazz -[facility] Start: 04-02-2025 End: 04-02-[address] Evelyn Shabazz MD -[facility] Work Phone: Start: 02-23-2025 Non-patient / Non-visit Dr. Evelyn santana MD -[facility] Work Phone: Start: 10-16-2023 End: 10-17-2023 Emergency department patient visit ONDINA OLIVAREZ MD Facility:B Start: 08-08-2023 End: 08-09-2023 Emergency department patient visit PASCUAL JAROCHORAE DOVE Facility:[facility] Start: 07-04-2023 End: 07-04-2023 Emergency department patient visit Dr. Anton Blanchard Work Phone: [facility]Emergency [facility] Work Phone: Start: 06-20-2023 End: 06-20-[address] Anton Blanchard Work Phone: [facility] Work Phone: Start: 05-20-2023 End: 05-20-2023 Emergency department patient visit DR VANESSA BLANCHARD MD Facility:[facility] Start: 05-14-2023 End: 05-15-2023 Emergency department patient visit DR VANESSA BLANCHARD MD Facility:[facility] Start: 05-09-[address] VANESSA BLANCHARD MD Faci lity:B Start: 05-08-2023 End: 05-09-2023 Emergency department patient visit DR VANESSA BLANCHARD MD Facility:[facility] Start: 05-07-2023 End: 05-08-2023 Emergency department patient visit DR VANESSA BLANCHARD MD Facility:[facility] Start: 04-12-2023 Non-patient / Non-visit Dr. Enoch Blanchard Work Phone: [facility] Work Phone: Start: 04-11-2023 Non-patient / Non-visit Dr. Enoch Blanchard Work Phone: [facility] Work Phone: Start: 04-10-2023 Non-patient / Non-visit Dr. Enoch Blanchard Work Phone: [facility] Work Phone: Start: 04-10-2023 End: 04-12-2023 Evaluation and management of inpatient Dr. Anton Blanchard Work Phone: [facility]-Medical Surgical 3 Work Phone: Start: 02-14-2023 End: 02-14-[address] Anton Blanchard Work Phone: [facility]-Radiology, [facility] Work Phone: Procedures Date Procedure Procedure Detail Performing Clinician Start: 07-04-2023 Plain X-ray of shoulder Dr. Anton Blanchard Work Phone: Start: 06-20-2023 Plain X-ray of shoulder Dr. Anton Blanchard Work Phone: Start: 04-11-[address] Anton Blanchard Work Phone: Start: 04-10-2023 Bacteria identified in Blood by Culture Dr. Anton Blanchard Work Phone: Start: 04-10-[address] Anton ryan Work Phone: Start: 04-10-[address] Anton Blanchard Work Phone: Start: 04-10-2023 Plain chest X-ray Dr. Rebekah Blanchard Work Phone: Start: 02-14-2023 Plain x-ray of pelvi s and lower extremity Dr. Anton Blanchard Work Phone: Start: 02-14-2023 X-ray of lumbar spin e, two or three views Dr. Anton Blanchard Work Phone: Plan of Treatment Date Care Activity Detail Author Start: 07-04-2023 [facility] Start: 04-18-2023 [facility] Start: 04-17-2023 [facility] Start: 04-16-2023 [facility] Start: 04-15-2023 [facility] Start: 04-14-2023 [facility] Start: 04-13-2023 [facility] Start: 04-12-2023 Patient discharge [facility] Start: 04-11-2023 Consultation [facility] Start: 04-10-2023 Assessment of risk o f venous thromboembolism [facility] Start: 04-10-2023 Insertion of cathete r into peripheral vein [facility] Start: 04-10-2023 Oxygen therapy [facility] Start: 04[facility]10[facility] Start: 04-10-2023 Providing care accor ding to standard [facility] Start: 04-10-2023 Provision of activit y privileges [facility] Start: 04-10-2023 Referral to occupati onal therapist [facility] Start: 04-10-2023 Referral to service [facility] Start: 04-10-2023 [facility] Start: 04-10-2023 Following clinical p athway protocol [facility] Start: 04-10-2023 Transfusion of blood product [facility] Start: 04-10-2023 Admission procedure [facility] Start: 04-10-2023 Bacteria identified in Blood by Culture Blood Culture [facility] Start: 04-10-2023 End: 04-10-2023 Blood culture [facility] Start: 04-10-2023 Patient referral to [facility] Patient Education ED Fracture, Shoulder [facility] Work Phone: Patient referral [facility] Work Phone: Immunizations Immunization Date Immunization Notes Care Provider Fa ciligregg 05-26-[address] Anton Blanchard Work Phone: [facility] 09-12-2017 tetanus toxoid, redu noah diphtheria toxoid, and acellular pertussis vaccine, adsorbed Dr. Anton Blanchard Work Phone: [facility] Payers Date Payer Category Payer Self-pay [id number] 2025 Unknown [id number] 2023 Unknown [id number] [facility] [id number] 2023 Unknown [id number] 2006 Medicare [id number] 2006 Unknown [id number] 1940 Unknown [id number] 2.16.8 [id number] 1940 Unknown [id number] 2.16.8 [id number] 1940 Unknown [id number] 2.16.8 [id number] 1940 Unknown [id number] 2.16.8 [id number] 1940 Unknown [id number] 2.16.8 [id number] 1940 Unknown [id number] 2.16.8 [id number] 1940 Unknown [id number] 2.16.8 [id number] Unknown [id number] Social History Date Type Detail Facility Start: 04-10-2023 End: 07-04-2023 Tobacco smoking status CTIS Unknown if ever smoked [facility] Start: 09-13-2019 None [facility] Start: 04-20-2021 Alone [facility] Start: 04-20-2021 Cigarettes [facility] Start: 1940 Sex Assigned At Female [facility] Start: 03-24-2025 Tobacco smoking stat us NHIS Smokes tobacco daily (finding) [facility] Goals Date Patient Goal Desired Activity /State Functional Status Date Assessment Result Facility 04-12-2023 Functional status Bedside Commode [facility] Work Phone: Mental Status Date Assessment Result Facility 04-12-2023 Cognitive function Voice/Name [facility] Work Phone: 04-11-2023 Cognitive function Appropriate;Cooperabbiev brittny [facility] Work Phone: Clinical Notes 02-03-2021 to 04-02-2025 Note Date & Type Note Facility 04-02-2025 Progress note [facility] 04-02-2025 Progress note Note Date/Time April 02, 2025 1:44pm [facility] [address] [facility] [place], [address] [place] [address] OFFICE VISIT Date of Service: 04/02/25 MR#: [id number] Acct: [id number] Name: ZENOBIA SORIANO Rep #: [id number] : 1940 Provider: Dr. Enid Shabazz MD Age/Sex: 84/F [place] [facility] [place]: Signed Intake Vital Signs 07/05/23 11:28 04/02/25 13:31 Height 4 ft 8 in 4 ft 8 in Weight: 91 lb 6 oz BMI 20.5 BP 155/96 H Pulse 65 Intake Visit Reasons: 12MO MED F/U Chief Complaint: 12 months Gemtesa follow-up Dealer Account Manager Required: No Accompanied by: Daughter Is patient in pain?: No Allergies No Known Allergies Allergy (Verified 04/02/25 13:16) Medications ?Medication ?Instructions ?Recorded ?Confirmed ?Type potassium chloride 20 mEq 40 meq PO BID potassium supp lement 08/10/15 04/02/25 History tablet,extended release(part/cryst) (Klor-Con M) multivitamin with folic acid 400 1 tab PO DAILY SUPPLE MENT 09/13/19 04/02/25 History mcg tablet polyethylene glycol 3350 17 gram 17 g PO BID CONSTIPAT ION 09/13/19 04/02/25 History oral powder packet acetaminophen 650 mg 1,300 mg PO Q8H PRN fever or pain 04/10/23 04/02/25 History tablet,extended release Held on 04/12/23. Instructions: Hold for 7-day until LFTs and follow with PCP before resuming cetirizine 10 mg tablet 10 mg PO QHS 04/10/23 History fluticasone propionate 50 1 spray intranasal QHS ALLER GIES 04/10/23 04/02/25 History mcg/actuation nasal spray,suspension levothyroxine 100 mcg tablet 100 mcg PO DAILY 04/10/23 04/02/25 History losartan 50 mg tablet 50 mg PO BID BP 04/10/2304/19 History magnesium oxide 400 mg PO DAILY 04/10/2304/19 History melatonin 3 mg tablet 6 mg PO QHS 04/10/23 5 History diazepam 10 mg tablet 5 mg (1/2 x 10 mg) PO DAILY 04/12/23 04/02/25 Rx ANXIETY 30 days #0 tabs metoprolol succinate 25 mg 25 mg PO DAILYCM 30 days #3 0 tabs 04/12/23 04/02/25 Rx tablet,extended release 24 hr paroxetine HCl 40 mg tablet 20 mg (1/2 x 40 mg) PO ELENA LY 30 04/12/23 04/02/25 Rx days #0 tabs boric acid 600 mg vaginal mg vaginal 04/02/25 04/02/25 History suppository calcium carbonate (Calcium 500) 500 mg PO QDAY 5 04/02/25 History guaifenesin 400 mg tablet (Mucus 400 mg PO Q4H 5 04/02/25 History Relief) ibuprofen 200 mg capsule 200 mg PO Q6H PRN 04/02/25 0 04/02/25 History ondansetron HCl 4 mg tablet mg PO 04/02/25 04/02/25 Hi story pantoprazole 40 mg tablet,delayed 40 mg PO QDAY 04/02/25 History release vibegron 75 mg tablet (Gemtesa) 75 mg PO QDAY 04/02/25 04/02/25 History Have you fallen in the past year?: No Nurse's Note: Bladder scan pvr 3CC. [facility] Medical History Menieres disease Paraplegia Emphysema lung SOB (shortness of breath) on exertion Otitis Somnolence Osteoarthritis Psychophysiological insomnia Muscle weakness Vitamin D deficiency Constipation Polyneuropathy Hypertensive chronic kidney disease Dysphagia Closed fracture of left proximal humerus Transaminitis Hypothyroidism Arthritis Kidney stones Smoker COVID-19 Surgical History Previous back surgery H/O wrist surgery H/O knee surgery H/O shoulder surgery History of cholecystectomy Family History Other Colon cancer Ovarian cancer Social History housing: assisted living facility Smoking Status: Current every day smoker tobacco type: cigarettes alcohol intake: never substance use type: does not use what type of physical activity do you participate in: none do you feel safe at home: Yes HPI HPI Urology Chief Complaint: 12 months Gemtesa follow-up Details: ZENOBIA SORIANO, is a 84 F. She is here for medication follow up. She has been taking Gemtesa 75 mg daily. She is not having side effects from the medication. She is now voiding about 6 times during the day, and 2 times at night. No incontinence. She would like to continue with this medication. She has not had any urinary tract infections since the last visit. She has not had any blood in the urine since the last visit. She has no new urologic concerns to discuss today. She has not needed to use the boric acid suppositories. ROS Const Constitutional: No chills, fatigue, fever(s), headache(s), night sweats, weakness, weight change, abnormal sleep pattern or change in appetite Eyes Eyes: No change in vision ENT ENT: No headache(s) or dry mouth Resp Respiratory: No cough, chest congestion, shortness of breath or wheezing Cardio Cardiology: Positive for other (No chest pain.); No shortness of breath, irregular heart rhythm or lightheadedness Gastro GI: Positive for other (No nausea.); No abdominal pain, change in bowel habits, constipation, diarrhea or vomiting Musc Musculoskeletal: No abnormal gait Skin Skin: No yellowing of the eye, lesions, itchy eyes, rash or skin ulcer Neuro Neurology: No abnormal gait, confusion, dizziness, weakness, headache(s) or memory loss Psych Psychiatric: No abnormal sleep pattern, No change in appetite, No confusion and No memory loss Endo Endocrine: No fatigue, increased thirst/drinking or weight change Aller/Imm Allergy/Immunologic: No itchy eyes or wheezing Chandan/Lymp Hematologic/Lymphatic: No easy bleeding, easy bruising or enlarged lymph nodes Exam Const General: cooperative, healthy appearing, comfortable and no acute distress [facility] Head: normocephalic and atraumatic Ears: hearing grossly normal bilaterally and external ears normal Nose: external nose normal Eyes General: appearance normal, both eyes and all related structures Neck Neck: normal visual inspection and trachea midline Chest Chest palpation & inspection: normal inspection of the chest Resp Effort & Inspection: normal respiratory effort, able to speak in complete sentences and symmetric chest movement Cardio Rate: regular rate GI Inspection: normal to inspection Palpation: soft and nontender General: No CVA tenderness Musc Other: Walking with a wheeled walker Skin General: no rashes or lesions noted Neuro General: patient alert, patient awake, patient oriented x3 and CN's II-XI intactbilaterally Extrem General: normal to inspection Psych Appearance: grossly normal and well kempt Mental Status: mental status grossly normal Office Procedures Post Void Residual Post Void Residual: 3cc Results POC UA Auto w/o Microscopy Office Urine Color Last Edit by Catherine Valle on 04/02/25 13:35 Office Urine Clarity Last Edit by Catherine Valle on 04/02/25 13:35 Office Urine Glucose Negative Last Edit by Catherine Valle on 04/02/25 13:3 5 Office Urine Ketones Negative Last Edit by Catherine Valle on 04/02/25 13:3 5 Office Urine Bilirubin Negative Last Edit by Catherine Valle on 04/02/25 13 :35 Office Urine Urobilinogen Negative Last Edit by Catherine Valle on 04/02/25 13:35 Off Ur Spec [place] 1.020 Last Edit by Catherine Valle on 04/02/25 13:35 Office Urine pH 5 Last Edit by Catherine Valle on 04/02/25 13:35 Office Urine Protein Negative Last Edit by Catherine Valle on 04/02/25 13:3 5 Office Urine Blood Moderate Last Edit by Catherine Valle on 04/02/25 13:35 Office Urine Blood Hemolyzed Negative Last Edit by Catherine Valle on 04/02 13:35 Office Urine Nitrate Negative Last Edit by Catherine Valle on 04/02/25 13:3 5 Off Ur Leukocytes Positive Last Edit by Catherine Valle on 04/02/25 13:35 Supplemental Info microscopic UA done, 0-2 RBC, 0-2 WBC, few bacteria, few vaginal epithelial cells Coding Level of Care Code Off vis,est,level 4 Diagnoses Overactive bladder N32.81 Mixed incontinence N39.46 Nocturnal enuresis N39.44 Constipation K59.00 Assessment and Plan Assessment and Plan (1) Overactive bladder: Status: Acute (2) Mixed incontinence: Status: Acute (3) Nocturnal enuresis: Status: Acute (4) Constipation: Status: Acute Orders: Orders POC UA Auto w/o Microscopy Today N32.81 - Overactive bladder PVR Today N39.46 - Mixed incontinence Patient Instructions: Continue level 1 management Continue Gemtesa 75 mg, written Rx on [facility] order sheet Continue vaginal boric acid suppositories as needed Plan Details Follow Up: 12 Months (med f/u) Clinical Quality Measures Falls Risk Screening/Assistive Devices Have you fallen in the past year?: No 04/02/25 3024 <Electronically signed by Evelyn Shabazz MD> Date _ Evelyn Shabazz MD Cosigner Signature: Date (if applicable) CC: ~ [facility] Work Phone: 1(969) 890-935008-01-2025 Evaluation note* Diagnosis Onset Date Resolution Status Admit Date Constipation acute April 02, 2025 1:16pm Mixed incontinence acute April 02, 2025 1:16pm Nocturnal enuresis acute April 02, 2025 1:16pm Overactive bladder acute April 02, 2025 1:16pm [facility] Work Phone: 1(811) 595-196909-22-2023 Note. MICRO - Microbiology PROCEDURE: Urine Culture [*1] SOURCE: Urine BODY SITE: COLLECTED DATE/TIME: 05/14/2023 21:56 EDT RECEIVED DATE/TIME: 05/15/2023 15:37 EDT START DATE/TIME: 05/15/2023 15:37 EDT FREE TEXT SOURCE: FINAL REPORTS Final Report [] Verified Date/Time/Personnel: 05/17/2023 09:01 EDT 10,000 - 50,000 cfu/ml Vanessa albicans Contact Microbiology within 72 hours if further identification is indicated ([id number]). [place] counts from a single urine are equivocal in determining infection vs. colonization of yeast. Multiple cultures at least 24 hours apart may be helpful in differentiating colonization from infection. PRELIMINARY REPORTS Preliminary Report [] Verified Date/Time/Personnel: 05/16/2023 10:10 EDT No growth to date Performing Locations *1: This test was performed at: [address], [address] [place], [place] 7883205-10-2023 Note. MICRO - Microbiology PROCEDURE: Urine Culture [*1] SOURCE: Urine, Straight BODY SITE: Catherized COLLECTED DATE/TIME: 05/07/2023 22:15 EDT RECEIVED DATE/TIME: 05/08/2023 14:01 EDT START DATE/TIME: 05/08/2023 14:01 EDT FREE TEXT SOURCE: FINAL REPORTS Final Report [] Verified Date/Time/Personnel: 05/10/2023 13:43 EDT >100,000 cfu/ml Escherichia coli 50,000 - 100,000 cfu/ml Escherichia coli #2 >100,000 cfu/ml Multiple bacterial morphotypes present. Probable Contamination. Suggest recollection if clinically indicated. PRELIMINARY REPORTS Preliminary Report [] Verified Date/Time/Personnel: 05/09/2023 08:47 EDT Culture results pending. Performing Locations *1: This test was performed at: [address], [address] [place] [address] ([place])04-12-2023 Discharge summary Author Saji [facility] April 12, 2023 10:36am Note Date/Time April 12, 2023 10 :34am [facility] Medical Records Department [address] [place] [address] Discharge Summary 04/12/23 1031 MR#: [id number] Acct: [id number] Name: ZENOBIA SORIANO Rep #:[id number] : 1940 82 From: Saji Chance PCP: Dr. Anton Blanchard MD Status:ADM I N [id number] Providers Date of Admission: 04/10/23 Date of Discharge: 04/12/23 Primary Care Physician: Dr. Anton Blanchard MD Consultations 04/11/23 07:45 Consult: Infectious Disease Routine Consulting Provider: Bandra Stephens Reason for Consult: covid 19, hypoxia, time of onset unclear EMERGENT Consult: No MD Notified: Yes Date Notified: 04/11/23 Time Notified: 07:45 Method of Notification: Text Reason For Visit: COVID 19 Diagnosis Discharge Diagnosis (1) COVID-19: Status: Acute Code(s): U07.1 - COVID-19 Plan: Unclear time of onset, may have been a day ago or 6 days ago. Patient was positive for COVID-19 at the facility but also positive here today. Acute liver injury, most likely drug-induced liver injury from remdesivir. The patient was started on dexamethasone and remdesivir. Liver chemistry shows increasing ALT and AST about 4000 therefore remdesivir discontinued. ID consulted. I talked to ID consulted. I talked to patient's daughter and gave the update. Overall patient feels good. Paroxetine and diazepam also discontinued due to acute liver injury. ID consulted. Inflammatory markers elevated UA RBC 10-25 cells. Leukopenia WBC 2.6 thousand. Lymphopenia, ANC 0.25 thousand and ANC 1.8 thousand. Monitor liver chemistry every day. 04/12: Liver chemistry improving. AST improved from 3572-9793 and ALT about 3700- 2500. Alkaline phosphatase also improving. Total bili normal. INR baseline 1.0. Today 1.2 mild increase. Patient advised to take half dose of diazepam 5 mg daily and paroxetine 20 mg until liver function completely returnsto normal. Advised liver chemistry in 1 week RUQ ultrasound shows liver 14.5 cm with normal echogenicity and echotexture. Nofocal lesions. No intrahepatic biliary duct dilatation. CBD measures limited to most likely postcholecystectomy changes. Gallbladder surgically absent Clinical Impression(s) from Imaging Studies Chest X-Ray 04/10/23 12:48 IMPRESSION: No acute abnormality is seen. Abdomen Ultrasound 04/11/23 09:17 IMPRESSION: 1. Simple appearing right renal cysts. 2. Partial nonvisualization pancreatic head and tail due to overlying bowel gas. (2) Hypoxia: Status: Acute Code(s): R09.02 - Hypoxemia Plan: Suspect due to COVID-19. Chest x-ray personally reviewed and showed no acute process Wean oxygen as tolerated. 04/12 hypoxia has resolved. Plan Chronic conditions * Anxiety and depression: Continue with SSRI. Mentioned as above * Hypothyroidism continue with levothyroxine * Hypertension: Continue with metoprolol succinate with hold parameters for a systolic blood pressure less than 110 or heart rate less than 60 VTE prophylaxis: Low molecular weight heparin Medications at Discharge Home Medications potassium chloride 20 mEq tablet,extended release(part/cryst) (Klor-Con M) 40 meq PO BID potassium supplement 08/10/15 gabapentin 100 mg capsule 200 mg PO TID RESTLESS LEG 09/13/19 multivitamin with folic acid 400 mcg tablet 1 tab PO DAILY SUPPLEMENT 09/13/19 polyethylene glycol 3350 17 gram oral powder packet 17 gm PO BID CONSTIPATION 09/13/19 acetaminophen 650 mg tablet,extended release 1,300 mg PO Q8H PRN fever or pain 04/10/23 cetirizine 10 mg tablet 10 mg PO QHS 04/10/23 fluticasone propionate 50 mcg/actuation nasal spray,suspension 1 spray intranasal QHS ALLERGIES 04/10/23 levothyroxine 100 mcg tablet 100 mcg PO DAILY 04/10/23 loratadine 10 mg tablet 10 mg PO DAILY ALLERGIES 04/10/23 losartan 50 mg tablet 50 mg PO BID BP 04/10/23 magnesium oxide 400 mg PO DAILY 04/10/23 melatonin 3 mg tablet 6 mg PO QHS 04/10/23 omeprazole 20 mg capsule,delayed release 20 mg PO DAILY GERD 04/10/23 dexamethasone 6 mg tablet 6 mg PO DAILY 7 days #7 tabs 04/12/23 diazepam 10 mg tablet 5 mg (1/2 x 10 mg) PO DAILY ANXIETY 30 days #0 tabs 04/12/23 metoprolol succinate 25 mg tablet,extended release 24 hr 25 mg PO DAILYCM 30 days #30 tabs 04/12/23 paroxetine HCl 40 mg tablet 20 mg (1/2 x 40 mg) PO DAILY 30 days #0 tabs 04/12/23 Physical Exam Narrative Seen and examined. Denies shortness of breath, cough. Patient was admitted with 6 days of diarrhea. Unclear about the onset of the symptoms. Patient is unvaccinated. LFT getting better. Hypoxia has resolved. Physical exam General: Alert, Oriented x3, Cooperative HEENT: Hard of hearing. Atraumatic, PERRLA, EOMI, Normocephalic Oral: No Gingival or Mucosal Lesions/ Ulcerations Neck: Supple, No JVD, Negative Carotid Bruits Lungs: Air entry diminished in bilateral lung bases. No crepitation/rhonchi. Hypoxia resolved. Cardiovascular: Regular rate, Regular Rhythm, Normal S1, Normal S2, No murmurs Abdomen: Bowel Sounds Present, Soft, Non Tender, Non-Distended. Liver not enlarged. : No renal angle tenderness. No suprapubic tenderness. Extremities: No edema, Capillary Refill Less than 3 Seconds Skin: No rashes, No breakdown Musculoskeletal: No Tenderness to Palpation of Joints or Extremities. Degenerative arthritis and slight limited range of motion. Neurological: Cranial nerves II-XII grossly intact, DTR 2+/4. No acute focal neurological deficit. Psych/Mental Status: Flat affect, amnesia. Probably dementia Weight / BMI Weight Weight: 92 lb 9 oz Body Mass Index (BMI) 14.1 ABG / Lab / Microbiology Data 04/12/23 05:20 04/12/23 05:20 Laboratory: Laboratory Results - last 24 hr 04/11/23 06:40: Diff Path Review Reviewed 04/11/23 09:27: Diff Path Review Reviewed 04/12/23 05:20: WBC 6.6, RBC 4.84, Hgb 14.7, Hct 45.1, MCV 93.2, MCH 30.4, MCHC 32.6, RDW Std Deviation 47.8 H, RDW Coeff of Olivia 13.9, Plt Count 62 L, MPV 11.5,Immature Gran % (Auto) 0.900, Neut % (Auto) 67.0, Lymph % (Auto) 7.0 L, Kings % (Auto) 22.7 H, Eos % (Auto) 2.1, Baso % (Auto) 0.3, Absolute Neuts (auto) 4.4, Absolute Lymphs (auto) 0.46 L, Nucleated RBC % 0, Differential Comment SCANNED, Reactive Lymphocytes 1+, Platelet Estimate MOD DEC, Sodium 140, Potassium 4.3, Chloride 107, Carbon Dioxide 26.0, Anion Gap 7, BUN 19 H, Creatinine 0.66, EstimCreat Clear Calc 29.24, Est GFR (MDRD) Af Amer 110, Est GFR (MDRD) Non-Af 91, BUN/Creatinine Ratio 28.7 H, Glucose 110 H, Calcium 9.6, Total Bilirubin 0.70, AST 1738 H, ALT 2592 H, Alkaline Phosphatase 471 H, Total Protein 6.8, Albumin 3.7, Globulin 3.1, Albumin/Globulin Ratio 1.2 04/12/23 08:30: PT 15.1 H, INR 1.2 Microbiology: Microbiology 04/10/23 12:26 Blood Culture (Wb) - Anticubital Left Blood Culture - Preliminary No growth in 48 hours. 04/10/23 12:05 Blood Culture (Wb) - Left Forearm Blood Culture - Preliminary No growth in 48 hours. 04/10/23 13:00 Urine Catheter - Catheter Urine Culture - Final Culture exhibits no growth. 04/10/23 13:00 Nasal Secretion SARS-CoV-2 Antigen (Rapid) - Final SARS-CoV-2 (COVID 19) Radiography Diagnostic Testing: Radiology Impression Abdomen Ultrasound 04/11/23 09:17 IMPRESSION: 1. Simple appearing right renal cysts. 2. Partial nonvisualization pancreatic head and tail due to overlying bowel gas. Electronically Signed: Lane Nair MD at 0:52 EDT , D/C Instructions Discharge Diet: No restrictions Weight Bearing Status: Weight bearing as tolerated Call your doctor if you observe: Fever of 101 or Higher, Coldness, Increased Pain, Numbness or Tingling, Change in Color, Inability to urinate, Inability to have a bowel movement, Using more than 1 pad per hour, Shortness of breath, Dizziness, Fainting spells, Swelling in the ankles, Chest pain, Prolonged hiccupping, Increased palpitations (irregular heartbeat) and Calf discomfort When: IN 2 WEEKS Meaningful Use Info Meaningful Use Diagnoses (Choose all that apply): None applicable Discharge Plan Admission Admit Date/Time: 04/10/23 14:44 Primary Reason for Your Visit: COVID-19 infection with hypoxia. Acute liver injury Attending Provider: Saji Ruiz Primary Care Provider: Anton Blanchard Chi Consulting Providers: Remy Shell; Bandar Stephens Instructions Additional Instructions / Restrictions: Liver chemistry/LFT in 1 week. Follow with PCP Discharge Orders/Prescriptions Prescriptions: New metoprolol succinate 25 mg Tablet Extended Release 24 Hr 25 mg PO DAILYCM 30 Days Qty: 30 0RF Rx Instructions: Hold for heart less than 50 or systolic blood pressure less than 110 mmHg. dexamethasone 6 mg tablet 6 mg PO DAILY 7 Days Qty: 7 0RF Continued potassium chloride [Klor-Con M20] 20 MEQ tablet 40 meq PO BID gabapentin 100 MG capsule 200 mg PO TID multivitamin with folic acid 1 TABLET tablet 1 tab PO DAILY Patient Comments: PER OCT PT TAKES 2 TABS WOMENS ULTRA RICK DAILY FAMILY SUPPLIES polyethylene glycol 3350 17 GM packet 17 gm PO BID cetirizine 10 mg tablet 10 mg PO QHS Patient Comments: Oct PT TAKES CETIRIZINE AT BEDTIME AND LORATADINE IN THE AM. fluticasone propionate 50 mcg/actuation spray,suspension 1 spray INTRANASAL QHS Patient Comments: Oct PT KEEPS AT BEDSIDE AND SELF ADMINISTERS levothyroxine 100 mcg tablet 100 mcg PO DAILY Patient Comments: TAKE AT LEAST 30 MINUTES PRIOR TO EATING losartan 50 mg tablet 50 mg PO BID magnesium oxide 400 mg magnesium tablet 400 mg PO DAILY Patient Comments: UPON RISING WITH FOOD melatonin 3 mg tablet 6 mg PO QHS omeprazole 20 mg capsule,delayed release(DR/EC) 20 mg PO DAILY Patient Comments: TAKES 30 MINUTES PRIOR TO MORNING MEAL Changed diazepam 10 mg tablet 5 mg PO DAILY 30 Days Qty: 0 0RF Rx Instructions: Take diazepam 5 mg daily for 7-day until LFTs and follow with PCP before resuming full dose paroxetine HCl 40 mg tablet 20 mg PO DAILY 30 Days Qty: 0 0RF Patient Comments: TAKE IN THE MORNING UPON RISING Rx Instructions: Take paroxetine 20 mg daily for 7-day until LFTs and follow with PCP before resuming full dose Held acetaminophen 650 mg tablet extended release 1,300 mg PO Q8H PRN (Reason: fever or pain) Hold Instructions: Hold for 7-day until LFTs and follow with PCP before resuming loratadine 10 mg tablet 10 mg PO DAILY Hold Instructions: Hold for 7-day until LFTs and follow with PCP before resuming Patient Comments: PER OCT PT TAKES CETIRIZINE AT BEDTIME AND LORATADINE IN THE AM. Referrals / Follow Up: Krish Islas DO [Med Staff - Active Staff] - Within 2 Weeks (For acute liver injury due to Remdesevir, LFT improving) Anton Blanchard Chi, MD [Primary Care Provider] - Disposition Disposition (needs filled in before D/C Order can be placed): Assisted Living Charges/Coding Visit Charges Inpatient E&M: 54725 Disch Hosp >30min 04/12/23 1036 <Electronically signed by Saji Ruiz MD> Cosigner Signature (if applicable): CC: Dr. Saji Ruiz MD; Dr. Anton Blanchard MD~ Signed [facility] Work Phone: 1(491) 821-356608-18-2023 Discharge summary Author [facility] April 12, 2023 10:31am Note Date/Time April 12, 2023 9: 59am [facility] Medical Records Department [address] [place] [address] Instructions for Home/Discharge Instructions 04/12/23 0958 MR#: [id number] Acct: [id number] Name: ZENOBIA SORIANO Rep #:[id number] : 1940 82 From: Saji Chance PCP: Dr. Anton Blanchard MD Status:ADM I N Discharge Instructions Diet Discharge Diet: No restrictions Activity Discharge Activity: Return to Normal Activity Weight Bearing Status: Weight bearing as tolerated Dressing / Incision Call your doctor if you observe: Fever of 101 or Higher, Coldness, Increased Pain, Numbness or Tingling, Change in Color, Inability to urinate, Inability to have a bowel movement, Using more than 1 pad per hour, Shortness of breath, Dizziness, Fainting spells, Swelling in the ankles, Chest pain, Prolonged hiccupping, Increased palpitations (irregular heartbeat) and Calf discomfort Follow Up Care When: IN 2 WEEKS Test Results: Test results from this visit will be discussed in further detail at your follow- up appointment, if applicable. Discharge Plan Admission Admit Date/Time: 04/10/23 14:44 Attending Provider: Saji Ruiz Primary Care Provider: Anton Blanchard [employer] Providers: Remy Shell; Bandar Stephens Discharge Orders/Prescriptions Prescriptions: New metoprolol succinate 25 mg Tablet Extended Release 24 Hr 25 mg PO DAILYCM 30 Days Qty: 30 0RF Rx Instructions: Hold for heart less than 50 or systolic blood pressure less than 110 mmHg. dexamethasone 6 mg tablet 6 mg PO DAILY 7 Days Qty: 7 0RF Continued potassium chloride [Klor-Con M20] 20 MEQ tablet 40 meq PO BID gabapentin 100 MG capsule 200 mg PO TID multivitamin with folic acid 1 TABLET tablet 1 tab PO DAILY Patient Comments: PER OCT PT TAKES 2 TABS WOMENS ULTRA RICK DAILY FAMILY SUPPLIES polyethylene glycol 3350 17 GM packet 17 gm PO BID cetirizine 10 mg tablet 10 mg PO QHS Patient Comments: PER OCT PT TAKES CETIRIZINE AT BEDTIME AND LORATADINE IN THE AM. fluticasone propionate 50 mcg/actuation spray,suspension 1 spray INTRANASAL QHS Patient Comments: Oct PT KEEPS AT BEDSIDE AND SELF ADMINISTERS levothyroxine 100 mcg tablet 100 mcg PO DAILY Patient Comments: TAKE AT LEAST 30 MINUTES PRIOR TO EATING losartan 50 mg tablet 50 mg PO BID magnesium oxide 400 mg magnesium tablet 400 mg PO DAILY Patient Comments: UPON RISING WITH FOOD melatonin 3 mg tablet 6 mg PO QHS omeprazole 20 mg capsule,delayed release(DR/EC) 20 mg PO DAILY Patient Comments: TAKES 30 MINUTES PRIOR TO MORNING MEAL Changed diazepam 10 mg tablet 5 mg PO DAILY 30 Days Qty: 0 0RF Rx Instructions: Take diazepam 5 mg daily for 7-day until LFTs and follow with PCP before resuming full dose paroxetine HCl 40 mg tablet 20 mg PO DAILY 30 Days Qty: 0 0RF Patient Comments: TAKE IN THE MORNING UPON RISING Rx Instructions: Take paroxetine 20 mg daily for 7-day until LFTs and follow with PCP before resuming full dose Held acetaminophen 650 mg tablet extended release 1,300 mg PO Q8H PRN (Reason: fever or pain) Hold Instructions: Hold for 7-day until LFTs and follow with PCP before resuming loratadine 10 mg tablet 10 mg PO DAILY Hold Instructions: Hold for 7-day until LFTs and follow with PCP before resuming Patient Comments: PER MAR PT TAKES CETIRIZINE AT BEDTIME AND LORATADINE IN THE AM. Referrals / Follow Up: Anton Blanchard Chi, MD [Primary Care Provider] - Disposition Disposition (needs filled in before D/C Order can be placed): Assisted Living 04/12/23 1031<Electronically signed by Saji Ruiz MD>Saji Ruiz MD CC: Dr. Remy Shell DO; Dr. Bandar Stephens MD; Dr. Anton Blanchard MD ~ Signed [facility] Work Phone: [phone]) 504-771708-17-2023 Progress note Author [facility] April 11, 2023 4:28pm Note Date/Time April 11, 2023 7: 47am [facility] Medical Records Department [address] [place] [id number] Progress Note - Hospitalist 04/11/23 0741 MR#: [id number] Acct: [id number] Name: ZENOBIA SORIANO Rep #:[id number] : 1940 82 From: Saji Chance PCP: Dr. Anton Blanchard MD Status:ADM I N Location: [place] [address] Reason for Visit Reason for Visit: Diagnoses Hypoxemia (04/10/23) COVID-19 (04/10/23) Objective Data Objective Data Vital Signs: Vital Signs Temp Pulse Resp BP Pulse Ox O2 Del Method O2 Flow Rate 98.9 F 62 20 H 129/68 H 98 Nasal Cannula 1 04/11/23 04:43 04/11/23 04:43 04/11/23 04:43 04/11/23 04:43 04/11/23 04:46 04/11/23 04:46 04/11/23 04:46 Oxygen Flow Rate (L/min) 1 Oxygen Delivery Method Nasal Cannula Weight: 92 lb 9 oz Body Mass Index (BMI) 14.1 Intake & Output: Intake and Output for Last 24 Hours 04/09/23 04/10/23 04/11/23 23:59 23:59 23:59 Intake Total 1850 / 1850 100 / 100 Output Total 300 / 300 Balance 1550 / 1550 100 / 100 Lab / Micro Data 04/11/23 09:27 04/11/23 09:27 Labs: Laboratory Results - last 24 hr 04/10/23 12:05: WBC 7.9, RBC 4.67, Hgb 14.2, Hct 45.0, MCV 96.4, MCH 30.4, MCHC 31.6 L, RDW Std Deviation 49.1 H, RDW Coeff of Olivia 13.9, Plt Count 88 L, MPV 10.9, Immature Gran % (Auto) 1.900 H, Neut % (Auto) 75.5 H, Lymph % (Auto) 3.0 L, Kings % (Auto) 19.1 H, Eos % (Auto) 0.0, Baso % (Auto) 0.5, Absolute Neuts (auto) 6.0, Absolute Lymphs (auto) 0.24 L, Nucleated RBC % 0, Differential Comment COMMENT, PT 13.3, INR 1.0, APTT 34.8, Sodium 135 L, Potassium 3.6, Chloride 102, Carbon Dioxide 29.0, Anion Gap 4 L, BUN 11, Creatinine 0.62, EstimCreat Clear Calc 31.48, Est GFR (MDRD) Af Amer 119, Est GFR (MDRD) Non-Af 98, BUN/Creatinine Ratio 17.7, Glucose 106, Lactic Acid 2.0, Calcium 9.1, Total Bilirubin 0.70, AST 45 H, ALT 79 H, Alkaline Phosphatase 100 04/10/23 12:05: Alkaline Phosphatase 99, Troponin I High Sens 7, Total Protein 7.3, Albumin 3.9, Globulin 3.4, Albumin/Globulin Ratio 1.1 04/10/23 13:00: Urine Color Yellow, Urine Clarity Clear, Urine pH 6.5, Ur Specific [place] 1.010, Urine Protein 30 H, Urine Glucose (UA) Normal, Urine Ketones Negative, Urine Occult Blood 150 H, Urine Nitrite Negative, Urine Bilirubin Negative, Urine Urobilinogen Normal, Ur Leukocyte Esterase Negative, Urine RBC 10-25 SEEN, Urine WBC 0 SEEN, Ur Squamous Epith Cells 0-5 SEEN, Urine Bacteria 0 SEEN, Urine Mucus 0 SEEN 04/10/23 18:09: Lactic Acid 2.5 H* 04/11/23 06:40: WBC 2.6 L, RBC 4.25, Hgb 13.0, Hct 39.8, MCV 93.6, MCH 30.6, MCHC 32.7, RDW Std Deviation 47.5 H, RDW Coeff of Olivia 13.8, Plt Count 64 L, MPV 10.7, Immature Gran % (Auto) 2.300 H, Neut % (Auto) 69.3, Lymph % (Auto) 9.6 L, Kings % (Auto) 18.8 H, Eos % (Auto) 0.0, Baso % (Auto) 0.0, Absolute Neuts (auto)1.8 L, Absolute Lymphs (auto) 0.25 L, Nucleated RBC % 0, Differential Comment SCANNED, Diff Path Review December, Platelet Estimate MOD JUL Micro: Microbiology 04/10/23 13:00 Nasal Secretion SARS-CoV-2 Antigen (Rapid) - Final SARS-CoV-2 (COVID 19) Radiography Diagnostic Testing: Radiology Impression Chest X-Ray 04/10/23 12:48 IMPRESSION: No acute abnormality is seen. Electronically Signed: Trav Ko MD at 13:29 EDT , Physical Exam Narrative Seen and examined. Patient on minimal oxygen 1 to 2 L. Denies shortness of breath, cough. Patientwas admitted with 6 days of diarrhea. Unclear about the onset of the symptoms. Patient is unvaccinated. Physical exam General: Alert, Oriented x3, Cooperative HEENT: Hard of hearing. Atraumatic, PERRLA, EOMI, Normocephalic Oral: No Gingival or Mucosal Lesions/ Ulcerations Neck: Supple, No JVD, Negative Carotid Bruits Lungs: Air entry diminished in bilateral lung bases. No crepitation/rhonchi Cardiovascular: Regular rate, Regular Rhythm, Normal S1, Normal S2, No murmurs Abdomen: Bowel Sounds Present, Soft, Non Tender, Non-Distended : No renal angle tenderness. No suprapubic tenderness. Extremities: No edema, Capillary Refill Less than 3 Seconds Skin: No rashes, No breakdown Musculoskeletal: No Tenderness to Palpation of Joints or Extremities. Degenerative arthritis and slight limited range of motion. Neurological: Cranial nerves II-XII grossly intact, DTR 2+/4. No acute focal neurological deficit. Psych/Mental Status: Flat affect, amnesia. Probably dementia Assessment & Plan Assessment/Plan (1) COVID-19: PLAN: Unclear time of onset, may have been a day ago or 6 days ago. Patient was positive for COVID-19 at the facility but also positive here today. Acute liver injury, most likely drug-induced liver injury from remdesivir. The patient was started on dexamethasone and remdesivir. Liver chemistry shows increasing ALT and AST about 4000 therefore remdesivir discontinued. ID consulted. I talked to ID consulted. I talked to patient's daughter and gave the update. Overall patient feels good. Paroxetine and diazepam also discontinued due to acute liver injury. ID consulted. Inflammatory markers elevated UA RBC 10-25 cells. Leukopenia WBC 2.6 thousand. Lymphopenia, ANC 0.25 thousand and ANC 1.8 thousand. Monitor liver chemistry every day. (2) Hypoxia: PLAN: Suspect due to COVID-19. Chest x-ray personally reviewed and showed no acute process Wean oxygen as tolerated. PLAN: Plan Chronic conditions * Anxiety and depression: Continue with SSRI. Patient does take diazepam and gabapentin, caution with her baseline confusion. * Hypothyroidism continue with levothyroxine * Hypertension: Continue with metoprolol succinate with hold parameters for a systolic blood pressure less than 110 or heart rate less than 60 VTE prophylaxis: Low molecular weight heparin Charges/Coding Visit Charges Inpatient E&M: 14383 Subs Hosp L2 04/11/23 1628 <Electronically signed by Saji Ruiz MD> Cosigner Signature (if applicable): CC: ~ Signed [facility] Work Phone: [phone]) 843-366108-17-2023 Consult note Author Bandar Stephens [facility] April 11, 2023 9:55am Note Date/Time April 11, 2023 9: 55am [facility] System Medical Records Department [address] [place] [address] Consultation - Infectious Dx 04/11/23 0950 MR#: [id number] Acct: [id number] Name: ZENOBIA SORIANO Rep #:[id number] : 1940 82 From: Bandar betancur MD PCP: Dr. Anton Blanchard MD Status:ADM I N Location: [facility] [id number] Assessment & Plan Assessment/Plan (1) COVID-19: PLAN: Unvaccinated. Here with hypoxia. Developed transaminitis, likely due to remdesivir. I d/c'd remdesivir order. Cont dex. D-dimer normal here. O2 slightly improved today. Encouraged her to get covid vaccine in 3 months; she will think about it. Will follow, thank you, d/w Dr. Ruiz (2) Hypoxia: (3) Transaminitis: HPI Consult Data Date of Consult: 04/11/23 HPI Narrative Reason for Consultation: covid HPI Narrative: ZENOBIA SORIANO, is a 82 F, assisted living resident, unvaccinated for covid, reports "I almost from covid before", presented 04/10 with several days bodyaches, fever, chills, confusion, diarrhea, dry cough. Says about 10 others are sick as well. Came to ED with hypoxia and (+) test the day before. Started on dex and remdesivir. Down to 1L this AM, wants to leave the hospital. No new abd pain, n/v. No prior h/o liver problems. Full ROS performed and neg except as noted above. No change in taste/smell. PFSH Medical History Arthritis Hypothyroidism Kidney stones Smoker Home Medications potassium chloride 20 mEq tablet,extended release(part/cryst) (Klor-Con M) 40 meq PO BID potassium supplement 08/10/15 [History Last Taken 05/05/17] gabapentin 100 mg capsule 200 mg PO TID RESTLESS LEG 09/13/19 [History Last Taken Unknown] multivitamin with folic acid 400 mcg tablet 1 tab PO DAILY SUPPLEMENT 09/13/19 [History Last Taken Unknown] polyethylene glycol 3350 17 gram oral powder packet 17 gm PO BID CONSTIPATION 09/13/19 [History Last Taken Unknown] acetaminophen 650 mg tablet,extended release 1,300 mg PO Q8H PRN fever or pain 04/10/23 [History Last Taken Unknown] cetirizine 10 mg tablet 10 mg PO QHS 04/10/23 [History Last Taken Unknown] diazepam 10 mg tablet 10 mg PO DAILY ANXIETY 04/10/23 [History Last Taken Unknown] fluticasone propionate 50 mcg/actuation nasal spray,suspension 1 spray intranasal QHS ALLERGIES 04/10/23 [History Last Taken Unknown] levothyroxine 100 mcg tablet 100 mcg PO DAILY 04/10/23 [History Last Taken Unknown] loratadine 10 mg tablet 10 mg PO DAILY ALLERGIES 04/10/23 [History Last Taken Unknown] losartan 50 mg tablet 50 mg PO BID BP 04/10/23 [History Last Taken Unknown] magnesium oxide 400 mg PO DAILY 04/10/23 [History Last Taken Unknown] melatonin 3 mg tablet 6 mg PO QHS 04/10/23 [History Last Taken Unknown] omeprazole 20 mg capsule,delayed release 20 mg PO DAILY GERD 04/10/23 [History Last Taken Unknown] paroxetine HCl 40 mg tablet 40 mg PO DAILY 04/10/23 [History Last Taken Unknown] Allergy/AdvReac Type Severity Reaction Status Date / Time No Known Allergies Allergy Verified 04/10/23 11:45 Family History unable to obtain Surgical History (Updated 04/10/23 @ 17:31 by Bridget Jefferson) History of cholecystectomy Surgical History unable to obtain Social History Smoking Status: Current every day smoker tobacco type: cigarettes Physical Exam Const alert and no apparent distress General Appearance: cooperative HEENT normocephalic and head/scalp atraumatic Eyes PERRL and EOMs intact bilaterally Neck supple and No nodes Resp Auscultation: diminished lung sounds Cardio regular rate and regular rhythm GI soft to palpation, non-tender and non-distended Extremity General Extremity: Negative for edema Skin no rashes or lesions noted Neuro CN's II-XII intact bilaterally Lab / Micro Data Attestation: I reviewed the patient's lab results. 04/11/23 09:27 04/11/23 06:40 Labs: Laboratory Results - last 24 hr 04/10/23 12:05: WBC 7.9, RBC 4.67, Hgb 14.2, Hct 45.0, MCV 96.4, MCH 30.4, MCHC 31.6 L, RDW Std Deviation 49.1 H, RDW Coeff of Olivia 13.9, Plt Count 88 L, MPV 10.9, Immature Gran % (Auto) 1.900 H, Neut % (Auto) 75.5 H, Lymph % (Auto) 3.0 L, Kings % (Auto) 19.1 H, Eos % (Auto) 0.0, Baso % (Auto) 0.5, Absolute Neuts (auto) 6.0, Absolute Lymphs (auto) 0.24 L, Nucleated RBC % 0, Differential Comment COMMENT, PT 13.3, INR 1.0, APTT 34.8, Sodium 135 L, Potassium 3.6, Chloride 102, Carbon Dioxide 29.0, Anion Gap 4 L, BUN 11, Creatinine 0.62, EstimCreat Clear Calc 31.48, Est GFR (MDRD) Af Amer 119, Est GFR (MDRD) Non-Af 98, BUN/Creatinine Ratio 17.7, Glucose 106, Lactic Acid 2.0, Calcium 9.1, Total Bilirubin 0.70, AST 45 H, ALT 79 H, Alkaline Phosphatase 100 04/10/23 12:05: Alkaline Phosphatase 99, Troponin I High Sens 7, Total Protein 7.3, Albumin 3.9, Globulin 3.4, Albumin/Globulin Ratio 1.1 04/10/23 13:00: Urine Color Yellow, Urine Clarity Clear, Urine pH 6.5, Ur Specific [place] 1.010, Urine Protein 30 H, Urine Glucose (UA) Normal, Urine Ketones Negative, Urine Occult Blood 150 H, Urine Nitrite Negative, Urine Bilirubin Negative, Urine Urobilinogen Normal, Ur Leukocyte Esterase Negative, Urine RBC 10-25 SEEN, Urine WBC 0 SEEN, Ur Squamous Epith Cells 0-5 SEEN, Urine Bacteria 0 SEEN, Urine Mucus 0 SEEN 04/10/23 18:09: Lactic Acid 2.5 H* 04/11/23 06:40: WBC 2.6 L, RBC 4.25, Hgb 13.0, Hct 39.8, MCV 93.6, MCH 30.6, MCHC 32.7, RDW Std Deviation 47.5 H, RDW Coeff of Olivia 13.8, Plt Count 64 L, MPV 10.7, Immature Gran % (Auto) 2.300 H, Neut % (Auto) 69.3, Lymph % (Auto) 9.6 L, Kings % (Auto) 18.8 H, Eos % (Auto) 0.0, Baso % (Auto) 0.0, Absolute Neuts (auto)1.8 L, Absolute Lymphs (auto) 0.25 L, Nucleated RBC % 0, Differential Comment SCANNED, Diff Path Review May foll, Platelet Estimate MOD DEC, Sodium 140, Potassium 4.5, Chloride 108 H, Carbon Dioxide 27.0, Anion Gap 5, BUN 12, Creatinine 0.71, Estim Creat Clear Calc 29.24, Est GFR (MDRD) Af Amer 102, Est GFR (MDRD) Non-Af 84, BUN/Creatinine Ratio 16.9, Glucose 103, Calcium 9.2, TotalBilirubin 1.00, AST 4316 H, ALT 3552 H, Alkaline Phosphatase 471 H, Total Protein 6.5, Albumin 3.4, Globulin 3.1, Albumin/Globulin Ratio 1.1 04/11/23 09:27: WBC 2.9 L, RBC 4.63, Hgb 14.2, Hct 43.3, MCV 93.5, MCH 30.7, MCHC 32.8, RDW Std Deviation 47.1 H, RDW Coeff of Olivia 13.8, Plt Count 63 L, MPV 10.8, Immature Gran % (Auto) 1.000 H, Neut % (Auto) 71.7 H, Lymph % (Auto) 9.0 L, Kings % (Auto) 18.3 H, Eos % (Auto) 0.0, Baso % (Auto) 0.0, Absolute Neuts (auto) 2.1, Absolute Lymphs (auto) 0.26 L, Nucleated RBC % 0 Micro: Microbiology 04/10/23 13:00 Nasal Secretion SARS-CoV-2 Antigen (Rapid) - Final SARS-CoV-2 (COVID 19) Radiology Impression Chest X-Ray 04/10/23 12:48 IMPRESSION: No acute abnormality is seen. Electronically Signed: Trav Ko MD at 13:29 EDT , 04/11/23 0994 <Electronically signed by Bandar Stephens MD> Cosigner Signature (if applicable): CC: Dr. Remy Shell DO; Dr. Bandar Stephens MD; Dr. Anton Blanchard MD~ Signed [facility] Work Phone: [phone] 706-628408-16-2023 Discharge summary Author Ian Payne [facility] April 10, 2023 3:24pm Note Date/Time April 10, 2023 12 :18pm [facility] Medical Records Department [address] [place] [address] Emergency Department Summary 04/10/23 MR#: [id number] Acct: [id number] Name: ZENOBIA SORIANO Rep #:[id number] : 1940 82 From: Ian Payne DO PCP: Dr. Anton Blanchard MD Status:ADM I N Location: [id number] History of Present Illness Chief Complaint: Diarrhea Narrative Narrative: 82-year-old female presenting via EMS with apparent diarrhea for the last 6 hours. Apparently she tested positive for COVID yesterday. There is no report with this. Patient arrives with a fever. Apparently she had some low blood pressures at her nursing facility however her blood pressure is 163/93 here. Patient is a very poor informant. She states that nothing hurts. She does complain of some mild nausea. PFSH PFSH Home Medications potassium chloride 20 mEq tablet,extended release(part/cryst) (Klor-Con M) 40 meq PO BID potassium supplement 08/10/15 [History Last Taken 05/05/17] gabapentin 100 mg capsule 200 mg PO TID RESTLESS LEG 09/13/19 [History Last Taken Unknown] multivitamin with folic acid 400 mcg tablet 1 tab PO DAILY SUPPLEMENT 09/13/19 [History Last Taken Unknown] polyethylene glycol 3350 17 gram oral powder packet 17 gm PO BID CONSTIPATION 09/13/19 [History Last Taken Unknown] acetaminophen 650 mg tablet,extended release 1,300 mg PO Q8H PRN fever or pain 04/10/23 [History Last Taken Unknown] cetirizine 10 mg tablet 10 mg PO QHS 04/10/23 [History Last Taken Unknown] diazepam 10 mg tablet 10 mg PO DAILY ANXIETY 04/10/23 [History Last Taken Unknown] fluticasone propionate 50 mcg/actuation nasal spray,suspension 1 spray intranasal QHS ALLERGIES 04/10/23 [History Last Taken Unknown] levothyroxine 100 mcg tablet 100 mcg PO DAILY 04/10/23 [History Last Taken Unknown] loratadine 10 mg tablet 10 mg PO DAILY ALLERGIES 04/10/23 [History Last Taken Unknown] losartan 50 mg tablet 50 mg PO BID BP 04/10/23 [History Last Taken Unknown] magnesium oxide 400 mg PO DAILY 04/10/23 [History Last Taken Unknown] melatonin 3 mg tablet 6 mg PO QHS 04/10/23 [History Last Taken Unknown] omeprazole 20 mg capsule,delayed release 20 mg PO DAILY GERD 04/10/23 [History Last Taken Unknown] paroxetine HCl 40 mg tablet 40 mg PO DAILY 04/10/23 [History Last Taken Unknown] Allergy/AdvReac Type Severity Reaction Status Date / Time No Known Allergies Allergy Verified 04/10/23 11:45 Social History Smoking Status: Current every day smoker tobacco type: cigarettes ROS ROS ED Constitutional Constitutional ED: Reports fever(s) Eyes Eyes: Denies blurry vision or change in vision ENT ENT ED: Denies rhinorrhea or sore throat Cardiovascular Cardiovascular: Denies chest pain or palpitations Respiratory/Chest Respiratory/Chest: Reports cough Gastrointestinal Gastrointestinal: Reports diarrhea and nausea Genitourinary Genitourinary ED: Denies dysuria or hematuria Musculoskeletal Musculoskeletal: Denies arthralgias or back pain Integumentary Denies abscess Neurologic Neurologic: Denies headache(s) or paresthesias Psychiatric Psychiatric: Denies anxiety or depression EXAM Physical Exam Const Vital Signs: 04/10/23 11:46 04/10/23 11:56 04/10/23 11:49 Temperature 101.4 F H 101.4 F H Temperature Source Oral Oral Pulse Rate 81 81 Respiratory Rate 18 23 H Blood Pressure 163/93 H 163/93 H Blood Pressure Mean 116 116 Pulse Ox 94 94 Oxygen Delivery Method Room Air Room Air Room Air Oxygen Flow Rate (L/min) 04/10/23 12:49 04/10/23 13:49 04/10/23 13:45 Temperature 99.4 F H 99.6 F H Temperature Source Oral Oral Pulse Rate 77 103 H 107 H Respiratory Rate 30 H 22 H 15 Blood Pressure 126/102 H 138/98 H 126/69 H Blood Pressure Mean 110 111 88 Pulse Ox 92 85 98 Oxygen Delivery Method Room Air Room Air Nasal Cannula Oxygen Flow Rate (L/min) 2 Positive well nourished General Appearance ED: NAD; Negative for pallor HEENT Reports moist mucous membranes Eyes General Eye ED: Negative for pale conjunctiva or scleral icterus Resp normal respiratory effort and clear to auscultation bilaterally Auscultation: Negative for rales, rhonchi or wheezes Cardio regular rate and regular rhythm GI normal to inspection, nondistended, normoactive bowel sounds Neuro oriented x3 and CN's II-XII intact bilaterally Sensorium / Orientation: alert Motor Exam: strength 5/5 throughout Psych mental status grossly normal Skin no rashes or lesions noted General Skin Exam: Negative for jaundice or pallor MDM MDM MDM Narrative Medical decision making narrative: 82-year-old female who tested positive for COVID-19 yesterday at her [facility] presenting with apparent hypotension and hypoxia. No report was called by nursing and the patient is a very poor informant but she arrived with a fever and was originally on 2 L. We did call the [facility]p and they reported that the patient has been generally weak and unable to ambulate however they also obtained an ambulating pulse ox that was 83% on room air. They also state that she has been having diarrhea for the last 6 hours. We will retest for COVID-19 because likely the patient will need to be admitted. I do not see a positive test result. Patient is a poor informant. Differential besides COVID-19 includes pneumonia, UTI, dehydration, electrolyte abnormalities, anemia. Given the patient was reportedly hypotensive, hypoxic on room air, febrile and sepsis work-up was obtained and her CBC did not show a leukocytosis. Her hemoglobin hematocrit are normal. She is lymphopenic. Renal function and electrolytes unremarkable. AST and ALT are slightly elevated which is consistent also with COVID-19. EKG was obtained and on my interpretation shows a normal sinus rhythmwith a ventricular rate of 76 bpm without sign of ischemic change or ectopy. Chest x-ray my interpretation shows no acute process. Urinalysis was negative for infection. Were unable to ambulate the patient but she did desaturate to 85% on room air at this point I think she will need to be admitted to the hospital. Patient discussed with the hospitalist for admission. Impression: 1. COVID-19 2. Debility 3. Hypoxic respiratory failure Lab Data Attestation: I reviewed the patient's lab results. Labs: Laboratory Results - last 24 hr 04/10/23 04/10/23 12:05 13:00 WBC 7.9 RBC 4.67 Hgb 14.2 Hct 45.0 MCV 96.4 MCH 30.4 MCHC 31.6 L RDW Std Deviation 49.1 H RDW Coeff of Olivia 13.9 Plt Count 88 L MPV 10.9 Immature Gran % (Auto) 1.900 H Neut % (Auto) 75.5 H Lymph % (Auto) 3.0 L Kings % (Auto) 19.1 H Eos % (Auto) 0.0 Baso % (Auto) 0.5 Absolute Neuts (auto) 6.0 Absolute Lymphs (auto) 0.24 L Nucleated RBC % 0 Differential Comment COMMENT PT 13.3 INR 1.0 APTT 34.8 Sodium 135 L Potassium 3.6 Chloride 102 Carbon Dioxide 29.0 Anion Gap 4 L BUN 11 Creatinine 0.62 Estim Creat Clear Calc 31.48 Est GFR (MDRD) Af Amer 119 Est GFR (MDRD) Non-Af 98 BUN/Creatinine Ratio 17.7 Glucose 106 Lactic Acid 2.0 Calcium 9.1 Total Bilirubin 0.70 AST 45 H ALT 79 H Alkaline Phosphatase 100 Troponin I High Sens 7 Total Protein 7.3 Albumin 3.9 Globulin 3.4 Albumin/Globulin Ratio 1.1 Urine Color Yellow Urine Clarity Clear Urine pH 6.5 Ur Specific [place] 1.010 Urine Protein 30 H Urine Glucose (UA) Normal Urine Ketones Negative Urine Occult Blood 150 H Urine Nitrite Negative Urine Bilirubin Negative Urine Urobilinogen Normal Ur Leukocyte Esterase Negative Urine RBC 10-25 SEEN Urine WBC 0 SEEN Ur Squamous Epith Cells 0-5 SEEN Urine Bacteria 0 SEEN Urine Mucus 0 SEEN Radiography Diagnostic Testing: Clinical Impression(s) from Imaging Studies Chest X-Ray 04/10/23 12:48 IMPRESSION: No acute abnormality is seen. Electronically Signed: Trav Ko MD at 13:29 EDT , Discharge Plan Triage Chief Complaint: Diarrhea ED Provider: Ian Payne Dx/Rx/DC Orders Prescriptions: No Action potassium chloride [Klor-Con M20] 20 MEQ tablet 40 meq PO BID gabapentin 100 MG capsule 200 mg PO TID multivitamin with folic acid 1 TABLET tablet 1 tab PO DAILY Patient Comments: PER OCT PT TAKES 2 TABS WOMENS ULTRA RICK DAILY FAMILY SUPPLIES polyethylene glycol 3350 17 GM packet 17 gm PO BID acetaminophen 650 mg tablet extended release 1,300 mg PO Q8H PRN (Reason: fever or pain) cetirizine 10 mg tablet 10 mg PO QHS Patient Comments: PER OCT PT TAKES CETIRIZINE AT BEDTIME AND LORATADINE IN THE AM. diazepam 10 mg tablet 10 mg PO DAILY fluticasone propionate 50 mcg/actuation spray,suspension 1 spray INTRANASAL QHS Patient Comments: PER OCT PT KEEPS AT BEDSIDE AND SELF ADMINISTERS levothyroxine 100 mcg tablet 100 mcg PO DAILY Patient Comments: TAKE AT LEAST 30 MINUTES PRIOR TO EATING loratadine 10 mg tablet 10 mg PO DAILY Patient Comments: PER OCT PT TAKES CETIRIZINE AT BEDTIME AND LORATADINE IN THE AM. losartan 50 mg tablet 50 mg PO BID magnesium oxide 400 mg magnesium tablet 400 mg PO DAILY Patient Comments: UPON RISING WITH FOOD melatonin 3 mg tablet 6 mg PO QHS omeprazole 20 mg capsule,delayed release(DR/EC) 20 mg PO DAILY Patient Comments: TAKES 30 MINUTES PRIOR TO MORNING MEAL paroxetine HCl 40 mg tablet 40 mg PO DAILY Patient Comments: TAKE IN THE MORNING UPON RISING Primary Care Provider: Anton Blanchard Chi Referrals: Anton Blanchard Chi, MD [Primary Care Provider] - What to do if you have Problems For any increased pain, shortness of breath, bleeding, nausea or vomiting, chestpain, or any unexpected problems, contact your Primary Care Provider. Call [facility] ([phone]) or report to the closest Emergency Room. Call 911 if necessary. 04/10/23 1524 <Electronically signed by Ian Payne DO> Cosigner Signature (if applicable): CC: Dr. Anton Blanchard MD ~ Signed [facility] Work Phone: [phone] 192-716408-16-2023 History and physical note Author Remy Shell [facility] April 10, 2023 2:59pm Note Date/Time April 10, 2023 2: 59pm [facility] System Medical Records Department [address] [place] [address] H&P Exam - Hospitalist 04/10/23 1451 MR#: [id number] Acct: [id number] Name: ZENOBIA SORIANO Rep #:[id number] : 1940 82 From: Remy Shell DO PCP: Dr. Anton Blanchard MD Status:REG E R Location: ED HPI - General General Date of Service: 04/10/23 Chief Complaint: hypoxia HPI Narrative ZENOBIA SORIANO, is a 82 F who presents presents with hypoxia. Patient was tested positive for COVID-19 yesterday., Preceding that, patient had been having diarrhea for about 6 days. In the emergency room, the patient is a terrible historian so unable provide any history, patient was noted to be 85% on room airat rest. [facility] unable to get oxygen for her, therefore, the hospital service was contacted for admission. [facility] Home Medications levothyroxine 75 mcg tablet 88 mcg PO DAILY thyroid 02/11/14 [History Last Taken 05/05/17] potassium chloride 20 mEq tablet,extended release(part/cryst) (Klor-Con M) 40 meq PO BID potassium supplement 08/10/15 [History Last Taken 05/05/17] paroxetine HCl 20 mg tablet 40 mg PO DAILY anxiety/depression 01/09/17 [History Last Taken 05/05/17] diazepam 5 mg tablet 10 mg PO QHS ANXIETY AND SLEEP 09/13/19 [History Last Taken Unknown] gabapentin 100 mg capsule 100 mg PO BIDCM RESTLESS LEG 09/13/19 [History Last Taken Unknown] metoprolol succinate 25 mg tablet,extended release 24 hr 25 mg PO DAILY HEART 09/13/19 [History Last Taken Unknown] multivitamin with folic acid 400 mcg tablet 1 tab PO DAILY SUPPLEMENT 09/13/19 [History Last Taken Unknown] pantoprazole 40 mg tablet,delayed release 40 mg PO DAILY PROTONIX 09/13/19 [History Last Taken Unknown] polyethylene glycol 3350 17 gram oral powder packet 17 gm PO BID CONSTIPATION 09/13/19 [History Last Taken Unknown] acetaminophen 325 mg tablet 650 mg (2 x 325 mg) PO Q6H PRN PRN Pain Score 1- 3/Temp > 100.7 F 09/15/19 [Rx Last Taken Unknown] cephalexin 500 mg capsule 500 mg PO Q6 #20 caps 09/30/20 [Rx Last Taken Unknown] Allergy/AdvReac Type Severity Reaction Status Date / Time No Known Allergies Allergy Verified 04/10/23 11:45 Family History unable to obtain unable to obtain (Patient confused and a terrible historian.) Surgical History unable to obtain unable to obtain (Patient confused and a terrible historian) Social History Smoking Status: Current every day smoker tobacco type: cigarettes ROS ROS Narrative Unable to obtain as the patient is confused and is a terrible historian. Vital Signs Vital Signs Vital Signs: 04/10/23 11:46 04/10/23 11:56 04/10/23 11:49 Temperature 38.6 C H 38.6 C H Temperature Source Oral Oral Pulse Rate 81 81 Respiratory Rate 18 23 H Blood Pressure 163/93 H 163/93 H Blood Pressure Mean 116 116 Pulse Ox 94 94 Oxygen Delivery Method Room Air Room Air Room Air Oxygen Flow Rate (L/min) 04/10/23 12:49 04/10/23 13:49 04/10/23 13:45 Temperature 37.4 C H 37.6 C H Temperature Source Oral Oral Pulse Rate 77 103 H 107 H Respiratory Rate 30 H 22 H 15 Blood Pressure 126/102 H 138/98 H 126/69 H Blood Pressure Mean 110 111 88 Pulse Ox 92 85 98 Oxygen Delivery Method Room Air Room Air Nasal Cannula Oxygen Flow Rate (L/min) 2 Weight Weight: 45.2 kg Body Mass Index (BMI) 18.3 Physical Exam Const Constitutional Narrative: Awake. Nontoxic. Afebrile. Confused and a terrible historian. HEENT hearing grossly normal bilaterally Resp Resp Narrative: Poor respiratory effort but otherwise clear. Cardio regular rate, regular rhythm, S1 normal heart sound and S2 normal heart sound GI normal to inspection, nondistended, normoactive bowel sounds and soft to palpation Extremity normal to inspection and no clubbing, cyanosis or edema Neuro Sensorium / Orientation: awake Results Lab / Micro Data Attestation: I reviewed the patient's lab results. 04/10/23 12:05 04/10/23 12:05 Labs: Laboratory Results - last 24 hr 04/10/23 12:05: WBC 7.9, RBC 4.67, Hgb 14.2, Hct 45.0, MCV 96.4, MCH 30.4, MCHC 31.6 L, RDW Std Deviation 49.1 H, RDW Coeff of Olivia 13.9, Plt Count 88 L, MPV 10.9, Immature Gran % (Auto) 1.900 H, Neut % (Auto) 75.5 H, Lymph % (Auto) 3.0 L, Kings % (Auto) 19.1 H, Eos % (Auto) 0.0, Baso % (Auto) 0.5, Absolute Neuts (auto) 6.0, Absolute Lymphs (auto) 0.24 L, Nucleated RBC % 0, Differential Comment COMMENT, PT 13.3, INR 1.0, APTT 34.8, Sodium 135 L, Potassium 3.6, Chloride 102, Carbon Dioxide 29.0, Anion Gap 4 L, BUN 11, Creatinine 0.62, EstimCreat Clear Calc 31.48, Est GFR (MDRD) Af Amer 119, Est GFR (MDRD) Non-Af 98, BUN/Creatinine Ratio 17.7, Glucose 106, Lactic Acid 2.0, Calcium 9.1, Total Bilirubin 0.70, AST 45 H, ALT 79 H, Alkaline Phosphatase 100, Troponin I High Sens 7, Total Protein 7.3, Albumin 3.9, Globulin 3.4, Albumin/Globulin Ratio 1.1 04/10/23 13:00: Urine Color Yellow, Urine Clarity Clear, Urine pH 6.5, Ur Specific [place] 1.010, Urine Protein 30 H, Urine Glucose (UA) Normal, Urine KetonesNegative, Urine Occult Blood 150 H, Urine Nitrite Negative, Urine Bilirubin Negative, Urine Urobilinogen Normal, Ur Leukocyte Esterase Negative, Urine RBC 10-25 SEEN, Urine WBC 0 SEEN, Ur Squamous Epith Cells 0-5 SEEN, Urine Bacteria 0SEEN, Urine Mucus 0 SEEN Micro: Microbiology 04/10/23 13:00 Nasal Secretion SARS-CoV-2 Antigen (Rapid) - Final SARS-CoV-2 (COVID 19) Radiology Impression Chest X-Ray 04/10/23 12:48 IMPRESSION: No acute abnormality is seen. Electronically Signed: Trav Ko MD at 13:29 EDT , Assessment & Plan Assessment/Plan (1) COVID-19: PLAN: Unclear time of onset, may have been a day ago or 6 days ago. Patient was positive for COVID-19 at the facility but also positive here today. With the patient's hypoxia, will initiate treatment with remdesivir and dexamethasone. (2) Hypoxia: PLAN: Suspect due to COVID-19. Chest x-ray personally reviewed and showed no acute process Wean oxygen as tolerated. PLAN: Plan Chronic conditions * Anxiety and depression: Continue with SSRI. Patient does take diazepam and gabapentin, caution with her baseline confusion. * Hypothyroidism continue with levothyroxine * Hypertension: Continue with metoprolol succinate with hold parameters for a systolic blood pressure less than 110 or heart rate less than 60 VTE prophylaxis: Low molecular weight heparin Charges/Coding Visit Charges Inpatient E&M: 88416 Init Hosp L3 04/10/23 1459 <Electronically signed by Remy Shell DO> Cosigner Signature (if applicable): CC: Dr. Remy Shell DO; Dr. Anton Blanchard MD~ Signed [facility] Work Phone: [phone]) 863-453208-12-2021 NoteHNO ID: [id number] Author: Maxx Jeff PA-C Service: ? Author Type: Physician Triage Assistant Type: Progress Notes Filed: 04/06/2021 1:23 PM Note Text: Outpatient Orthopaedic Office Visit PCP: Anton Blanchard MD Subjective Chief Complaint: Patient presents with: Right Humerus - Established Patient, Follow Up PAIN EVALUATION No data found in the last 1 encounters. HPI: Kena is a pleasant 80-year-old [id number] female who presents today for orthopedic follow-up regarding right humerus injury that has been diagnosed as a proximal humerus fracture. Per the report she suffered a fall onto the right upper extremity and has had pain and inability to move the right upper extremity. She presented to urgent care where radiographs reported impacted proximal humerus fracture. She ambulates with a walker appears to be weightbearing with the right arm. She denies any numbness or tingling, denies any recent fever or chills. She describes a current pain severity of 0/10 worse with certain motions and at nighttime. She reports that she has undergone formal therapy which seemed to worsen her back trouble. She reports that she is comfortable with the motion that she is regained and the pain that she has having. She is happy with the progress that she has made. ROS Current Outpatient Medications Medication Sig Dispense Refill - Ibuprofen 200 mg cap Take 600 mg by mouth every 6 hours as needed. - gabapentin (NEURONTIN) 100 mg capsule Take by mouth. - ARTHRITIS PAIN RELIEF 650 mg CR tablet TAKE TWO TABLETS BY MOUTH EVERY 4 HOURS WHILE AWAKE - DIAZEPAM ORAL diazepam Oral - omeprazole (PRILOSEC) 20 mg capsule Take 20 mg by mouth once daily. - magnesium oxide (MAG-OX) 400 mg (241.3 mg magnesium) tablet Take 1 tablet by mouth once daily. - potassium chloride ER (K-DUR, KLOR-CON) 20 mEq tablet Take 40 mEq by mouth twice daily. - PARoxetine (PAXIL) 40 mg tablet Take 40 mg by mouth once daily. - Multivitamin ORAL Tab Take by mouth. 0 - levothyroxine (SYNTHROID) 75 mcg ORAL Tab Take one(1) tablet daily. 0 - promethazine hcl(PHENERGAN 25 MG TAB) Take one(1) tablet every four(4) to six(6) hours as needed for nausea. (Patient not taking: ) 0 - loratadine (CLARITIN) 10 mg ORAL Tab Take one(1) tablet daily as needed for allergy symptoms. (Patient not taking: ) 0 - atorvastatin (LIPITOR) 20 mg ORAL Tab Take one(1) tablet daily. (Patient not taking: ) 0 - valsartan (DIOVAN) 80 mg ORAL Tab Take one(1) tablet daily. (Patient not taking: ) 0 - eszopiclone (LUNESTA) 2 mg ORAL Tab Take one(1) tablet at bedtime as needed for insomnia. (Patient not taking: No sig reported) 0 No current facility-administered medications for this visit. ALLERGIES No Known Allergies PAST MEDICAL HISTORY Diagnosis Date - Esophageal reflux - Essential hypertension, benign - Other and unspecified hyperlipidemia - Unspecified hypothyroidism PAST SURGICAL HISTORY Procedure Laterality Date - EYE SURGERY HX - LAP CHOLECYSTECT/CHOLANGIOGRAPHY normal IOC - PAST SURGICAL HISTORY OF removal diverticuli esophagus History reviewed. No pertinent family history. Social History Tobacco Use - Smoking status: Never Smoker - Smokeless tobacco: Never Used Substance Use Topics - Alcohol use: No - Drug use: No Objective BP 149/93 Pulse 84 Ht 5' 1" (1.55m) Wt 95 lb (43.1kg) BMI 17.96 kg/(m2). General: Alert and oriented x 3. Geriatric female In no acute distress. Examination of the right upper extremity: Skin intact, good capillary refill and radial pulse. No signs of infection, edema or swelling. Sensation appears intact. moderate tenderness over the proximal humerus Limited active forward elevation and abduction less than 120 degrees. Decreased strength versus resisted internal and external rotation. Internal and external rotation motion has significantly improved. Elbow and wrist remaintain unaffected. Examination of the left upper extremity: Skin intact, good capillary refill and radial pulse. No signs of infection, edema or swelling. Sensation is intact. No significant tenderness over the AC joint, lateral acromion, and biceps. Good active forward elevation and abduction past 140 degrees. Good strength versus resisted internal and external rotation. No signs of instability. negative José's and impingement signs. Diagnostic Studies: None today. Impression/Recommendations S42.291D Closed 3-part fracture of proximal end of right humerus with routine healing, subsequent encounter (primary encounter diagnosis) Plan She is happy with how her fracture is healing. She reports that she has functional motion. We discussed pain control in the form of medications and potential corticosteroid injections. Continue to progress motion and activity as well as regaining strength. Follow-up as needed. Seen by: Deepak Jeff PA-C Note: This di (more content not included)...[facility]06-24-2021 NoteHNO ID: [id number] Author: Maxx Jeff PA-C Service: ? Author Type: Physician Triage Assistant Type: Progress Notes Filed: 02/16/2021 1:30 PM Note Text: Outpatient Orthopaedic Office Visit PCP: Anton Blanchard MD Subjective Chief Complaint: Patient presents with: Right Humerus - Established Patient, Follow Up PAIN EVALUATION 02/16/2021 1259 Pain Level: 7 Frequency: Continuous HPI: Kena is a pleasant 80-year-old suznk-[id number] female who presents today for orthopedic follow-up regarding right humerus injury that has been diagnosed as a proximal humerus fracture. Per the report about a month ago she suffered a fall onto the right upper extremity and has had pain and inability to move the right upper extremity. She [facility] resides in a [facility] but is now residing at home with her daughter. She plans to return to the [facility] today. She presented to urgent care where radiographs reported impacted proximal humerus fracture. He was initially placed into a swath sling but does not wear this today. She ambulates with a walker appears to be weightbearing with the right arm. She denies any numbness or tingling, denies any recent fever or chills. She describes a current pain severity of 7/10 worse with certain motions and at nighttime. ROS Current Outpatient Medications Medication Sig Dispense Refill - gabapentin (NEURONTIN) 100 mg capsule Take by mouth. - ARTHRITIS PAIN RELIEF 650 mg CR tablet TAKE TWO TABLETS BY MOUTH EVERY 4 HOURS WHILE AWAKE - DIAZEPAM ORAL diazepam Oral - omeprazole (PRILOSEC) 20 mg capsule Take 20 mg by mouth once daily. - magnesium oxide (MAG-OX) 400 mg (241.3 mg magnesium) tablet Take 1 tablet by mouth once daily. - potassium chloride ER (K-DUR, KLOR-CON) 20 mEq tablet Take 40 mEq by mouth twice daily. - PARoxetine (PAXIL) 40 mg tablet Take 40 mg by mouth once daily. - Multivitamin ORAL Tab Take by mouth. 0 - levothyroxine (SYNTHROID) 75 mcg ORAL Tab Take one(1) tablet daily. 0 - promethazine hcl(PHENERGAN 25 MG TAB) Take one(1) tablet every four(4) to six(6) hours as needed for nausea. (Patient not taking: ) 0 - loratadine (CLARITIN) 10 mg ORAL Tab Take one(1) tablet daily as needed for allergy symptoms. (Patient not taking: ) 0 - atorvastatin (LIPITOR) 20 mg ORAL Tab Take one(1) tablet daily. (Patient not taking: ) 0 - valsartan (DIOVAN) 80 mg ORAL Tab Take one(1) tablet daily. (Patient not taking: ) 0 - eszopiclone (LUNESTA) 2 mg ORAL Tab Take one(1) tablet at bedtime as needed for insomnia. (Patient not taking: No sig reported) 0 No current facility-administered medications for this visit. ALLERGIES No Known Allergies PAST MEDICAL HISTORY Diagnosis Date - Esophageal reflux - Essential hypertension, benign - Other and unspecified hyperlipidemia - Unspecified hypothyroidism PAST SURGICAL HISTORY Procedure Laterality Date - EYE SURGERY HX - LAP CHOLECYSTECT/CHOLANGIOGRAPHY normal IOC - PAST SURGICAL HISTORY OF removal diverticuli esophagus History reviewed. No pertinent family history. Social History Tobacco Use - Smoking status: Never Smoker - Smokeless tobacco: Never Used Substance Use Topics - Alcohol use: No - Drug use: No Objective There were no vitals taken for this visit. General: Alert and oriented x 3. Geriatric female In no acute distress. Examination of the right upper extremity: Skin intact, good capillary refill and radial pulse. No signs of infection, edema or swelling. Sensation appears intact. moderate tenderness over the proximal humerus Limited active forward elevation and abduction less than 45 degrees. Decreased strength versus resisted internal and external rotation. Internal and external rotation motion has significantly improved. Elbow and wrist remaintain unaffected. Examination of the left upper extremity: Skin intact, good capillary refill and radial pulse. No signs of infection, edema or swelling. Sensation is intact. No significant tenderness over the AC joint, lateral acromion, and biceps. Good active forward elevation and abduction past 140 degrees. Good strength versus resisted internal and external rotation. No signs of instability. negative José's and impingement signs. Diagnostic Studies: Recent Results (from the past 36 hour(s)) XR SHOULDER [id number] AP/TRUE AP RT Impression AP and lateral right shoulder were ordered, obtained, personally interpreted today and demonstrate no significant interval change in fracture position or alignment. Appears to be some early periosteal changes indicating posttraumatic healing. Impression/Recommendations S42.291D Closed 3-part fracture of proximal end of right humerus with routine healing, subsequent encounter (primary encounter diagnosis) Plan Sling as tolerated. May continue motion of the hand wrist elbow. Recommend Gentle ROM of the elbow, wrist and hand dayron (more content not included)... [facility]06-15-2021 NoteHNO ID: [id number] Author: Maxx Jeff PA-C Service: ? Author Type: Physician Triage Assistant Type: Progress Notes Filed: 02/07/2021 5:44 PM Note Text: Outpatient Orthopaedic Office Visit PCP: Anton Blanchard MD Subjective Chief Complaint: Patient presents with: Right Arm - New, Pain PAIN EVALUATION 02/06/2021 1308 Pain Level: 10 Duration Amount of Time: 2 Duration Units: Weeks Frequency: Continuous Intervention: Medication tramadol, tylenol arthritis HPI: Kena is a pleasant 80-year-old pdkqm-iczy-dslhfmgx female who presents today for initial orthopedic evaluation and urgent care follow-up regarding right humerus injury that has been diagnosed as a proximal humerus fracture. Per the report 2 weeks ago she suffered a fall onto the right upper extremity and has had pain and inability to move the right upper extremity. She typically resides in a [facility] but is now residing at home with her daughter. She presented to urgent care where radiographs reported impacted proximal humerus fracture. She was placed into a sling. She presents today for initial orthopedic evaluation. She denies any numbness or tingling, denies any recent fever or chills. She describes a current pain severity of 10/10 worse with certain motions and at nighttime. Emergency department dictation was personally reviewed today. ROS Current Outpatient Medications Medication Sig Dispense Refill - gabapentin (NEURONTIN) 100 mg capsule Take by mouth. - ARTHRITIS PAIN RELIEF 650 mg CR tablet TAKE TWO TABLETS BY MOUTH EVERY 4 HOURS WHILE AWAKE - DIAZEPAM ORAL diazepam Oral - omeprazole (PRILOSEC) 20 mg capsule Take 20 mg by mouth once daily. - magnesium oxide (MAG-OX) 400 mg (241.3 mg magnesium) tablet Take 1 tablet by mouth once daily. - potassium chloride ER (K-DUR, KLOR-CON) 20 mEq tablet Take 40 mEq by mouth twice daily. - PARoxetine (PAXIL) 40 mg tablet Take 40 mg by mouth once daily. - Multivitamin ORAL Tab Take by mouth. 0 - levothyroxine (SYNTHROID) 75 mcg ORAL Tab Take one(1) tablet daily. 0 - promethazine hcl(PHENERGAN 25 MG TAB) Take one(1) tablet every four(4) to six(6) hours as needed for nausea. (Patient not taking: ) 0 - loratadine (CLARITIN) 10 mg ORAL Tab Take one(1) tablet daily as needed for allergy symptoms. (Patient not taking: ) 0 - atorvastatin (LIPITOR) 20 mg ORAL Tab Take one(1) tablet daily. (Patient not taking: ) 0 - valsartan (DIOVAN) 80 mg ORAL Tab Take one(1) tablet daily. (Patient not taking: ) 0 - eszopiclone (LUNESTA) 2 mg ORAL Tab Take one(1) tablet at bedtime as needed for insomnia. (Patient not taking: No sig reported) 0 No current facility-administered medications for this visit. ALLERGIES No Known Allergies PAST MEDICAL HISTORY Diagnosis Date - Esophageal reflux - Essential hypertension, benign - Other and unspecified hyperlipidemia - Unspecified hypothyroidism PAST SURGICAL HISTORY Procedure Laterality Date - EYE SURGERY HX - LAP CHOLECYSTECT/CHOLANGIOGRAPHY normal IOC - PAST SURGICAL HISTORY OF removal diverticuli esophagus History reviewed. No pertinent family history. Social History Tobacco Use - Smoking status: Never Smoker - Smokeless tobacco: Never Used Substance Use Topics - Alcohol use: No - Drug use: No Objective BP 137/84 Pulse 78 Ht 5' 1" (1.55m) Wt 95 lb (43.1kg) BMI 17.96 kg/(m2). General: Alert and oriented x 3. Geriatric female In no acute distress. Examination of the right upper extremity: Skin intact, good capillary refill and radial pulse. No signs of infection, edema or swelling. Sensation appears intact. moderate tenderness over the proximal humerus Limited active forward elevation and abduction less than 45 degrees. Decreased strength versus resisted internal and external rotation. Examination of the left upper extremity: Skin intact, good capillary refill and radial pulse. No signs of infection, edema or swelling. Sensation is intact. No significant tenderness over the AC joint, lateral acromion, and biceps. Good active forward elevation and abduction past 140 degrees. Good strength versus resisted internal and external rotation. No signs of instability. negative José's and impingement signs. Diagnostic Studies: Xray images and report were personally reviewed today. XR SHOULDER [id number] AP/TRUE AP RT Result Date: 02/03/2021 FINDINGS:Three part fracture of the surgical neck and greater tubercle right humerus is observed with mild angulation. There is marked demineralization of the skeleton. The acromioclavicular joint is normal. The included thoracic structures are normal. IMPRESSION: Three-part impacted and mildly angulated fracture of the surgical neck and greater tubercle right humerus. XR HUMERUS 1V RT Result Date: 02/03/2021 FINDINGS: Impacted acute fracture of the surgical neck right humerus observed. There is mild angulation (more content not included)...[facility]06-11-2021 NoteHNO ID: [id number] Author: Renetta Cunningham APRN.ASSOCIATE PROPERTY MANAGER Service: ? Author Type: Nurse Practitioner Type: Progress Notes Filed: 02/03/2021 3:38 PM Note Text: February 03, 2021 Subjective Chief Complaint: Arm Pain (right humerus pain after a fall 2 weeks ago when her shoe got caught and she fell forward ont her right arm.) HPI: Zenobia Soriano is a 80 year old female who presents today for right upper arm/shoulder pain that she sustained from a fall 2 weeks ago. Patient arrives with daughter. Daughter states patient caught her shoe and fell forward onto vinyl kacie and injured her right arm/shoulder. Denies hitting her head or any loss of consciousness. Daughter did have to assist patient in getting up after fall. Patient has bruising, pain, and decreased range of motion to right arm since injury. Right hand dominant. Has been taking her prescribed Tylenol Arthertis as well as over the counter Ibuprofen. Daughter states it seems to "take the edge off". Patient states she has constant pain in right shoulder and upper arm. Denies any numbness or tingling. Arrives with arm sling. Reports she cannot raise her arm up because of right shoulder pain. PAST MEDICAL HISTORY Diagnosis Date - Esophageal reflux - Essential hypertension, benign - Other and unspecified hyperlipidemia - Unspecified hypothyroidism PAST SURGICAL HISTORY Procedure Laterality Date - EYE SURGERY HX - LAP CHOLECYSTECT/CHOLANGIOGRAPHY normal IOC - PAST SURGICAL HISTORY OF removal diverticuli esophagus No family history on file. Social History Tobacco Use - Smoking status: Never Smoker - Smokeless tobacco: Never Used Substance Use Topics - Alcohol use: No - Drug use: No ALLERGIES No Known Allergies There is no immunization history on file for this patient. Current Medications: DIAZEPAM ORAL diazepam Oral omeprazole (PRILOSEC) 20 mg capsule Take 20 mg by mouth once daily. magnesium oxide (MAG-OX) 400 mg (241.3 mg magnesium) tablet Take 1 tablet by mouth once daily. potassium chloride ER (K-DUR, KLOR-CON) 20 mEq tablet Take 40 mEq by mouth twice daily. PARoxetine (PAXIL) 40 mg tablet Take 40 mg by mouth once daily. promethazine hcl(PHENERGAN 25 MG TAB) Take one(1) tablet every four(4) to six(6) hours as needed for nausea. Multivitamin ORAL Tab Take one(1) tablet daily. levothyroxine (SYNTHROID) 75 mcg ORAL Tab Take one(1) tablet daily. hydrocodone bit/acetaminophen(VICODIN 5 MG-500 MG TAB) Take 1-2 tablet's) every six(6) hours as needed for pain. loratadine (CLARITIN) 10 mg ORAL Tab Take one(1) tablet daily as needed for allergy symptoms. atorvastatin (LIPITOR) 20 mg ORAL Tab Take one(1) tablet daily. valsartan (DIOVAN) 80 mg ORAL Tab Take one(1) tablet daily. eszopiclone (LUNESTA) 2 mg ORAL Tab Take one(1) tablet at bedtime as needed for insomnia. Review of Systems Constitutional: Negative for chills, fever and malaise/fatigue. Respiratory: Negative for shortness of breath. Cardiovascular: Negative for chest pain. Musculoskeletal: Positive for falls and joint pain (right shoulder, elbow). Skin: Bruising right arm Neurological: Negative for dizziness, tingling, sensory change, speech change, loss of consciousness and headaches. Objective BP 154/94 Pulse 67 Temp 98.4 Resp 16 Wt 95 lb (43.1kg) SpO2 97% Physical Exam Vitals reviewed. Constitutional: General: She is not in acute distress. Appearance: Normal appearance. She is not ill-appearing, toxic-appearing or diaphoretic. HENT: Head: Normocephalic and atraumatic. Cardiovascular: Pulses: Radial pulses are 2+ on the right side. Musculoskeletal: Right shoulder: Tenderness present. No swelling, deformity, laceration or crepitus. Decreased range of motion. Normal pulse. Right upper arm: Tenderness present. No swelling, deformity or lacerations. Right elbow: Swelling (trace) present. No deformity or lacerations. Decreased range of motion. Tenderness present. Right forearm: No swelling, edema or deformity. Right wrist: No swelling, tenderness or snuff box tenderness. Normal range of motion. Skin: General: Skin is warm and dry. Capillary Refill: Capillary refill takes less than 2 seconds. Findings: Ecchymosis and signs of injury present. Neurological: Mental Status: She is alert and oriented to person, place, and time. Sensory: Sensation is intact. Psychiatric: Mood and Affect: Mood normal. Behavior: Behavior normal. Thought Content: Thought content normal. Judgment: Judgment normal. Called [facility]. [employer] Up Operator stated she discussed patient with EDMUND Alfredo. [employer] Gr[employer] Set Up Operator stated that Juni did review X-ray and recommended sling and for patient to follow up with [facility] on Saturday. Informed patient and daughter. Daughter states patient has been on Tramadol in the past and tolerated it well. Oarrs completed- no abused noted ASSESSMENT/PLAN: 1. Pain in right uppe (more content not included)...[facility] Evaluation note* Diagnosis Onset Date Resolution Status COVID-19 acute Hypoxia acute Transaminitis acute [facility] Work Phone: Evaluation note* Diagnosis Onset Date Resolution Status Hypoxia resolved Closed fracture of left proximal humerus acute [facility] Work Phone: Reason for referral (narrative)No reason for referral information [facility] Work Phone: Summary Purpose Family History No Family History Records Found Relationship Condition Age at Onset Recorded Date/T arya Unknown Family History?- Unknown August 3:54pm Family History?- Unknown April 262017 10:15am Relationship Condition Age at Onset Recorded Date/T arya Unknown Family History?- Unknown August 2:54pm Family History?- Unknown April 262017 9:15am Relationship Condition Age at Onset Recorded Date/T arya Not Specified Malignant neoplasm of colon Unknown Malignant neoplasm of ovary Unknown Advance Directives No Advanced Directives Records Found Advance Directive Response Recorded Date/ Time Name of Medical Power of Steam And Power Superintendent DTR April 10, 2023 5:20pm Advance Directives Yes April 10:15am Living Will Yes April 10 5:20pm Power of Steam And Power Superintendent Yes April 10 023 5:20pm Advance Directive Response Recorded Date/ Time Name of Medical Power of Steam And Power Superintendent DTR April 10, 2023 4:20pm Name of Medical Power of Steam And Power Superintendent . July 04, 2023 2:35pm Advance Directives Yes April 9:15am Living Will Yes July 04 2:35pm Power of Steam And Power Superintendent Yes July 04, 2023 2:35pm Advance Directive Response Recorded Date/ Time Advance Directives Yes April 10:15am Chief Complaint and Reason for Visit Chief Complaint COVID 19 DIARRHEA, COVID POS, HYPOTENSION COVID 19 COVID 19 Reason for Visit COVID-19 Hypoxia Transaminitis Chief Complaint COVID 19 DIARRHEA, COVID POS, HYPOTENSION COVID 19 COVID 19 left shoulder RM 1 UPPER EXTREM Reason for Visit Hypoxia Closed fracture of left proximal humerus Chief Complaint Admit Date 12MO MED F/U April 02, 2025 1:1 6pm Reason for Visit Admit Date Constipation April 02, 2025 1:1 6pm Mixed incontinence April 02, 2025 1:1 6pm Nocturnal enuresis April 02, 2025 1:1 6pm Overactive bladder April 02, 2025 1:1 6pm Additional Source Comments INFORMATION SOURCE (unrecogn ized section and content) DATE CREATED AUTHOR 02/04/2021 [facility] DATE CREATED AUTHOR AUTHOR'S ORGANIZ ATION 10/02/2021 [facility] DATE CREATED AUTHOR AUTHOR'S ORGANIZ ATION 10/24/2023 [facility] ([place] DATE CREATED AUTHOR AUTHOR'S ORGANIZ ATION 04/04/2025 [facility] Care Teams (unrecognized sec tion and content) Team Status: Active Member Role Status Dates Dr. Anton Blanchard MD Family Provider Active Dr. Anton Blanchard MD Primary Care Provider Active Team Status: Active Member Role Status Dates Dr. Anton Blanchard MD Primary Care Provider Active Dr. Ian Payne DO Emergency Provider Active Dr. Remy Shell DO Attending Provider Active Team Status: Active Member Role Status Dates Dr. Anton Blancahrd MD Primary Care Provider Active Dr. Ian Payne DO Emergency Provider Active Dr. Remy Shell DO Admit Provider, Other Provider A ctive Dr. Saji Ruiz MD Attending Provider, Other Provi deandra Active Dr. Bandar Stephens MD Other Provider Active Team Status: Inactive Member Role Status Dates Dr. Anton Blanchard MD Primary Care Provider Active Dr. Irwin Maria MD Attending Provider, Referring Pr ovider Active Team Status: Inactive Member Role Status Dates Dr. Anton Blanchard MD Primary Care Provider Active Dr. Ian Payne DO Emergency Provider Active Dr. Remy Shell DO Admit Provider, Other Provider A ctive Dr. Saji Ruiz MD Attending Provider Active Dr. Bandar Stephens MD Other Provider Active Team Status: Inactive Member Role Status Dates Dr. Anton Blanchard MD Primary Care Provider, Referring Provider Active Brian Zazueta MD Attending Provider Active Team Status: Inactive Member Role Status Dates Dr. Anton Blanchard MD Primary Care Provider Active Dr. Nestor Alvarez MD Attending Provider Active Team Status: Inactive Member Role Status Dates Dr. Anton Blanchard MD Primary Care Provider Active Dr. Sheldon Phillips MD Emergency Provider Active Team Status: Active Member Role/Relationship Status Dates Dr. Anton Blanchard MD Family Provider Active Team Status: Inactive Member Role/Relationship Status Dates Dr. Evelyn Shabazz MD Attending Provider Active Start: February 23, 2025 Team Status: Inactive Member Role/Relationship Status Dates Dr. Evelyn Shabazz MD Attending Provider Active Start: April 02, 2025 End: April 02, 2025 Goals (unrecognized section and content) Goals may be documented in a n alternate section FOR RECORDS PERTAINING TO PATIENTS WHO ARE OR HAVE BEEN ENROLLED IN A CHEMICAL DEPENDENCY/SUBSTANCEABUSE PROGRAM, SOME INFORMATION MAY BE OMITTED. This clinical summary was aggregated from multiple sources. Caution should be exercised in using it in the provision of clinical care. This summary normalizes information from multiple sources, and as a consequence, information in this document may materially change the coding, format and clinical context of patient data. In addition, data may be omitted in some cases. CLINICAL DECISIONS SHOULD BE BASED ON THE PRIMARY CLINICAL RECORDS. [employer] provides no warranty or guarantee of the accuracy or completeness of information in this document.
[2025-07-25 14:15] LABS: Prothrombin Time (Protime)PT. 13.7 SECONDS (11.7-14.9)
[2025-07-25 14:33] LABS: Anion Gap 11 (5-15); BUN 19 mg/dL (4-19); BUN/Creat Ratio 24.5 RATIO (10-20); Calcium,Total 9.6 mg/dL (7.6-11.0); Carbon Dioxide 25.2 mmol/L (21.0-32.0); Chloride 106 mmol/L (98-108); Estimated Creatinine Clearance 38.27 ml/min (50-250); Glucose 90 mg/dL (70-99); Potassium 4.4 mmol/L (3.3-5.1)
[2025-07-25 15:01] VITALS: BP 187/98; PULSE 64; RESP 18; O2SAT 98
[2025-07-25 15:27] LABS: Mucous, Urine 0 SEEN /hpf (<or=2+)
[2025-07-25 15:35] LABS: Color, Urine Straw (Yellow); Glucose, Dipstick Normal (Normal); Ketone-Dipstick Negative (Negative); Leukocyte Esterase-Dipstick Negative /ul (Negative); Nitrite-Dipstick Positive (Negative); Occult Blood-Urine 50 /ul (Negative); Protein-Dipstick 15 mg/dl (Negative); Specific Gravity, Urine 1.015 (1.002-1.030); Urine Bilirubin Dipstick Negative (Negative)
[2025-07-25 15:39] LABS: Red Blood Cells-Urine 0-5 SEEN /hpf (0-5); Squamous Epithelial Cells - UA 0-5 SEEN /hpf (5-10)
[2025-07-25 17:00] VITALS: BP 190/91; PULSE 74; RESP 18; O2SAT 93
--- NOTE | 2025-07-25 17:27 | ED.RN ---
meal tray ordered for patient.
[2025-07-25 19:14] VITALS: BP 175/92; PULSE 79; RESP 20; TEMP 36.7; O2SAT 97
== END 2025-07-25 19:21 | disposition home or self-care (01) ==
PROVIDERS: Emergency Provider Emergency Medicine; Visit Provider Emergency Medicine
DX: S70.01XA Contusion of right hip, initial encounter (principal); J43.9 Emphysema, unspecified; D64.9 Anemia, unspecified; F17.210 Nicotine dependence, cigarettes, uncomplicated; N39.0 Urinary tract infection, site not specified; Z86.16 Personal history of COVID-19; W19.XXXA Unspecified fall, initial encounter
CPT/HCPCS: 72170; 73552; 80048; 81001; 85025; 85610; 87077; 87086; 87088; 87186; 96374; 99285; A4216